=== PATIENT | male | born 1950 | race African-American/Black ===

== ENCOUNTER 2024-08-19 06:57 | Day surgery (SDC) | payer MEDICARE, MEDICAID, SELFPAY ==
[2024-08-19] VITALS (9 sets, daily range): BP systolic 113–131; BP diastolic 72–81; PULSE 73–92; RESP 13–20; TEMP 36.4–36.8; O2SAT 93–100; BMI 31.4
--- NOTE | 2024-08-19 07:00 | EKG_ITS ---
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
[2024-08-19 07:30] LABS: Basophils % (Auto) 1 % (0-2.5); Eosinophils # (Auto) 0.2 Thou/mm3 (0.0-0.5); Eosinophils % (Auto) 3 % (0-10); Hematocrit 34.2 % (41.0-53.0); Hemoglobin 11.8 g/dL (13.5-16.0); Immature Granulocytes % (Auto) 1 % (0-0); Immature Granulocytes Auto 0.09 Thou/mm3 (0.00-0.00); Lymphocytes # (Auto) 1.5 Thou/mm3 (1.0-4.8); Lymphocytes % (Auto) 22 % (10-50); Mean Corpuscular HGB Conc 34.5 g/dl (31.0-37.0); Mean Corpuscular Hemoglobin 30.7 pg (25.0-35.0); Mean Corpuscular Volume 89 fL (80-100); Monocytes # (Auto) 0.9 Thou/mm3 (0.0-0.8); Monocytes % (Auto) 13 % (0-12); Neutrophils # (Auto) 4.1 Thou/mm3 (1.8-7.7); Neutrophils % (Auto) 61 % (37-80); Nucleated Red Blood Cell % 0 /100 WBC (0); Platelet Count 277 Thou/mm3 (140-440); RDW Standard Deviation 43.8 fL (35.1-43.9); Red Blood Count 3.84 Miln/mm3 (4.50-5.90); White Blood Count 6.8 Thou/mm3 (3.8-10.6)
[2024-08-19 07:46] LABS: Anion Gap 7 (7-16); BUN/Creatinine Ratio 10 Ratio (12-20); Blood Urea Nitrogen 9 mg/dL (9-23); Calcium 9.8 mg/dL (8.3-10.6); Carbon Dioxide 26.8 mMol/L (20.0-31.0); Chloride 102 mMol/L (98-107); Creatinine (Component) 0.9 mg/dL (0.6-1.3); Glucose 100 mg/dL (74-106); Osmolality,Calculated 270 (275-295); Potassium 3.8 mMol/L (3.4-5.1); Sodium 136 mMol/L (136-145); eGFR > 60 See Note
[2024-08-19 07:49] LABS: Partial Thromboplastin Time 27.2 Seconds (22.0-36.0); Prothrombin Time 10.5 Seconds (9.0-12.2)
[2024-08-19] MEDS: LORazepam 2 MG/ML VIAL 1 MG IVP (10:32)
--- NOTE | 2024-08-19 12:27 | XR_ITS ---
Examination: AP chest single view Technique one AP upright portable chest single view Exam date and time: August 19, 2024 1300 hours INDICATIONS: Postop pacemaker insertion today. FINDINGS: Ventricular cardiac lead satisfactory position Mild enlargement cardiac contour with vascular congestion Edema and/or pneumonia in the left lung No pneumothorax IMPRESSION: Cardiac lead satisfactory position
--- NOTE | 2024-08-19 12:47 | PC.NURSE ---
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
--- NOTE | 2024-08-19 13:01 | PC.NURSE ---
1300 chest xray completed
[2024-08-19] MEDS: VANCOMYCIN/NS 500 MG IVPB 100 ML 100 MG IV (13:07)
--- NOTE | 2024-08-19 13:14 | PC.NURSE ---
1315 patient awake, alert, breathing unlabored, vancomycin ABX running, post op chest xray shows no pneumothorax, leads in satisfactory position, report given to Last DE LA CRUZ
--- NOTE | 2024-08-19 15:53 | PD.SUROPNT ---
Procedure Description 1. Successful implantation of single-chamber ICD or implantable cardiac defibrillator 2. Conscious sedation for 45 min MEDICAL TRANSPORT SPECIALIST:? Felipe Garcia MD HISTORY AND INDICATIONS:? 72-year-old male with a past medical history of developmental A-fib, mitral regurgitation, and severe systolic CHF with an EF of 30 to 35% mute as well as deaf but able to perform few ADLs including taking care of himself, IADL dependent, diabetes mellitus, hyperlipidemia, OCD, bipolar disorder is brought in for elective cardiac catheterization. Patient had a history of severe systolic congestive heart failure with an EF of 30 to 35%. Patient was treated with goal-directed medical therapy for at least 9 months but there was no improvement in the ejection fraction. Lexiscan stress test was performed which showed decreased uptake in the inferior and inferoseptal segments with stress suggesting possible ischemia. The cardiac catheterization showed normal coronaries and the patient has nonischemic cardiomyopathy with severely low ejection fraction with an EF of 30 to 35%, NYHA class II and did not improve with magna goal-directed medical therapy for almost 9 months to 1 year. Patient qualified for an ICD placement to prevent sudden cardiac with a class I indication as noted above. Patient legal guardian conservator was explained the risk benefits and alternatives of performing a cardiac attrition including the risks of bleeding, pneumothorax, pericardial effusion, infection, vascular injury, along with heart attack was provided the consent for the procedure. H&P updated and consent was signed prior to the procedure Cardiology was consulted as initial EKG showed complete heart block with a supraventricular escape rhythm of 29 bpm. Patient converted to NSR with treatment of hyperkalemia and later reverted into high degree 2:1 block and intermittent complete heart block. Given patient history of TAVR with intermittent heart block, a permanent pacemaker is indciated. DESCRIPTION OF PROCEDURE:? The patient was brought to cardiac catheterization laboratory where she was given total of 2 mg Versed and 100 mcg of fentanyl for sedation.? Left subclavian venogram performed and micropuncture was used to cannulate the left subclavian vein.? Two guidewires were introduced.? A linear incision was made with blunt dissection, a pocket was created.? Two sheaths were introduced 6-Tajik into the subclavian vein.? Atrial and ventricular leads advanced into the right atrial appendage and right ventricular apex respectively.? Active fixation leads screw-in technique was used to secure the leads and thresholds were excellent.? After obtaining satisfactory threshold, both leads were anchored to the pectoral fascia, 2-0 silk suture.? Subsequently,dual-chamber pacemaker generator, A---- pacemaker attached to the leads, placed in the pocket, secured to the fascia with 2-0 silk suture.? Subsequently, subcutaneous tissue was closed using 2-0 chromic continuous suture.? Skin was closed using linda.? The patient was given 1 gram of Ancef preprocedure.? The patient tolerated the operation well with no complications.? Details of device as follows:? [employer] device model -[employer] in [place] VR CAD [id number] Q with a serial number of [id number] [employer] ventricular lead -Durata [id number] 58 cm ventricular ICD lead with a serial number of [id number] ICD lead sensitivity for pacemaker as well as defib was set at 0.5 mV Device mode was VVI at a base rate of 60 bpm and a max rate of 110 bpm. VT zone was set per the biphasic shocks Detection criteria were set for VT at 188 7 bpm therapy of ATP x 3 followed by therapy with total of 4 shocks 36 J 40 J and 40 J x 2.. VF zone was set at 214 bpm with ATP x 1 with a total of 6 shocks with 36 J for the first shock, 40 J for the second as well as the next 4 shocks. The thresholds are as follows:? Ventricular capturing threshold 0.5 mVolts @ 0.4 ms,? Sensing 3.4 millivolts.? Lead impedance 540 ohms.? The patient is programmed VVI mode, baseline rate of 60 bpm, maximum track rate 130 beats bpm, Paced and Sensed AV delay of 225 ms. SUMMARY:? Successful implantation of single-chamber ICD or implantable cardiac defibrillator Surgeon Felipe Garcia MD Surgical Staff Operation Date: 08/19/24 11:00 <No data on this case meets the specified criteria>
== END 2024-08-19 14:30 | disposition home or self-care (01) ==
PROVIDERS: Referring Provider Internal Medicine Cardiovascular Disease; Visit Provider Internal Medicine Cardiovascular Disease
PROC: 0JH608Z Insertion of Defibrillator Generator into Chest Subcutaneous Tissue and Fascia, Open Approach (ICD-10-PCS; CPT 33249; principal; 2024-08-19 11:00)
DX: I44.2 Atrioventricular block, complete (principal); I48.91 Unspecified atrial fibrillation; E11.9 Type 2 diabetes mellitus without complications; E78.5 Hyperlipidemia, unspecified; E87.5 Hyperkalemia; F31.9 Bipolar disorder, unspecified; F42.9 Obsessive-compulsive disorder, unspecified; I42.8 Other cardiomyopathies; I50.22 Chronic systolic (congestive) heart failure; Z95.2 Presence of prosthetic heart valve
CPT/HCPCS: 33249; 36415; 80048; 85025; 85610; 85730; 93005; 99152; 99153; A4565; A4649; C1882; C1894; C1895; J0171; J0461; J0690; J1643; J2060; J2250; J2310; J2371; J3010; J3370; J3490; J1644

== ENCOUNTER 2025-03-02 11:19 | Inpatient (IN) | payer MEDICARE, MEDICAID, SELFPAY ==
[2025-03-02] VITALS (10 sets, daily range): BP systolic 106–135; BP diastolic 65–75; PULSE 78–96; RESP 16–30; TEMP 36.6–36.9; O2SAT 86–95; BMI 28.3
--- NOTE | 2025-03-02 12:38 | PD.EDSOB ---
ED SOB =RME/HPI General Chief Complaint: Shortness of Breath/Dyspnea Stated Complaint: LOW O2, DIFFICULTY BREATHING Time Seen by Provider: 03/02/25 12:05 Arrival date/time: 03/02/25 11:19 RME / HPI RME / HPI Narrative: 74 year old male who is deaf with history of epilepsy, intellectual disability, pulmonary fibrosis, COPD, diabetes, hyperlipidemia, bipolar disorder, prostate CA, BPH presents to the ED brought in by caregiver for evaluation of hypoxia today. Caregiver reports at baseline, patient's SPO2 ranges 88%-91% on 3L nasal cannula. However noted oxygen levels were lower than normal 2 days ago (84-86%) and followed up with store standards associate Dr. Brito. States oxygen was increased to continuos 4L and SPO2 was 92-93%. This morning noticed patient was again saturating 84-86% that did not improve after 1 hour, prompting ED visit. Caregiver reports patient does have a cough although not any worse than his normal. Also reports patient is able to get up and walk around with portable oxygen tank. Denies fevers, chills, appearance of chest pain, abdominal pain, n/v/d, or urinary symptoms. Related Data Home Medications ?Medication ?Instructions ?Recorded ?Confirmed cholecalciferol (vitamin D3) 50 2,000 unit PO BID 08/20/18 08/19/24 mcg (2,000 unit) capsule (Vitamin D3) divalproex 500 mg tablet,extended 2 tab PO HS 08/20/18 08/19/24 release 24 hr dutasteride 0.5 mg capsule 0.5 mg PO QDAY 08/20/18 08/19/24 (Avodart) ferrous sulfate 325 mg (65 mg 325 mg PO BID 08/20/18 08/19/24 iron) tablet fluvoxamine 100 mg tablet 150 mg PO HS 08/20/18 08/19/24 loratadine 10 mg tablet 10 mg PO PRN PRN Congestion 08/20/18 08/19/24 risperidone 2 mg tablet 2 mg PO HS 08/20/18 08/19/24 simvastatin 40 mg tablet 40 mg PO HS 08/20/18 08/19/24 albuterol sulfate 90 mcg/actuation 1 puff inhalation Q4HR PRN sob 07/22/24 08/19/24 aerosol inhaler (Ventolin HFA) metoprolol succinate 25 mg 12.5 mg PO QDAY 07/22/24 08/19/24 tablet,extended release 24 hr sacubitril 24 mg-valsartan 26 mg 1 tab PO BID 07/22/24 08/19/24 tablet (Entresto) omeprazole 40 mg capsule,delayed 40 mg PO QDAY 08/09/24 08/19/24 release Previous Rx's ?Medication ?Instructions ?Recorded apixaban 5 mg tablet 5 mg PO BID #60 tabs 06/07/23 Held on 08/19/24. Instructions: Resume on 08/21/24. may resume on Thursday08/21/2024 cephalexin 500 mg tablet 500 mg PO BID #14 tabs 08/19/24 Allergies Allergy/AdvReac Type Severity Reaction Status Date / Time No Known Allergies Allergy Verified 08/09/24 14:52 Review of Systems Review of Systems ROS Unobtainable: unobtainable due to medical condition Past Medical History Past Medical History NEUROLOGIC: Positive Neurological Disorders and Seizures CARDIAC: Positive Cardiac Disorders, Atrial Fibrillation, Hypercholesterolemia, Congestive Heart Failure and Hypertension RESPIRATORY: Positive Asthma and Bronchitis GASTROINTESTINAL: Positive Gastrointestinal Disorders and Gastroesophageal Reflux Disease GENITOURINARY: Positive Genitourinary Disorders, Prostate Cancer and Benign Prostatic Hyperplasia ENT: Positive Cataracts and Deafness ENDOCRINE: Positive Endocrine Disorders and Diabetes Mellitus Type 2 PSYCHO/SOCIAL: Positive Bipolar Disorder OTHER HISTORY: Positive Developmental Delay, Chemotherapy, Cancer and Prostate Cancer Surgical History SURGICAL: Positive Cardiac Catheterization and Angiogram Social History SMOKING STATUS: Never smoker ED Exam Narrative Physical exam: GENERAL APPEARANCE: Awake, smiling, no obvious distress, nontoxic appearing HEENT: NC, AT. MMM. EOMI, clear conjunctiva, oropharynx clear. NECK: Supple without lymphadenopathy. No stiffness or restricted ROM. HEART: Normal rate and regular rhythm, normal S1/S1, no m/r/g LUNGS: coarse rhonchi in all lung fowler, questional wheezing vs rhonchorous wheeze, wet cough noted. No crackles are heard. ABDOMEN: Soft, nontender, nondistended with good bowel sounds heard. BACK: No midline C/T/L spine pain or deformity, No CVAT, no obvious deformity. EXTREMITIES: Without cyanosis, clubbing or edema. MUSCULOSKELETAL: FROM of all major joints, no chest tenderness NEUROLOGICAL: Awake, CN not formally tested but appear grossly intact. Skin: Warm and dry without any rash. Course Quality Measures none Orders Category Date Time Status Bedside COVID-19 Antigen Test NOW Care 03/02/25 14:51 Active Bedside Influenza A&B Antigen Test NOW Care 03/02/25 14:51 Active EKG (ED ONLY) *Do not use* NOW Care 03/02/25 14:51 Completed EKG (ED Only) Stat Exams 03/02/25 14:51 Draft XR chest 1V Stat Exams 03/02/25 14:51 Completed BNP [B-Type Natriuretic Peptide] Stat Lab 03/02/25 15:13 Completed Blood Culture (Lab) Stat Lab 03/02/25 16:47 Ordered CBC Stat Lab 03/02/25 15:13 Completed CMP [Comprehensive Metabolic Panel] Stat Lab 03/02/25 15:13 Completed ALBUTEROL RT 0.5ml [Proventil Rt 0.5ml] Med 03/02/25 12:21 Discontinued 10 mg INH X1 ONE Azithromycin Inj [Zithromax Inj] 500 mg Med 03/02/25 16:47 Active Sodium Chloride 0.9% 250 ml [Ns] 250 ml IV X1 Sodium Chloride Rt Latisha 0.9% [NS Rt Latisha 0.9%] Med 03/02/25 12:21 Active 3 ml INH PRN PRN cefTRIAXone/D5w 1gm IV premix [Rocephin/D5w 1gm IV Med 03/02/25 16:47 Active premix] 1 gm in 50 ml IV X1 predniSONE Med 03/02/25 12:21 Discontinued 60 mg PO X1 ONE Reevaluation(s) Reevaluation #1: RN reports patient failed the road test, will order additional diagnostics. Time: 14:50 Vital Signs Vital signs: Vital Signs Temperature 98.3 F 03/02/25 11:30 Pulse Rate 87 03/02/25 11:30 Respiratory Rate 18 03/02/25 11:30 Blood Pressure 113/75 03/02/25 11:30 Pulse Oximetry (%) 91 L 03/02/25 11:30 Oxygen Delivery Method Nasal Cannula 03/02/25 11:30 Oxygen Flow Rate 6 03/02/25 11:30 Pulse ox is 91% on 6L nasal cannula which is adequate. Shortness of Breath / Dyspnea MDM Narrative MDM Narrative:: Gertrudis Glynn am scribing for and in the presence of Dr. Johnson. Patient data External records reviewed:: [facility] previous records (I reviewed H&P pn 08/19/2024 ) and Other (specify) (I reviewed halfway records ) Clinical information provided by:: post manager Social determinants that could affect healthcare access:: housing (halfway resident ) Patient has the following chronic illnesses:: deaf with history of epilepsy, intellectual disability, pulmonary fibrosis, COPD, diabetes, hyperlipidemia, bipolar disorder, prostate CA, BPH How is presenting disease/condition affected by chronic disease/condition?: exacerbated by Evaluation data The following diagnostics were reviewed and interpreted by me:: lab results, radiology exam(s) and EKG tracing(s) (EKG @ 1457 shows sinus rhythm, rate 98, widened QRS, right bundle branch block, no STEMI ) Lab and/or radiology exams considered but not ordered:: None Interpretation Summary: Ordering Physician: Tito Johnson MD Date of Service: 03/02/25 Procedure(s): XR chest 1V Accession Number(s): [id number] cc: Tito Johnson MD; Zacarias Roldan MD; Usama Mosqueda MD~ Examination: AP chest single view Technique one AP portable upright chest single view Exam date and time: March 02, 2025 at 1522 hours INDICATIONS: Shortness of breath chest pain beginning 2 days ago FINDINGS: Significant bilateral pneumonia Mild prominence left ventricle Unipolar ventricular cardiac lead satisfactory position Moderate vascular congestion IMPRESSION: Prominent bilateral pneumonia Dictated By: Zacarias Roldan MD Signed By: <Electronically signed by Zacarias Roldan MD in OV> 03/02/25 1537 Medications / Prescriptions Medications or Prescriptions considered but not ordered:: None Medication administrations:: Medication Administration History Azithromycin 500 mg/ Sodium (Chloride) 250 mls @ 250 mls/hr IV X1 ONE Stop: 03/02/25 17:46 Ceftriaxone Sodium/Dextrose (Rocephin/D5w 1gm Iv Premix) 1 gm in 50 mls @ 100 mls/hr IV X1 ONE Stop: 03/02/25 17:16 Sodium Chloride (Sodium Chloride Rt Latisha 0.9% 3 Ml Nebu) 3 ml INH PRN PRN PRN Reason: SOLN Stop: 04/01/25 12:20 Discontinued Medications Albuterol (Albuterol Rt 2.5 Mg/0.5 Ml Nebu) 10 mg INH X1 ONE Stop: 03/02/25 12:22 Last Admin: 03/02/25 12:52 Dose: 10 mg Documented By: DEBRA Comments: Scanner Not Working Prednisone (Prednisone 20 Mg Tablet) 60 mg PO X1 ONE Stop: 03/02/25 12:22 Last Admin: 03/02/25 13:03 Dose: 60 mg Documented By: DO See above Consultations Consultation(s) initiated? (list below): Yes Consultation #1 (Physician, Specialty, Details): I spoke with hospitalist Dr. Peguero regarding admission. Discussed patients PMHx, HPI, ED course, exam findings, labs, and radiology results. The hospitalist agree to accept the patient for admission. Time: 16:50 Diagnosis Shortness of Breath Differential Diagnosis: acute exacerbation of chronic obstructive airways disease, congestive heart failure and community acquired pneumonia Most likely diagnosis given after review of the tests above:: Multilobar pneumonia Hypoxia Respiratory distress Admission Indicated Admission indicated?: indicated Admission Request Was there a request for admission?: Yes Admission Attestation Admission request attestation: Discussed case with [] from Hospitalist service regarding admission. Discussed patients ED course, exam findings, labs, and radiology results. The Hospitalist [agrees,declines] to accept the patient for admission. Disposition Plan Disposition Plan: Admit Critical Care Time Critical Care Time Critical Care Time: Yes Total Critical Care Time (min.): 35 Attestation: The high probability of sudden, clinically significant deterioration in the patient's condition required the highest level of my preparedness to intervene urgently. The services I provided to this patient were to treat and/or prevent clinically significant deterioration. Services included the following: chart data review, reviewing nursing notes and/or old charts, documentation time, program consultant collaboration regarding findings and treatment options, medication orders and management, direct patient care, vital sign assessments and ordering, interpreting and reviewing diagnostic studies and lab tests. Aggregate critical care time includes only time during which I was engaged in work directly related to the patient's care, as described above, whether at bedside or elsewhere in the Emergency Department. It did not include time spent performing other reported procedures or the services of residents, students, nurses or physician assistants. Discharge Plan Plan Patient Disposition: Admit Acute Care w/in Hospital Prescriptions/Referrals Prescriptions/Med Rec: No Action simvastatin 40 mg Tablet 40 mg PO HS risperidone 2 mg Tablet 2 mg PO HS fluvoxamine 100 mg Tablet 150 mg PO HS Rx Instructions: 1 & 1/2 TAB AT HS ferrous sulfate 325 mg (65 mg iron) Tablet 325 mg PO BID divalproex 500 mg Tablet Extended Release 24 Hr 2 tab PO HS loratadine 10 mg Tablet 10 mg PO PRN PRN (Reason: Congestion) dutasteride [Avodart] 0.5 mg Capsule 0.5 mg PO QDAY cholecalciferol (vitamin D3) [Vitamin D3] 2,000 unit Capsule 2,000 unit PO BID apixaban 5 mg tablet 5 mg PO BID Qty: 60 0RF cephalexin 500 mg Tablet 500 mg PO BID Qty: 14 0RF metoprolol succinate 25 mg Tablet Extended Release 24 Hr 12.5 mg PO QDAY albuterol sulfate [Ventolin HFA] 90 mcg/actuation Hfa Aerosol Inhaler 1 puff INHALATION Q4HR PRN (Reason: sob) Entresto 24-26 mg Tablet 1 tab PO BID omeprazole 40 mg Capsule,Delayed Release(Dr/Ec) 40 mg PO QDAY Referrals: Usama Mosqueda MD [Primary Care Provider] - In 1 week Problem List Clinical Impression: Pneumonia, Hypoxia, Respiratory distress Patient/Caregiver Discharge Instructions Print Language: Romanian Stand Alone Forms: Missy Award Info., Patient Portal Info Letter
[2025-03-02] MEDS: ALBUTEROL RT 2.5 MG/0.5 ML NEBU 10 MG INH (12:52)
[2025-03-02] MEDS: predniSONE 20 MG TABLET 60 MG PO (13:03)
--- NOTE | 2025-03-02 14:51 | XR_ITS ---
Examination: AP chest single view Technique one AP portable upright chest single view Exam date and time: March 02, 2025 at 1522 hours INDICATIONS: Shortness of breath chest pain beginning 2 days ago FINDINGS: Significant bilateral pneumonia Mild prominence left ventricle Unipolar ventricular cardiac lead satisfactory position Moderate vascular congestion IMPRESSION: Prominent bilateral pneumonia
--- NOTE | 2025-03-02 14:51 | EKG_ITS ---
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1950 Requested By: Tito Johnson Order Number: [id number] Reading MD: Tito Johnson Measurements Intervals [place] Rate: 98 P: 54 [place]: 136 QRS: -60 QRSD: 153 T: 48 QT: 370 QTc: 473 Interpretive Statements SINUS RHYTHM WITH OCCASIONAL SUPRAVENTRICULAR PREMATURE COMPLEXES RIGHT BUNDLE BRANCH BLOCK [120+ ms QRS DURATION, UPRIGHT V1, 40+ ms S IN I/aVL/V4/V5/V6] LEFT ANTERIOR FASCICULAR BLOCK [QRS AXIS <= -45, QR IN I, RS IN II] POSSIBLE LEFT VENTRICULAR HYPERTROPHY [VOLTAGE CRITERIA PLUS LAE OR QRS WIDENING] POSSIBLE ANTEROSEPTAL MYOCARDIAL INFARCTION , OF INDETERMINATE AGE [30 ms Q WAVE IN V1-V4] Compared to ECG 08/19/2024 07:24:28 No significant changes /store/S0/[id number]
[2025-03-02 15:22] LABS: Basophils # (Auto) 0.1 Thou/mm3 (0.0-0.2); Basophils % (Auto) 1 % (0-2.5); Eosinophils # (Auto) 0.1 Thou/mm3 (0.0-0.5); Eosinophils % (Auto) 2 % (0-10); Hemoglobin 12.4 g/dL (13.5-16.0); Immature Granulocytes % (Auto) 1 % (0-0); Immature Granulocytes Auto 0.09 Thou/mm3 (0.00-0.00); Lymphocytes # (Auto) 1.4 Thou/mm3 (1.0-4.8); Lymphocytes % (Auto) 15 % (10-50); Mean Corpuscular HGB Conc 33.5 g/dl (31.0-37.0); Mean Corpuscular Hemoglobin 29.7 pg (25.0-35.0); Mean Corpuscular Volume 89 fL (80-100); Monocytes # (Auto) 0.5 Thou/mm3 (0.0-0.8); Monocytes % (Auto) 6 % (0-12); Neutrophils # (Auto) 7.1 Thou/mm3 (1.8-7.7); Neutrophils % (Auto) 76 % (37-80); Nucleated Red Blood Cell % 0 /100 WBC (0); Platelet Count 261 Thou/mm3 (140-440); RDW Standard Deviation 44.8 fL (35.1-43.9); Red Blood Count 4.18 Miln/mm3 (4.50-5.90); White Blood Count 9.4 Thou/mm3 (3.8-10.6)
[2025-03-02 15:44] LABS: Alanine Aminotransferase 34 U/L (10-49); Albumin, Serum 4.1 gm/dL (3.4-4.8); Albumin/Globulin Ratio 1.5 (1.2-2.2); Alkaline Phosphatase 71 U/L (46-116); Anion Gap 8 (7-16); Aspartate Amino Transferase 22 U/L (0-34); BUN/Creatinine Ratio 13 Ratio (12-20); Bilirubin,Total 0.2 mg/dL (0.3-1.2); Blood Urea Nitrogen 13 mg/dL (9-23); Calcium 9.9 mg/dL (8.3-10.6); Calcium (Corrected) 9.9 mg/dL (8.5-10.1); Carbon Dioxide 29.5 mMol/L (20.0-31.0); Chloride 102 mMol/L (98-107); Globulin 2.8 gm/dL (2.3-3.5); Glucose 121 mg/dL (74-106); Osmolality,Calculated 278 (275-295); Potassium 4.1 mMol/L (3.4-5.1); Sodium 139 mMol/L (136-145); Total Protein 6.9 gm/dL (5.7-8.2); eGFR > 60 See Note
[2025-03-02 15:45] LABS: B-Type Natriuretic Peptide < 20 pg/mL (0-100)
--- NOTE | 2025-03-02 17:43 | ESHP_ITS ---
<Statement entered by Harvinder Moore MD - 03/03/25 15:32> Senior Resident Attestation: I supervised/discussed management plan with pharmacy intern physician Dr. Melvin, and was involved in the care of this patient. I personally saw and examined the patient and discussed the assessment and plan with the entire medicine team, including my attending. I agree with the assessment and plan as documented. Patient is 74 years old male with past medical history of intellectual disability, OCD, intermittent explosive disorder, diabetes mellitus currently not on any treatment, hyperlipidemia, GERD, heart failure s/p ICD, COPD on 4 L oxygen, prostate carcinoma, seizures [facility] due to worsening oxygen saturation and shortness of breath. He was started on home oxygen approximately 2 years ago after he had pneumonia but never recovered completely and is followed by pill coater. Over the last several weeks his oxygen demand was increasing and today his oxygen saturation was below 90% and he was recommended to come to the emergency room. Vitals at the time of admission are within normal limits except for SpO2 91% with 6 L oxygen. Chest x- ray showed bilateral patchy infiltrates. Patient was admitted due to acute hypoxic respiratory failure for further management. Patient's care was discussed with attending physician, Dr. Peguero. Harvinder Moore MD PGY-2. Documentation for date of: 03/02/25 HPI History of Present Illness Chief complaint: Decreased saturations History of present illness: Patient had intellectual disability, deafness so most of the history is taken from the care provider A 74-year-old male who lives in a [facility]p since 2007 with significant past medical history of intellectual disability, deafness, OCD, intermittent explosive disorder, diabetes mellitus currently not on any treatment, hyperlipidemia, GERD, heart failure s/p ICD, COPD on 2 L oxygen, prostate carcinoma, seizures is brought to the hospital with chief complaints of decreased oxygen saturations noted on pulse oximeter. At baseline, patient is able to do his routine daily activities independently with minimal help and he is on 2 L oxygen since 6 months. Recently patient was seen by Dr. Brito in his office for a routine follow-up visit and recommended to use 3 L of oxygen as he was found to have low saturations and also recommended to go to the ED if his oxygen saturations worsen. On the day of the admission patient had mild difficulty in doing his routine daily activities, appeared fatigued and short of breath with the care provider and on pulse oximeter, patient was found to have saturations around 84 to 86% for which patient was brought to the hospital. Denies fever, cough, pedal edema, sick contacts, abdominal pain, burning micturition, nausea, vomiting. Last visit with the securities trader is in January and during this visit everything is normal per patient ED course: - Vitals at the time of admission are within normal limits except for SpO2 91% with 6 L oxygen - Labs at the time of admission are significant for hemoglobin 12.4, rest of the labs are within normal limits - EKG showed normal sinus rhythm with multiple ectopics - Chest x-ray showed bilateral patchy infiltrates, likely vascular congestion, AICD - Patient is given azithromycin, prednisone, ceftriaxone in the ED - Patient is admitted for acute hypoxic respiratory failure secondary to exacerbation of heart failure Past medical history: Diabetes mellitus, intellectual disability, deafness, OCD, intermittent explosive disorder, hyperlipidemia, GERD, heart failure status post AICD, COPD on 2 L oxygen, prostate cancer, seizures Past surgical history: AICD implant placement Social history: Lives in [facility] since 2007, denies smoking, alcohol, other illicit drug abuse Medication history: Divalproex, dutasteride, Entresto, fluvoxamine, metoprolol, risperidone, simvastatin Review of Systems Review of Systems ROS Unobtainable: unobtainable due to mental status Past Medical History Past Medical History NEUROLOGIC: Positive Neurological Disorders and Seizures CARDIAC: Positive Cardiac Disorders, Atrial Fibrillation, Hypercholesterolemia, Congestive Heart Failure and Hypertension RESPIRATORY: Positive Asthma and Bronchitis GASTROINTESTINAL: Positive Gastrointestinal Disorders and Gastroesophageal Reflux Disease GENITOURINARY: Positive Genitourinary Disorders, Prostate Cancer and Benign Prostatic Hyperplasia ENT: Positive Cataracts and Deafness ENDOCRINE: Positive Endocrine Disorders and Diabetes Mellitus Type 2 PSYCHO/SOCIAL: Positive Bipolar Disorder OTHER HISTORY: Positive Developmental Delay, Chemotherapy, Cancer and Prostate Cancer Surgical History SURGICAL: Positive Cardiac Catheterization and Angiogram Social History SMOKING STATUS: Never smoker Exam Vital Signs Temp Pulse Resp BP Pulse Ox O2 Del Method O2 Flow Rate 97.9 F 93 27 H 106/67 93 L Oxy Mask 10 03/02/25 16:00 03/02/25 16:00 03/02/25 16:00 03/02/25 16:00 03/02/25 16:00 03/02/25 16:03/02/25 16:00 Narrative Exam General: Awake. HEENT: Normocephalic, atraumatic, mucous membranes moist. Heart: Regular rate and rhythm, no murmurs. Noted ICD Lungs: Bilateral coarse crackles are heard. Mainly in the basal areas Abdomen: Soft, nondistended, nontender, positive bowel sounds. ?No guarding or rebound tenderness. Neurologic: no gross neurological deficit, and patient able to move all 4 extremities. Extremities: Mild trace bilateral pedal edema noted Skin: No rash or ecchymoses. Results: Labs 03/03/25 05:10 03/03/25 05:10 Labs: Short CBC 03/02/25 Range/Units 15:13 WBC 9.4 (3.8-10.6) Thou/mm3 Hgb 12.4 L (13.5-16.0) g/dL Hct 37.0 L (41.0-53.0) % Plt Count 261 (140-440) Thou/mm3 BMP 03/02/25 15:13 Sodium 139 Potassium 4.1 Chloride 102 Carbon Dioxide 29.5 BUN 13 Creatinine 1.0 Glucose 121 H Calcium 9.9 Liver Function 03/02/25 Range/Units 15:13 Total Bilirubin 0.2 L (0.3-1.2) mg/dL AST 22 (0-34) U/L ALT 34 (10-49) U/L Alkaline Phosphatase 71 (46-116) U/L Albumin 4.1 (3.4-4.8) gm/dL Quality Measures Quality Measures none Advance care planning discussed with:: legal surragate Medications Home Medications and Allergies Home Medications ?Medication ?Instructions ?Recorded ?Confirmed ?Type cholecalciferol (vitamin D3) 50 2,000 unit PO BID 04/0208/19/24 History mcg (2,000 unit) capsule (Vitamin D3) divalproex 500 mg tablet,extended 2 tab PO HS 08/20/18 03/02/25 History release 24 hr dutasteride 0.5 mg capsule 0.5 mg PO QDAY 08/20/18 History (Avodart) ferrous sulfate 325 mg (65 mg 325 mg PO BID 08/20/18 1 History iron) tablet fluvoxamine 100 mg tablet 150 mg PO HS 08/20/18 History loratadine 10 mg tablet 10 mg PO PRN PRN Congestion 08/20/18 03/02/25 History risperidone 2 mg tablet 2 mg PO HS 08/20/18 03/02/25 History simvastatin 40 mg tablet 40 mg PO HS 08/20/18 5 History albuterol sulfate 90 mcg/actuation 1 puff inhalation Q 4HR PRN sob 07/22/24 08/19/24 History aerosol inhaler (Ventolin HFA) metoprolol succinate 25 mg 12.5 mg PO QDAY 07/22/24 History tablet,extended release 24 hr sacubitril 24 mg-valsartan 26 mg 1 tab PO BID 07/22/24 03/02/25 History tablet (Entresto) omeprazole 40 mg capsule,delayed 40 mg PO QDAY 4 03/02/25 History release fluticasone propionate 50 1 spray intranasal BID aller gies 03/02/25 03/02/25 History mcg/actuation nasal spray,suspension (Allergy Relief (fluticasone)) furosemide 40 mg tablet 40 mg PO QDAY 03/02/2503/02 History Allergies Allergy/AdvReac Type Severity Reaction Status Date / Time No Known Allergies Allergy Verified 08/09/24 14:52 Visit Medications Acetaminophen (Acetaminophen 325 Mg Tablet) 650 mg PO Q6H PRN PRN Reason: Fever >101.5 Stop: 04/01/25 17:22 Atorvastatin Calcium (Atorvastatin Calcium 20 Mg Tablet) 40 mg PO HS CHRISTIANO Stop: 04/01/25 20:59 Azithromycin (Azithromycin 250 Mg Tablet) 500 mg PO QDAY CHRISTIANO Stop: 03/09/25 17:44 Divalproex Sodium (Divalproex Sod Dr 500 Mg Tablet.Dr) 1,000 mg PO HS CHRISTIANO Stop: 04/01/25 20:59 Enoxaparin Sodium (Enoxaparin Sod Inj 40 Mg/0.4 Ml Syringe) 40 mg SC QDAY CHRISTIANO Stop: 03/17/25 08:59 Furosemide (Furosemide Inj 10 Mg/Ml 4ml Vial) 40 mg IVP BIDD CHRISTIANO Stop: 04/01/25 17:59 Azithromycin 500 mg/ Sodium (Chloride) 250 mls @ 250 mls/hr IV X1 ONE Stop: 03/02/25 17:46 Magnesium Hydroxide (Milk Of Magnesia Susp 30 Ml Udc) 30 ml PO QDAY PRN; Protocol PRN Reason: CONSTIPATION Stop: 04/01/25 17:22 Metoprolol Succinate (Metoprolol Succinate Xl 25 Mg Tabcr) 12.5 mg PO QDAY CHRISTIANO Stop: 04/02/25 08:59 Ondansetron HCl (Ondansetron Inj 2 Mg/Ml Inj 2 Ml) 4 mg IV Q6H PRN; Protocol PRN Reason: NAUSEA OR VOMITING Stop: 04/01/25 17:22 Risperidone (Risperidone 1 Mg Tablet) 2 mg PO HS CHRISTIANO Stop: 04/01/25 20:59 Sodium Chloride (Sodium Chloride Rt Latisha 0.9% 3 Ml Nebu) 3 ml INH PRN PRN PRN Reason: SOLN Stop: 04/01/25 12:20 Discontinued Medications Albuterol (Albuterol Rt 2.5 Mg/0.5 Ml Nebu) 10 mg INH X1 ONE Stop: 03/02/25 12:22 Last Admin: 03/02/25 12:52 Dose: 10 mg Ceftriaxone Sodium/Dextrose (Rocephin/D5w 1gm Iv Premix) 1 gm in 50 mls @ 100 mls/hr IV X1 ONE Stop: 03/02/25 17:16 Prednisone (Prednisone 20 Mg Tablet) 60 mg PO X1 ONE Stop: 03/02/25 12:22 Last Admin: 03/02/25 13:03 Dose: 60 mg Assessment & Plan Plan A 74-year-old male who lives in a [facility] since 2007 with significant past medical history of intellectual disability, deafness, OCD, intermittent explosive disorder, diabetes mellitus currently not on any treatment, hyperlipidemia, GERD, heart failure s/p ICD, COPD on 2 L oxygen, prostate carcinoma, seizures is brought to the hospital with chief complaints of decreased oxygen saturations noted on pulse oximeter and admitted in the hospital for acute on chronic hypoxic respiratory failure secondary to heart failure exacerbation # Acute on chronic hypoxic respiratory failure # Secondary to heart failure exacerbation, HFrEF, EF 30 to 35% in 2022, s/p AICD # Nonischemic cardiomyopathy # Underlying COPD on 2 L oxygen - Brought to the hospital by care provider in view of low oxygen saturations noted on pulse oximeter - Patient noted to have fatigue and difficulty in doing his routine daily activities on the day of admission - At baseline, patient is using 2 L oxygen - At the time of admission noted to have 91% saturation with 6 L oxygen through nasal cannula - On physical examination, noted to have bilateral inspiratory crackles more in the basilar areas - EKG showed sinus rhythm with multiple ectopics - Chest x-ray showed bilateral moderate to severe vascular congestion - Tested negative for COVID, influenza - Echo in 2022 showed LV is normal in size with severe systolic dysfunction. Estimated EF is 30-35%. Plan - Echo ordered, patient is following with Dr. Garcia for heart failure - Oxygen titration as needed - Started on Lasix 40 Mg IV twice daily - Will continue metoprolol 12.5 Mg p.o. daily which is his home dose - Will restart Entresto tomorrow, based on his blood pressures - Started on cardiac diet and fluid restriction to 1500 mL - Strict input and output - Consulted Dr. Garcia, will follow his recommendations - Azithromycin 500 Mg p.o. daily and suspicion of possible underlying pneumonia which can be causing exacerbation of heart failure # History of diabetes mellitus - Per patient's care provider, patient had history of diabetes mellitus on treatment but later as his sugars are well-controlled, stopped treatment by his primary care provider - HbA1c is ordered # Hyperlipidemia -Patient is using simvastatin 40 Mg p.o. at bedtime - Started on atorvastatin 40 Mg at bedtime, will resume simvastatin after his medication and constipation # Normocytic normochromic anemia - Patient is using iron supplements at home - Will resume it on outpatient basis # History of seizures - Patient is using divalproex at home - Reported that patient did not have seizures in past couple of years - Restarted on divalproex # History of prostate cancer - Per patient's care provider patient had history of prostate cancer in 2014 underwent radiation therapy for 4 weeks - Following up with PCP and on dutasteride - Will resume dutasteride tomorrow after med rec is done Hospital Maintenance: Dispo: Tele DVT ppx: Lovenox GI ppx: not needed Diet: Cardiac IV lines: Peripheral Code status: FULL Patient plan of care was discussed with the attending physician, Dr. Peguero and senior resident Dr. Oscar Melvin, PGY1 Attending Provider Attestation/Addendum Gretta, Daria Peguero, DO, attest that I was physically present for the min portions of the service and evaluated the patient with the resident and I reviewed and discussed the case with the resident and agree with the resident's findings and plans of care as documented above Patient is a 74-year-old male with past medical history of developmental delay, prostate cancer, cardiomyopathy status post AICD, chronic hypoxic respiratory failure on 2 L nasal cannula, COPD, prostate cancer, seizures and psych disorder who was brought to the ED due to progressively worsening shortness of breath. Patient was brought in from his [facility] by his assembler unit. She states that the patient had recently seen his pill coater on Thursday and was recommended to come to the hospital if he had worsening symptoms of dyspnea and increased need for supplemental O2. Patient was usually using 2 L nasal cannula, but was increased to 4 L on Thursday. Chief Operating Engineer states that the patient appeared to be more labored and in distress this morning prompting her to come to the ED. Pulse ox appeared to be 84 to 86% prior to presentation. She denies any recent sick contacts in the [facility], fevers, chills, peripheral edema otherwise. Patient has not had any issues with urination either. He does not appear to have any pain which he is able to express at his baseline. Chest x-ray was done in the ED showing bilateral patchy infiltrates worse in the left lower lungs. Suspect that this is likely due to fluid overload versus pneumonia. Patient received 1 dose of steroids and antibiotics. He is currently on 10 L oxymask. Will admit to telemetry for further workup medical management of acute hypoxic respiratory failure, likely secondary to acute CHF exacerbation. Will order an echocardiogram and consult cardiology for further recommendations will start Lasix 40 mg IV twice daily, uptitrate as needed. Will place patient on fluid restrictions and measure strict I's and O's. Will also cover with empiric coverage of atypical pneumonia. Procalcitonin also pending.
[2025-03-02] MEDS: AZITHROMYCIN INJ 500 MG in SODIUM CHLORIDE 0.9% 250 ML 250 ML 250 MG IV (17:44)
[2025-03-02] MEDS: FUROSEMIDE INJ 10 MG/ML 4ML VIAL 40 MG IVP (17:44)
[2025-03-02] MEDS: cefTRIAXone/D5w 1gm IV premix 1 GM/50 ML BAG IV (17:45)
[2025-03-02 17:50] LABS: Collection Type, Urine Clean Catch; Squamous Epithelial Cell,Urine 0 /hpf (0-5)
[2025-03-02 17:54] LABS: Lactate (Lactic Acid) 3.3 mMol/L (0.4-2.0)
[2025-03-02 18:00] LABS: Bilirubin,Urine Negative (Negative); Blood,Urine Negative (Negative); Clarity,Urine Clear (Clear/Hazy); Color,Urine Lt-Yellow (Lt Yel-Yel); Glucose, Urine Negative (Negative); Ketones,Urine Negative (Negative); Leukocyte Esterase,Urine Negative (Negative); Nitrite,Urine Negative (Negative); PH,Urine 6.5 (5.0-7.0); Protein,Urine Negative (Neg - Trace); RBC,Urine 7 /hpf (0-3); Specific Gravity,Urine 1.013 (1.001-1.035); Urobilinogen,Urine Negative mg/dL (0.0-1.0); WBC,Urine 1 /hpf (0-5)
[2025-03-02 18:51] LABS: Procalcitonin < 0.04 ng/ml (0.0-0.49)
--- NOTE | 2025-03-02 20:29 | PC.NURSE ---
REPORT GIVEN TO NICOLE DE LA CRUZ AT TELE.
[2025-03-02 20:51] LABS: Reflex Lactate? Y
[2025-03-02 20:54] LABS: Allen Test Performed/OK; Base Excess 4 (-3-3); HCO3 29 mEq/L (20-26); Inspired O2, VO2 Liters 6 L/min; Inspired Oxygen, FIO2 21 %; O2 Saturation 92 % (91-98); PCO2 42 mmHg (32.0-48.0); PO2 60 mmHg (83-108); Puncture Site Right Radial; pH, Arterial 7.45 (7.35-7.45)
[2025-03-02] MEDS: ATORVASTATIN CALCIUM 20 MG TABLET 40 MG PO (21:10)
[2025-03-02] MEDS: risperiDONE 1 MG TABLET 2 MG PO (21:10)
[2025-03-02] MEDS: DIVALPROEX SOD DR 500 MG TABLET.DR 1000 MG PO (21:10)
[2025-03-02 21:33] LABS: Lactic Acid, 3 HR 3.8 mMol/L (0.4-2.0)
[2025-03-03] VITALS (15 sets, daily range): BP systolic 93–111; BP diastolic 61–66; PULSE 72–96; RESP 14–31; TEMP 36.1–36.5; O2SAT 92–99; BMI 27.2
--- NOTE | 2025-03-03 01:57 | PC.NURSE ---
Pt's HR 91 SR with BBB, Pt noverbal but he is awake and shows no signs of pain or discomfort. Dr. Albarran was made aware, new orders for pt, see orders.
--- NOTE | 2025-03-03 02:01 | EKG_ITS ---
[facility] Test Date: 2025-03-03 Pat Name: KIRT ROCHE [facility] Gender[facility] Top Flavor Attendant: ECOBN1 : 1950 Requested By: Deshaun Albarran Order Number: [id number] Reading MD: Deshaun Albarran Measurements Intervals [place] Rate: 83 P: 45 CO: 179 QRS: -60 QRSD: 139 T: 30 QT: 384 QTc: 454 Interpretive Statements SINUS RHYTHM MARKED LEFT AXIS DEVIATION RIGHT BUNDLE BRANCH BLOCK VOLTAGE CRITERIA FOR LVH POSSIBLE ANTEROSEPTAL MYOCARDIAL INFARCTION , OF INDETERMINATE AGE MODERATE T-WAVE ABNORMALITY, CONSIDER LATERAL ISCHEMIA Compared to ECG 03/02/2025 14:57:06 Left-axis deviation now present T-wave abnormality now present Possible ischemia now present Left anterior fascicular block no longer present Myocardial infarct finding still present /store/S0/[id number].pdf
[2025-03-03] MEDS: FUROSEMIDE INJ 10 MG/ML 4ML VIAL 40 MG IVP (05:00)
--- NOTE | 2025-03-03 05:05 | PC.NURSE ---
Pt's BP 98/64, okay to give lasix per Dr. Albarran.
[2025-03-03 05:32] LABS: Basophils % (Auto) 0 % (0-2.5); Eosinophils % (Auto) 0 % (0-10); Hematocrit 33.7 % (41.0-53.0); Hemoglobin 11.6 g/dL (13.5-16.0); Immature Granulocytes % (Auto) 1 % (0-0); Immature Granulocytes Auto 0.19 Thou/mm3 (0.00-0.00); Lymphocytes # (Auto) 1.3 Thou/mm3 (1.0-4.8); Lymphocytes % (Auto) 10 % (10-50); Mean Corpuscular HGB Conc 34.4 g/dl (31.0-37.0); Mean Corpuscular Hemoglobin 29.7 pg (25.0-35.0); Mean Corpuscular Volume 86 fL (80-100); Monocytes # (Auto) 1.1 Thou/mm3 (0.0-0.8); Monocytes % (Auto) 8 % (0-12); Neutrophils # (Auto) 10.5 Thou/mm3 (1.8-7.7); Neutrophils % (Auto) 80 % (37-80); Nucleated Red Blood Cell % 0 /100 WBC (0); Platelet Count 224 Thou/mm3 (140-440); RDW Standard Deviation 44.5 fL (35.1-43.9); White Blood Count 13.2 Thou/mm3 (3.8-10.6)
[2025-03-03 06:14] LABS: Alanine Aminotransferase 25 U/L (10-49); Albumin, Serum 3.9 gm/dL (3.4-4.8); Albumin/Globulin Ratio 1.4 (1.2-2.2); Alkaline Phosphatase 62 U/L (46-116); Anion Gap 10 (7-16); Aspartate Amino Transferase 21 U/L (0-34); BUN/Creatinine Ratio 17 Ratio (12-20); Bilirubin,Total 0.2 mg/dL (0.3-1.2); Blood Urea Nitrogen 17 mg/dL (9-23); Calcium 9.8 mg/dL (8.3-10.6); Calcium (Corrected) 9.9 mg/dL (8.5-10.1); Carbon Dioxide 24.4 mMol/L (20.0-31.0); Cardiac Risk Estimate 7.3 RATIO (4.0-6.7); Chloride 104 mMol/L (98-107); Cholesterol 183 mg/dL (132-200); Estimated Creatinine Clearance 68.4 mL/min (>60); Globulin 2.7 gm/dL (2.3-3.5); Glucose 99 mg/dL (74-106); HDL Cholesterol 25 mg/dL (40-60); LDL Cholesterol,Calculated 127 mg/dL (0-130); Magnesium 1.8 mg/dL (1.6-2.6); Osmolality,Calculated 277 (275-295); Sodium 138 mMol/L (136-145); Thyroid Stimulating Hormone 2.29 uIU/mL (0.55-4.78); Total Protein 6.6 gm/dL (5.7-8.2); Triglycerides 155 mg/dL (30-150); eGFR > 60 See Note
[2025-03-03 06:16] LABS: Glucose Estimated Average 131 mg/dL (80-131); Hemoglobin A1C 6.2 % Hgb (4.8-6.0)
--- NOTE | 2025-03-03 08:44 | PD.RESCONSUL ---
HPI Data of Consult Requesting Physician: Daria Peguero DO Admitting Provider: Daria Peguero DO Attending Provider: Daria Peguero DO Primary Care Provider: Usama Mosqueda MD Consult Narrative History of present illness: A 72-year-old male with a past medical history of developmental delay with some mental retardation, mute as well as deaf but able to do few daily ADLs including taking care of himself, diabetes mellitus, hyperlipidemia, OCD, bipolar disorder lives in a [facility] was brought into the emergency department for due to hypoxia. For the past week patient has been having decreased O2 saturations in the [facility] patient saw termite technician recommended antibiotics and increased in oxygen requirement suspecting pneumonia. However for the past 3 days patient's O2 saturations have not improved below 88%. Negative Spotter recommended the patient go to the ER for for evaluation. Patient lives in a mcc and has a history of developmental delay along with some mental retardation and bipolar disorder with deafness also is mute and does not speak much as per the history. Most of the history was obtained by caregiver at bedside. Which corroborated with the story of patient's hypoxemia. Patient also follows Dr. Garcia, chief operating engineer, patient was placed on an ICD on 08/19/2024 due to HFrEF with an EF 25%. Since then patient has been stable from a cardiovascular perspective. Patient was started on diuretic medication 2 weeks ago. Patient has been diuresing well. Caregiver at bedside denies any leg swelling. In the emergency department patient blood pressure was 113/75 O2 saturation 91 with nasal cannula O2 supplementation of 6 L. Labs showed elevated WBCs. Hemoglobin was 11.6 creatinine was 1.0 BNP was less than 20 procalcitonin was less than 0.04. X-ray showed significant bilateral pneumonia. Past medical history as noted above Past surgical history: Unable to obtain Family history: Unable to obtain Social history: No alcohol or tobacco or drug abuse as per the mcc records Allergies: Unknown cc:: cc: Daria Peguero DO Exam Vital Signs Temp Pulse Resp BP Pulse Ox O2 Del Method O2 Flow Rate 96.9 F 82 19 109/61 92 L Nasal Cannula 8 03/03/25 07:51 03/03/25 07:51 03/03/25 07:51 03/03/25 07:51 03/03/25 07:51 03/03/25 07:51 03/03/25 07:51 Results Labs 03/04/25 05:40 03/04/25 05:40 Labs: Short CBC 03/02/25 03/03/25 Range/Units 15:13 05:10 WBC 9.4 13.2 H D (3.8-10.6) Thou/mm3 Hgb 12.4 L 11.6 L (13.5-16.0) g/dL Hct 37.0 L 33.7 L (41.0-53.0) % Plt Count 261 224 D (140-440) Thou/mm3 BMP 03/02/25 03/03/25 15:13 05:10 Sodium 139 138 Potassium 4.1 5.0 D Chloride 102 104 Carbon Dioxide 29.5 24.4 BUN 13 17 Creatinine 1.0 1.0 Glucose 121 H 99 Calcium 9.9 9.8 Liver Function 03/02/25 03/03/25 Range/Units 15:13 05:10 Total Bilirubin 0.2 L 0.2 L (0.3-1.2) mg/dL AST 22 21 (0-34) U/L ALT 34 25 (10-49) U/L Alkaline Phosphatase 71 62 (46-116) U/L Albumin 4.1 3.9 (3.4-4.8) gm/dL Urine 03/02/25 Range/Units 17:47 Urine Color Lt-Yellow (Lt Yel-Yel) Urine Clarity Clear (Clear/Hazy) Urine pH 6.5 (5.0-7.0) Ur Specific Peck 1.013 (1.001-1.035) Urine Protein Negative (Neg - Trace) Urine Glucose (UA) Negative (Negative) ABG Interpretation ABG results: 03/02/25 20:40 ABG pH 7.45 ABG pCO2 42 ABG pO2 60 L ABG HCO3 29 H ABG O2 Saturation 92 ABG Base Excess 4 H Quality Measures Quality Measures none Advance care planning discussed with:: patient and other (director long term care) Medications Home Medications and Allergies Home Medications ?Medication ?Instructions ?Recorded ?Confirmed ?Type cholecalciferol (vitamin D3) 50 2,000 unit PO BID 08/20/18 08/19/24 History mcg (2,000 unit) capsule (Vitamin D3) divalproex 500 mg tablet,extended 2 tab PO HS 08/20/18 03/02/25 History release 24 hr dutasteride 0.5 mg capsule 0.5 mg PO QDAY 08/20/18 03/02/25 History (Avodart) ferrous sulfate 325 mg (65 mg 325 mg PO BID 08/20/18 08/19/24 History iron) tablet fluvoxamine 100 mg tablet 150 mg PO HS 08/20/18 03/02/25 History loratadine 10 mg tablet 10 mg PO PRN PRN Congestion 08/20/18 03/02/25 History risperidone 2 mg tablet 2 mg PO HS 08/20/18 03/02/25 History simvastatin 40 mg tablet 40 mg PO HS 08/20/18 03/02/25 History albuterol sulfate 90 mcg/actuation 1 puff inhalation Q4HR PRN sob 07/22/24 08/19/24 History aerosol inhaler (Ventolin HFA) metoprolol succinate 25 mg 12.5 mg PO QDAY 07/22/24 03/02/25 History tablet,extended release 24 hr sacubitril 24 mg-valsartan 26 mg 1 tab PO BID 07/22/24 03/02/25 History tablet (Entresto) omeprazole 40 mg capsule,delayed 40 mg PO QDAY 08/09/24 03/02/25 History release fluticasone propionate 50 1 spray intranasal BID allergies 03/02/25 03/02/25 History mcg/actuation nasal spray,suspension (Allergy Relief (fluticasone)) furosemide 40 mg tablet 40 mg PO QDAY 03/02/25 03/02/25 History Allergies Allergy/AdvReac Type Severity Reaction Status Date / Time No Known Allergies Allergy Verified 08/09/24 14:52 Visit Medications Acetaminophen (Acetaminophen 325 Mg Tablet) 650 mg PO Q6H PRN PRN Reason: Fever >101.5 Stop: 04/01/25 17:22 Atorvastatin Calcium (Atorvastatin Calcium 20 Mg Tablet) 40 mg PO HS [facility] Stop: 04/01/25 20:59 Last Admin: 03/02/25 21:10 Dose: 40 mg Azithromycin (Azithromycin 250 Mg Tablet) 500 mg PO QDAY [facility] Stop: 03/09/25 17:44 Last Admin: 03/02/25 19:20 Dose: Not Given Divalproex Sodium (Divalproex Sod Dr 500 Mg Tablet.) 1,000 mg PO HS [facility] Stop: 04/01/25 20:59 Last Admin: 03/02/25 21:10 Dose: 1,000 mg Enoxaparin Sodium (Enoxaparin Sod Inj 40 Mg/0.4 Ml Syringe) 40 mg SC QDAY [facility] Stop: 03/17/25 08:59 Furosemide (Furosemide Inj 10 Mg/Ml 4ml Vial) 40 mg IVP BIDD [facility] Stop: 04/01/25 17:59 Last Admin: 03/03/25 05:00 Dose: 40 mg Ceftriaxone Sodium/Dextrose (Rocephin/D5w 1gm Iv Premix) 1 gm in 50 mls @ 100 mls/hr IV QDAY [facility] Stop: 03/10/25 09:59 Magnesium Hydroxide (Milk Of Magnesia Susp 30 Ml Udc) 30 ml PO QDAY PRN; Protocol PRN Reason: CONSTIPATION Stop: 04/01/25 17:22 Metoprolol Succinate (Metoprolol Succinate Xl 25 Mg Tabcr) 12.5 mg PO QDAY [facility] Stop: 04/02/25 08:59 Ondansetron HCl (Ondansetron Inj 2 Mg/Ml Inj 2 Ml) 4 mg IV Q6H PRN; Protocol PRN Reason: NAUSEA OR VOMITING Stop: 04/01/25 17:22 Risperidone (Risperidone 1 Mg Tablet) 2 mg PO [facility] Stop: 04/01/25 20:59 Last Admin: 03/02/25 21:10 Dose: 2 mg Sodium Chloride (Sodium Chloride Rt Latisha 0.9% 3 Ml Nebu) 3 ml INH PRN PRN PRN Reason: SOLN Stop: 04/01/25 12:20 Discontinued Medications Albuterol (Albuterol Rt 2.5 Mg/0.5 Ml Nebu) 10 mg INH X1 ONE Stop: 03/02/25 12:22 Last Admin: 03/02/25 12:52 Dose: 10 mg Azithromycin 500 mg/ Sodium (Chloride) 250 mls @ 250 mls/hr IV X1 ONE Stop: 03/02/25 17:46 Last Infusion: 03/02/25 18:44 Dose: Infused Ceftriaxone Sodium/Dextrose (Rocephin/D5w 1gm Iv Premix) 1 gm in 50 mls @ 100 mls/hr IV X1 ONE Stop: 03/02/25 17:16 Last Infusion: 03/02/25 18:15 Dose: Infused Prednisone (Prednisone 20 Mg Tablet) 60 mg PO X1 ONE Stop: 03/02/25 12:22 Last Admin: 03/02/25 13:03 Dose: 60 mg Assessment & Plan Plan A 74-year-old male with a past medical history of developmental delay with some mental retardation, mute as well as deaf but able to do few daily ADLs including taking care of himself, diabetes mellitus, hyperlipidemia, OCD, bipolar disorder lives in a mcc was brought into the emergency department for 3 days of hypoxia secondary to community-acquired pneumonia. #Acute hypoxic respiratory failure secondary to community-acquired pneumonia Assessment: Patient presented due to shortness of breath and hypoxia requiring O2 supplementation review of x-ray shows significant bilateral pneumonia. Etiology of the hypoxia likely driven due to the pneumonia no signs of decompensated heart failure at this time patient is euvolemic. No JVD noted no significant bilateral lower extremity edema noted. Recommendations: - Continue aggressive broad-spectrum IV antibiotics - Recommend CT chest without contrast to further evaluate patient pneumonia. #History HFrEF s/p ICD placement, compensated (EF 35%) Assessment: Patient presented about a year ago due to new onset heart failure. Echocardiogram at that time showed an EF of 35% with multiple regional wall motion abnormality could be secondary to left bundle branch at that time. The decision was made to place a ICD on 08/2024 Currently patient is euvolemic with a BNP less than 20. No troponin elevation. The etiology of the hypoxia seems to be more driven due to the pneumonia rather than an acute suspicion of heart failure. Recmmendations: Continue home metoprolol of 12.5 mg daily, Lasix 40 mg p.o. daily, Entresto 1 tab twice daily. Strict input output, daily weights and 2 g sodium diet. Maintain Mg >2 and K >4 #History of atrial fibrillation: Rate controlled Recommendations: Continue metoprolol XL 12.5 mg once daily for rate control Continue home Eliquis of 5 mg twice daily. Management of rest of the medical conditions as per primary team and other consultants. Thank you for the consult and allowing me to participate in the care of the patient. Cardiology will continue to follow. - Patient's care was discussed with my attending physician, Dr. Jose Farrar MD Internal Medicine PGY-3 Attending Provider Attestation/Addendum I have personally seen and examined the patient separately on the above date of service and discussed the plan of care with the resident. I reviewed the resident Dr. Gabino Farrar consultation progress note and agree with the resident findings and plan in the note above and have also edited the documentation to reflect my findings and plan. Patient well-known to me and follows up with me in the clinic for last 2 years 72-year-old male with a past medical history of developmenta delay, paroxysmal A-fib, severe systolic CHF with an EF of 30 to 35% which did not improve with goal-directed medical therapy status post ICD placement in August 2024, nonischemic cardiomyopathy with normal LHC in 2023, mute as well as deaf but able to perform few ADLs including taking care of himself, IADL dependent, diabetes mellitus, hyperlipidemia, OCD, bipolar disorder presented to the emergency department for further evaluation of hypoxia. Patient has been having worsening shortness of breath for the past week or so.and he did visit his termite technician and his oxygen requirements continued to increase. He was recommended by the termite technician if saturations would not improve and continues to be less than 88% to go to the emergency department. Patient as noted above has developmental delay and mute and deaf and cannot provide any significant history and awning erector has provided the history. He did see me last in the clinic 3 weeks ago at which time his Lasix was increased from 20 mg to 40 mg once daily and he was continued on all his goal-directed medical therapy medications. In the emergency department patient blood pressure was normal at 113/75 mmHg. Saturations were less than 88% on room air and now around 92% on 6 L nasal cannula. Labs showed initially normal WBC but later on increased to 13.4, hemoglobin stable around low 1.8 and platelets were normal. Kidney function was normal. Lactate was normal LFTs were normal. TSH normal and TG 155, cholesterol 183, LDL 127, HDL 27, procalcitonin normal at less than 0.04 EKG showed sinus rhythm with frequent PACs and right bundle branch block along with LVH. Chest x-ray showed significant bilateral pneumonia and questionable vascular congestion. Cardiology was consulted for possible CHF exacerbation given the hypoxia. 1. Acute respiratory failure with unclear etiology-mostly secondary to possible bilateral pneumonia 2. Chronic severe systolic congestive heart failure with an EF of 30 to 35% and patient does not appear to be fluid overloaded. 3. Nonischemic cardiomyopathy status post AICD placement in August 2024 4. Paroxysmal atrial fibrillation Patient seen and examined the bedside and patient is significantly hypoxic and requiring at least 6 L of oxygen via nasal cannula and saturations are only 92%. BNP was less than 20 and he has no peripheral edema. On examination he does not have any kind of JVD. Overall patient appears to be euvolemic or even mildly hypovolemic at the present point of time. Recommend no diuresis at the present point of time and hold Lasix for now. Recommend CT chest for further evaluation of the possible bilateral pneumonia. Patient appears to have possible ARDS from unclear etiology. Recommend aggressive treatment of the hypoxic respiratory failure as per the primary team. Patient is on goal-directed medical therapy with Entresto as well as metoprolol XL as well as Lasix at home all of which can be held except for the metoprolol XL for rate control and also the frequent PACs. Can restart rest of the GDMT at a later point of time then blood pressure is more stable. Prescription opiate elevated to group to date. He does have a history of paroxysmal atrial fibrillation and is on metoprolol XL as well as Eliquis. Continue metoprolol XL. Can hold Eliquis for now if any procedures planned for the patient otherwise can continue anticoagulation. He continues to be in normal sinus rhythm with frequent PACs for now. Keep potassium greater than 4 and magnesium greater than 2.0 at all times. Management of rest of the medical conditions as per primary team and other consultants. Thank you for the consult and allowing me to participate in the care of the patient. Cardiology will continue to follow. Felipe Garcia M.D. Interventional Cardiology
[2025-03-03] MEDS: METOPROLOL SUCCINATE XL 25 MG TABCR 12.5 MG PO (08:58)
[2025-03-03] MEDS: AZITHROMYCIN 250 MG TABLET 500 MG PO (08:58)
[2025-03-03] MEDS: ENOXAPARIN SOD INJ 40 MG/0.4 ML SYRINGE SC (08:59)
[2025-03-03] MEDS: cefTRIAXone/D5w 1gm IV premix 1 GM/50 ML BAG IV (10:34)
--- NOTE | 2025-03-03 11:21 | PC.SS ---
Patient KIRT Renteria is a 74 Year old male admitted for Acute Hypoxic Respiratory Failure. SS met with patient's animal care worker at bedside, patient resides at [facility] patient is conserved through [facility] and [facility]. [facility] owner/operator to contact is Pretty Perry [phone]. Patient does not utilize any source of DME to assist with ambulation patient utilizes home 02 at 4l continuously. Altagracia is able to complete all ADL's independently. Choice of pharmacy is [facility] in [place]. Patient will return back to [facility], they will provide transportation. Discharge Plan [facility] Next of Kin: [facility]
[2025-03-03] MEDS: BUMETANIDE INJ 0.25 MG/ML VIAL 4 ML 2 MG IVP ×2 (11:45→20:36)
[2025-03-03] MEDS: DUTASTERIDE 0.5 MG CAPSULE (NON-FORMULARY) PO (11:49)
--- NOTE | 2025-03-03 12:01 | PC.SS ---
SS follow up note; Patient is on IV Lasix due to fluid overload, patient will discharge to [facility] when medically cleared.
--- NOTE | 2025-03-03 13:21 | ESPR_ITS ---
<Statement entered by Harvinder Moore MD - 03/04/25 12:39> Senior Resident Attestation: I supervised/discussed management plan with chief of internal medicine physician Dr. Melvin, and was involved in the care of this patient. I personally saw and examined the patient and discussed the assessment and plan with the entire medicine team, including my attending. I agree with the assessment and plan as documented. Patient was started on Bumex 2 mg twice daily IV. Will continue ceftriaxone and azithromycin for possible pneumonia. He remains on facemask oxygen. He does not have any complaints today. Will continue current management. Patient's care was discussed with attending physician, Dr. Peguero. Harvinder Moore MD PGY-2. Documentation for date of: 03/03/25 Subjective Subjective Interval history: Patient is seen and examined with care provider at bedside No acute overnight events. Patient is not able to tell any complaints Vitals are stable. On physical examination, bilateral diffuse crepitus heard on bilateral lungs Patient found to have 200 mL of urine output since he was transferred to telemetry. Recommended to insert condom catheter and monitor output Changed furosemide 40 Mg twice daily to Bumex 2 mg IV twice daily. Resume his home Eliquis 5 Mg p.o. twice daily for paroxysmal atrial fibrillation Consulted his php mysql developer, Dr. Garcia, will follow his recommendations Echocardiography is still pending Exam Vital Signs Temp Pulse Resp BP Pulse Ox O2 Del Method O2 Flow Rate 96.9 F 83 19 101/62 92 L Nasal Cannula 8 03/03/25 07:51 03/03/25 11:45 03/03/25 07:51 03/03/25 11:45 03/03/25 07:51 03/03/25 07:51 03/03/25 07:51 Narrative Exam General: Awake. deaf and mute HEENT: Normocephalic, atraumatic, mucous membranes moist. Heart: Regular rate and rhythm, no murmurs. Noted ICD Lungs: Bilateral coarse crackles are heard. Mainly in the basal areas Abdomen: Soft, nondistended, nontender, positive bowel sounds. ?No guarding or rebound tenderness. Neurologic: no gross neurological deficit, and patient able to move all 4 extremities. Extremities: Mild trace bilateral pedal edema noted Skin: No rash or ecchymoses. Objective Labs 03/04/25 05:40 03/04/25 05:40 Labs: Laboratory Results - last 24 hr 03/02/25 03/02/25 03/02/25 15:13 17:36 17:47 WBC 9.4 RBC 4.18 L Hgb 12.4 L Hct 37.0 L MCV 89 MCH 29.7 MCHC 33.5 RDW Std Deviation 44.8 H Plt Count 261 Neut % (Auto) 76 Lymph % (Auto) 15 [place] % (Auto) 6 Eos % (Auto) 2 Baso % (Auto) 1 Neut # (Auto) 7.1 Lymph # (Auto) 1.4 [place] # (Auto) 0.5 Eos # (Auto) 0.1 Baso # (Auto) 0.1 Immature Gran # (Auto) 0.09 H Absolute Nucleated RBC 0.00 Immature Gran % 1 H Nucleated RBC % 0 Puncture Site ABG pH ABG pCO2 ABG pO2 ABG HCO3 ABG O2 Saturation ABG Base Excess Oxygen Liter Flow FiO2 Sodium 139 Potassium 4.1 Chloride 102 Carbon Dioxide 29.5 Anion Gap 8 BUN 13 Creatinine 1.0 Estim Creat Clear Calc Not Performed. eGFR > 60 BUN/Creatinine Ratio [address] Glu mg/dL Hemoglobin A1c Calculated Osmolality 278 Lactic Acid 3.3 H Calcium 9.9 Corrected Calcium 9.9 Magnesium Total Bilirubin 0.2 L AST 22 ALT 34 Alkaline Phosphatase 71 B-Natriuretic Peptide < 20 Total Protein 6.9 Albumin 4.1 Globulin 2.8 Albumin/Globulin Ratio 1.5 Triglycerides Cholesterol LDL Cholesterol, Calc HDL Cholesterol Cholesterol/HDL Ratio Procalcitonin < 0.04 TSH Ur Collection Type Clean Catch Urine Color Lt-Yellow Urine Clarity Clear Urine pH 6.5 Ur Specific [place] 1.013 Urine Protein Negative Urine Glucose (UA) Negative Urine Ketones Negative Urine Blood Negative Urine Nitrite Negative Urine Bilirubin Negative Urine Urobilinogen (Auto) Negative Ur Leukocyte Esterase Negative Urine RBC 7 H Urine WBC 1 Ur Squamous Epith Cells 0 Urine Bacteria None 03/02/25 03/02/25 03/03/25 20:40 21:25 05:10 WBC 13.2 H D RBC 3.90 L Hgb 11.6 L Hct 33.7 L MCV 86 MCH 29.7 MCHC 34.4 RDW Std Deviation 44.5 H Plt Count 224 D Neut % (Auto) 80 Lymph % (Auto) 10 [place] % (Auto) 8 Eos % (Auto) 0 Baso % (Auto) 0 Neut # (Auto) 10.5 H Lymph # (Auto) 1.3 [place] # (Auto) 1.1 H Eos # (Auto) 0.0 Baso # (Auto) 0.0 Immature Gran # (Auto) 0.19 H Absolute Nucleated RBC 0.00 Immature Gran % 1 H Nucleated RBC % 0 Puncture Site Right Radial ABG pH 7.45 ABG pCO2 42 ABG pO2 60 L ABG HCO3 29 H ABG O2 Saturation 92 ABG Base Excess 4 H Oxygen Liter Flow 6 FiO2 21 Sodium 138 Potassium 5.0 D Chloride 104 Carbon Dioxide 24.4 Anion Gap 10 BUN 17 Creatinine 1.0 Estim Creat Clear Calc 68.4 eGFR > 60 BUN/Creatinine Ratio [address] Glu mg/dL 131 Hemoglobin A1c 6.2 H Calculated Osmolality 277 Lactic Acid 3.8 H 2.0 Calcium 9.8 Corrected Calcium 9.9 Magnesium 1.8 Total Bilirubin 0.2 L AST 21 ALT 25 Alkaline Phosphatase 62 B-Natriuretic Peptide Total Protein 6.6 Albumin 3.9 Globulin 2.7 Albumin/Globulin Ratio 1.4 Triglycerides 155 H Cholesterol 183 LDL Cholesterol, Calc 127 HDL Cholesterol 25 L Cholesterol/HDL Ratio 7.3 H Procalcitonin TSH 2.29 Ur Collection Type Urine Color Urine Clarity Urine pH Ur Specific [place] Urine Protein Urine Glucose (UA) Urine Ketones Urine Blood Urine Nitrite Urine Bilirubin Urine Urobilinogen (Auto) Ur Leukocyte Esterase Urine RBC Urine WBC Ur Squamous Epith Cells Urine Bacteria ABG Interpretation ABG results: 03/02/25 20:40 ABG pH 7.45 ABG pCO2 42 ABG pO2 60 L ABG HCO3 29 H ABG O2 Saturation 92 ABG Base Excess 4 H Quality Measures Quality Measures none Advance care planning discussed with:: legal surragate Assessment & Plan Assessment Current Active Medications: Generic Name Dose Route Start Last Admin Trade Name Freq PRN Reason Stop Dose Admin Acetaminophen 650 mg 03/02/25 17:23 Acetaminophen 325 Mg Tablet PO 04/01/25 17:22 Q6H PRN Fever >101.5 Apixaban 5 mg 03/03/25 21:00 Apixaban 2.5 Mg Tablet PO 04/02/25 20:59 BID CHRISTIANO Atorvastatin Calcium 10 mg 03/03/25 21:00 Atorvastatin Calcium 10 Mg Tablet PO 04/02/25 20:59 HS CHRISTIANO Azithromycin 500 mg 03/02/25 17:45 03/03/25 08:58 Azithromycin 250 Mg Tablet PO 03/09/25 17:44 500 mg QDAY CHRISTIANO Administration Bumetanide 2 mg 03/03/25 10:45 03/03/25 11:45 Bumetanide Inj 0.25 Mg/Ml Vial 4 Ml IVP 04/02/25 10:44 2 mg BID CHRISTIANO Administration Divalproex Sodium 1,000 mg 03/02/25 21:00 03/02/25 21:[address] 500 Mg Tablet.Dr PO 04/01/25 20:59 1,000 mg HS CHRISTIANO Administration Dutasteride 0.5 mg 03/03/25 09:00 03/03/25 11:49 Dutasteride 0.5 Mg Capsule (Non-Formulary) PO 04/02/25 08:59 0.5 mg QDAY CHRISTIANO Administration Ceftriaxone Sodium/Dextrose 1 gm in 50 mls @ 100 mls/hr 03/03/25 10:00 03/03/25 10:34 Rocephin/D5w 1gm Iv Premix IV 03/10/25 09:59 100 mls/hr QDAY CHRISTIANO Administration Magnesium Hydroxide 30 ml 03/02/25 17:23 Milk Of Magnesia Susp 30 Ml Udc PO 04/01/25 17:22 QDAY PRN CONSTIPATION Protocol Metoprolol Succinate 12.5 mg 03/03/25 09:00 03/03/25 08:58 Metoprolol Succinate Xl 25 Mg Tabcr PO 04/02/25 08:59 12.5 mg QDAY CHRISTIANO Administration Ondansetron HCl 4 mg 03/02/25 17:23 Ondansetron Inj 2 Mg/Ml Inj 2 Ml IV 04/01/25 17:22 Q6H PRN NAUSEA OR VOMITING Protocol (Fluvoxamine 100 Mg 1.5 ea 03/03/25 21:00 Tablet) PO 04/02/25 20:59 HS CHRISTIANO Protocol Risperidone 2 mg 03/02/25 21:00 03/02/25 21:10 Risperidone 1 Mg Tablet PO 04/01/25 20:59 2 mg HS CHRISTIANO Administration Sodium Chloride 3 ml 03/02/25 12:21 Sodium Chloride Rt Latisha 0.9% 3 Ml Nebu INH 04/01/25 12:20 PRN PRN SOLN Plan A 74-year-old male who lives in a correction since 2007 with significant past medical history of intellectual disability, deafness, OCD, intermittent explosive disorder, diabetes mellitus currently not on any treatment, hyperlipidemia, GERD, heart failure s/p ICD, COPD on 2 L oxygen, prostate carcinoma, seizures is brought to the hospital with chief complaints of decreased oxygen saturations noted on pulse oximeter and admitted in the hospital for acute on chronic hypoxic respiratory failure secondary to heart failure exacerbation # Acute on chronic hypoxic respiratory failure # Secondary to heart failure exacerbation, HFrEF, EF 30 to 35% in 2022, s/p AICD # Nonischemic cardiomyopathy # Underlying COPD on 2 L oxygen - Brought to the hospital by care provider in view of low oxygen saturations noted on pulse oximeter - Patient noted to have fatigue and difficulty in doing his routine daily activities on the day of admission - At baseline, patient is using 2 L oxygen - At the time of admission noted to have 91% saturation with 6 L oxygen through nasal cannula - On physical examination, noted to have bilateral inspiratory crackles more in the basilar areas - EKG showed sinus rhythm with multiple ectopics - Chest x-ray showed bilateral moderate to severe vascular congestion - Tested negative for COVID, influenza - Echo in 2022 showed LV is normal in size with severe systolic dysfunction. Estimated EF is 30-35%. Plan - Initially started on Lasix 40 Mg IV twice daily, changed to Bumex 2 Mg IV twice daily as patient does not have any significant output as of 03/03/2025 - Will continue metoprolol 12.5 Mg p.o. daily which is his home dose - Will restart Entresto based on his blood pressures - Started on cardiac diet and fluid restriction to 1500 mL - Azithromycin 500 Mg p.o. daily and suspicion of possible underlying pneumonia which can be causing exacerbation of heart failure - Oxygen titration as needed - Strict input and output - Echo ordered, patient is following with Dr. Garcia for heart failure - Consulted Dr. Garcia, will follow his recommendations # Paroxysmal atrial fibrillation - Patient is diagnosed with a paroxysmal atrial fibrillation and 2022 - [id number] is 3 - Since then patient is started on Eliquis 5 Mg p.o. twice daily - Currently patient is in sinus rhythm and resumed his home Eliquis 5 Mg p.o. twice daily # History of diabetes mellitus - Per patient's care provider, patient had history of diabetes mellitus on treatment but later as his sugars are well-controlled, stopped treatment by his primary care provider - HbA1c is ordered - 6.2, will hold the treatment for now # Hyperlipidemia -Patient is using simvastatin 40 Mg p.o. at bedtime -Lipid panel showed TG 155, Chol 183, LDL 127, HDL 25 -Started on atorvastatin 10 Mg at bedtime # Normocytic normochromic anemia - Patient is using iron supplements at home - Will resume it on outpatient basis # History of seizures - Patient is using divalproex at home - Reported that patient did not have seizures in past couple of years - Restarted on divalproex # History of prostate cancer - Per patient's care provider patient had history of prostate cancer in 2014 underwent radiation therapy for 4 weeks - Following up with PCP and on dutasteride - Resumed Dutasteride 0.5mg p.o. qday Hospital Maintenance: Dispo: Tele DVT ppx: Lovenox GI ppx: not needed Diet: Cardiac, fluid restriction to 1200 mL IV lines: Peripheral Code status: FULL Patient plan of care was discussed with the attending physician, Dr. Peguero and senior resident Dr. Oscar Melvin, PGY1 Attending Provider Attestation/Addendum I, Daria Peguero, DO, attest that I was physically present for the min portions of the service and evaluated the patient with the resident and I reviewed and discussed the case with the resident and agree with the resident's findings and plans of care as documented above Patient seen and evaluated this AM. Patient is alert and at his baseline mental status, gesturing that he wants to read a book. He continues to have scattered wheezing and rhonchi on exam. Will increase diuretics to bumex 2mg IV BID. Pending echo. Patient remains on 10L/oxymask. Will continue to titrate as tolerated. Will switch to HFNC if O2 demand increases for more positive pressure support.
--- NOTE | 2025-03-03 17:27 | ECHO_ITS ---
Transthoracic Echo Report Ht (in): 67 Wt (lb): 173 Exam Location: Echo Lab Status: Inpatient Bobbin Stripper: Shila Rodriguez Indications: Procedure Performed: BP: 106 / 65 HR: 87 Technical Quality: Technically difficult study MEASUREMENTS (Male / Female) Normal Values 2D ECHO LV Diastolic Diameter PLAX 4.9 cm 4.2 - 5.9 / 3.9 - 5.3 cm LV Systolic Diameter PLAX 3.9 cm IVS Diastolic Thickness 0.8 cm 0.6 - 1.0 / 0.6 - 0.9 cm LVPW Diastolic Thickness 0.8 cm 0.6 - 1.0 / 0.6 - 0.9 cm LV Relative Wall Thickness 0.3 LVOT Diameter 2.0 cm LA Volume Index 21.1 cm?/m? 16 - 28 cm?/m? M-MODE Aortic Root Diameter MM 3.0 cm AV Cusp Separation MM 2.0 cm DOPPLER AV Peak Velocity 131.0 cm/s AV Peak Gradient 6.9 mmHg AV Mean Gradient 4.0 mmHg AV Velocity Time Integral 22.6 cm LVOT Peak Velocity 96.1 cm/s LVOT Peak Gradient 3.7 mmHg LVOT Velocity Time Integral 17.2 cm LVOT Cardiac Index 2420.6 cm?/min?m? AV Area Cont Eq vti 2.4 cm? AV Area Cont Eq pk 2.3 cm? MV Area PHT 4.7 cm? Mitral E Point Velocity 61.1 cm/s Mitral A Point Velocity 75.7 cm/s Mitral E to A Ratio 0.8 LV E' Lateral Velocity 4.5 cm/s Mitral E to LV E' Lateral Ratio 13.7 LV E' Septal Velocity 6.2 cm/s Mitral E to LV E' Septal Ratio 9.9 TR Peak Velocity 285.5 cm/s TR Peak Gradient 32.6 mmHg PV Peak Velocity 102.0 cm/s PV Peak Gradient 4.2 mmHg FINDINGS Left Ventricle Normal left ventricular size and wall thickness. The ejection fraction is visually estimated at 35-40 %. There is grade I diastolic dysfunction. Right Ventricle The right ventricle is normal in size and systolic function. Left Atrium The left atrium is normal by two-dimensional, color flow and Doppler imaging with no structural abnormalities, no thrombus formation present. Right Atrium The right atrium is normal by two-dimensional imaging, color flow and Doppler imaging with no structural abnormalities, no thrombus formation present. Atrial Septum The interatrial septum appears normal with no evidence of a shunt. Aorta The aorta is normal by two-dimensional, color flow and Doppler interrogation. Mitral Valve The mitral valve is normal by two-dimensional, color flow and Doppler interrogation. There is no significant mitral valve regurgitation, stenosis or prolapse. Aortic Valve The aortic valve is trileaflet and normal by two-dimensional, color flow and Doppler interrogation. There is no significant aortic valve regurgitation. Tricuspid Valve There is mild tricuspid valve regurgitation. Pulmonic Valve Trivial pulmonic valve regurgitation. Vessels The pulmonary artery appears normal. The inferior vena cava pulmonary and hepatic veins appear normal. Pericardium The pericardium is normal by two-dimensional imaging. There is no significant pericardial effusion. CONCLUSIONS Indication: Heart failure Normal LV size and function. Estimated EF 35-40 %. Grade I diastolic dysfunction. Normal RV size and systolic function. Estimated RVSP mildly elevated at 40-45 mm hg. Mild TR. Trivial PI and MR.. Felipe Garcia (Electronically Signed) Final Date: 05 March 2025 13:31
[2025-03-03] MEDS: risperiDONE 1 MG TABLET 2 MG PO (20:36)
[2025-03-03] MEDS: ATORVASTATIN CALCIUM 10 MG TABLET PO (20:36)
[2025-03-03] MEDS: DIVALPROEX SOD DR 500 MG TABLET.DR 1000 MG PO (20:36)
[2025-03-03] MEDS: APIXABAN 2.5 MG TABLET 5 MG PO (20:36)
[2025-03-04] VITALS (12 sets, daily range): BP systolic 94–115; BP diastolic 61–69; PULSE 73–93; RESP 19–24; TEMP 36.1–36.4; O2SAT 86–97; BMI 27.6
[2025-03-04 06:24] LABS: Hemoglobin 11.8 g/dL (13.5-16.0); Red Blood Count 3.98 Miln/mm3 (4.50-5.90); White Blood Count 10.5 Thou/mm3 (3.8-10.6)
[2025-03-04 06:25] LABS: Basophils # (Auto) 0.1 Thou/mm3 (0.0-0.2); Basophils % (Auto) 1 % (0-2.5); Eosinophils # (Auto) 0.2 Thou/mm3 (0.0-0.5); Eosinophils % (Auto) 2 % (0-10); Immature Granulocytes % (Auto) 1 % (0-0); Immature Granulocytes Auto 0.06 Thou/mm3 (0.00-0.00); Lymphocytes # (Auto) 1.6 Thou/mm3 (1.0-4.8); Lymphocytes % (Auto) 15 % (10-50); Mean Corpuscular HGB Conc 32.8 g/dl (31.0-37.0); Mean Corpuscular Hemoglobin 29.6 pg (25.0-35.0); Mean Corpuscular Volume 91 fL (80-100); Monocytes # (Auto) 0.9 Thou/mm3 (0.0-0.8); Monocytes % (Auto) 8 % (0-12); Neutrophils # (Auto) 7.7 Thou/mm3 (1.8-7.7); Neutrophils % (Auto) 73 % (37-80); Nucleated Red Blood Cell % 0 /100 WBC (0); Platelet Count 253 Thou/mm3 (140-440); RDW Standard Deviation 47.1 fL (35.1-43.9)
[2025-03-04 06:50] LABS: Alanine Aminotransferase 25 U/L (10-49); Albumin, Serum 3.9 gm/dL (3.4-4.8); Albumin/Globulin Ratio 1.4 (1.2-2.2); Alkaline Phosphatase 65 U/L (46-116); Anion Gap 6 (7-16); Aspartate Amino Transferase 16 U/L (0-34); BUN/Creatinine Ratio 24 Ratio (12-20); Bilirubin,Total 0.3 mg/dL (0.3-1.2); Blood Urea Nitrogen 31 mg/dL (9-23); Calcium 10.1 mg/dL (8.3-10.6); Calcium (Corrected) 10.2 mg/dL (8.5-10.1); Carbon Dioxide 31.7 mMol/L (20.0-31.0); Chloride 102 mMol/L (98-107); Creatinine (Component) 1.3 mg/dL (0.6-1.3); Estimated Creatinine Clearance 52.1 mL/min (>60); Globulin 2.8 gm/dL (2.3-3.5); Glucose 80 mg/dL (74-106); Magnesium 1.9 mg/dL (1.6-2.6); Osmolality,Calculated 284 (275-295); Potassium 4.4 mMol/L (3.4-5.1); Sodium 140 mMol/L (136-145); Total Protein 6.7 gm/dL (5.7-8.2); eGFR 58 See Note
--- NOTE | 2025-03-04 08:07 | PC.NURSE ---
patient oxygen saturation 87-88% on 15liter oxy mask- called dr paluino and made awre, new order to start on high flow now.
--- NOTE | 2025-03-04 08:33 | XR_ITS ---
Examination: CT chest, without intravenous contrast. Sagittal and coronal 2-D reconstructions. Exam date and time: March 04, 2025 1537 hrs. Indications: Acute respiratory failure. 2 days ago CTDI:vol (mGy) 12.4 DLP: (mGycm) 360 Technique: Multiple 3.0 mm axial sections of the chest to been obtained. Bone and lung density settings are obtained. Sagittal and coronal 2-D reconstructions have been obtained. Low dose protocols were performed. One or more of the following dose reduction techniques were used; automated exposure control, adjustment of the mA and/or KV according to patient size, use of iterative reconstruction technique. Findings: Thoracic aortic calcification no aneurysmal dilatation Pulmonary artery segments are not enlarged Severe bilateral lung opacity especially left base consistent with pneumonia Mild enlargement cardiac contour Small left pleural effusion No focal liver or splenic lesions Contracted gallbladder Moderate thoracic spondylosis No fracture Manubrium Impression: Severe bilateral pneumonia
[2025-03-04] MEDS: cefTRIAXone/D5w 1gm IV premix 1 GM/50 ML BAG IV (08:54)
[2025-03-04] MEDS: METOPROLOL SUCCINATE XL 25 MG TABCR 12.5 MG PO (08:54)
[2025-03-04] MEDS: DUTASTERIDE 0.5 MG CAPSULE (NON-FORMULARY) PO (08:54)
[2025-03-04] MEDS: APIXABAN 2.5 MG TABLET 5 MG PO ×2 (08:58→20:30)
[2025-03-04] MEDS: AZITHROMYCIN 250 MG TABLET 500 MG PO (08:58)
[2025-03-04 09:26] LABS: Base Excess 5 (-3-3); HCO3 31 mEq/L (20-26); Inspired Oxygen, FIO2 85 %; O2 Saturation 96 % (91-98); PCO2 46 mmHg (32.0-48.0); PO2 77 mmHg (83-108); pH, Arterial 7.43 (7.35-7.45)
[2025-03-04 09:27] LABS: Allen Test Performed/OK; Puncture Site Left Radial
--- NOTE | 2025-03-04 10:56 | ESPR_ITS ---
Documentation for date of: 03/04/25 Subjective Subjective Interval history: No acute events overnight.?Patient seen and examined at bedside this AM.?No caregiver at bedside at that time, patient unable to express any history. He is seen on Hi-Flow oxygen, 30L at 85% FiO2, increased O2 requirements from yesterday. Labs and vitals were reviewed.?BP continues to be normal. 24-hour telemetry reviewed, HR showed sinus rhythm in the 70-80s. Patient has been afebrile. WBC downtrended from 13.2 to 10.5. ABG was done this morning which showed normal pH 7.43, pCO2 46, pO2 77, HCO3 31. Chem panel showed creatinine 1.3, BUN 31, HCO3 31. Primary team sent out a cocci test. CT of the chest is pending. Examination reveals coarse rhonchi throughout the lung fowler. Diuresis will be held today, patient starting to develop DORY and contraction alkalosis. Review of systems otherwise negative except what is mentioned above. Exam Vital Signs Temp Pulse Resp BP Pulse Ox O2 Del Method O2 Flow Rate 96.9 F 86 20 106/65 93 L Nasal Cannula 30 03/04/25 08:00 03/04/25 10:23 03/04/25 10:23 03/04/25 08:54 03/04/25 10:23 03/04/25 08:00 03/04/25 10:23 FiO2 85 03/04/25 10:23 Narrative Exam General: Awake, interactive, but deaf and mute. HEENT: Normocephalic, atraumatic, mucous membranes moist. On Hi-Flow 30L. No JVD noted. Heart: Regular rate and rhythm, no murmurs. Noted ICD in the left upper chest with healed scar. Lungs: Bilateral coarse crackles are heard throughout the lung fowler. Abdomen: Soft, nondistended, nontender, positive bowel sounds. ?No guarding or rebound tenderness. Neurologic: Unable to assess orientation, no gross neurological deficit, and patient able to move all 4 extremities. Extremities: Mild trace bilateral pedal edema noted. Skin: No rash or ecchymoses. Objective Labs 03/05/25 04:49 03/05/25 04:49 Labs: Laboratory Results - last 24 hr 03/04/25 03/04/25 05:40 09:20 WBC 10.5 RBC 3.98 L Hgb 11.8 L Hct 36.0 L MCV 91 MCH 29.6 MCHC 32.8 RDW Std Deviation 47.1 H Plt Count 253 Neut % (Auto) 73 Lymph % (Auto) 15 [place] % (Auto) 8 Eos % (Auto) 2 Baso % (Auto) 1 Neut # (Auto) 7.7 Lymph # (Auto) 1.6 [place] # (Auto) 0.9 H Eos # (Auto) 0.2 Baso # (Auto) 0.1 Immature Gran # (Auto) 0.06 H Absolute Nucleated RBC 0.00 Immature Gran % 1 H Nucleated RBC % 0 Puncture Site Left Radial ABG pH 7.43 ABG pCO2 46 ABG pO2 77 L ABG HCO3 31 H ABG O2 Saturation 96 ABG Base Excess 5 H FiO2 85 Sodium 140 Potassium 4.4 D Chloride 102 Carbon Dioxide 31.7 H Anion Gap 6 L BUN 31 H Creatinine 1.3 Estim Creat Clear Calc 52.1 L eGFR 58 L BUN/Creatinine Ratio 24 H Glucose 80 Calculated Osmolality 284 Calcium 10.1 Corrected Calcium 10.2 H Magnesium 1.9 Total Bilirubin 0.3 AST 16 ALT 25 Alkaline Phosphatase 65 Total Protein 6.7 Albumin 3.9 Globulin 2.8 Albumin/Globulin Ratio 1.4 ABG Interpretation ABG results: 03/02/25 03/04/25 20:40 09:20 ABG pH 7.45 7.43 ABG pCO2 42 46 ABG pO2 60 L 77 L ABG HCO3 29 H 31 H ABG O2 Saturation 92 96 ABG Base Excess 4 H 5 H Quality Measures Quality Measures none Advance care planning discussed with:: patient Assessment & Plan Assessment Current Active Medications: Generic Name Dose Route Start Last Admin Trade Name Freq PRN Reason Stop Dose Admin Acetaminophen 650 mg 03/04/25 08:23 Acetaminophen 325 Mg Tablet PO 04/01/25 17:22 Q6H PRN Fever >100.3 Apixaban 5 mg 03/03/25 21:00 03/04/25 08:58 Apixaban 2.5 Mg Tablet PO 04/02/25 20:59 5 mg BID CHRISTIANO Administration Atorvastatin Calcium 10 mg 03/03/25 21:00 03/03/25 20:36 Atorvastatin Calcium 10 Mg Tablet PO 04/02/25 20:59 10 mg HS CHRISTIANO Administration Azithromycin 500 mg 03/02/25 17:45 03/04/25 08:58 Azithromycin 250 Mg Tablet PO 03/09/25 17:44 500 mg QDAY CHRISTIANO Administration Bumetanide 2 mg 03/03/25 10:45 03/03/25 20:36 Bumetanide Inj 0.25 Mg/Ml Vial 4 Ml IVP 04/02/25 10:44 2 mg BID CHRISTIANO Administration Divalproex Sodium 1,000 mg 03/02/25 21:00 03/03/25 20:[address] 500 Mg Tablet.Dr PO 04/01/25 20:59 1,000 mg HS CHRISTIANO Administration Dutasteride 0.5 mg 03/03/25 09:00 03/04/25 08:54 Dutasteride 0.5 Mg Capsule (Non-Formulary) PO 04/02/25 08:59 0.5 mg QDAY CHRISTIANO Administration Ceftriaxone Sodium/Dextrose 1 gm in 50 mls @ 100 mls/hr 03/03/25 10:00 03/04/25 08:54 Rocephin/D5w 1gm Iv Premix IV 03/10/25 09:59 100 mls/hr QDAY CHRISTIANO Administration Magnesium Hydroxide 30 ml 03/02/25 17:23 Milk Of Magnesia Susp 30 Ml Udc PO 04/01/25 17:22 QDAY PRN CONSTIPATION Protocol Metoprolol Succinate 12.5 mg 03/03/25 09:00 03/04/25 08:54 Metoprolol Succinate Xl 25 Mg Tabcr PO 04/02/25 08:59 12.5 mg QDAY CHRISTIAON Administration Ondansetron HCl 4 mg 03/02/25 17:23 Ondansetron Inj 2 Mg/Ml Inj 2 Ml IV 04/01/25 17:22 Q6H PRN NAUSEA OR VOMITING Protocol (Fluvoxamine 100 Mg 1.5 ea 03/03/25 21:00 03/03/25 20:37 Tablet) PO 04/02/25 20:59 Not Given HS CHRISTIANO Protocol Risperidone 2 mg 03/02/25 21:00 03/03/25 20:36 Risperidone 1 Mg Tablet PO 04/01/25 20:59 2 mg HS CHRISTIANO Administration Sodium Chloride 3 ml 03/02/25 12:21 Sodium Chloride Rt Latisha 0.9% 3 Ml Nebu INH 04/01/25 12:20 PRN PRN SOLN Plan 74-year-old male with a past medical history of developmental delay with some mental retardation, mute as well as deaf but able to do few daily ADLs including taking care of himself, diabetes mellitus, hyperlipidemia, OCD, bipolar disorder lives in a nursing home was brought into the emergency department for 3 days of hypoxia secondary to community-acquired pneumonia. #Acute hypoxic respiratory failure secondary to community-acquired pneumonia Assessment: Patient presented due to shortness of breath and hypoxia requiring O2 supplementation review of x-ray shows significant bilateral pneumonia. Etiology of the hypoxia likely driven due to the pneumonia no signs of decompensated heart failure at this time patient is euvolemic. No JVD noted no significant bilateral lower extremity edema noted. Recommendations: - Continue aggressive broad-spectrum IV antibiotics - Recommend CT chest without contrast to further evaluate patient pneumonia or possible underlying pulmonary process, pending results. #History HFrEF s/p ICD placement, compensated (EF 35%) #Nonischemic cardiomyopathy Assessment: Patient presented about a year ago due to new onset heart failure. Echocardiogram at that time showed an EF of 35% with multiple regional wall motion abnormality could be secondary to left bundle branch at that time. The decision was made to place a ICD on 08/2024 Currently patient is euvolemic with a BNP less than 20. No troponin elevation. The etiology of the hypoxia seems to be more driven due to the pneumonia rather than an acute suspicion of heart failure. Not currently in exacerbation. Recmmendations: - Recommend no diuretics for now, HOLD the home Lasix 40 mg qday - Continue home metoprolol of 12.5 mg daily - Can hold the Entresto 1 tab twice daily if BP soft - Strict input output, daily weights and 2 g sodium diet - Maintain Mg >2 and K >4 #History of paroxysmal atrial fibrillation Rate controlled Recommendations: - Continue metoprolol XL 12.5 mg once daily for rate control - Continue home Eliquis of 5 mg twice daily Management of rest of the medical conditions as per primary team and other consultants. #History of developmental delay #History of seizures #History of prostate cancer #Normocytic anemia #History of type 2 diabetes Thank you for the consult and allowing me to participate in the care of the patient. Cardiology will continue to follow. - Patient's care was discussed with my attending physician, Dr. Jose Lowery PGY-2 Attending Provider Attestation/Addendum I have personally seen and examined the patient separately on the above date of service and discussed the plan of care with the resident. I reviewed the resident Dr. Reza Barber consultation progress note and agree with the resident findings and plan in the note above and have also edited the documentation to reflect my findings and plan. Patient seen and examined at bedside and his oxygen requirements have increased and he is now on high flow oxygen compared to oxygen via 6 L nasal cannula yesterday. As noted patient does not have any CHF exacerbation and recommend to discontinue all the diuretics and mostly secondary to bilateral pneumonia and will need to rule out other pulmonary pathologies. Recommend aggressive antibiotics for the patient. The potassium greater than 4 magnesium greater than 2.0 a lot of times as patient does have a history of paroxysmal atrial fibrillation. Management of rest of the medical conditions as per primary team and other consultants. Thank you for the consult and allowing me to participate in the care of the patient. Cardiology will continue to follow. Felipe Garcia M.D. Interventional Cardiology
--- NOTE | 2025-03-04 12:40 | PD.RESPRO ---
Documentation for date of: 03/04/25 Subjective Subjective Interval history: Patient was seen and examined at bedside. No acute overnight events. Today he was found to be on 15 L oxime mask and his saturation was below 87% therefore he was started on high flow oxygen 30 L 85%. He saturation now 93%. ABG showed pH 7.43, [id number], oxygen [address] of the chest was ordered. Cocci serology was ordered. His Bumex was held due to DORY today and will be resumed tonight. Will continue current management and monitor patient. Exam Vital Signs Temp Pulse Resp BP Pulse Ox O2 Del Method O2 Flow Rate 96.9 F 86 20 106/65 93 L Nasal Cannula 30 03/04/25 08:00 03/04/25 10:23 03/04/25 10:23 03/04/25 08:54 03/04/25 10:23 03/04/25 08:00 03/04/25 10:23 FiO2 85 03/04/25 10:23 Narrative Exam Gen: Well-developed and well-nourished nonverbal male. HEENT: NCAT, PERRLA, EOMI, MMM, anicteric conjunctivae. CVS: normal S1 and S2. RRR. No M/R/G. Resp: Crackles B/L, improved since yesterday. No rhonchi, rales or wheezing. Abd: soft, non-tender, non-distended. BS+ in all 4 quadrants. MSK: Good ROM in BUE & BLE. No rash. Trace edema BLE. Neuro: CN II-XII grossly intact. Strength 5/5 in BUE & BLE. Alert and oriented x3. Psych: appropriate mood and affect. Objective Labs 03/05/25 04:49 03/05/25 04:49 Labs: Laboratory Results - last 24 hr 03/04/25 03/04/25 05:40 09:20 WBC 10.5 RBC 3.98 L Hgb 11.8 L Hct 36.0 L MCV 91 MCH 29.6 MCHC 32.8 RDW Std Deviation 47.1 H Plt Count 253 Neut % (Auto) 73 Lymph % (Auto) 15 [place] % (Auto) 8 Eos % (Auto) 2 Baso % (Auto) 1 Neut # (Auto) 7.7 Lymph # (Auto) 1.6 [place] # (Auto) 0.9 H Eos # (Auto) 0.2 Baso # (Auto) 0.1 Immature Gran # (Auto) 0.06 H Absolute Nucleated RBC 0.00 Immature Gran % 1 H Nucleated RBC % 0 Puncture Site Left Radial ABG pH 7.43 ABG pCO2 46 ABG pO2 77 L ABG HCO3 31 H ABG O2 Saturation 96 ABG Base Excess 5 H FiO2 85 Sodium 140 Potassium 4.4 D Chloride 102 Carbon Dioxide 31.7 H Anion Gap 6 L BUN 31 H Creatinine 1.3 Estim Creat Clear Calc 52.1 L eGFR 58 L BUN/Creatinine Ratio 24 H Glucose 80 Calculated Osmolality 284 Calcium 10.1 Corrected Calcium 10.2 H Magnesium 1.9 Total Bilirubin 0.3 AST 16 ALT 25 Alkaline Phosphatase 65 Total Protein 6.7 Albumin 3.9 Globulin 2.8 Albumin/Globulin Ratio 1.4 ABG Interpretation ABG results: 03/02/25 03/04/25 20:40 09:20 ABG pH 7.45 7.43 ABG pCO2 42 46 ABG pO2 60 L 77 L ABG HCO3 29 H 31 H ABG O2 Saturation 92 96 ABG Base Excess 4 H 5 H Quality Measures Quality Measures VTE prophylaxis Advance care planning discussed with:: legal surragate Assessment & Plan Assessment Current Active Medications: Generic Name Dose Route Start Last Admin Trade Name Freq PRN Reason Stop Dose Admin Acetaminophen 650 mg 03/04/25 08:23 Acetaminophen 325 Mg Tablet PO 04/01/25 17:22 Q6H PRN Fever >100.3 Apixaban 5 mg 03/03/25 21:00 03/04/25 08:58 Apixaban 2.5 Mg Tablet PO 04/02/25 20:59 5 mg BID CHRISTIANO Administration Atorvastatin Calcium 10 mg 03/03/25 21:00 03/03/25 20:36 Atorvastatin Calcium 10 Mg Tablet PO 04/02/25 20:59 10 mg HS CHRISTIANO Administration Azithromycin 500 mg 03/02/25 17:45 03/04/25 08:58 Azithromycin 250 Mg Tablet PO 03/09/25 17:44 500 mg QDAY CHRISTIANO Administration Bumetanide 2 mg 03/03/25 10:45 03/03/25 20:36 Bumetanide Inj 0.25 Mg/Ml Vial 4 Ml IVP 04/02/25 10:44 2 mg BID CHRISTIANO Administration Divalproex Sodium 1,000 mg 03/02/25 21:00 03/03/25 20:[address] 500 Mg Tablet.Dr PO 04/01/25 20:59 1,000 mg HS CHRISTIANO Administration Dutasteride 0.5 mg 03/03/25 09:00 03/04/25 08:54 Dutasteride 0.5 Mg Capsule (Non-Formulary) PO 04/02/25 08:59 0.5 mg QDAY CHRISTIANO Administration Ceftriaxone Sodium/Dextrose 1 gm in 50 mls @ 100 mls/hr 03/03/25 10:00 03/04/25 08:54 Rocephin/D5w 1gm Iv Premix IV 03/10/25 09:59 100 mls/hr QDAY CHRISTIANO Administration Magnesium Hydroxide 30 ml 03/02/25 17:23 Milk Of Magnesia Susp 30 Ml Udc PO 04/01/25 17:22 QDAY PRN CONSTIPATION Protocol Metoprolol Succinate 12.5 mg 03/03/25 09:00 03/04/25 08:54 Metoprolol Succinate Xl 25 Mg Tabcr PO 04/02/25 08:59 12.5 mg QDAY CHRISTIANO Administration Ondansetron HCl 4 mg 03/02/25 17:23 Ondansetron Inj 2 Mg/Ml Inj 2 Ml IV 04/01/25 17:22 Q6H PRN NAUSEA OR VOMITING Protocol (Fluvoxamine 100 Mg 1.5 ea 03/03/25 21:00 03/03/25 20:37 Tablet) PO 04/02/25 20:59 Not Given HS CHRISTIAON Protocol Risperidone 2 mg 03/02/25 21:00 03/03/25 20:36 Risperidone 1 Mg Tablet PO 04/01/25 20:59 2 mg HS CHRISTIANO Administration Sodium Chloride 3 ml 03/02/25 12:21 Sodium Chloride Rt Latisha 0.9% 3 Ml Nebu INH 04/01/25 12:20 PRN PRN SOLN Plan A 74-year-old male who lives in a residential since 2007 with significant past medical history of intellectual disability, deafness, OCD, intermittent explosive disorder, diabetes mellitus currently not on any treatment, hyperlipidemia, GERD, heart failure s/p ICD, COPD on 2 L oxygen, prostate carcinoma, seizures is brought to the hospital with chief complaints of decreased oxygen saturations noted on pulse oximeter and admitted in the hospital for acute on chronic hypoxic respiratory failure secondary to heart failure exacerbation. #Acute on chronic hypoxic respiratory failure. #Secondary to heart failure exacerbation, HFrEF, EF 30 to 35% in 2022, s/p AICD. #Nonischemic cardiomyopathy. #Underlying COPD on 2 L oxygen. - Brought to the hospital by care provider in view of low oxygen saturations noted on pulse oximeter. - Patient noted to have fatigue and difficulty in doing his routine daily activities on the day of admission. - At baseline, patient is using 4 L oxygen, which was increased from 2 L within the last several weeks. - At the time of admission noted to have 91% saturation with 6 L oxygen through nasal cannula. - On physical examination, noted to have bilateral inspiratory crackles more in the basilar areas. - EKG showed sinus rhythm with multiple ectopics. - Chest x-ray showed bilateral moderate to severe vascular congestion. - Tested negative for COVID, influenza. - Echo in 2022 showed LV is normal in size with severe systolic dysfunction. Estimated EF is 30-35%. Plan - Bumex 2 Mg IV twice daily was held due to worsening kidney function, will be resumed as once a day tonight. - Will continue metoprolol 12.5 Mg p.o. daily which is his home dose. - Will restart Entresto based on his blood pressures. - cardiac diet and fluid restriction to 1500 mL. - Azithromycin and ceftriaxone, suspicion of possible underlying pneumonia which can be causing exacerbation of heart failure. - Started on high flow oxygen. - Strict input and output. - Echo ordered, patient is following with Dr. Garcia for heart failure. - Consulted Dr. Garcia, will follow his recommendations. #Paroxysmal atrial fibrillation. - Patient is diagnosed with a paroxysmal atrial fibrillation and 2022. - [id number] is 3 - Since then patient is started on Eliquis 5 Mg p.o. twice daily - Currently patient is in sinus rhythm. Plan: - home Eliquis 5 Mg p.o. twice daily. - Continue home metoprolol. #History of diabetes mellitus. - Per patient's care provider, patient had history of diabetes mellitus on treatment but later as his sugars are well-controlled, stopped treatment by his primary care provider - HbA1c is ordered - 6.2. Plan: - will hold the treatment for now and monitor patient. #Hyperlipidemia. -Patient is using simvastatin 40 Mg p.o. at bedtime. -Lipid panel showed TG 155, Chol 183, LDL 127, HDL 25. Plan: -Started on atorvastatin 10 Mg at bedtime. #Normocytic normochromic anemia. - Patient is using iron supplements at home. - Will resume it on outpatient basis. #History of seizures. - Patient is using divalproex at home. - Reported that patient did not have seizures in past couple of years. - Restarted on divalproex. #History of prostate cancer. - Per patient's care provider patient had history of prostate cancer in 2014 underwent radiation therapy for 4 weeks. - Following up with PCP and on dutasteride. - Resumed Dutasteride 0.5mg p.o. qday. Hospital Maintenance: Dispo: Tele. DVT ppx: Apixaban. GI ppx: not needed. Diet: Cardiac, fluid restriction 1200 mL. IV lines: Peripheral. Code status: FULL. Plan of care discussed with attending Dr. Peguero. Harvinder Moore MD, PGY 2. Disclaimer: This note was dictated by speech recognition. Minor errors in termite exterminator helper may be present due to voice recognition software. Attending Provider Attestation/Addendum Gretta, Daria Peguero, , attest that I was physically present for the min portions of the service and evaluated the patient with the resident and I reviewed and discussed the case with the resident and agree with the resident's findings and plans of care as documented above Patient seen and evaluated this AM. He continues to require uptitration of O2, now placed on HFNC with flow of 35L/min and FiO2 of 80%. Patient is in no acute distress. He continues to have scattered rhocnhi on exam. Will hold diuretics at this time due to uptrending Cr/ DORY. Continue with IV abx at this time. Will obtain CT chest
[2025-03-04] MEDS: risperiDONE 1 MG TABLET 2 MG PO (20:30)
[2025-03-04] MEDS: DIVALPROEX SOD DR 500 MG TABLET.DR 1000 MG PO (20:30)
[2025-03-04] MEDS: ATORVASTATIN CALCIUM 10 MG TABLET PO (20:30)
[2025-03-05] VITALS (15 sets, daily range): BP systolic 94–116; BP diastolic 58–68; PULSE 76–92; RESP 12–32; TEMP 36.3–36.8; O2SAT 90–100; BMI 27.6
[2025-03-05 05:35] LABS: Basophils # (Auto) 0.1 Thou/mm3 (0.0-0.2); Basophils % (Auto) 1 % (0-2.5); Eosinophils # (Auto) 0.3 Thou/mm3 (0.0-0.5); Eosinophils % (Auto) 3 % (0-10); Hematocrit 34.8 % (41.0-53.0); Hemoglobin 11.6 g/dL (13.5-16.0); Immature Granulocytes % (Auto) 1 % (0-0); Immature Granulocytes Auto 0.05 Thou/mm3 (0.00-0.00); Lymphocytes # (Auto) 1.5 Thou/mm3 (1.0-4.8); Lymphocytes % (Auto) 17 % (10-50); Mean Corpuscular HGB Conc 33.3 g/dl (31.0-37.0); Mean Corpuscular Hemoglobin 29.6 pg (25.0-35.0); Mean Corpuscular Volume 89 fL (80-100); Monocytes # (Auto) 0.9 Thou/mm3 (0.0-0.8); Monocytes % (Auto) 10 % (0-12); Neutrophils # (Auto) 6.3 Thou/mm3 (1.8-7.7); Neutrophils % (Auto) 69 % (37-80); Nucleated Red Blood Cell % 0 /100 WBC (0); Platelet Count 212 Thou/mm3 (140-440); RDW Standard Deviation 45.8 fL (35.1-43.9); Red Blood Count 3.92 Miln/mm3 (4.50-5.90)
[2025-03-05 06:28] LABS: Alanine Aminotransferase 26 U/L (10-49); Albumin, Serum 3.8 gm/dL (3.4-4.8); Albumin/Globulin Ratio 1.5 (1.2-2.2); Alkaline Phosphatase 62 U/L (46-116); Anion Gap 8 (7-16); Aspartate Amino Transferase 20 U/L (0-34); BUN/Creatinine Ratio 21 Ratio (12-20); Bilirubin,Total 0.3 mg/dL (0.3-1.2); Blood Urea Nitrogen 21 mg/dL (9-23); Calcium 9.8 mg/dL (8.3-10.6); Carbon Dioxide 29.9 mMol/L (20.0-31.0); Chloride 100 mMol/L (98-107); Estimated Creatinine Clearance 67.7 mL/min (>60); Globulin 2.6 gm/dL (2.3-3.5); Glucose 79 mg/dL (74-106); Magnesium 1.9 mg/dL (1.6-2.6); Osmolality,Calculated 277 (275-295); Potassium 4.6 mMol/L (3.4-5.1); Sodium 138 mMol/L (136-145); Total Protein 6.4 gm/dL (5.7-8.2); eGFR > 60 See Note
[2025-03-05] MEDS: cefTRIAXone/D5w 1gm IV premix 1 GM/50 ML BAG IV (08:21)
[2025-03-05] MEDS: APIXABAN 2.5 MG TABLET 5 MG PO ×2 (08:21→20:10)
[2025-03-05] MEDS: METOPROLOL SUCCINATE XL 25 MG TABCR 12.5 MG PO (08:21)
[2025-03-05] MEDS: AZITHROMYCIN 250 MG TABLET 500 MG PO (08:21)
[2025-03-05] MEDS: DUTASTERIDE 0.5 MG CAPSULE (NON-FORMULARY) PO (08:21)
--- NOTE | 2025-03-05 10:25 | ESPR_ITS ---
Documentation for date of: 03/05/25 Subjective Subjective Interval history: Patient seen and examined. Patient was placed on HFNC 80% saturating at 89%. Nonverbal, unable to assess if the patient is comfortable, but patient was laying down resting. Exam Vital Signs Temp Pulse Resp BP Pulse Ox O2 Del Method O2 Flow Rate 97.8 F 84 25 H 100/58 L 94 L High Flow Nasal Cannula 28 03/05/25 08:00 03/05/25 10:01 03/05/25 10:01 03/05/25 08:21 03/05/25 10:01 03/05/25 08:00 03/05/25 10:01 FiO2 80 03/05/25 10:01 Narrative Exam General: Awake, interactive, but deaf and mute. HEENT: Normocephalic, atraumatic, mucous membranes moist. On Hi-Flow 80L. No JVD noted. Heart: Regular rate and rhythm, no murmurs. Noted ICD in the left upper chest with healed scar. Lungs: Bilateral coarse crackles are heard throughout the lung fowler. Abdomen: Soft, nondistended, nontender, positive bowel sounds. ?No guarding or rebound tenderness. Neurologic: Unable to assess orientation, no gross neurological deficit, and patient able to move all 4 extremities. Extremities: Mild trace bilateral pedal edema noted. Skin: No rash or ecchymoses. Objective Labs 03/05/25 04:49 03/05/25 04:49 Labs: Laboratory Results - last 24 hr 03/05/25 04:49 WBC 9.0 RBC 3.92 L Hgb 11.6 L Hct 34.8 L MCV 89 MCH 29.6 MCHC 33.3 RDW Std Deviation 45.8 H Plt Count 212 D Neut % (Auto) 69 Lymph % (Auto) 17 [place] % (Auto) 10 Eos % (Auto) 3 Baso % (Auto) 1 Neut # (Auto) 6.3 Lymph # (Auto) 1.5 [place] # (Auto) 0.9 H Eos # (Auto) 0.3 Baso # (Auto) 0.1 Immature Gran # (Auto) 0.05 H Absolute Nucleated RBC 0.00 Immature Gran % 1 H Nucleated RBC % 0 Sodium 138 Potassium 4.6 Chloride 100 Carbon Dioxide 29.9 Anion Gap 8 BUN 21 Creatinine 1.0 Estim Creat Clear Calc 67.7 eGFR > 60 BUN/Creatinine Ratio 21 H Glucose 79 Calculated Osmolality 277 Calcium 9.8 Corrected Calcium 10.0 Magnesium 1.9 Total Bilirubin 0.3 AST 20 ALT 26 Alkaline Phosphatase 62 Total Protein 6.4 Albumin 3.8 Globulin 2.6 Albumin/Globulin Ratio 1.5 ABG Interpretation ABG results: 03/02/25 03/04/25 20:40 09:20 ABG pH 7.45 7.43 ABG pCO2 42 46 ABG pO2 60 L 77 L ABG HCO3 29 H 31 H ABG O2 Saturation 92 96 ABG Base Excess 4 H 5 H Quality Measures Quality Measures VTE prophylaxis Advance care planning discussed with:: patient Assessment & Plan Assessment Current Active Medications: Generic Name Dose Route Start Last Admin Trade Name Freq PRN Reason Stop Dose Admin Acetaminophen 650 mg 03/04/25 08:23 Acetaminophen 325 Mg Tablet PO 04/01/25 17:22 Q6H PRN Fever >100.3 Apixaban 5 mg 03/03/25 21:00 03/05/25 08:21 Apixaban 2.5 Mg Tablet PO 04/02/25 20:59 5 mg BID CHRISTIANO Administration Atorvastatin Calcium 10 mg 03/03/25 21:00 03/04/25 20:30 Atorvastatin Calcium 10 Mg Tablet PO 04/02/25 20:59 10 mg HS CHRISTIANO Administration Azithromycin 500 mg 03/02/25 17:45 03/05/25 08:21 Azithromycin 250 Mg Tablet PO 03/09/25 17:44 500 mg QDAY CHRISTIANO Administration Divalproex Sodium 1,000 mg 03/02/25 21:00 03/04/25 20:[address] 500 Mg Tablet.Dr PO 04/01/25 20:59 1,000 mg HS CHRISTIANO Administration Dutasteride 0.5 mg 03/03/25 09:00 03/05/25 08:21 Dutasteride 0.5 Mg Capsule (Non-Formulary) PO 04/02/25 08:59 0.5 mg QDAY CHRISTIANO Administration Piperacillin Sod/Tazobactam 100 mls @ 200 mls/hr 03/05/25 09:43 Sod 4.5 gm/ Sodium Chloride IV 03/12/25 09:42 Q6HR CHRISTIANO Magnesium Hydroxide 30 ml 03/02/25 17:23 Milk Of Magnesia Susp 30 Ml Udc PO 04/01/25 17:22 QDAY PRN CONSTIPATION Protocol Metoprolol Succinate 12.5 mg 03/03/25 09:00 03/05/25 08:21 Metoprolol Succinate Xl 25 Mg Tabcr PO 04/02/25 08:59 12.5 mg QDAY CHRISTIANO Administration Ondansetron HCl 4 mg 03/02/25 17:23 Ondansetron Inj 2 Mg/Ml Inj 2 Ml IV 04/01/25 17:22 Q6H PRN NAUSEA OR VOMITING Protocol (Fluvoxamine 100 Mg 1.5 ea 03/03/25 21:00 03/04/25 20:30 Tablet) PO 04/02/25 20:59 Not Given HS CHRISTIANO Protocol Risperidone 2 mg 03/02/25 21:00 03/04/25 20:30 Risperidone 1 Mg Tablet PO 04/01/25 20:59 2 mg HS CHRISTIANO Administration Sodium Chloride 3 ml 03/02/25 12:21 Sodium Chloride Rt Latisha 0.9% 3 Ml Nebu INH 04/01/25 12:20 PRN PRN SOLN Plan 74-year-old male with a past medical history of developmental delay with some mental retardation, mute as well as deaf but able to do few daily ADLs including taking care of himself, diabetes mellitus, hyperlipidemia, OCD, bipolar disorder lives in a halfway was brought into the emergency department for 3 days of hypoxia secondary to community-acquired pneumonia. #Acute hypoxic respiratory failure secondary to community-acquired pneumonia Assessment: Patient presented due to shortness of breath and hypoxia requiring O2 supplementation review of x-ray shows significant bilateral pneumonia. Etiology of the hypoxia likely driven due to the pneumonia no signs of decompensated heart failure at this time patient is euvolemic. No JVD noted no significant bilateral lower extremity edema noted. CT chest showed severe KEILA pna Recommendations: - Continue aggressive broad-spectrum IV antibiotics #History HFrEF s/p ICD placement, compensated (EF 35%) #Nonischemic cardiomyopathy Assessment: Patient presented about a year ago due to new onset heart failure. Echocardiogram at that time showed an EF of 35% with multiple regional wall motion abnormality could be secondary to left bundle branch at that time. The decision was made to place a ICD on 08/2024 Currently patient is euvolemic with a BNP less than 20. No troponin elevation. The etiology of the hypoxia seems to be more driven due to the pneumonia rather than an acute suspicion of heart failure. Not currently in exacerbation. Recmmendations: - Recommend no diuretics for now, HOLD the home Lasix 40 mg qday - Continue home metoprolol of 12.5 mg daily - Can hold the Entresto 1 tab twice daily if BP soft - Strict input output, daily weights and 2 g sodium diet - Maintain Mg >2 and K >4 #History of paroxysmal atrial fibrillation Rate controlled Recommendations: - Continue metoprolol XL 12.5 mg once daily for rate control - Continue home Eliquis of 5 mg twice daily Management of rest of the medical conditions as per primary team and other consultants. #History of developmental delay #History of seizures #History of prostate cancer #Normocytic anemia #History of type 2 diabetes Thank you for the consult and allowing me to participate in the care of the patient. Cardiology will continue to follow. - - Patient's care was discussed with my attending physician, Dr. Jose Farrar MD Internal Medicine PGY-3 Attending Provider Attestation/Addendum I have personally seen and examined the patient separately on the above date of service and discussed the plan of care with the resident. I reviewed the resident Dr. Gabino Sampson consultation progress note and agree with the resident findings and plan in the note above and have also edited the documentation to reflect my findings and plan. Patient oxygen requirements have increased yesterday in the hospital on high flow oxygen and recommended CT chest. CT chest was completed which showed severe bilateral lung opacities left greater than right consistent with bilateral pneumonia. Mild cardiomegaly but no evidence of any significant vascular congestion. Recommend aggressive treatment of the pneumonia at the present point of time and To hold the diuretics. Continue rate control medications if the blood pressure is permissible and Eliquis 5 mg twice daily for anticoagulation if no further procedures are planned. Echo repeated today and showed moderate LV dysfunction with an EF of 35 to 40%. Normal RV size and function. Rest of the echo findings similar to before. Continue strict input output, daily weights and 2 g sodium diet. Felipe Garcia M.D. Interventional Cardiology
[2025-03-05] MEDS: PIPER/TAZO INJ 4.5 GM in SODIUM CHLORIDE 0.9% (POP) 100 ML IV ×3 (10:32→23:50)
[2025-03-05 12:25] LABS: Cocci Serology, IgM Negative (Negative)
--- NOTE | 2025-03-05 12:52 | ESPR_ITS ---
<Statement entered by Giuseppe Silva MD - 03/05/25 18:17> Patient has increased work of breathing and was maxed out on high flow and transition to BiPAP. ABG showed low O2. Patient now on BiPAP saturating well. Will continue with IV antibiotics and ordered bio fire respiratory panel to rule out any other causes of pneumonia. So far cocci negative, flu negative, and COVID-negative. Case discussed with team. Giuseppe Silva MD PGY3. Documentation for date of: 03/05/25 Subjective Subjective Interval history: Patient is seen and examined at the bedside. As patient have baseline intellectual disability and hearing loss, could not communicate. Patient is on still high flow oxygen 25 L/min, 80% FiO2 saturating at 90 to 93%. Patient does not appear tachycardic or tachypneic On physical examination, bronchial breath sounds, fine inspiratory crackles heard on the left lung Around 2:50 PM, patient noticed to have increased oxygen needs and low saturation for which ABG, chest x-ray was ordered Called Dr. Virk and discussed about the patient's condition with him, recommended to continue with full treatment and intubate if needed Also consulted ICU team and informed about the patient, if patient saturations does not improve with BiPAP will upgrade patient to ICU for intubation Patient found to have left-sided pneumonia since 2022, suspicious of underlying malignancy Exam Vital Signs Temp Pulse Resp BP Pulse Ox O2 Del Method O2 Flow Rate 97.4 F 92 24 H 94/58 L 92 L High Flow Nasal Cannula 28 03/05/25 12:00 03/05/25 12:00 03/05/25 12:00 03/05/25 12:00 03/05/25 12:00 03/05/25 12:00 03/05/25 12:00 FiO2 80 03/05/25 12:00 Narrative Exam General: Awake. deaf and mute HEENT: Normocephalic, atraumatic, mucous membranes moist. Heart: Regular rate and rhythm, no murmurs. Noted ICD Lungs: Bronchial breath sounds and crackles are heard in the left lung Abdomen: Soft, nondistended, nontender, positive bowel sounds. ?No guarding or rebound tenderness. Neurologic: no gross neurological deficit, and patient able to move all 4 extremities. Extremities: Mild trace bilateral pedal edema noted Skin: No rash or ecchymoses. Objective Labs 03/06/25 05:40 03/06/25 05:40 Labs: Laboratory Results - last 24 hr 03/04/25 03/05/25 13:07 04:49 WBC 9.0 RBC 3.92 L Hgb 11.6 L Hct 34.8 L MCV 89 MCH 29.6 MCHC 33.3 RDW Std Deviation 45.8 H Plt Count 212 D Neut % (Auto) 69 Lymph % (Auto) 17 [place] % (Auto) 10 Eos % (Auto) 3 Baso % (Auto) 1 Neut # (Auto) 6.3 Lymph # (Auto) 1.5 [place] # (Auto) 0.9 H Eos # (Auto) 0.3 Baso # (Auto) 0.1 Immature Gran # (Auto) 0.05 H Absolute Nucleated RBC 0.00 Immature Gran % 1 H Nucleated RBC % 0 Sodium 138 Potassium 4.6 Chloride 100 Carbon Dioxide 29.9 Anion Gap 8 BUN 21 Creatinine 1.0 Estim Creat Clear Calc 67.7 eGFR > 60 BUN/Creatinine Ratio 21 H Glucose 79 Calculated Osmolality 277 Calcium 9.8 Corrected Calcium 10.0 Magnesium 1.9 Total Bilirubin 0.3 AST 20 ALT 26 Alkaline Phosphatase 62 Total Protein 6.4 Albumin 3.8 Globulin 2.6 Albumin/Globulin Ratio 1.5 Coccidioides IgM Ab Negative ABG Interpretation ABG results: 03/02/25 03/04/25 20:40 09:20 ABG pH 7.45 7.43 ABG pCO2 42 46 ABG pO2 60 L 77 L ABG HCO3 29 H 31 H ABG O2 Saturation 92 96 ABG Base Excess 4 H 5 H Quality Measures Quality Measures VTE prophylaxis Advance care planning discussed with:: patient Assessment & Plan Assessment Current Active Medications: Generic Name Dose Route Start Last Admin Trade Name Freq PRN Reason Stop Dose Admin Acetaminophen 650 mg 03/04/25 08:23 Acetaminophen 325 Mg Tablet PO 04/01/25 17:22 Q6H PRN Fever >100.3 Apixaban 5 mg 03/03/25 21:00 03/05/25 08:21 Apixaban 2.5 Mg Tablet PO 04/02/25 20:59 5 mg BID CHRISTIANO Administration Atorvastatin Calcium 10 mg 03/03/25 21:00 03/04/25 20:30 Atorvastatin Calcium 10 Mg Tablet PO 04/02/25 20:59 10 mg HS CHRISTIANO Administration Azithromycin 500 mg 03/02/25 17:45 03/05/25 08:21 Azithromycin 250 Mg Tablet PO 03/09/25 17:44 500 mg QDAY CHRISTIANO Administration Divalproex Sodium 1,000 mg 03/02/25 21:00 03/04/25 20:[address] 500 Mg Tablet.Dr PO 04/01/25 20:59 1,000 mg HS CHRISTIANO Administration Dutasteride 0.5 mg 03/03/25 09:00 03/05/25 08:21 Dutasteride 0.5 Mg Capsule (Non-Formulary) PO 04/02/25 08:59 0.5 mg QDAY CHRISTIANO Administration Piperacillin Sod/Tazobactam 100 mls @ 200 mls/hr 03/05/25 09:43 03/05/25 10:32 Sod 4.5 gm/ Sodium Chloride IV 03/12/25 09:42 200 mls/hr Q6HR CHRISTIANO Administration Magnesium Hydroxide 30 ml 03/02/25 17:23 Milk Of Magnesia Susp 30 Ml Udc PO 04/01/25 17:22 QDAY PRN CONSTIPATION Protocol Metoprolol Succinate 12.5 mg 03/03/25 09:00 03/05/25 08:21 Metoprolol Succinate Xl 25 Mg Tabcr PO 04/02/25 08:59 12.5 mg QDAY CHRISTIANO Administration Ondansetron HCl 4 mg 03/02/25 17:23 Ondansetron Inj 2 Mg/Ml Inj 2 Ml IV 04/01/25 17:22 Q6H PRN NAUSEA OR VOMITING Protocol (Fluvoxamine 100 Mg 1.5 ea 03/03/25 21:00 03/04/25 20:30 Tablet) PO 04/02/25 20:59 Not Given HS CHRISTIANO Protocol Risperidone 2 mg 03/02/25 21:00 03/04/25 20:30 Risperidone 1 Mg Tablet PO 04/01/25 20:59 2 mg HS CHRISTIANO Administration Sodium Chloride 3 ml 03/02/25 12:21 Sodium Chloride Rt Latisha 0.9% 3 Ml Nebu INH 04/01/25 12:20 PRN PRN SOLN Plan A 74-year-old male who lives in a [place] [facility] since 2007 with significant past medical history of intellectual disability, deafness, OCD, intermittent explosive disorder, diabetes mellitus currently not on any treatment, hyperlipidemia, GERD, heart failure s/p ICD, COPD on 2 L oxygen, prostate carcinoma, seizures is brought to the hospital with chief complaints of decreased oxygen saturations noted on pulse oximeter and admitted in the hospital for acute on chronic hypoxic respiratory failure secondary to heart failure exacerbation. #Acute on chronic hypoxic respiratory failure. #Bilateral pneumonia, predominantly left-sided # To rule out underlying malignancy #Underlying COPD on 2 L oxygen. - Brought to the hospital by care provider in view of low oxygen saturations noted on pulse oximeter. - Patient noted to have fatigue and difficulty in doing his routine daily activities on the day of admission. - At baseline, patient is using 4 L oxygen, which was increased from 2 L within the last several weeks. - At the time of admission noted to have 91% saturation with 6 L oxygen through nasal cannula. - On physical examination, noted to have bilateral inspiratory crackles more in the basilar areas. - EKG showed sinus rhythm with multiple ectopics. - Chest x-ray showed bilateral patchy infiltrates, more on the left side - Chest x-ray from 2022 showed similar infiltrates, more on the left side, suspicious of malignancy - Chest CT showed severe bilateral pneumonia, more on the left side with small left-sided pleural effusion - Tested negative for COVID, influenza, cocci IgM - Blood cultures came back negative after 48 hours Plan - Patient was initially started on ceftriaxone 1 g IV daily [03/04-03/05] - As of 03/05/2025, patient is still desaturating on high flow oxygen for which patient was started on Zosyn 4.5 g every 8 hourly [03/05- - Azithromycin [03/03-present - DuoNebs every 4 thoroughly scheduled - Patient is on high flow as of 03/05/2025, but as patient is desaturating despite EMG being on high flow oxygen for which patient was started on BiPAP - Consulted ICU for potential upgrade if patient is not able to maintain saturations on BiPAP for intubation - A dose of methylprednisolone 60 Mg IV push is given on 03/05/2025 # Paroxysmal atrial fibrillation. # History of HFrEF, EF 35 to 40% [02/2025] # Nonischemic cardiomyopathy - Patient is diagnosed with a paroxysmal atrial fibrillation and 2022. - [id number] is 3 - Since then patient is started on Eliquis 5 Mg p.o. twice daily - Currently patient is in sinus rhythm. - Echo Normal LV size and function. Estimated EF 35-40 %. Grade I diastolic dysfunction. Plan: - will continue home metoprolol 12.5 Mg p.o. daily - Will continue home Eliquis 5 Mg p.o. twice daily. - Continue home metoprolol. #History of diabetes mellitus. - Per patient's care provider, patient had history of diabetes mellitus on treatment but later as his sugars are well-controlled, stopped treatment by his primary care provider - HbA1c is ordered - 6.2. Plan: - will hold the treatment for now and monitor patient. #Hyperlipidemia. -Patient is using simvastatin 40 Mg p.o. at bedtime. -Lipid panel showed TG 155, Chol 183, LDL 127, HDL 25. Plan: -Started on atorvastatin 10 Mg at bedtime. #Normocytic normochromic anemia. - Patient is using iron supplements at home. - Will resume it on outpatient basis. #History of seizures. - Patient is using divalproex at home. - Reported that patient did not have seizures in past couple of years. - Restarted on divalproex. #History of prostate cancer. - Per patient's care provider patient had history of prostate cancer in 2014 underwent radiation therapy for 4 weeks. - Following up with PCP and on dutasteride. - Resumed Dutasteride 0.5mg p.o. qday. Hospital Maintenance: Dispo: Tele. DVT ppx: Apixaban. GI ppx: not needed. Diet: Cardiac, fluid restriction 1200 mL. IV lines: Peripheral. Code status: FULL. Patient plan of care was discussed with the attending physician, Dr. Peguero and senior resident Dr. Ricardo Melvin, PGY1 Attending Provider Attestation/Addendum I, Daria Peguero, DO, attest that I was physically present for the min portions of the service and evaluated the patient with the resident and I reviewed and discussed the case with the resident and agree with the resident's findings and plans of care as documented above Patient seen and evaluated this AM. Patient noted to desaturate into the 70s on HFNC. ABG was done 7.44/47/56. He was subsequently placed on BiPap. Caretakers were at bedside in the afternoon and updated regarding patient condition. Dr Virk, patient's conservator, also updated and agreeable to intubation if patient's condition were to worsen. Aspiration risks were also discussed with caretakers. Will place NPO at this time as patient remains on BiPap. Will give solumedrol 60mg IV x1. Suspect chronic lung disease due to unchanged left infiltrates on cxr from August. Caretakers state that pulmonology had ruled out pulmonary fibrosis as a cause. Abx coverage was broadened from rocephin to zosyn for pseudonomal coverage. MRSA is negative and cocci negative. Will obtain US of left lower lung to assess if any possible effusion is present. Will also ESTEPHANIA to rule out any autoimmune causes of chronic lung disease. Patient continues to have scattered rhonchi and wheezing, with diminished breath sounds in left lung fowler. No peripheral edema noted
--- NOTE | 2025-03-05 14:57 | XR_ITS ---
Examination: AP chest single view Technique one AP portable semiupright chest single view Exam date and time: March 05, 2025 1508 hrs. Comparison March 02, 2025 Indications: Shortness of breath hypoxia today. Findings: Severe bilateral pneumonia Mild enlargement cardiac contour Moderate vascular congestion. Cardiac leads stable position Impression: Severe bilateral pneumonia Mild associated heart failure
[2025-03-05 15:40] LABS: Base Excess 7 (-3-3); HCO3 32 mEq/L (20-26); Inspired Oxygen, FIO2 100 %; O2 Saturation 90 % (91-98); PCO2 47 mmHg (32.0-48.0); pH, Arterial 7.44 (7.35-7.45)
[2025-03-05 15:47] LABS: Allen Test Performed/OK; PO2 56 mmHg (83-108); Puncture Site Right Radial
--- NOTE | 2025-03-05 15:52 | PC.NURSE ---
1530- patient went to bathroom took his oxygen off came back with o2 sats 78%, increase oxygen to 90% with o2sats between 86-87%, increase fio2 to 100%- with o2sats 87-88%, called dr. caldwell and made aware- new order to start on bipap after abg draw.
[2025-03-05] MEDS: ALBUTEROL/IPRATROPIUM (Duoneb) RT SOL 3 ML NEBU INH ×2 (18:43→22:30)
[2025-03-05] MEDS: risperiDONE 1 MG TABLET 2 MG PO (20:10)
[2025-03-05] MEDS: DIVALPROEX SOD DR 500 MG TABLET.DR 1000 MG PO (20:10)
[2025-03-05] MEDS: ATORVASTATIN CALCIUM 10 MG TABLET PO (20:11)
[2025-03-06] VITALS (14 sets, daily range): BP systolic 90–113; BP diastolic 53–66; PULSE 69–97; RESP 12–30; TEMP 36.1–36.3; O2SAT 88–100; BMI 27.6
[2025-03-06] MEDS: ALBUTEROL/IPRATROPIUM (Duoneb) RT SOL 3 ML NEBU INH ×6 (03:23→23:50)
[2025-03-06] MEDS: PIPER/TAZO INJ 4.5 GM in SODIUM CHLORIDE 0.9% (POP) 100 ML IV ×4 (05:04→23:08)
[2025-03-06 06:24] LABS: Basophils % (Auto) 0 % (0-2.5); Eosinophils % (Auto) 0 % (0-10); Hematocrit 34.5 % (41.0-53.0); Hemoglobin 11.6 g/dL (13.5-16.0); Immature Granulocytes % (Auto) 1 % (0-0); Immature Granulocytes Auto 0.11 Thou/mm3 (0.00-0.00); Lymphocytes # (Auto) 0.8 Thou/mm3 (1.0-4.8); Lymphocytes % (Auto) 7 % (10-50); Mean Corpuscular HGB Conc 33.6 g/dl (31.0-37.0); Mean Corpuscular Hemoglobin 30.1 pg (25.0-35.0); Mean Corpuscular Volume 90 fL (80-100); Monocytes # (Auto) 0.4 Thou/mm3 (0.0-0.8); Monocytes % (Auto) 3 % (0-12); Neutrophils # (Auto) 10.5 Thou/mm3 (1.8-7.7); Neutrophils % (Auto) 89 % (37-80); Nucleated Red Blood Cell % 0 /100 WBC (0); Platelet Count 240 Thou/mm3 (140-440); RDW Standard Deviation 44.2 fL (35.1-43.9); Red Blood Count 3.85 Miln/mm3 (4.50-5.90); White Blood Count 11.8 Thou/mm3 (3.8-10.6)
[2025-03-06 06:55] LABS: Alanine Aminotransferase 43 U/L (10-49); Albumin, Serum 3.8 gm/dL (3.4-4.8); Albumin/Globulin Ratio 1.4 (1.2-2.2); Alkaline Phosphatase 63 U/L (46-116); Anion Gap 10 (7-16); Aspartate Amino Transferase 27 U/L (0-34); BUN/Creatinine Ratio 18 Ratio (12-20); Bilirubin,Total 0.4 mg/dL (0.3-1.2); Blood Urea Nitrogen 20 mg/dL (9-23); Calcium 9.5 mg/dL (8.3-10.6); Calcium (Corrected) 9.7 mg/dL (8.5-10.1); Chloride 97 mMol/L (98-107); Creatinine (Component) 1.1 mg/dL (0.6-1.3); Estimated Creatinine Clearance 61.5 mL/min (>60); Globulin 2.8 gm/dL (2.3-3.5); Glucose 114 mg/dL (74-106); Osmolality,Calculated 271 (275-295); Potassium 4.2 mMol/L (3.4-5.1); Sodium 134 mMol/L (136-145); Total Protein 6.6 gm/dL (5.7-8.2); eGFR > 60 See Note
--- NOTE | 2025-03-06 07:41 | XR_ITS ---
Examination: Ultrasound right hemithorax Ultrasound left hemithorax Exam date and time: March 06, 2025 0 7 x 5 hours INDICATION: Shortness of breath hypoxia beginning 4 days ago, pleural fluid on chest film March 05, 2025 Technique and findings: Grayscale sonographic images right and left hemithoraces No pleural fluid noted IMPRESSION: No pleural fluid noted
[2025-03-06] MEDS: METOPROLOL SUCCINATE XL 25 MG TABCR 12.5 MG PO (09:19)
[2025-03-06] MEDS: APIXABAN 2.5 MG TABLET 5 MG PO ×2 (09:19→20:16)
[2025-03-06] MEDS: AZITHROMYCIN 250 MG TABLET 500 MG PO (09:19)
[2025-03-06] MEDS: DUTASTERIDE 0.5 MG CAPSULE (NON-FORMULARY) PO (10:06)
--- NOTE | 2025-03-06 10:29 | PC.SS ---
Follow up note: Pt is from [facility] and will return upon dc and they will provide transportation. On Bipap. On IV antibiotic.
--- NOTE | 2025-03-06 12:30 | ESPR_ITS ---
Documentation for date of: 03/06/25 Subjective Subjective Interval history: The patient was seen and examined this a.m. No overnight events. Patient was on BiPAP this morning. Tolerating it well. Patient seems euvolemic. Mentation at baseline. Exam Vital Signs Temp Pulse Resp BP Pulse Ox O2 Del Method O2 Flow Rate 97.1 F 83 23 H 107/66 89 L BiPAP 25 03/06/25 08:00 03/06/25 10:50 03/06/25 10:50 03/06/25 09:19 03/06/25 10:50 03/06/25 08:00 03/06/25 10:50 FiO2 50 03/06/25 10:50 Narrative Exam General: Awake, interactive, but deaf and mute. HEENT: Normocephalic, atraumatic, mucous membranes moist. On Hi-Flow 80L. No JVD noted. Heart: Regular rate and rhythm, no murmurs. Noted ICD in the left upper chest with healed scar. Lungs: Bilateral coarse crackles are heard throughout the lung fowler. Abdomen: Soft, nondistended, nontender, positive bowel sounds. ?No guarding or rebound tenderness. Neurologic: Unable to assess orientation, no gross neurological deficit, and patient able to move all 4 extremities. Extremities: Mild trace bilateral pedal edema noted. Skin: No rash or ecchymoses. Objective Labs 03/06/25 05:40 03/06/25 05:40 Labs: Laboratory Results - last 24 hr 03/05/25 03/06/25 15:30 05:40 WBC 11.8 H RBC 3.85 L Hgb 11.6 L Hct 34.5 L MCV 90 MCH 30.1 MCHC 33.6 RDW Std Deviation 44.2 H Plt Count 240 Neut % (Auto) 89 H Lymph % (Auto) 7 L Cameron % (Auto) 3 Eos % (Auto) 0 Baso % (Auto) 0 Neut # (Auto) 10.5 H Lymph # (Auto) 0.8 L [place] # (Auto) 0.4 Eos # (Auto) 0.0 Baso # (Auto) 0.0 Immature Gran # (Auto) 0.11 H Absolute Nucleated RBC 0.00 Immature Gran % 1 H Nucleated RBC % 0 Puncture Site Right Radial ABG pH 7.44 ABG pCO2 47 ABG pO2 56 L* D ABG HCO3 32 H ABG O2 Saturation 90 L ABG Base Excess 7 H FiO2 100 Sodium 134 L Potassium 4.2 Chloride 97 L Carbon Dioxide 27.0 Anion Gap 10 BUN 20 Creatinine 1.1 Estim Creat Clear Calc 61.5 eGFR > 60 BUN/Creatinine Ratio 18 Glucose 114 H Calculated Osmolality 271 L Calcium 9.5 Corrected Calcium 9.7 Total Bilirubin 0.4 AST 27 ALT 43 Alkaline Phosphatase 63 Total Protein 6.6 Albumin 3.8 Globulin 2.8 Albumin/Globulin Ratio 1.4 ABG Interpretation ABG results: 03/02/25 03/04/25 03/05/25 20:40 09:20 15:30 ABG pH 7.45 7.43 7.44 ABG pCO2 42 46 47 ABG pO2 60 L 77 L 56 L* D ABG HCO3 29 H 31 H 32 H ABG O2 Saturation 92 96 90 L ABG Base Excess 4 H 5 H 7 H Quality Measures Quality Measures VTE prophylaxis Advance care planning discussed with:: patient Assessment & Plan Assessment Current Active Medications: Generic Name Dose Route Start Last Admin Trade Name Freq PRN Reason Stop Dose Admin Acetaminophen 650 mg 03/04/25 08:23 Acetaminophen 325 Mg Tablet PO 04/01/25 17:22 Q6H PRN Fever >100.3 Albuterol/Ipratropium 3 ml 03/05/25 19:00 03/06/25 10:47 Albuterol/Ipratropium (Duoneb) Rt Latisha 3 Ml Nebu INH 04/04/25 18:59 3 ml Q4HRRT CHRISTIANO Administration Apixaban 5 mg 03/03/25 21:00 03/06/25 09:19 Apixaban 2.5 Mg Tablet PO 04/02/25 20:59 5 mg BID CHRISTIANO Administration Atorvastatin Calcium 10 mg 03/03/25 21:00 03/05/25 20:11 Atorvastatin Calcium 10 Mg Tablet PO 04/02/25 20:59 10 mg HS CHRISTIANO Administration Azithromycin 500 mg 03/02/25 17:45 03/06/25 09:19 Azithromycin 250 Mg Tablet PO 03/09/25 17:44 500 mg QDAY CHRISTIANO Administration Divalproex Sodium 1,000 mg 03/02/25 21:00 03/05/25 20:[address] 500 Mg Tablet.Dr PO 04/01/25 20:59 1,000 mg HS CHRISTIANO Administration Dutasteride 0.5 mg 03/03/25 09:00 03/06/25 10:06 Dutasteride 0.5 Mg Capsule (Non-Formulary) PO 04/02/25 08:59 0.5 mg QDAY CHRISTIANO Administration Piperacillin Sod/Tazobactam 100 mls @ 200 mls/hr 03/05/25 09:43 03/06/25 05:34 Sod 4.5 gm/ Sodium Chloride IV 03/12/25 09:42 Infused Q6HR CHRISTIANO Infusion Magnesium Hydroxide 30 ml 03/02/25 17:23 Milk Of Magnesia Susp 30 Ml Udc PO 04/01/25 17:22 QDAY PRN CONSTIPATION Protocol Metoprolol Succinate 12.5 mg 03/03/25 09:00 03/06/25 09:19 Metoprolol Succinate Xl 25 Mg Tabcr PO 04/02/25 08:59 12.5 mg QDAY CHRISTIANO Administration Ondansetron HCl 4 mg 03/02/25 17:23 Ondansetron Inj 2 Mg/Ml Inj 2 Ml IV 04/01/25 17:22 Q6H PRN NAUSEA OR VOMITING Protocol (Fluvoxamine 100 Mg 1.5 ea 03/03/25 21:00 03/05/25 20:11 Tablet) PO 04/02/25 20:59 Not Given HS CHRISTIANO Protocol Risperidone 2 mg 03/02/25 21:00 03/05/25 20:10 Risperidone 1 Mg Tablet PO 04/01/25 20:59 2 mg HS CHRISTIANO Administration Sodium Chloride 3 ml 03/02/25 12:21 Sodium Chloride Rt Latisha 0.9% 3 Ml Nebu INH 04/01/25 12:20 PRN PRN SOLN Plan 74-year-old male with a past medical history of developmental delay with some mental retardation, mute as well as deaf but able to do few daily ADLs including taking care of himself, diabetes mellitus, hyperlipidemia, OCD, bipolar disorder lives in a intermediate was brought into the emergency department for 3 days of hypoxia secondary to community-acquired pneumonia. #Acute hypoxic respiratory failure secondary to community-acquired pneumonia Assessment: Patient presented due to shortness of breath and hypoxia requiring O2 supplementation review of x-ray shows significant bilateral pneumonia. Etiology of the hypoxia likely driven due to the pneumonia no signs of decompensated heart failure at this time patient is euvolemic. No JVD noted no significant bilateral lower extremity edema noted. CT chest showed severe KEILA pna Recommendations: - Continue aggressive broad-spectrum IV antibiotics #History HFrEF s/p ICD placement, compensated (EF 35%) #Nonischemic cardiomyopathy Assessment: Patient presented about a year ago due to new onset heart failure. Echocardiogram at that time showed an EF of 35% with multiple regional wall motion abnormality could be secondary to left bundle branch at that time. The decision was made to place a ICD on 08/2024 Currently patient is euvolemic with a BNP less than 20. No troponin elevation. The etiology of the hypoxia seems to be more driven due to the pneumonia rather than an acute suspicion of heart failure. Not currently in exacerbation. Recmmendations: - Recommend no diuretics for now, HOLD the home Lasix 40 mg qday - Continue home metoprolol of 12.5 mg daily - Can hold the Entresto 1 tab twice daily if BP soft - Strict input output, daily weights and 2 g sodium diet - Maintain Mg >2 and K >4 #History of paroxysmal atrial fibrillation Rate controlled Recommendations: - Continue metoprolol XL 12.5 mg once daily for rate control - Continue home Eliquis of 5 mg twice daily Management of rest of the medical conditions as per primary team and other consultants. #History of developmental delay #History of seizures #History of prostate cancer #Normocytic anemia #History of type 2 diabetes Thank you for the consult and allowing me to participate in the care of the patient. Cardiology will continue to follow. - - Patient's care was discussed with my attending physician, Dr. Jose Farrar MD Internal Medicine PGY-3 Attending Provider Attestation/Addendum I have personally seen and examined the patient separately on the above date of service and discussed the plan of care with the resident. I reviewed the resident Dr. Gabino Sampson consultation progress note and agree with the resident findings and plan in the note above and have also edited the documentation to reflect my findings and plan. Patient oxygen requirements have increased in the hospital and on high flow oxygen and recommended CT chest. CT chest was completed which showed severe bilateral lung opacities left greater than right consistent with bilateral pneumonia. Mild cardiomegaly but no evidence of any significant vascular congestion. Recommend aggressive treatment of the pneumonia at the present point of time and to hold the diuretics for now. On Zosyn as well as azithromycin for now. Recommend ID consult for further evaluation Overnight patient apparently desaturated to 88% and patient was started on BiPAP and improved with it and now switched to high flow nasal cannula. Patient's chips screen tender Dr. Brito was consulted by the primary team and recommended to start him on high-dose steroids for possible autoimmune process. Continue rate control medications if the blood pressure is permissible and Eliquis 5 mg twice daily for anticoagulation if no further procedures are planned. Echo repeated today and showed moderate LV dysfunction with an EF of 35 to 40%. Normal RV size and function. Rest of the echo findings similar to before. Continue strict input output, daily weights and 2 g sodium diet. Felipe Garcia M.D. Interventional Cardiology
--- NOTE | 2025-03-06 14:28 | ESPR_ITS ---
<Statement entered by Harvinder Moore MD - 03/06/25 18:11> Senior Resident Attestation: I supervised/discussed management plan with dietetic intern physician Dr. Melvin, and was involved in the care of this patient. I personally saw and examined the patient and discussed the assessment and plan with the entire medicine team, including my attending. I agree with the assessment and plan as documented. Patient was started on BiPAP overnight due to drop in saturation below 88% and was transitioned to high flow oxygen. Patient was started on Solu-Medrol 125 mg daily IV. [id number] was ordered to rule out fungal etiology. Patient's care was discussed with attending physician, Dr. Peguero. Harvinder Moore MD PGY-2. Documentation for date of: 03/06/25 Subjective Subjective Interval history: Patient is seen and examined at bedside Vitals are stable and patient is on BiPAP 14/10 On physical examination, bilateral bronchial breath sounds heard, fine crackles heard on the left side Discussed about the patient with respiratory therapy and wean him off to the high flow oxygen, recommended to maintain saturation between 90-92 Discussed about the patient with Dr. Brito who is his wool brusher, recommended to start on high-dose IV steroids for 1 week Beta-1 3D glucan and cocci are ordered Started on Solu-Medrol 125 mg IV daily for a week Exam Vital Signs Temp Pulse Resp BP Pulse Ox O2 Del Method O2 Flow Rate 97.0 F 76 14 108/65 96 High Flow Nasal Cannula 25 03/06/25 12:00 03/06/25 12:00 03/06/25 12:00 03/06/25 12:00 03/06/25 12:00 03/06/25 12:00 03/06/25 12:00 FiO2 50 03/06/25 12:00 Narrative Exam General: Awake. deaf and mute HEENT: Normocephalic, atraumatic, mucous membranes moist. Heart: Regular rate and rhythm, no murmurs. Noted ICD Lungs: Bronchial breath sounds and crackles are heard in the left lung Abdomen: Soft, nondistended, nontender, positive bowel sounds. ?No guarding or rebound tenderness. Neurologic: patient able to move all 4 extremities. Extremities: no pedal edema noted Skin: No rash or ecchymoses. Objective Labs 03/07/25 05:40 03/07/25 05:40 Labs: Laboratory Results - last 24 hr 03/05/25 03/06/25 15:30 05:40 WBC 11.8 H RBC 3.85 L Hgb 11.6 L Hct 34.5 L MCV 90 MCH 30.1 MCHC 33.6 RDW Std Deviation 44.2 H Plt Count 240 Neut % (Auto) 89 H Lymph % (Auto) 7 L [place] % (Auto) 3 Eos % (Auto) 0 Baso % (Auto) 0 Neut # (Auto) 10.5 H Lymph # (Auto) 0.8 L [place] # (Auto) 0.4 Eos # (Auto) 0.0 Baso # (Auto) 0.0 Immature Gran # (Auto) 0.11 H Absolute Nucleated RBC 0.00 Immature Gran % 1 H Nucleated RBC % 0 Puncture Site Right Radial ABG pH 7.44 ABG pCO2 47 ABG pO2 56 L* D ABG HCO3 32 H ABG O2 Saturation 90 L ABG Base Excess 7 H FiO2 100 Sodium 134 L Potassium 4.2 Chloride 97 L Carbon Dioxide 27.0 Anion Gap 10 BUN 20 Creatinine 1.1 Estim Creat Clear Calc 61.5 eGFR > 60 BUN/Creatinine Ratio 18 Glucose 114 H Calculated Osmolality 271 L Calcium 9.5 Corrected Calcium 9.7 Total Bilirubin 0.4 AST 27 ALT 43 Alkaline Phosphatase 63 Total Protein 6.6 Albumin 3.8 Globulin 2.8 Albumin/Globulin Ratio 1.4 ABG Interpretation ABG results: 03/02/25 03/04/25 03/05/25 20:40 09:20 15:30 ABG pH 7.45 7.43 7.44 ABG pCO2 42 46 47 ABG pO2 60 L 77 L 56 L* D ABG HCO3 29 H 31 H 32 H ABG O2 Saturation 92 96 90 L ABG Base Excess 4 H 5 H 7 H Quality Measures Quality Measures VTE prophylaxis Advance care planning discussed with:: legal surragate Assessment & Plan Assessment Current Active Medications: Generic Name Dose Route Start Last Admin Trade Name Freq PRN Reason Stop Dose Admin Acetaminophen 650 mg 03/04/25 08:23 Acetaminophen 325 Mg Tablet PO 04/01/25 17:22 Q6H PRN Fever >100.3 Albuterol/Ipratropium 3 ml 03/05/25 19:00 03/06/25 10:47 Albuterol/Ipratropium (Duoneb) Rt Latisha 3 Ml Nebu INH 04/04/25 18:59 3 ml Q4HRRT CHRISTIANO Administration Apixaban 5 mg 03/03/25 21:00 03/06/25 09:19 Apixaban 2.5 Mg Tablet PO 04/02/25 20:59 5 mg BID CHRISTIANO Administration Atorvastatin Calcium 10 mg 03/03/25 21:00 03/05/25 20:11 Atorvastatin Calcium 10 Mg Tablet PO 04/02/25 20:59 10 mg HS CHRISTIANO Administration Azithromycin 500 mg 03/02/25 17:45 03/06/25 09:19 Azithromycin 250 Mg Tablet PO 03/09/25 17:44 500 mg QDAY CHRISTIANO Administration Divalproex Sodium 1,000 mg 03/02/25 21:00 03/05/25 20:[address] 500 Mg Tablet.Dr PO 04/01/25 20:59 1,000 mg HS CHRISTIANO Administration Dutasteride 0.5 mg 03/03/25 09:00 03/06/25 10:06 Dutasteride 0.5 Mg Capsule (Non-Formulary) PO 04/02/25 08:59 0.5 mg QDAY CHRISTIANO Administration Piperacillin Sod/Tazobactam 100 mls @ 200 mls/hr 03/05/25 09:43 03/06/25 12:42 Sod 4.5 gm/ Sodium Chloride IV 03/12/25 09:42 200 mls/hr Q6HR CHRISTIANO Administration Magnesium Hydroxide 30 ml 03/02/25 17:23 Milk Of Magnesia Susp 30 Ml Udc PO 04/01/25 17:22 QDAY PRN CONSTIPATION Protocol Metoprolol Succinate 12.5 mg 03/03/25 09:00 03/06/25 09:19 Metoprolol Succinate Xl 25 Mg Tabcr PO 04/02/25 08:59 12.5 mg QDAY CHRISTIANO Administration Ondansetron HCl 4 mg 03/02/25 17:23 Ondansetron Inj 2 Mg/Ml Inj 2 Ml IV 04/01/25 17:22 Q6H PRN NAUSEA OR VOMITING Protocol (Fluvoxamine 100 Mg 1.5 ea 03/03/25 21:00 03/05/25 20:11 Tablet) PO 04/02/25 20:59 Not Given HS CHRISTIANO Protocol Risperidone 2 mg 03/02/25 21:00 03/05/25 20:10 Risperidone 1 Mg Tablet PO 04/01/25 20:59 2 mg HS CHRISTIANO Administration Sodium Chloride 3 ml 03/02/25 12:21 Sodium Chloride Rt Latisha 0.9% 3 Ml Nebu INH 04/01/25 12:20 PRN PRN SOLN Plan A 74-year-old male who lives in a care home since 2007 with significant past medical history of intellectual disability, deafness, OCD, intermittent explosive disorder, diabetes mellitus currently not on any treatment, hyperlipidemia, GERD, heart failure s/p ICD, COPD on 2 L oxygen, prostate carcinoma, seizures is brought to the hospital with chief complaints of decreased oxygen saturations noted on pulse oximeter and admitted in the hospital for acute on chronic hypoxic respiratory failure secondary to heart failure exacerbation. #Acute on chronic hypoxic respiratory failure. #Bilateral pneumonia, predominantly left-sided # To rule out underlying malignancy/ Autoimmune #Underlying COPD on 2 L oxygen. - Brought to the hospital by care provider in view of low oxygen saturations noted on pulse oximeter. - Patient noted to have fatigue and difficulty in doing his routine daily activities on the day of admission. - At baseline, patient is using 4 L oxygen, which was increased from 2 L within the last several weeks. - At the time of admission noted to have 91% saturation with 6 L oxygen through nasal cannula. - On physical examination, noted to have bilateral inspiratory crackles more in the basilar areas. - EKG showed sinus rhythm with multiple ectopics. - Chest x-ray showed bilateral patchy infiltrates, more on the left side - Chest x-ray from 2022 showed similar infiltrates, more on the left side, suspicious of malignancy - Chest CT showed severe bilateral pneumonia, more on the left side with small left-sided pleural effusion - Tested negative for COVID, influenza, cocci IgM - Blood cultures came back negative after 48 hours Plan - Patient was initially started on ceftriaxone 1 g IV daily [03/04-03/05] - As of 03/05/2025, patient is still desaturating on high flow oxygen for which patient was started on Zosyn 4.5 g every 6 hourly [03/05- - Azithromycin [03/03-present - DuoNebs every 4 thoroughly scheduled - Patient is on high flow as of 03/05/2025, but as patient is desaturating despite being on high flow oxygen, patient was started on BiPAP - A dose of methylprednisolone 60 Mg IV push is given on 03/05/2025 - Patient is weaned off BiPAP to high flow oxygen as of 03/06/2025 - Started on methylprednisolone 125 Mg IV daily [03/06-03/12] # Paroxysmal atrial fibrillation. # History of HFrEF, EF 35 to 40% [02/2025] # Nonischemic cardiomyopathy - Patient is diagnosed with a paroxysmal atrial fibrillation and 2022. - [id number] is 3 - Since then patient is started on Eliquis 5 Mg p.o. twice daily - Currently patient is in sinus rhythm. - Echo Normal LV size and function. Estimated EF 35-40 %. Grade I diastolic dysfunction. Plan: - will continue home metoprolol 12.5 Mg p.o. daily - Will continue home Eliquis 5 Mg p.o. twice daily. - Continue home metoprolol. #History of diabetes mellitus. - Per patient's care provider, patient had history of diabetes mellitus on treatment but later as his sugars are well-controlled, stopped treatment by his primary care provider - HbA1c is ordered - 6.2. Plan: - will hold the treatment for now and monitor patient. #Hyperlipidemia. -Patient is using simvastatin 40 Mg p.o. at bedtime. -Lipid panel showed TG 155, Chol 183, LDL 127, HDL 25. Plan: -Started on atorvastatin 10 Mg at bedtime. #Normocytic normochromic anemia. - Patient is using iron supplements at home. - Will resume it on outpatient basis. #History of seizures. - Patient is using divalproex at home. - Reported that patient did not have seizures in past couple of years. - Restarted on divalproex. #History of prostate cancer. - Per patient's care provider patient had history of prostate cancer in 2014 underwent radiation therapy for 4 weeks. - Following up with PCP and on dutasteride. - Resumed Dutasteride 0.5mg p.o. qday. Hospital Maintenance: Dispo: Tele. DVT ppx: Apixaban. GI ppx: not needed. Diet: Cardiac, fluid restriction 1200 mL. IV lines: Peripheral. Code status: FULL. Patient plan of care was discussed with the attending physician, Dr. Peguero and senior resident Dr. Oscar Melvin, PGY1 Attending Provider Attestation/Addendum I, Daria Peguero DO, attest that I was physically present for the min portions of the service and evaluated the patient with the resident and I reviewed and discussed the case with the resident and agree with the resident's findings and plans of care as documented above Patient seen and evaluated this AM. No acute events overnight. Patient was able to be weaned down to HFNC and was at flow of 25L/min and FIO2 of 50% at time of my evaluation. patient gesturing that he is hungry and would like to eat. Case discussed with patient's outpatient wool brusher, recommends high dose steroids. C-anca and P-anca labs ordered to rule out possible autoimmune causes for chronic lung disease. Continue with IV steroids and titrate O2 as tolerated.
[2025-03-06] MEDS: MethylPREDNISolone SOD SUCC 62.5 MG/ML 2ML VIAL 125 MG IVP (16:08)
[2025-03-06 18:58] LABS: HIV (1&2) Antibody Rapid Non-Reactive
[2025-03-06] MEDS: ATORVASTATIN CALCIUM 10 MG TABLET PO (20:16)
[2025-03-06] MEDS: DIVALPROEX SOD DR 500 MG TABLET.DR 1000 MG PO (20:16)
[2025-03-06] MEDS: risperiDONE 1 MG TABLET 2 MG PO (20:16)
[2025-03-07] VITALS (13 sets, daily range): BP systolic 91–104; BP diastolic 52–66; PULSE 59–109; RESP 16–28; TEMP 36.1; O2SAT 90–99; BMI 27.1
[2025-03-07] MEDS: ALBUTEROL/IPRATROPIUM (Duoneb) RT SOL 3 ML NEBU INH (02:29)
[2025-03-07] MEDS: PIPER/TAZO INJ 4.5 GM in SODIUM CHLORIDE 0.9% (POP) 100 ML IV ×3 (06:00→18:27)
[2025-03-07 06:48] LABS: Basophils % (Auto) 0 % (0-2.5); Eosinophils % (Auto) 0 % (0-10); Hematocrit 32.5 % (41.0-53.0); Hemoglobin 11.2 g/dL (13.5-16.0); Immature Granulocytes % (Auto) 1 % (0-0); Immature Granulocytes Auto 0.22 Thou/mm3 (0.00-0.00); Lymphocytes # (Auto) 1.1 Thou/mm3 (1.0-4.8); Lymphocytes % (Auto) 6 % (10-50); Mean Corpuscular HGB Conc 34.5 g/dl (31.0-37.0); Mean Corpuscular Hemoglobin 30.6 pg (25.0-35.0); Mean Corpuscular Volume 89 fL (80-100); Monocytes # (Auto) 0.7 Thou/mm3 (0.0-0.8); Monocytes % (Auto) 4 % (0-12); Neutrophils # (Auto) 16.8 Thou/mm3 (1.8-7.7); Neutrophils % (Auto) 89 % (37-80); Nucleated Red Blood Cell % 0 /100 WBC (0); Platelet Count 226 Thou/mm3 (140-440); RDW Standard Deviation 44.6 fL (35.1-43.9); Red Blood Count 3.66 Miln/mm3 (4.50-5.90); White Blood Count 18.8 Thou/mm3 (3.8-10.6)
[2025-03-07 06:57] LABS: Alanine Aminotransferase 55 U/L (10-49); Albumin, Serum 3.8 gm/dL (3.4-4.8); Albumin/Globulin Ratio 1.5 (1.2-2.2); Alkaline Phosphatase 64 U/L (46-116); Anion Gap 6 (7-16); Aspartate Amino Transferase 30 U/L (0-34); BUN/Creatinine Ratio 20 Ratio (12-20); Bilirubin,Total 0.3 mg/dL (0.3-1.2); Blood Urea Nitrogen 20 mg/dL (9-23); Calcium 9.9 mg/dL (8.3-10.6); Calcium (Corrected) 10.1 mg/dL (8.5-10.1); Carbon Dioxide 28.4 mMol/L (20.0-31.0); Chloride 104 mMol/L (98-107); Estimated Creatinine Clearance 65.8 mL/min (>60); Globulin 2.5 gm/dL (2.3-3.5); Glucose 124 mg/dL (74-106); Osmolality,Calculated 279 (275-295); Potassium 4.2 mMol/L (3.4-5.1); Sodium 138 mMol/L (136-145); Total Protein 6.3 gm/dL (5.7-8.2); eGFR > 60 See Note
[2025-03-07] MEDS: MethylPREDNISolone SOD SUCC 62.5 MG/ML 2ML VIAL 125 MG IVP (08:19)
[2025-03-07] MEDS: DUTASTERIDE 0.5 MG CAPSULE (NON-FORMULARY) PO (08:19)
[2025-03-07] MEDS: APIXABAN 2.5 MG TABLET 5 MG PO ×2 (08:19→22:17)
[2025-03-07] MEDS: AZITHROMYCIN 250 MG TABLET 500 MG PO (08:20)
[2025-03-07] MEDS: PANTOPRAZOLE INJ 40 MG VIAL IVP (12:41)
[2025-03-07] MEDS: VANCOMYCIN/NS 1 GM IVPB 200 ML IV ×2 (12:43→22:18)
[2025-03-07 14:05] LABS: Cocci Serology, IgM Positive (Negative)
[2025-03-07 14:06] LABS: Cocid Sro, CF/ID (UCD) NO CHG* See Sep Rpt
[2025-03-07 14:15] LABS: Cocci Serology, IgG Negative (Negative)
--- NOTE | 2025-03-07 14:52 | PC.SS ---
Rounding Note: Patient on high flow oxygen. Receiving IV antibiotics and steroids.
--- NOTE | 2025-03-07 15:08 | EKG_ITS ---
[facility] (Formerly [facility])[3] Test Date: 2025-03-07 Pat Name: KIRT ROCHE Department: Room: S270A Gender: Male [employer] Manager: ZULEYKA : 1950 Requested By: Giuseppe Silva Order Number: [id number] Reading MD: Giuseppe Silva Measurements Intervals [place] Rate: 70 P: 27 NV: 163 QRS: 28 QRSD: 150 T: 30 QT: 369 QTc: 399 Interpretive Statements SINUS RHYTHM WITH OCCASIONAL SUPRAVENTRICULAR PREMATURE COMPLEXES RIGHT BUNDLE BRANCH BLOCK ANTEROLATERAL MYOCARDIAL INFARCTION , PROBABLY RECENT ACUTE [place] Compared to ECG 03/03/2025 02:11:07 Left-axis deviation no longer present Left ventricular hypertrophy no longer present T-wave abnormality no longer present Possible ischemia no longer present Myocardial infarct finding still present /store/S0/[id number]
--- NOTE | 2025-03-07 16:03 | PD.RESPRO ---
Documentation for date of: 03/07/25 Subjective Subjective Interval history: Patient seen and examined in the AM. Patient is interactive and follows verbal commands. On HFNC. No overnight events. No complaints. Exam Vital Signs Temp Pulse Resp BP Pulse Ox O2 Del Method O2 Flow Rate 97.0 F 75 27 H 97/60 94 L High Flow Nasal Cannula 03/07/25 12:00 03/07/25 13:57 03/07/25 13:57 03/07/25 12:00 03/07/25 13:57 03/07/25 12:00 03/07/25 13:57 FiO2 50 03/07/25 13:57 Narrative Exam General: Awake. deaf and mute HEENT: Normocephalic, atraumatic, mucous membranes moist. Heart: Regular rate and rhythm, no murmurs. Noted ICD Lungs: Bronchial breath sounds and crackles are heard in the left lung Abdomen: Soft, nondistended, nontender, positive bowel sounds. ?No guarding or rebound tenderness. Neurologic: patient able to move all 4 extremities. Extremities: no pedal edema noted Skin: No rash or ecchymoses. Objective Labs 03/07/25 05:40 03/07/25 05:40 Labs: Laboratory Results - last 24 hr 03/04/25 03/06/25 03/07/25 13:07 16:40 05:40 WBC 18.8 H D RBC 3.66 L Hgb 11.2 L Hct 32.5 L MCV 89 MCH 30.6 MCHC 34.5 RDW Std Deviation 44.6 H Plt Count 226 Neut % (Auto) 89 H Lymph % (Auto) 6 L [place] % (Auto) 4 Eos % (Auto) 0 Baso % (Auto) 0 Neut # (Auto) 16.8 H Lymph # (Auto) 1.1 [place] # (Auto) 0.7 Eos # (Auto) 0.0 Baso # (Auto) 0.0 Immature Gran # (Auto) 0.22 H Absolute Nucleated RBC 0.00 Immature Gran % 1 H Nucleated RBC % 0 Sodium 138 Potassium 4.2 Chloride 104 Carbon Dioxide 28.4 Anion Gap 6 L BUN 20 Creatinine 1.0 Estim Creat Clear Calc 65.8 eGFR > 60 BUN/Creatinine Ratio 20 Glucose 124 H Calculated Osmolality 279 Calcium 9.9 Corrected Calcium 10.1 Total Bilirubin 0.3 AST 30 ALT 55 H Alkaline Phosphatase 64 Total Protein 6.3 Albumin 3.8 Globulin 2.5 Albumin/Globulin Ratio 1.5 Coccidioides IgG Ab Negative Coccidioides IgM Ab Positive A HIV 1&2 Antibody Rapid Non-Reactive ABG Interpretation ABG results: 03/02/25 03/04/25 03/05/25 20:40 09:20 15:30 ABG pH 7.45 7.43 7.44 ABG pCO2 42 46 47 ABG pO2 60 L 77 L 56 L* D ABG HCO3 29 H 31 H 32 H ABG O2 Saturation 92 96 90 L ABG Base Excess 4 H 5 H 7 H Quality Measures Quality Measures VTE prophylaxis Advance care planning discussed with:: other Assessment & Plan Assessment Current Active Medications: Generic Name Dose Route Start Last Admin Trade Name Freq PRN Reason Stop Dose Admin Acetaminophen 650 mg 03/04/25 08:23 Acetaminophen 325 Mg Tablet PO 04/01/25 17:22 Q6H PRN Fever >100.3 Albuterol/Ipratropium 3 ml 03/07/25 11:00 Albuterol/Ipratropium (Duoneb) Rt Latisha 3 Ml Nebu INH 04/04/25 18:59 Q4HRRT PRN wheezing or SOB Apixaban 5 mg 03/03/25 21:00 03/07/25 08:19 Apixaban 2.5 Mg Tablet PO 04/02/25 20:59 5 mg BID CHRISTIANO Administration Atorvastatin Calcium 10 mg 03/03/25 21:00 03/06/25 20:16 Atorvastatin Calcium 10 Mg Tablet PO 04/02/25 20:59 10 mg HS CHRISTIANO Administration Azithromycin 500 mg 03/02/25 17:45 03/07/25 08:20 Azithromycin 250 Mg Tablet PO 03/09/25 17:44 500 mg QDAY CHRISTIANO Administration Divalproex Sodium 1,000 mg 03/02/25 21:00 03/06/25 20:[address] 500 Mg Tablet.Dr PO 04/01/25 20:59 1,000 mg HS CHRISTIANO Administration Dutasteride 0.5 mg 03/03/25 09:00 03/07/25 08:19 Dutasteride 0.5 Mg Capsule (Non-Formulary) PO 04/02/25 08:59 0.5 mg QDAY CHRISTIANO Administration Piperacillin Sod/Tazobactam 100 mls @ 200 mls/hr 03/05/25 09:43 03/07/25 12:41 Sod 4.5 gm/ Sodium Chloride IV 03/12/25 09:42 200 mls/hr Q6HR CHRISTIANO Administration Vancomycin/Sodium Chloride 200 mls @ 120 mls/hr 03/07/25 22:00 Vancomycin/Ns 1 Gm Ivpb IV 03/14/25 21:59 Q12H CHRISTIANO Fluconazole 400 mg in 200 mls @ 100 mls/hr 03/07/25 15:11 Diflucan/Ns Ivpb IV 03/14/25 15:10 QDAY@1400 CHRISTIANO Magnesium Hydroxide 30 ml 03/02/25 17:23 Milk Of Magnesia Susp 30 Ml Udc PO 04/01/25 17:22 QDAY PRN CONSTIPATION Protocol Metoprolol Succinate 12.5 mg 03/03/25 09:00 03/07/25 08:20 Metoprolol Succinate Xl 25 Mg Tabcr PO 04/02/25 08:59 Not Given QDAY CHRISTIANO Ondansetron HCl 4 mg 03/02/25 17:23 Ondansetron Inj 2 Mg/Ml Inj 2 Ml IV 04/01/25 17:22 Q6H PRN NAUSEA OR VOMITING Protocol Pantoprazole Sodium 40 mg 03/07/25 11:15 03/07/25 12:41 Pantoprazole Inj 40 Mg Vial IVP 04/06/25 11:14 40 mg QDAY CHRISTIANO Administration (Fluvoxamine 100 Mg 1.5 ea 03/03/25 21:00 03/06/25 20:20 Tablet) PO 04/02/25 20:59 Not Given HS CHRISTIANO Protocol Pharmacy Consult 1 each 03/08/25 09:00 Vancomycin Pharmacy To Dose 1 Each Each IV 04/07/25 08:59 QDAY PRN PROTOCOL Risperidone 2 mg 03/02/25 21:00 03/06/25 20:16 Risperidone 1 Mg Tablet PO 04/01/25 20:59 2 mg HS CHRISTIANO Administration Sodium Chloride 3 ml 03/02/25 12:21 Sodium Chloride Rt Latisha 0.9% 3 Ml Nebu INH 04/01/25 12:20 PRN PRN SOLN Plan 74-year-old male with a past medical history of developmental delay with some mental retardation, mute as well as deaf but able to do few daily ADLs including taking care of himself, diabetes mellitus, hyperlipidemia, OCD, bipolar disorder lives in a [place] [facility] was brought into the emergency department for 3 days of hypoxia secondary to community-acquired pneumonia. #Acute hypoxic respiratory failure secondary to community-acquired pneumonia Assessment: Patient presented due to shortness of breath and hypoxia requiring O2 supplementation review of x-ray shows significant bilateral pneumonia. Etiology of the hypoxia likely driven due to the pneumonia no signs of decompensated heart failure at this time patient is euvolemic. No JVD noted no significant bilateral lower extremity edema noted. CT chest showed severe KEILA pna Recommendations: - Continue aggressive broad-spectrum IV antibiotics - IV steroids started due to possible autoimmune process however not highlighted by primary team #History HFrEF s/p ICD placement, compensated (EF 35%) #Nonischemic cardiomyopathy Assessment: Patient presented about a year ago due to new onset heart failure. Echocardiogram at that time showed an EF of 35% with multiple regional wall motion abnormality could be secondary to left bundle branch at that time. The decision was made to place a ICD on 08/2024 Currently patient is euvolemic with a BNP less than 20. No troponin elevation. The etiology of the hypoxia seems to be more driven due to the pneumonia rather than an acute suspicion of heart failure. Not currently in exacerbation. Recmmendations: - Recommend no diuretics for now, HOLD the home Lasix 40 mg qday - Continue home metoprolol of 12.5 mg daily - Can hold the Entresto 1 tab twice daily if BP soft - Strict input output, daily weights and 2 g sodium diet - Maintain Mg >2 and K >4 #History of paroxysmal atrial fibrillation Rate controlled Recommendations: - Continue metoprolol XL 12.5 mg once daily for rate control - Continue home Eliquis of 5 mg twice daily Management of rest of the medical conditions as per primary team and other consultants. #History of developmental delay #History of seizures #History of prostate cancer #Normocytic anemia #History of type 2 diabetes Thank you for the consult and allowing me to participate in the care of the patient. Cardiology will continue to follow. - - Patient's care was discussed with my attending physician, Dr. Jose Farrar MD Internal Medicine PGY-3 Attending Provider Attestation/Addendum I have personally seen and examined the patient separately on the above date of service and discussed the plan of care with the resident. I reviewed the resident Dr. Gabino Sampson consultation progress note and agree with the resident findings and plan in the note above and have also edited the documentation to reflect my findings and plan. Patient oxygen requirements have increased in the hospital and on high flow oxygen and recommended CT chest. CT chest was completed which showed severe bilateral lung opacities left greater than right consistent with bilateral pneumonia. Mild cardiomegaly but no evidence of any significant vascular congestion. Recommend aggressive treatment of the pneumonia at the present point of time and to hold the diuretics for now. On Zosyn as well as azithromycin for now. 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 Started on fluconazole for the primary team His oxygen requirements are slowly decreasing now but he still on high flow nasal cannula at 50%. Not tachypneic or tachycardic. Overnight 03/04/2024 patient apparently desaturated to 88% and patient was started on BiPAP and improved with it and now switched to high flow nasal cannula. 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 Brito was consulted by the primary team and recommended to start him on high-dose steroids for possible autoimmune process. Continue rate control medications if the blood pressure is permissible and Eliquis 5 mg twice daily for anticoagulation if no further procedures are planned. Echo repeated today and showed moderate LV dysfunction with an EF of 35 to 40%. Normal RV size and function. Rest of the echo findings similar to before. Continue strict input output, daily weights and 2 g sodium diet. Felipe Garcia M.D. Interventional Cardiology
[2025-03-07] MEDS: FLUCONAZOLE/NS 400 MG IVPB 400 MG/200 ML BAG 100 MG IV (16:48)
--- NOTE | 2025-03-07 17:29 | ESPR_ITS ---
<Statement entered by Yonatan Chavarria MD - 03/11/25 17:21> [id number]-year-old male with multiple comorbidities including intellectual disability with deafness, type 2 diabetes mellitus, hyperlipidemia, heart failure with reduced EF with EF 35-40% status post AICD and COPD on 2 L supplemental oxygen at home who presented with shortness of breath found to have acute hypoxic respiratory failure secondary to coccidiomycosis and COPD exacerbation. During course of hospitalization, patient continues to be on high flow nasal cannula with high settings and currently on fluconazole. Patient also received IV antibiotic therapy and plan to continue weaning down high flow nasal cannula. I reviewed above note and agree with findings and plans. I have also personally examined the patient with medicine team and went over assessment and plan with medical team including epidemiology intern and resident physician. <Statement entered by Harvinder Moore MD - 03/08/25 14:41> Senior Resident Attestation: I supervised/discussed management plan with epidemiology intern physician Dr. Melvin, and was involved in the care of this patient. I personally saw and examined the patient and discussed the assessment and plan with the entire medicine team, including my attending. I agree with the assessment and plan as documented. Patient's repeat cocci serology returned positive and he was started on fluconazole. He remains on high flow oxygen. Will continue current management and monitor patient. ID consult tomorrow. Patient's care was discussed with attending physician, Dr. Chavarria. Harvinder Moore MD PGY-2. Documentation for date of: 03/07/25 Subjective Subjective Interval history: Patient is seen and examined at bedside Vitals are stable and patient is still on high flow oxygen 50% FiO2, 25 L/min No acute overnight events. Labs showed mildly elevated WBC count in the setting of steroid usage. Repeat cocci IgM came back positive Discontinued methylprednisolone and started on fluconazole 400 Mg IV daily Consulted Dr Vyas, will appreciate his recommendations Exam Vital Signs Temp Pulse Resp BP Pulse Ox O2 Del Method O2 Flow Rate 96.9 F 72 24 H 95/58 L 93 L High Flow Nasal Cannula 03/07/25 16:00 03/07/25 16:00 03/07/25 16:00 03/07/25 16:00 03/07/25 16:00 03/07/25 16:00 03/07/25 16:00 FiO2 50 03/07/25 16:00 Narrative Exam General: Awake. deaf and mute. On high flow oxygen, 25 L/min, 50% FiO2 HEENT: Normocephalic, atraumatic, mucous membranes moist. Heart: Regular rate and rhythm, no murmurs. Noted ICD Lungs: Bronchial breath sounds and crackles are heard in the left lung Abdomen: Soft, nondistended, nontender, positive bowel sounds. ?No guarding or rebound tenderness. Neurologic: patient able to move all 4 extremities. Extremities: no pedal edema noted Skin: No rash or ecchymoses. Objective Labs 03/07/25 05:40 03/07/25 05:40 Labs: Laboratory Results - last 24 hr 03/04/25 03/06/25 03/07/25 13:07 16:40 05:40 WBC 18.8 H D RBC 3.66 L Hgb 11.2 L Hct 32.5 L MCV 89 MCH 30.6 MCHC 34.5 RDW Std Deviation 44.6 H Plt Count 226 Neut % (Auto) 89 H Lymph % (Auto) 6 L [place] % (Auto) 4 Eos % (Auto) 0 Baso % (Auto) 0 Neut # (Auto) 16.8 H Lymph # (Auto) 1.1 [place] # (Auto) 0.7 Eos # (Auto) 0.0 Baso # (Auto) 0.0 Immature Gran # (Auto) 0.22 H Absolute Nucleated RBC 0.00 Immature Gran % 1 H Nucleated RBC % 0 Sodium 138 Potassium 4.2 Chloride 104 Carbon Dioxide 28.4 Anion Gap 6 L BUN 20 Creatinine 1.0 Estim Creat Clear Calc 65.8 eGFR > 60 BUN/Creatinine Ratio 20 Glucose 124 H Calculated Osmolality 279 Calcium 9.9 Corrected Calcium 10.1 Total Bilirubin 0.3 AST 30 ALT 55 H Alkaline Phosphatase 64 Total Protein 6.3 Albumin 3.8 Globulin 2.5 Albumin/Globulin Ratio 1.5 Coccidioides IgG Ab Negative Coccidioides IgM Ab Positive A HIV 1&2 Antibody Rapid Non-Reactive ABG Interpretation ABG results: 03/02/25 03/04/25 03/05/25 20:40 09:20 15:30 ABG pH 7.45 7.43 7.44 ABG pCO2 42 46 47 ABG pO2 60 L 77 L 56 L* D ABG HCO3 29 H 31 H 32 H ABG O2 Saturation 92 96 90 L ABG Base Excess 4 H 5 H 7 H Quality Measures Quality Measures VTE prophylaxis Advance care planning discussed with:: other Assessment & Plan Assessment Current Active Medications: Generic Name Dose Route Start Last Admin Trade Name Freq PRN Reason Stop Dose Admin Acetaminophen 650 mg 03/04/25 08:23 Acetaminophen 325 Mg Tablet PO 04/01/25 17:22 Q6H PRN Fever >100.3 Albuterol/Ipratropium 3 ml 03/07/25 11:00 Albuterol/Ipratropium (Duoneb) Rt Latisha 3 Ml Nebu INH 04/04/25 18:59 Q4HRRT PRN wheezing or SOB Apixaban 5 mg 03/03/25 21:00 03/07/25 08:19 Apixaban 2.5 Mg Tablet PO 04/02/25 20:59 5 mg BID CHRISTIANO Administration Atorvastatin Calcium 10 mg 03/03/25 21:00 03/06/25 20:16 Atorvastatin Calcium 10 Mg Tablet PO 04/02/25 20:59 10 mg HS CHRISTIANO Administration Azithromycin 500 mg 03/02/25 17:45 03/07/25 08:20 Azithromycin 250 Mg Tablet PO 03/09/25 17:44 500 mg QDAY CHRISTIANO Administration Divalproex Sodium 1,000 mg 03/02/25 21:00 03/06/25 20:[address] 500 Mg Tablet.Dr PO 04/01/25 20:59 1,000 mg HS CHRISTIANO Administration Dutasteride 0.5 mg 03/03/25 09:00 03/07/25 08:19 Dutasteride 0.5 Mg Capsule (Non-Formulary) PO 04/02/25 08:59 0.5 mg QDAY CHRISTIANO Administration Piperacillin Sod/Tazobactam 100 mls @ 200 mls/hr 03/05/25 09:43 03/07/25 12:41 Sod 4.5 gm/ Sodium Chloride IV 03/12/25 09:42 200 mls/hr Q6HR CHRISTIANO Administration Vancomycin/Sodium Chloride 200 mls @ 120 mls/hr 03/07/25 22:00 Vancomycin/Ns 1 Gm Ivpb IV 03/14/25 21:59 Q12H CHRISTIANO Fluconazole 400 mg in 200 mls @ 100 mls/hr 03/07/25 15:11 03/07/25 16:48 Diflucan/Ns Ivpb IV 03/14/25 15:10 100 mls/hr QDAY@1400 CHRISTIANO Administration Magnesium Hydroxide 30 ml 03/02/25 17:23 Milk Of Magnesia Susp 30 Ml Udc PO 04/01/25 17:22 QDAY PRN CONSTIPATION Protocol Metoprolol Succinate 12.5 mg 03/03/25 09:00 03/07/25 08:20 Metoprolol Succinate Xl 25 Mg Tabcr PO 04/02/25 08:59 Not Given QDAY CHRISTIANO Ondansetron HCl 4 mg 03/02/25 17:23 Ondansetron Inj 2 Mg/Ml Inj 2 Ml IV 04/01/25 17:22 Q6H PRN NAUSEA OR VOMITING Protocol Pantoprazole Sodium 40 mg 03/07/25 11:15 03/07/25 12:41 Pantoprazole Inj 40 Mg Vial IVP 04/06/25 11:14 40 mg QDAY CHRISTIANO Administration (Fluvoxamine 100 Mg 1.5 ea 03/03/25 21:00 03/06/25 20:20 Tablet) PO 04/02/25 20:59 Not Given HS CHRISTIANO Protocol Pharmacy Consult 1 each 03/08/25 09:00 Vancomycin Pharmacy To Dose 1 Each Each IV 04/07/25 08:59 QDAY PRN PROTOCOL Risperidone 2 mg 03/02/25 21:00 03/06/25 20:16 Risperidone 1 Mg Tablet PO 04/01/25 20:59 2 mg HS CHRISTIANO Administration Sodium Chloride 3 ml 03/02/25 12:21 Sodium Chloride Rt Latisha 0.9% 3 Ml Nebu INH 04/01/25 12:20 PRN PRN SOLN Plan A 74-year-old male who lives in a intermediate since 2007 with significant past medical history of intellectual disability, deafness, OCD, intermittent explosive disorder, diabetes mellitus currently not on any treatment, hyperlipidemia, GERD, heart failure s/p ICD, COPD on 2 L oxygen, prostate carcinoma, seizures is brought to the hospital with chief complaints of decreased oxygen saturations noted on pulse oximeter and admitted in the hospital for acute on chronic hypoxic respiratory failure secondary to heart failure exacerbation. #Acute on chronic hypoxic respiratory failure. #Bilateral pneumonia, predominantly left-sided, cocci pneumonia #Underlying COPD on 2 L oxygen. - Brought to the hospital by care provider in view of low oxygen saturations noted on pulse oximeter. - Patient noted to have fatigue and difficulty in doing his routine daily activities on the day of admission. - At baseline, patient is using 4 L oxygen, which was increased from 2 L within the last several weeks. - At the time of admission noted to have 91% saturation with 6 L oxygen through nasal cannula. - On physical examination, noted to have bilateral inspiratory crackles more in the basilar areas. - EKG showed sinus rhythm with multiple ectopics. - Chest x-ray showed bilateral patchy infiltrates, more on the left side - Chest x-ray from 2022 showed similar infiltrates, more on the left side, suspicious of malignancy - Chest CT showed severe bilateral pneumonia, more on the left side with small left-sided pleural effusion - Tested negative for COVID, influenza, cocci IgM - Blood cultures came back negative after 48 hours - Repeat cocci as of 03/07/2025 came back positive Plan - Patient was initially started on ceftriaxone 1 g IV daily [03/04-03/05] - As of 03/05/2025, patient is still desaturating on high flow oxygen for which patient was started on Zosyn 4.5 g every 6 hourly [03/05- - Azithromycin [03/03-present - patient is started on fluconazole 400 Mg IV daily as of 03/07/2025, consulted Dr Vyas and will appreciate his recommendations - DuoNebs every 4 thoroughly scheduled - Patient is on high flow as of 03/05/2025, but as patient is desaturating despite being on high flow oxygen, patient was started on BiPAP - A dose of methylprednisolone 60 Mg IV push is given on 03/05/2025 - Patient is weaned off BiPAP to high flow oxygen as of 03/06/2025 - Started on methylprednisolone 125 Mg IV daily [03/06-03/07], discontinued as patient tested positive for cocci # Paroxysmal atrial fibrillation. # History of HFrEF, EF 35 to 40% [02/2025] # Nonischemic cardiomyopathy - Patient is diagnosed with a paroxysmal atrial fibrillation and 2022. - [id number] is 3 - Since then patient is started on Eliquis 5 Mg p.o. twice daily - Currently patient is in sinus rhythm. - Echo Normal LV size and function. Estimated EF 35-40 %. Grade I diastolic dysfunction. Plan: - will continue home metoprolol 12.5 Mg p.o. daily - Will continue home Eliquis 5 Mg p.o. twice daily. - Continue home metoprolol. #History of diabetes mellitus. - Per patient's care provider, patient had history of diabetes mellitus on treatment but later as his sugars are well-controlled, stopped treatment by his primary care provider - HbA1c is ordered - 6.2. Plan: - will hold the treatment for now and monitor patient. #Hyperlipidemia. -Patient is using simvastatin 40 Mg p.o. at bedtime. -Lipid panel showed TG 155, Chol 183, LDL 127, HDL 25. Plan: -Started on atorvastatin 10 Mg at bedtime. #Normocytic normochromic anemia. - Patient is using iron supplements at home. - Will resume it on outpatient basis. #History of seizures. - Patient is using divalproex at home. - Reported that patient did not have seizures in past couple of years. - Restarted on divalproex. #History of prostate cancer. - Per patient's care provider patient had history of prostate cancer in 2014 underwent radiation therapy for 4 weeks. - Following up with PCP and on dutasteride. - Resumed Dutasteride 0.5mg p.o. qday. Hospital Maintenance: Dispo: Tele. DVT ppx: Apixaban. GI ppx: not needed. Diet: Cardiac, fluid restriction 1200 mL. IV lines: Peripheral. Code status: FULL. Patient plan of care was discussed with the attending physician, Dr. Chavarria and senior resident Dr. Oscar Melvin, PGY1
[2025-03-07] MEDS: DIVALPROEX SOD DR 500 MG TABLET.DR 1000 MG PO (22:17)
[2025-03-07] MEDS: risperiDONE 1 MG TABLET 2 MG PO (22:17)
[2025-03-07] MEDS: ATORVASTATIN CALCIUM 10 MG TABLET PO (22:17)
[2025-03-07] MEDS: FLUVOXAMINE 100 MG PO (22:19)
[2025-03-08] VITALS (14 sets, daily range): BP systolic 91–105; BP diastolic 53–62; PULSE 53–105; RESP 14–50; TEMP 35.9–36.3; O2SAT 93–99
[2025-03-08] MEDS: PIPER/TAZO INJ 4.5 GM in SODIUM CHLORIDE 0.9% (POP) 100 ML IV ×3 (00:49→12:25)
[2025-03-08 06:18] LABS: Basophils % (Auto) 0 % (0-2.5); Eosinophils # (Auto) 0.1 Thou/mm3 (0.0-0.5); Eosinophils % (Auto) 1 % (0-10); Hematocrit 30.3 % (41.0-53.0); Hemoglobin 10.4 g/dL (13.5-16.0); Immature Granulocytes % (Auto) 1 % (0-0); Immature Granulocytes Auto 0.21 Thou/mm3 (0.00-0.00); Lymphocytes # (Auto) 1.4 Thou/mm3 (1.0-4.8); Lymphocytes % (Auto) 7 % (10-50); Mean Corpuscular HGB Conc 34.3 g/dl (31.0-37.0); Mean Corpuscular Hemoglobin 29.8 pg (25.0-35.0); Mean Corpuscular Volume 87 fL (80-100); Monocytes # (Auto) 1.5 Thou/mm3 (0.0-0.8); Monocytes % (Auto) 7 % (0-12); Neutrophils # (Auto) 17.6 Thou/mm3 (1.8-7.7); Neutrophils % (Auto) 85 % (37-80); Nucleated Red Blood Cell % 0 /100 WBC (0); Platelet Count 223 Thou/mm3 (140-440); RDW Standard Deviation 44.4 fL (35.1-43.9); Red Blood Count 3.49 Miln/mm3 (4.50-5.90); White Blood Count 20.8 Thou/mm3 (3.8-10.6)
[2025-03-08 07:29] LABS: Alanine Aminotransferase 41 U/L (10-49); Albumin, Serum 3.4 gm/dL (3.4-4.8); Albumin/Globulin Ratio 1.4 (1.2-2.2); Alkaline Phosphatase 53 U/L (46-116); Anion Gap 8 (7-16); Aspartate Amino Transferase 17 U/L (0-34); BUN/Creatinine Ratio 21 Ratio (12-20); Bilirubin,Total 0.3 mg/dL (0.3-1.2); Blood Urea Nitrogen 21 mg/dL (9-23); Calcium 9.2 mg/dL (8.3-10.6); Calcium (Corrected) 9.7 mg/dL (8.5-10.1); Chloride 107 mMol/L (98-107); Estimated Creatinine Clearance 65.8 mL/min (>60); Globulin 2.4 gm/dL (2.3-3.5); Glucose 105 mg/dL (74-106); Osmolality,Calculated 286 (275-295); Potassium 4.2 mMol/L (3.4-5.1); Sodium 142 mMol/L (136-145); Total Protein 5.8 gm/dL (5.7-8.2); eGFR > 60 See Note
[2025-03-08] MEDS: FLUCONAZOLE 100 MG TABLET 800 MG PO (08:09)
[2025-03-08] MEDS: AZITHROMYCIN 250 MG TABLET 500 MG PO (09:21)
[2025-03-08] MEDS: APIXABAN 2.5 MG TABLET 5 MG PO ×2 (09:21→21:08)
[2025-03-08] MEDS: DUTASTERIDE 0.5 MG CAPSULE (NON-FORMULARY) PO (09:21)
[2025-03-08] MEDS: PANTOPRAZOLE INJ 40 MG VIAL IVP (09:22)
[2025-03-08] MEDS: VANCOMYCIN/NS 1 GM IVPB 200 ML IV (10:23)
--- NOTE | 2025-03-08 11:21 | PD.RESPRO ---
Documentation for date of: 03/08/25 Subjective Subjective Interval history: Patient seen and examined in the AM. Patient is interactive and follows verbal commands. On HFNC. No overnight events. No complaints. Exam Vital Signs Temp Pulse Resp BP Pulse Ox O2 Del Method O2 Flow Rate 97.0 F 80 18 99/56 L 93 L High Flow Nasal Cannula 03/08/25 08:00 03/08/25 11:05 03/08/25 11:05 03/08/25 09:21 03/08/25 11:05 03/08/25 08:00 03/08/25 11:05 FiO2 45 03/08/25 11:05 Narrative Exam General: Awake. deaf and mute HEENT: Normocephalic, atraumatic, mucous membranes moist. Heart: Regular rate and rhythm, no murmurs. Noted ICD Lungs: Bronchial breath sounds and crackles are heard in the left lung Abdomen: Soft, nondistended, nontender, positive bowel sounds. ?No guarding or rebound tenderness. Neurologic: patient able to move all 4 extremities. Extremities: no pedal edema noted Skin: No rash or ecchymoses. Objective Labs 03/09/25 05:10 03/09/25 05:10 Labs: Laboratory Results - last 24 hr 03/04/25 03/07/25 03/08/25 13:07 05:40 05:40 WBC 20.8 H RBC 3.49 L Hgb 10.4 L Hct 30.3 L MCV 87 MCH 29.8 MCHC 34.3 RDW Std Deviation 44.4 H Plt Count 223 Neut % (Auto) 85 H Lymph % (Auto) 7 L [place] % (Auto) 7 Eos % (Auto) 1 Baso % (Auto) 0 Neut # (Auto) 17.6 H Lymph # (Auto) 1.4 [place] # (Auto) 1.5 H Eos # (Auto) 0.1 Baso # (Auto) 0.0 Immature Gran # (Auto) 0.21 H Absolute Nucleated RBC 0.00 Immature Gran % 1 H Nucleated RBC % 0 Sodium 142 Potassium 4.2 Chloride 107 Carbon Dioxide 27.0 Anion Gap 8 BUN 21 Creatinine 1.0 Estim Creat Clear Calc 65.8 eGFR > 60 BUN/Creatinine Ratio 21 H Glucose 105 Calculated Osmolality 286 Calcium 9.2 Corrected Calcium 9.7 Total Bilirubin 0.3 AST 17 ALT 41 Alkaline Phosphatase 53 Total Protein 5.8 Albumin 3.4 Globulin 2.4 Albumin/Globulin Ratio 1.4 Coccidioides IgG Ab Negative Coccidioides IgM Ab Positive A ABG Interpretation ABG results: 03/02/25 03/04/25 03/05/25 20:40 09:20 15:30 ABG pH 7.45 7.43 7.44 ABG pCO2 42 46 47 ABG pO2 60 L 77 L 56 L* D ABG HCO3 29 H 31 H 32 H ABG O2 Saturation 92 96 90 L ABG Base Excess 4 H 5 H 7 H Quality Measures Quality Measures VTE prophylaxis Advance care planning discussed with:: other Assessment & Plan Assessment Current Active Medications: Generic Name Dose Route Start Last Admin Trade Name Freq PRN Reason Stop Dose Admin Acetaminophen 650 mg 03/04/25 08:23 Acetaminophen 325 Mg Tablet PO 04/01/25 17:22 Q6H PRN Fever >100.3 Albuterol/Ipratropium 3 ml 03/07/25 11:00 Albuterol/Ipratropium (Duoneb) Rt Latisha 3 Ml Nebu INH 04/04/25 18:59 Q4HRRT PRN wheezing or SOB Apixaban 5 mg 03/03/25 21:00 03/08/25 09:21 Apixaban 2.5 Mg Tablet PO 04/02/25 20:59 5 mg BID CHRISTIANO Administration Atorvastatin Calcium 10 mg 03/03/25 21:00 03/07/25 22:17 Atorvastatin Calcium 10 Mg Tablet PO 04/02/25 20:59 10 mg HS CHRISTIANO Administration Azithromycin 500 mg 03/02/25 17:45 03/08/25 09:21 Azithromycin 250 Mg Tablet PO 03/09/25 17:44 500 mg QDAY CHRISTIANO Administration Fluvoxamine Mal 100 0 ea 03/07/25 20:15 03/07/25 22:19 Mg Tablets PO 04/06/25 20:14 1.5 tablet QDAY@2000 CHRISTIANO Administration Divalproex Sodium 1,000 mg 03/02/25 21:00 03/07/25 22:[address] 500 Mg Tablet.Dr PO 04/01/25 20:59 1,000 mg HS CHRISTIANO Administration Dutasteride 0.5 mg 03/03/25 09:00 03/08/25 09:21 Dutasteride 0.5 Mg Capsule (Non-Formulary) PO 04/02/25 08:59 0.5 mg QDAY CHRISTIANO Administration Piperacillin Sod/Tazobactam 100 mls @ 200 mls/hr 03/05/25 09:43 03/08/25 05:18 Sod 4.5 gm/ Sodium Chloride IV 03/12/25 09:42 200 mls/hr Q6HR CHRISTIANO Administration Vancomycin/Sodium Chloride 200 mls @ 120 mls/hr 03/07/25 22:00 03/08/25 10:23 Vancomycin/Ns 1 Gm Ivpb IV 03/14/25 21:59 120 mls/hr Q12H CHRISTIANO Administration Protocol Fluconazole 400 mg in 200 mls @ 100 mls/hr 03/07/25 15:11 03/07/25 16:48 Diflucan/Ns Ivpb IV 03/14/25 15:10 100 mls/hr QDAY@1400 CHRISTIANO Administration Magnesium Hydroxide 30 ml 03/02/25 17:23 Milk Of Magnesia Susp 30 Ml Udc PO 04/01/25 17:22 QDAY PRN CONSTIPATION Protocol Metoprolol Succinate 12.5 mg 03/03/25 09:00 03/08/25 09:21 Metoprolol Succinate Xl 25 Mg Tabcr PO 04/02/25 08:59 Not Given QDAY CHRISTIANO Ondansetron HCl 4 mg 03/02/25 17:23 Ondansetron Inj 2 Mg/Ml Inj 2 Ml IV 04/01/25 17:22 Q6H PRN NAUSEA OR VOMITING Protocol Pantoprazole Sodium 40 mg 03/07/25 11:15 03/08/25 09:22 Pantoprazole Inj 40 Mg Vial IVP 04/06/25 11:14 40 mg QDAY CHRISTIANO Administration Pharmacy Consult 1 each 03/08/25 09:00 Vancomycin Pharmacy To Dose 1 Each Each IV 04/07/25 08:59 QDAY PRN PROTOCOL Risperidone 2 mg 03/02/25 21:00 03/07/25 22:17 Risperidone 1 Mg Tablet PO 04/01/25 20:59 2 mg HS CHRISTIANO Administration Sodium Chloride 3 ml 03/02/25 12:21 Sodium Chloride Rt Latisha 0.9% 3 Ml Nebu INH 04/01/25 12:20 PRN PRN SOLN Plan 74-year-old male with a past medical history of developmental delay with some mental retardation, mute as well as deaf but able to do few daily ADLs including taking care of himself, diabetes mellitus, hyperlipidemia, OCD, bipolar disorder lives in a detention was brought into the emergency department for 3 days of hypoxia secondary to community-acquired pneumonia. 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 Etiology of the hypoxia likely driven due to the pneumonia no signs of decompensated heart failure at this time patient is euvolemic. No JVD noted no significant bilateral lower extremity edema noted. CT chest showed severe KEILA pna Recommendations: - Continue aggressive broad-spectrum IV antibiotics - IV diflucan - IV steroids started due to possible autoimmune process however not highlighted by primary team #History HFrEF s/p ICD placement, compensated (EF 35%) #Nonischemic cardiomyopathy Assessment: Patient presented about a year ago due to new onset heart failure. Echocardiogram at that time showed an EF of 35% with multiple regional wall motion abnormality could be secondary to left bundle branch at that time. The decision was made to place a ICD on 08/2024 Currently patient is euvolemic with a BNP less than 20. No troponin elevation. The etiology of the hypoxia seems to be more driven due to the pneumonia rather than an acute suspicion of heart failure. Not currently in exacerbation. Recmmendations: - Recommend no diuretics for now, HOLD the home Lasix 40 mg qday - Continue home metoprolol of 12.5 mg daily - Can hold the Entresto 1 tab twice daily if BP soft - Strict input output, daily weights and 2 g sodium diet - Maintain Mg >2 and K >4 #History of paroxysmal atrial fibrillation Rate controlled Recommendations: - Continue metoprolol XL 12.5 mg once daily for rate control - Continue home Eliquis of 5 mg twice daily Management of rest of the medical conditions as per primary team and other consultants. #History of developmental delay #History of seizures #History of prostate cancer #Normocytic anemia #History of type 2 diabetes Thank you for the consult and allowing me to participate in the care of the patient. Cardiology will continue to follow. - - Patient's care was discussed with my attending physician, Dr. Jose Farrar MD Internal Medicine PGY-3 Attending Provider Attestation/Addendum I have personally seen and examined the patient separately on the above date of service and discussed the plan of care with the resident. I reviewed the resident Dr. Gabino Sampson consultation progress note and agree with the resident findings and plan in the note above and have also edited the documentation to reflect my findings and plan. Patient oxygen requirements have increased in the hospital and on high flow oxygen and recommended CT chest. CT chest was completed which showed severe bilateral lung opacities left greater than right consistent with bilateral pneumonia. Mild cardiomegaly but no evidence of any significant vascular congestion. Recommend aggressive treatment of the pneumonia at the present point of time and to hold the diuretics for now. On Zosyn as well as azithromycin for now. 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 Started on fluconazole for the primary team. Recommended ID consult for further evaluation and the patient seen by Dr Vyas His oxygen requirements are slowly decreasing now but he still on high flow nasal cannula at 50- 60%. Not tachypneic or tachycardic. Recommend to continue to titrate down the oxygen and continue to ambulate the patient. Patient was briefly started on IV steroids by pulmonary for possible autoimmune process which has been discontinued now and agree. Continue antihypertensives if the blood pressure is permissible and Eliquis 5 mg twice daily for anticoagulation if no further procedures are planned. Echo repeated 03/07/2025 and showed moderate LV dysfunction with an EF of 35 to 40%. Normal RV size and function. Rest of the echo findings similar to before. Continue strict input output, daily weights and 2 g sodium diet. Felipe Garcia M.D. Interventional Cardiology
[2025-03-08] MEDS: FLUCONAZOLE/NS 400 MG IVPB 400 MG/200 ML BAG 100 MG IV (13:33)
--- NOTE | 2025-03-08 13:48 | PC.SS ---
SS follow up note; Patient is on high flow. Pending Dr. Vyas's Rec's. Patient will discharge back to [facility] when medically cleared.
--- NOTE | 2025-03-08 14:39 | ESPR_ITS ---
<Statement entered by Yonatan Chavarria MD - 03/11/25 17:21> 84-[id number]-year-old male with multiple comorbidities including intellectual disability with deafness, type 2 diabetes mellitus, hyperlipidemia, heart failure with reduced EF with EF 35-40% status post AICD and COPD on 2 L supplemental oxygen at home who presented with shortness of breath found to have acute hypoxic respiratory failure secondary to coccidiomycosis and COPD exacerbation. During course of hospitalization, patient continues to be on high flow nasal cannula with high settings and currently on fluconazole. Patient also received IV antibiotic therapy and plan to continue weaning down high flow nasal cannula. I reviewed above note and agree with findings and plans. I have also personally examined the patient with medicine team and went over assessment and plan with medical team including spring intern and resident physician. <Statement entered by Harvinder Moore MD - 03/11/25 06:45> Senior Resident Attestation: I supervised/discussed management plan with spring intern physician Dr. Melvin, and was involved in the care of this patient. I personally saw and examined the patient and discussed the assessment and plan with the entire medicine team, including my attending. I agree with the assessment and plan as documented. Patient continues on high flow oxygen and is on IV fluconazole due to positive cocci IgG, pending confirmatory IgM. Patient's care was discussed with attending physician, Dr. Chavarria. Harvinder Moore MD PGY-2. Documentation for date of: 03/08/25 Subjective Subjective Interval history: Patient is seen and examined at bedside No acute overnight events. Vitals are stable on high flow oxygen, 25 L/min, 45% FiO2 Patient was started on IV fluconazole 400 Mg yesterday and steroids were stopped Patient does not have any risk factors for cocci, suspecting false positive IgM - titers are sent to [facility] for confirmation Dr Vyas was consulted in view of IgM cocci positive, will appreciate his recommendations Will continue vancomycin, Zosyn and azithromycin for now Exam Vital Signs Temp Pulse Resp BP Pulse Ox O2 Del Method O2 Flow Rate 97.4 F 88 20 92/53 L 94 L High Flow Nasal Cannula 03/08/25 12:00 03/08/25 14:03/08/25 14:03/08/25 12:00 03/08/25 14:03/08/25 12:03/08/25 14:25 FiO2 60 03/08/25 14:25 Narrative Exam General: Awake. deaf and mute. On high flow oxygen, 25 L/min, 45% FiO2 HEENT: Normocephalic, atraumatic, mucous membranes moist. Heart: Regular rate and rhythm, no murmurs. Noted ICD Lungs: Bronchial breath sounds and crackles are heard in the left lung Abdomen: Soft, nondistended, nontender, positive bowel sounds. ?No guarding or rebound tenderness. Neurologic: patient able to move all 4 extremities. Extremities: no pedal edema noted Skin: No rash or ecchymoses. Objective Labs 03/08/25 05:40 03/08/25 05:40 Labs: Laboratory Results - last 24 hr 03/08/25 05:40 WBC 20.8 H RBC 3.49 L Hgb 10.4 L Hct 30.3 L MCV 87 MCH 29.8 MCHC 34.3 RDW Std Deviation 44.4 H Plt Count 223 Neut % (Auto) 85 H Lymph % (Auto) 7 L [place] % (Auto) 7 Eos % (Auto) 1 Baso % (Auto) 0 Neut # (Auto) 17.6 H Lymph # (Auto) 1.4 [place] # (Auto) 1.5 H Eos # (Auto) 0.1 Baso # (Auto) 0.0 Immature Gran # (Auto) 0.21 H Absolute Nucleated RBC 0.00 Immature Gran % 1 H Nucleated RBC % 0 Sodium 142 Potassium 4.2 Chloride 107 Carbon Dioxide 27.0 Anion Gap 8 BUN 21 Creatinine 1.0 Estim Creat Clear Calc 65.8 eGFR > 60 BUN/Creatinine Ratio 21 H Glucose 105 Calculated Osmolality 286 Calcium 9.2 Corrected Calcium 9.7 Total Bilirubin 0.3 AST 17 ALT 41 Alkaline Phosphatase 53 Total Protein 5.8 Albumin 3.4 Globulin 2.4 Albumin/Globulin Ratio 1.4 ABG Interpretation ABG results: 03/02/25 03/04/25 03/05/25 20:40 09:20 15:30 ABG pH 7.45 7.43 7.44 ABG pCO2 42 46 47 ABG pO2 60 L 77 L 56 L* D ABG HCO3 29 H 31 H 32 H ABG O2 Saturation 92 96 90 L ABG Base Excess 4 H 5 H 7 H Quality Measures Quality Measures VTE prophylaxis Advance care planning discussed with:: other Assessment & Plan Assessment Current Active Medications: Generic Name Dose Route Start Last Admin Trade Name Freq PRN Reason Stop Dose Admin Acetaminophen 650 mg 03/04/25 08:23 Acetaminophen 325 Mg Tablet PO 04/01/25 17:22 Q6H PRN Fever >100.3 Albuterol/Ipratropium 3 ml 03/07/25 11:00 Albuterol/Ipratropium (Duoneb) Rt Latisha 3 Ml Nebu INH 04/04/25 18:59 Q4HRRT PRN wheezing or SOB Apixaban 5 mg 03/03/25 21:00 03/08/25 09:21 Apixaban 2.5 Mg Tablet PO 04/02/25 20:59 5 mg BID CHRISTIANO Administration Atorvastatin Calcium 10 mg 03/03/25 21:00 03/07/25 22:17 Atorvastatin Calcium 10 Mg Tablet PO 04/02/25 20:59 10 mg HS CHRISTIANO Administration Azithromycin 500 mg 03/02/25 17:45 03/08/25 09:21 Azithromycin 250 Mg Tablet PO 03/09/25 17:44 500 mg QDAY CHRISTIANO Administration Fluvoxamine Mal 100 0 ea 03/07/25 20:15 03/07/25 22:19 Mg Tablets PO 04/06/25 20:14 1.5 tablet QDAY@2000 CHRISTIANO Administration Divalproex Sodium 1,000 mg 03/02/25 21:00 03/07/25 22:[address] 500 Mg Tablet. PO 04/01/25 20:59 1,000 mg HS CHRISTIANO Administration Dutasteride 0.5 mg 03/03/25 09:00 03/08/25 09:21 Dutasteride 0.5 Mg Capsule (Non-Formulary) PO 04/02/25 08:59 0.5 mg QDAY CHRISTIANO Administration Piperacillin Sod/Tazobactam 100 mls @ 200 mls/hr 03/05/25 09:43 03/08/25 12:25 Sod 4.5 gm/ Sodium Chloride IV 03/12/25 09:42 200 mls/hr Q6HR CHRISTIANO Administration Vancomycin/Sodium Chloride 200 mls @ 120 mls/hr 03/07/25 22:00 03/08/25 10:23 Vancomycin/Ns 1 Gm Ivpb IV 03/14/25 21:59 120 mls/hr Q12H CHRISTIANO Administration Protocol Fluconazole 400 mg in 200 mls @ 100 mls/hr 03/07/25 15:11 03/08/25 13:33 Diflucan/Ns Ivpb IV 03/14/25 15:10 100 mls/hr QDAY@1400 CHRISTIANO Administration Magnesium Hydroxide 30 ml 03/02/25 17:23 Milk Of Magnesia Susp 30 Ml Udc PO 04/01/25 17:22 QDAY PRN CONSTIPATION Protocol Metoprolol Succinate 12.5 mg 03/03/25 09:00 03/08/25 09:21 Metoprolol Succinate Xl 25 Mg Tabcr PO 04/02/25 08:59 Not Given QDAY CHRISTIANO Ondansetron HCl 4 mg 03/02/25 17:23 Ondansetron Inj 2 Mg/Ml Inj 2 Ml IV 04/01/25 17:22 Q6H PRN NAUSEA OR VOMITING Protocol Pantoprazole Sodium 40 mg 03/07/25 11:15 03/08/25 09:22 Pantoprazole Inj 40 Mg Vial IVP 04/06/25 11:14 40 mg QDAY CHRISTIANO Administration Pharmacy Consult 1 each 03/08/25 09:00 Vancomycin Pharmacy To Dose 1 Each Each IV 04/07/25 08:59 QDAY PRN PROTOCOL Risperidone 2 mg 03/02/25 21:00 03/07/25 22:17 Risperidone 1 Mg Tablet PO 04/01/25 20:59 2 mg HS CHRISTIANO Administration Sodium Chloride 3 ml 03/02/25 12:21 Sodium Chloride Rt Latisha 0.9% 3 Ml Nebu INH 04/01/25 12:20 PRN PRN SOLN Plan A 74-year-old male who lives in a assisted since 2007 with significant past medical history of intellectual disability, deafness, OCD, intermittent explosive disorder, diabetes mellitus currently not on any treatment, hyperlipidemia, GERD, heart failure s/p ICD, COPD on 2 L oxygen, prostate carcinoma, seizures is brought to the hospital with chief complaints of decreased oxygen saturations noted on pulse oximeter and admitted in the hospital for acute on chronic hypoxic respiratory failure secondary to heart failure exacerbation. #Acute on chronic hypoxic respiratory failure. #Bilateral pneumonia, predominantly left-sided, cocci pneumonia #Underlying COPD on 2 L oxygen. - Brought to the hospital by care provider in view of low oxygen saturations noted on pulse oximeter. - Patient noted to have fatigue and difficulty in doing his routine daily activities on the day of admission. - At baseline, patient is using 4 L oxygen, which was increased from 2 L within the last several weeks. - At the time of admission noted to have 91% saturation with 6 L oxygen through nasal cannula. - On physical examination, noted to have bilateral inspiratory crackles more in the basilar areas. - EKG showed sinus rhythm with multiple ectopics. - Chest x-ray showed bilateral patchy infiltrates, more on the left side - Chest x-ray from 2022 showed similar infiltrates, more on the left side, suspicious of malignancy - Chest CT showed severe bilateral pneumonia, more on the left side with small left-sided pleural effusion - Tested negative for COVID, influenza, cocci IgM, tested positive for cocci IgM on 03/08 - Blood cultures came back negative after 48 hours - Repeat cocci as of 03/07/2025 came back positive plan - Patient was initially started on ceftriaxone 1 g IV daily [03/04-03/05], Azithromycin [03/03 - 03/09] - As of 03/05/2025, patient is still desaturating on high flow oxygen for which patient was started on Zosyn 4.5 g every 6 hourly [03/05- - Started on vancomycin (03/07 - Present) - Patient is started on fluconazole 400 Mg IV daily as of 03/07/2025 and discontinued IV steroids, - Consulted Dr Vyas and and recommended to continue fluconazole for now - DuoNebs every 4 thoroughly scheduled # Paroxysmal atrial fibrillation. # History of HFrEF, EF 35 to 40% [02/2025] # Nonischemic cardiomyopathy - Patient is diagnosed with a paroxysmal atrial fibrillation and 2022. - [id number] is 3 - Since then patient is started on Eliquis 5 Mg p.o. twice daily - Currently patient is in sinus rhythm. - Echo Normal LV size and function. Estimated EF 35-40 %. Grade I diastolic dysfunction. Plan: - will continue home metoprolol 12.5 Mg p.o. daily - Will continue home Eliquis 5 Mg p.o. twice daily. - Continue home metoprolol. #History of diabetes mellitus. - Per patient's care provider, patient had history of diabetes mellitus on treatment but later as his sugars are well-controlled, stopped treatment by his primary care provider - HbA1c is ordered - 6.2. Plan: - will hold the treatment for now and monitor patient. #Hyperlipidemia. -Patient is using simvastatin 40 Mg p.o. at bedtime. -Lipid panel showed TG 155, Chol 183, LDL 127, HDL 25. Plan: -Started on atorvastatin 10 Mg at bedtime. #Normocytic normochromic anemia. - Patient is using iron supplements at home. - Will resume it on outpatient basis. #History of seizures. - Patient is using divalproex at home. - Reported that patient did not have seizures in past couple of years. - Restarted on divalproex. #History of prostate cancer. - Per patient's care provider patient had history of prostate cancer in 2014 underwent radiation therapy for 4 weeks. - Following up with PCP and on dutasteride. - Resumed Dutasteride 0.5mg p.o. qday. Hospital Maintenance: Dispo: Tele. DVT ppx: Apixaban. GI ppx: not needed. Diet: Cardiac, fluid restriction 1500 mL. IV lines: Peripheral. Code status: FULL. Patient plan of care was discussed with the attending physician, Dr. Chavarria and senior resident Dr. Oscar Melvin, PGY1
--- NOTE | 2025-03-08 17:17 | ESCONSULT_ITS ---
<Statement entered by John Vyas MD - 03/08/25 17:36> seen with resident. increased O2 need noted. but somewhat static. may have cocci . new seroconversion this admit. pt can not augment the hx nor can the provider in the room. HPI Data of Consult Consult date: 03/08/25 Requesting Physician: Yonatan Chavarria MD Admitting Provider: Daria Peguero DO Attending Provider: Yonatan Chavarria MD Primary Care Provider: Usama Mosqueda MD Consult Narrative Reason for consult: Acute on chronic hypoxic respiratory failure History of present illness: Mr. Renteria is a 74-year-old male with past medical history of intellectual disability, deafness, OCD, intermittent explosive disorder, type 2 diabetes, hyperlipidemia, GERD, heart failure status post ICD, COPD on 2 L baseline, prostate CA, seizures who was brought to [facility] from his assisted after he was noted to have oxygen desaturations on routine testing with pulse oximeter. Apparently patient's oxygen requirement has been going up with recent recommendation for 3 L by his cloth measurer machine Dr. Brito. History was obtained from chart review and patient caregiver at bedside and they denied any fever, cough, sick contacts, nausea, vomiting. Patient was initially on azithromycin and ceftriaxone for community-acquired pneumonia and received corticosteroids due to his increased oxygen requirement but upon repeat testing for IgM cocci it was noted to be positive so steroids were discontinued and patient was placed on fluconazole Daily. Thoracentesis was attempted for the patient but unable to be completed due to lack of pleural fluid Past medical history: Diabetes mellitus, intellectual disability, deafness, OCD, intermittent explosive disorder, hyperlipidemia, GERD, heart failure status post AICD, COPD on 2 L oxygen, prostate cancer, seizures Past surgical history: AICD implant placement Social history: Lives in assisted since 2007, denies smoking, alcohol, other illicit drug abuse Medication history: Divalproex, dutasteride, Entresto, fluvoxamine, metoprolol, risperidone, simvastatin cc:: cc: Yonatan Chavarria MD Review of Systems Review of Systems Systems Reviewed: All systems reviewed, normal except as documented Exam Vital Signs Temp Pulse Resp BP Pulse Ox O2 Del Method O2 Flow Rate 97.4 F 88 20 92/53 L 94 L High Flow Nasal Cannula 03/08/25 12:00 03/08/25 14:25 03/08/25 14:25 03/08/25 12:00 03/08/25 14:25 03/08/25 12:00 03/08/25 14:25 FiO2 60 03/08/25 14:25 Narrative Exam General: Awake. deaf and mute. On high flow oxygen, 25 L/min, 45% FiO2 HEENT: Normocephalic, atraumatic, mucous membranes moist. Heart: Regular rate and rhythm, no murmurs. Noted ICD Lungs: Bronchial breath sounds and crackles are heard in the left lung Abdomen: Soft, nondistended, nontender, positive bowel sounds. ?No guarding or rebound tenderness. Neurologic: patient able to move all 4 extremities. Extremities: no pedal edema noted Skin: No rash or ecchymoses. Results Labs 03/08/25 05:40 03/08/25 05:40 Labs: Short CBC 03/08/25 Range/Units 05:40 WBC 20.8 H (3.8-10.6) Thou/mm3 Hgb 10.4 L (13.5-16.0) g/dL Hct 30.3 L (41.0-53.0) % Plt Count 223 (140-440) Thou/mm3 BMP 03/08/25 05:40 Sodium 142 Potassium 4.2 Chloride 107 Carbon Dioxide 27.0 BUN 21 Creatinine 1.0 Glucose 105 Calcium 9.2 Liver Function 03/08/25 Range/Units 05:40 Total Bilirubin 0.3 (0.3-1.2) mg/dL AST 17 (0-34) U/L ALT 41 (10-49) U/L Alkaline Phosphatase 53 (46-116) U/L Albumin 3.4 (3.4-4.8) gm/dL ABG Interpretation ABG results: 03/02/25 03/04/25 03/05/25 20:40 09:20 15:30 ABG pH 7.45 7.43 7.44 ABG pCO2 42 46 47 ABG pO2 60 L 77 L 56 L* D ABG HCO3 29 H 31 H 32 H ABG O2 Saturation 92 96 90 L ABG Base Excess 4 H 5 H 7 H Quality Measures Quality Measures VTE prophylaxis Advance care planning discussed with:: other Medications Home Medications and Allergies Home Medications ?Medication ?Instructions ?Recorded ?Confirmed ?Type cholecalciferol (vitamin D3) 50 2,000 unit PO BID 04/0208/19/24 History mcg (2,000 unit) capsule (Vitamin D3) divalproex 500 mg tablet,extended 2 tab PO HS 08/20/18 03/02/25 History release 24 hr dutasteride 0.5 mg capsule 0.5 mg PO QDAY 08/20/18 History (Avodart) ferrous sulfate 325 mg (65 mg 325 mg PO BID 08/20/18 1 History iron) tablet fluvoxamine 100 mg tablet 150 mg PO HS 08/20/18 History loratadine 10 mg tablet 10 mg PO PRN PRN Congestion 08/20/18 03/02/25 History risperidone 2 mg tablet 2 mg PO HS 08/20/18 03/02/25 History simvastatin 40 mg tablet 40 mg PO HS 08/20/18 5 History albuterol sulfate 90 mcg/actuation 1 puff inhalation Q 4HR PRN sob 07/22/24 08/19/24 History aerosol inhaler (Ventolin HFA) metoprolol succinate 25 mg 12.5 mg PO QDAY 07/22/24 History tablet,extended release 24 hr sacubitril 24 mg-valsartan 26 mg 1 tab PO BID 07/22/24 03/02/25 History tablet (Entresto) omeprazole 40 mg capsule,delayed 40 mg PO QDAY 4 03/02/25 History release fluticasone propionate 50 1 spray intranasal BID aller gies 03/02/25 03/02/25 History mcg/actuation nasal spray,suspension (Allergy Relief (fluticasone)) furosemide 40 mg tablet 40 mg PO QDAY 03/02/2503/02 History Allergies Allergy/AdvReac Type Severity Reaction Status Date / Time No Known Allergies Allergy Verified 08/09/24 14:52 Visit Medications Acetaminophen (Acetaminophen 325 Mg Tablet) 650 mg PO Q6H PRN PRN Reason: Fever >100.3 Stop: 04/01/25 17:22 Albuterol/Ipratropium (Albuterol/Ipratropium (Duoneb) Rt Latisha 3 Ml Nebu) 3 ml INH Q4HRRT PRN PRN Reason: wheezing or SOB Stop: 04/04/25 18:59 Apixaban (Apixaban 2.5 Mg Tablet) 5 mg PO BID [facility] Stop: 04/02/25 20:59 Last Admin: 03/08/25 09:21 Dose: 5 mg Atorvastatin Calcium (Atorvastatin Calcium 10 Mg Tablet) 10 mg PO [facility] Stop: 04/02/25 20:59 Last Admin: 03/07/25 22:17 Dose: 10 mg Azithromycin (Azithromycin 250 Mg Tablet) 500 mg PO QDAY [facility] Stop: 03/09/25 17:44 Last Admin: 03/08/25 09:21 Dose: 500 mg Fluvoxamine Mal 100 (Mg Tablets) 0 ea PO QDAY@2000 [facility] Stop: 04/06/25 20:14 Last Admin: 03/07/25 22:19 Dose: 1.5 tablet Divalproex Sodium (Divalproex Sod Dr 500 Mg Tablet.Dr) 1,000 mg PO [facility] Stop: 04/01/25 20:59 Last Admin: 03/07/25 22:17 Dose: 1,000 mg Dutasteride (Dutasteride 0.5 Mg Capsule (Non-Formulary)) 0.5 mg PO QDAY [facility] Stop: 04/02/25 08:59 Last Admin: 03/08/25 09:21 Dose: 0.5 mg Piperacillin Sod/Tazobactam (Sod 4.5 gm/ Sodium Chloride) 100 mls @ 200 mls/hr IV Q6HR [facility] Stop: 03/12/25 09:42 Last Admin: 03/08/25 12:25 Dose: 200 mls/hr Vancomycin/Sodium Chloride (Vancomycin/Ns 1 Gm Ivpb) 200 mls @ 120 mls/hr IV Q12H [facility]; Protocol Stop: 03/14/25 21:59 Last Admin: 03/08/25 10:23 Dose: 120 mls/hr Fluconazole (Diflucan/Ns Ivpb) 400 mg in 200 mls @ 100 mls/hr IV QDAY@1400 [facility] Stop: 03/14/25 15:10 Last Admin: 03/08/25 13:33 Dose: 100 mls/hr Magnesium Hydroxide (Milk Of Magnesia Susp 30 Ml Udc) 30 ml PO QDAY PRN; Protocol PRN Reason: CONSTIPATION Stop: 04/01/25 17:22 Metoprolol Succinate (Metoprolol Succinate Xl 25 Mg Tabcr) 12.5 mg PO QDAY [facility] Stop: 04/02/25 08:59 Last Admin: 03/08/25 09:21 Dose: Not Given Ondansetron HCl (Ondansetron Inj 2 Mg/Ml Inj 2 Ml) 4 mg IV Q6H PRN; Protocol PRN Reason: NAUSEA OR VOMITING Stop: 04/01/25 17:22 Pantoprazole Sodium (Pantoprazole Inj 40 Mg Vial) 40 mg IVP QDAY [facility] Stop: 04/06/25 11:14 Last Admin: 03/08/25 09:22 Dose: 40 mg Pharmacy Consult (Vancomycin Pharmacy To Dose 1 Each Each) 1 each IV QDAY PRN PRN Reason: PROTOCOL Stop: 04/07/25 08:59 Risperidone (Risperidone 1 Mg Tablet) 2 mg PO HS [facility] Stop: 04/01/25 20:59 Last Admin: 03/07/25 22:17 Dose: 2 mg Sodium Chloride (Sodium Chloride Rt Latisha 0.9% 3 Ml Nebu) 3 ml INH PRN PRN PRN Reason: SOLN Stop: 04/01/25 12:20 Discontinued Medications Acetaminophen (Acetaminophen 325 Mg Tablet) 650 mg PO Q6H PRN PRN Reason: Fever >101.5 Stop: 04/01/25 17:22 Albuterol (Albuterol Rt 2.5 Mg/0.5 Ml Nebu) 10 mg INH X1 ONE Stop: 03/02/25 12:22 Last Admin: 03/02/25 12:52 Dose: 10 mg Albuterol/Ipratropium (Albuterol/Ipratropium (Duoneb) Rt Latisha 3 Ml Nebu) 3 ml INH Q4HRRT [facility] Stop: 04/04/25 18:59 Last Admin: 03/07/25 06:30 Dose: Not Given Atorvastatin Calcium (Atorvastatin Calcium 20 Mg Tablet) 40 mg PO HS [facility] Stop: 04/01/25 20:59 Last Admin: 03/02/25 21:10 Dose: 40 mg Bumetanide (Bumetanide Inj 0.25 Mg/Ml Vial 4 Ml) 2 mg IVP BID [facility] Stop: 04/02/25 10:44 Last Admin: 03/03/25 20:36 Dose: 2 mg Enoxaparin Sodium (Enoxaparin Sod Inj 40 Mg/0.4 Ml Syringe) 40 mg SC QDAY [facility] Stop: 03/17/25 08:59 Last Admin: 03/03/25 08:59 Dose: 40 mg Furosemide (Furosemide Inj 10 Mg/Ml 4ml Vial) 40 mg IVP BIDD [facility] Stop: 04/01/25 17:59 Last Admin: 03/03/25 05:00 Dose: 40 mg Azithromycin 500 mg/ Sodium (Chloride) 250 mls @ 250 mls/hr IV X1 ONE Stop: 03/02/25 17:46 Last Infusion: 03/02/25 18:44 Dose: Infused Ceftriaxone Sodium/Dextrose (Rocephin/D5w 1gm Iv Premix) 1 gm in 50 mls @ 100 mls/hr IV X1 ONE Stop: 03/02/25 17:16 Last Infusion: 03/02/25 18:15 Dose: Infused Ceftriaxone Sodium/Dextrose (Rocephin/D5w 1gm Iv Premix) 1 gm in 50 mls @ 100 mls/hr IV QDAY [facility] Stop: 03/10/25 09:59 Last Infusion: 03/05/25 20:00 Dose: Infused Fluconazole (Diflucan/Ns Ivpb) 400 mg in 200 mls @ 100 mls/hr IV QDAY [facility] Stop: 03/12/25 15:04 Vancomycin/Sodium Chloride (Vancomycin/Ns 1 Gm Ivpb) 200 mls @ 120 mls/hr IV X1 ONE Stop: 03/07/25 12:57 Last Admin: 03/07/25 12:43 Dose: 120 mls/hr Methylprednisolone Sodium Succinate (Methylprednisolone Sod Succ 40 Mg Vial) 60 mg IVP X1 ONE Stop: 03/05/25 15:21 Last Admin: 03/05/25 15:41 Dose: 60 mg Methylprednisolone Sodium Succinate (Methylprednisolone Sod Succ 62.5 Mg/Ml 2ml Vial) 125 mg IVP QDAY [facility] Stop: 03/12/25 14:44 Last Admin: 03/07/25 08:19 Dose: 125 mg (Fluvoxamine 100 Mg (Tablet)) 1.5 ea PO HS [facility]; Protocol Stop: 04/02/25 20:59 Last Admin: 03/06/25 20:20 Dose: Not Given Prednisone (Prednisone 20 Mg Tablet) 60 mg PO X1 ONE Stop: 03/02/25 12:22 Last Admin: 03/02/25 13:03 Dose: 60 mg Assessment & Plan Plan #Acute on chronic hypoxic respiratory failure secondary to pneumonia #Cocci pneumonia Chest CT on March 04 revealed severe bilateral pneumonia and increased oxygen requirement from baseline of 2 to 3 L now on high flow nasal cannula. Echocardiogram from March 05 reveals an EF of 35 to 40% with grade 1 diastolic dysfunction Currently on broad-spectrum antibiotics with vancomycin and Zosyn IgM repeat testing positive with confirmatory testing pending On fluconazole 400 mg IV daily With blood cultures being negative recommend to discontinue vancomycin Given patient's very high oxygen requirement there is further deterioration recommend to transition to amphotericin B Even though Amphotericin is nephrotoxic and may be lifesaving Can continue with fluconazole but recommend to transition over to p.o. fluconazole which is less nephrotoxic and has same efficacy as IV # Paroxysmal atrial fibrillation. # History of HFrEF, EF 35 to 40% [02/2025] # Nonischemic cardiomyopathy #History of diabetes mellitus. #Hyperlipidemia. #Normocytic normochromic anemia. #History of seizures. #History of prostate cancer. ?Management as per primary team Plan of care discussed with supervising attending Dr Asael Willis M.D. PGY-3
--- NOTE | 2025-03-08 17:31 | ESPR_ITS ---
Subjective Subjective Interval history: non communicative 75 y/o [facility] resident with pneumonia. nasal mrsa neg repeatedly, so this is unlikely to be mrsa or even pseudomonas. pt has dm per record. a1c 6.2 noted. Exam Vital Signs Temp Pulse Resp BP Pulse Ox O2 Del Method O2 Flow Rate 97.4 F 88 20 92/53 L 94 L High Flow Nasal Cannula 03/08/25 12:00 03/08/25 14:25 03/08/25 14:25 03/08/25 12:00 03/08/25 14:25 03/08/25 12:00 03/08/25 14:25 FiO2 60 03/08/25 14:25 Narrative Exam on O2. high flow, dx pending at [facility]. considered ampho but he seems stable so held off. Objective - Internal Medicine Labs 03/08/25 05:40 03/08/25 05:40 Labs: Laboratory Results - last 24 hr 03/08/25 05:40 WBC 20.8 H RBC 3.49 L Hgb 10.4 L Hct 30.3 L MCV 87 MCH 29.8 MCHC 34.3 RDW Std Deviation 44.4 H Plt Count 223 Neut % (Auto) 85 H Lymph % (Auto) 7 L [place] % (Auto) 7 Eos % (Auto) 1 Baso % (Auto) 0 Neut # (Auto) 17.6 H Lymph # (Auto) 1.4 [place] # (Auto) 1.5 H Eos # (Auto) 0.1 Baso # (Auto) 0.0 Immature Gran # (Auto) 0.21 H Absolute Nucleated RBC 0.00 Immature Gran % 1 H Nucleated RBC % 0 Sodium 142 Potassium 4.2 Chloride 107 Carbon Dioxide 27.0 Anion Gap 8 BUN 21 Creatinine 1.0 Estim Creat Clear Calc 65.8 eGFR > 60 BUN/Creatinine Ratio 21 H Glucose 105 Calculated Osmolality 286 Calcium 9.2 Corrected Calcium 9.7 Total Bilirubin 0.3 AST 17 ALT 41 Alkaline Phosphatase 53 Total Protein 5.8 Albumin 3.4 Globulin 2.4 Albumin/Globulin Ratio 1.4 ABG Interpretation ABG results: 03/02/25 03/04/25 03/05/25 20:40 09:20 15:30 ABG pH 7.45 7.43 7.44 ABG pCO2 42 46 47 ABG pO2 60 L 77 L 56 L* D ABG HCO3 29 H 31 H 32 H ABG O2 Saturation 92 96 90 L ABG Base Excess 4 H 5 H 7 H Assessment & Plan A&P Narrative possible cocci pneumonia. atypical likely, here for 6d already. not improved with rx but not either overtly worse dm II other problems as noted. flucon ok. if worsens, ok to try ampho b and monitor creat closely. will check in again on thursday am Time Spent With Patient Time: Total time spent is greater than 50% in coordination of care (as documented) at patient's floor/unit and/or counseling patient:
--- NOTE | 2025-03-08 20:11 | ESCONSULT_ITS ---
RE: KIRT ROCHE : 1950 DATE OF CONSULTATION: 03/08/2025 REFERRING PHYSICIAN: hospitalist team. REASON FOR CONSULTATION: Acute hypoxic respiratory failure. HISTORY OF PRESENT ILLNESS: The patient is an unfortunate gentleman who is nonverbal. He is unable to answer questions. He has been in the hospital for about a week. He is on treatment for [place] fever as well as atypical pneumonia with azithromycin and possibly vancomycin. He is not producing sputum at this time and other testing so far negative. He has a history of significant disability, deafness, type 2 diabetes, hyperlipidemia, reflux, heart failure, has an ICD/pacemaker in place. He has COPD. He is on 2 liters of oxygen at baseline. He is at baseline oxygen at this time. He is followed by a payment collector, Dr. Brito, as an outpatient. The patient is on daily fluconazole I am not sure how long he has been on the azithromycin. If it has been more than 3 days, we will probably stop it. His cocci test is apparently positive after being negative on 03/04, it was repeated and converted from negative to positive for IgM. IgG is pending as is the serology at [facility]. Hopefully, we will have the result by next week, but it is going to take that long. It is turnaround time is several day. I asked to see him regarding treatment planning. Of note, he is on iv fluconazole, which can be oral if necessary. We will go ahead and switch to oral and then I will check on him again on Thursday. DT: 17:29:48 TT: 19:32:00 Ref: [id number] - TID: [id number] [facility]
[2025-03-08] MEDS: DIVALPROEX SOD DR 500 MG TABLET.DR 1000 MG PO (21:08)
[2025-03-08] MEDS: ATORVASTATIN CALCIUM 10 MG TABLET PO (21:08)
[2025-03-08] MEDS: risperiDONE 1 MG TABLET 2 MG PO (21:09)
[2025-03-08] MEDS: FLUVOXAMINE 100 MG PO (21:09)
[2025-03-09] VITALS (23 sets, daily range): BP systolic 74–124; BP diastolic 56–83; PULSE 56–136; RESP 17–38; TEMP 36–36.5; O2SAT 89–99; BMI 28.0
[2025-03-09 00:17] LABS: Vancomycin,Trough 10.3 mcg/mL (5.0-10.0)
[2025-03-09 06:27] LABS: Basophils % (Auto) 0 % (0-2.5); Eosinophils # (Auto) 0.8 Thou/mm3 (0.0-0.5); Eosinophils % (Auto) 5 % (0-10); Hematocrit 34.7 % (41.0-53.0); Hemoglobin 11.5 g/dL (13.5-16.0); Immature Granulocytes % (Auto) 2 % (0-0); Immature Granulocytes Auto 0.22 Thou/mm3 (0.00-0.00); Lymphocytes # (Auto) 2.4 Thou/mm3 (1.0-4.8); Lymphocytes % (Auto) 16 % (10-50); Mean Corpuscular HGB Conc 33.1 g/dl (31.0-37.0); Mean Corpuscular Hemoglobin 29.9 pg (25.0-35.0); Mean Corpuscular Volume 90 fL (80-100); Monocytes # (Auto) 1.7 Thou/mm3 (0.0-0.8); Monocytes % (Auto) 12 % (0-12); Neutrophils # (Auto) 9.7 Thou/mm3 (1.8-7.7); Neutrophils % (Auto) 65 % (37-80); Nucleated Red Blood Cell % 0 /100 WBC (0); Platelet Count 254 Thou/mm3 (140-440); RDW Standard Deviation 46.5 fL (35.1-43.9); Red Blood Count 3.85 Miln/mm3 (4.50-5.90); White Blood Count 14.9 Thou/mm3 (3.8-10.6)
[2025-03-09 07:04] LABS: Alanine Aminotransferase 46 U/L (10-49); Albumin, Serum 3.4 gm/dL (3.4-4.8); Albumin/Globulin Ratio 1.4 (1.2-2.2); Alkaline Phosphatase 53 U/L (46-116); Anion Gap 6 (7-16); Aspartate Amino Transferase 17 U/L (0-34); BUN/Creatinine Ratio 21 Ratio (12-20); Bilirubin,Total 0.2 mg/dL (0.3-1.2); Blood Urea Nitrogen 19 mg/dL (9-23); Calcium 9.2 mg/dL (8.3-10.6); Calcium (Corrected) 9.7 mg/dL (8.5-10.1); Carbon Dioxide 28.9 mMol/L (20.0-31.0); Chloride 107 mMol/L (98-107); Creatinine (Component) 0.9 mg/dL (0.6-1.3); Estimated Creatinine Clearance 74.3 mL/min (>60); Globulin 2.4 gm/dL (2.3-3.5); Glucose 73 mg/dL (74-106); Osmolality,Calculated 284 (275-295); Potassium 4.2 mMol/L (3.4-5.1); Procalcitonin 0.05 ng/ml (0.0-0.49); Sodium 142 mMol/L (136-145); Total Protein 5.8 gm/dL (5.7-8.2); eGFR > 60 See Note
[2025-03-09 07:38] LABS: Hepatitis C Antibody Non Reactive (Non React)
[2025-03-09] MEDS: METOPROLOL SUCCINATE XL 25 MG TABCR 12.5 MG PO ×2 (08:04→09:58)
[2025-03-09] MEDS: DUTASTERIDE 0.5 MG CAPSULE (NON-FORMULARY) PO (08:04)
[2025-03-09] MEDS: APIXABAN 2.5 MG TABLET 5 MG PO ×2 (08:04→21:15)
[2025-03-09] MEDS: FLUCONAZOLE 100 MG TABLET 400 MG PO (08:04)
[2025-03-09] MEDS: AZITHROMYCIN 250 MG TABLET 500 MG PO (08:04)
[2025-03-09] MEDS: PANTOPRAZOLE INJ 40 MG VIAL IVP (08:04)
[2025-03-09] MEDS: ALBUTEROL/IPRATROPIUM (Duoneb) RT SOL 3 ML NEBU INH (08:38)
--- NOTE | 2025-03-09 09:18 | EKG_ITS ---
[facility] Test Date: 2025-03-09 Pat Name: KIRT ROCHE Department: Room: S270A Gender: Male Guide Escort: URIEL : 1950 Requested By: Demond Melvin Order Number: [id number] Reading MD: Demond Melvin Measurements Intervals [place] Rate: 108 P: DC: QRS: -59 QRSD: 154 T: 85 QT: 367 QTc: 492 Interpretive Statements ATRIAL FIBRILLATION WITH RAPID VENTRICULAR RESPONSE WITH ABERRANT CONDUCTION OR VENTRICULAR PREMATURE COMPLEXES RIGHT BUNDLE BRANCH BLOCK LEFT ANTERIOR FASCICULAR BLOCK POSSIBLE LEFT VENTRICULAR HYPERTROPHY POSSIBLE SEPTAL MYOCARDIAL INFARCTION , OF INDETERMINATE AGE Compared to ECG 03/07/2025 15:40:25 Ventricular premature complex(es) now present Aberrant conduction of supraventricular beat(s) now present Left anterior fascicular block now present Sinus rhythm no longer present Myocardial infarct finding still present /store/S0/[id number].pdf
--- NOTE | 2025-03-09 10:08 | XR_ITS ---
Examination: AP chest single view Technique one AP portable upright chest single view Exam date and time: March 09, 2025 1018 hours Comparison March 05, 2025 INDICATIONS: Onset hypoxia today. FINDINGS: Severe bilateral pneumonia Mild prominence left ventricle Unipolar ventricular cardiac leads satisfactory position IMPRESSION: No improvement in severe bilateral pneumonia
[2025-03-09] MEDS: FUROSEMIDE INJ 10 MG/ML VIAL 2 ML 20 MG IVP (10:14)
[2025-03-09] MEDS: MethylPREDNISolone SOD SUCC 62.5 MG/ML 2ML VIAL 125 MG IVP (10:24)
[2025-03-09 10:50] LABS: Base Excess 6 (-3-3); HCO3 30 mEq/L (20-26); Inspired Oxygen, FIO2 100 %; O2 Saturation 94 % (91-98); PCO2 41 mmHg (32.0-48.0); PO2 65 mmHg (83-108); pH, Arterial 7.47 (7.35-7.45)
[2025-03-09 10:54] LABS: Allen Test Performed/OK; Puncture Site Right Radial
[2025-03-09] MEDS: cefTRIAXone/D5w 1gm IV premix 1 GM/50 ML BAG IV (12:42)
[2025-03-09] MEDS: MIDODRINE 5 MG TABLET PO ×2 (12:51→21:15)
--- NOTE | 2025-03-09 13:50 | PD.RESCONSUL ---
HPI Data of Consult Requesting Physician: Yonatan Chavarria MD Admitting Provider: Daria Peguero DO Attending Provider: Yonatan Chavarria MD Primary Care Provider: Usama Mosqueda MD Consult Narrative History of present illness: 74-year-old male with PMH of intellectual disability, deafness, OCD, intermittent explosive disorder, type 2 diabetes, hyperlipidemia, GERD, heart failure EF 35-40 status post ICD, COPD on 2-3 L baseline (never smoker), prostate CA and seizures who was brought to [facility] from his halfway after he was noted to have oxygen desaturations on routine testing with pulse oximeter. Per patient caregiver at bedside and they denied any fever, cough, sick contacts, nausea, vomiting, just increased oxygen requirement. On arrival to the ED patient was requiring 6L O2, rest of vitals within normal limits Chest x-ray showed bilateral patchy infiltrates. Patient was admitted to teemetry due to acute hypoxic respiratory failure for further management. Past medical history: Diabetes mellitus, intellectual disability, deafness, OCD, intermittent explosive disorder, hyperlipidemia, GERD, heart failure status post AICD, COPD on 2 L oxygen, prostate cancer, seizures Past surgical history: ICD implant placement Social history: Lives in halfway since 2007, denies smoking, alcohol, other illicit drug abuse Patient's oxygen requirements have continued to increase, thus ICU was consulted. Patient initially on NC 6L, today on HFNC 40L 100%FiO2, saturating adequately 92%, which is fine for a COPD patient, he doesn't appear in acute distress, no use of accessory muscles. There is new worsening of bilateral infiltrates concerning for ARDS, less likley to be related to heart failure since paitient has no JVD, there's no LE edema. Recommend putting patient back on Zosyn, continue antifungal, add midodrine. If patient's condition continues to deteriorate and O2 requirements increase, we will upgrade to ICU. cc:: cc: Yonatan Chavarria MD Review of Systems Review of Systems ROS Unobtainable: unobtainable due to medical condition Exam Vital Signs Temp Pulse Resp BP Pulse Ox O2 Del Method O2 Flow Rate 97.0 F 128 H 26 H 88/65 L 96 High Flow Nasal Cannula 40 03/09/25 12:00 03/09/25 12:51 03/09/25 12:00 03/09/25 12:51 03/09/25 12:00 03/09/25 12:00 03/09/25 10:24 FiO2 100 03/09/25 10:24 Narrative Exam GENERAL: Awake, alert. No acute distress. HEENT: Normocephalic, atraumatic and nontender.? Pupils are equal and reactive to light and accommodation.? Oral mucosa moist. NECK: Supple without adenopathy. Traquea midline. Nontender, carotid pulse 2+ bilaterally without bruits, no JVD.? CHEST: tachycardic no murmurs, gallops auscultated. S1 & 2 normal insensity. Nontender on palpation, no deformity and no crepitus. LUNGS: Bilateral crackles No intercostal subcostal retraction. Room air ABDOMEN: Soft,symmetric , nontender, no guarding or rebound tenderness. ? Bowel sounds are normoactive in all 4 quadrants. EXTREMITIES: Nontender.? No pitting edema.? No cyanosis.? Patient is able to move all 4 extremities. SKIN: No rashes noted. Results Labs 03/09/25 05:10 03/09/25 05:10 Labs: Short CBC 03/09/25 Range/Units 05:10 WBC 14.9 H D (3.8-10.6) Thou/mm3 Hgb 11.5 L (13.5-16.0) g/dL Hct 34.7 L (41.0-53.0) % Plt Count 254 D (140-440) Thou/mm3 BMP 03/09/25 05:10 Sodium 142 Potassium 4.2 Chloride 107 Carbon Dioxide 28.9 BUN 19 Creatinine 0.9 Glucose 73 L Calcium 9.2 Liver Function 03/09/25 Range/Units 05:10 Total Bilirubin 0.2 L (0.3-1.2) mg/dL AST 17 (0-34) U/L ALT 46 (10-49) U/L Alkaline Phosphatase 53 (46-116) U/L Albumin 3.4 (3.4-4.8) gm/dL ABG Interpretation ABG results: 03/02/25 03/04/25 03/05/25 20:40 09:20 15:30 ABG pH 7.45 7.43 7.44 ABG pCO2 42 46 47 ABG pO2 60 L 77 L 56 L* D ABG HCO3 29 H 31 H 32 H ABG O2 Saturation 92 96 90 L ABG Base Excess 4 H 5 H 7 H 03/09/25 10:40 ABG pH 7.47 H ABG pCO2 41 ABG pO2 65 L ABG HCO3 30 H ABG O2 Saturation 94 ABG Base Excess 6 H Quality Measures Quality Measures VTE prophylaxis Advance care planning discussed with:: other Medications Home Medications and Allergies Home Medications ?Medication ?Instructions ?Recorded ?Confirmed ?Type cholecalciferol (vitamin D3) 50 2,000 unit PO BID 08/20/18 08/19/24 History mcg (2,000 unit) capsule (Vitamin D3) divalproex 500 mg tablet,extended 2 tab PO HS 08/20/18 03/02/25 History release 24 hr dutasteride 0.5 mg capsule 0.5 mg PO QDAY 08/20/18 03/02/25 History (Avodart) ferrous sulfate 325 mg (65 mg 325 mg PO BID 08/20/18 08/19/24 History iron) tablet fluvoxamine 100 mg tablet 150 mg PO HS 08/20/18 03/02/25 History loratadine 10 mg tablet 10 mg PO PRN PRN Congestion 08/20/18 03/02/25 History risperidone 2 mg tablet 2 mg PO HS 08/20/18 03/02/25 History simvastatin 40 mg tablet 40 mg PO HS 08/20/18 03/02/25 History albuterol sulfate 90 mcg/actuation 1 puff inhalation Q4HR PRN sob 07/22/24 08/19/24 History aerosol inhaler (Ventolin HFA) metoprolol succinate 25 mg 12.5 mg PO QDAY 07/22/24 03/02/25 History tablet,extended release 24 hr sacubitril 24 mg-valsartan 26 mg 1 tab PO BID 07/22/24 03/02/25 History tablet (Entresto) omeprazole 40 mg capsule,delayed 40 mg PO QDAY 08/09/24 03/02/25 History release fluticasone propionate 50 1 spray intranasal BID allergies 03/02/25 03/02/25 History mcg/actuation nasal spray,suspension (Allergy Relief (fluticasone)) furosemide 40 mg tablet 40 mg PO QDAY 03/02/25 03/02/25 History Allergies Allergy/AdvReac Type Severity Reaction Status Date / Time No Known Allergies Allergy Verified 08/09/24 14:52 Visit Medications Acetaminophen (Acetaminophen 325 Mg Tablet) 650 mg PO Q6H PRN PRN Reason: Fever >100.3 Stop: 04/01/25 17:22 Albuterol/Ipratropium (Albuterol/Ipratropium (Duoneb) Rt Latisha 3 Ml Nebu) 3 ml INH Q4HRRT PRN PRN Reason: wheezing or SOB Stop: 04/04/25 18:59 Last Admin: 03/09/25 08:38 Dose: 3 ml Apixaban (Apixaban 2.5 Mg Tablet) 5 mg PO BID [facility] Stop: 04/02/25 20:59 Last Admin: 03/09/25 08:04 Dose: 5 mg Atorvastatin Calcium (Atorvastatin Calcium 10 Mg Tablet) 10 mg PO [facility] Stop: 04/02/25 20:59 Last Admin: 03/08/25 21:08 Dose: 10 mg Azithromycin (Azithromycin 250 Mg Tablet) 500 mg PO QDAY [facility] Stop: 03/09/25 17:44 Last Admin: 03/09/25 08:04 Dose: 500 mg Fluvoxamine Mal 100 (Mg Tablets) 0 ea PO QDAY@1999 [facility] Stop: 04/06/25 20:14 Last Admin: 03/08/25 21:09 Dose: 1.5 tablet Divalproex Sodium (Divalproex Sod Dr 500 Mg Tablet.Dr) 1,000 mg PO [facility] Stop: 04/01/25 20:59 Last Admin: 03/08/25 21:08 Dose: 1,000 mg Dutasteride (Dutasteride 0.5 Mg Capsule (Non-Formulary)) 0.5 mg PO QDAY [facility] Stop: 04/02/25 08:59 Last Admin: 03/09/25 08:04 Dose: 0.5 mg Fluconazole (Fluconazole 100 Mg Tablet) 400 mg PO QDAY [facility] Stop: 03/16/25 08:59 Last Admin: 03/09/25 08:04 Dose: 400 mg Ceftriaxone Sodium/Dextrose (Rocephin/D5w 1gm Iv Premix) 1 gm in 50 mls @ 100 mls/hr IV QDAY [facility] Stop: 03/16/25 12:14 Last Admin: 03/09/25 12:42 Dose: 100 mls/hr Magnesium Hydroxide (Milk Of Magnesia Susp 30 Ml Udc) 30 ml PO QDAY PRN; Protocol PRN Reason: CONSTIPATION Stop: 04/01/25 17:22 Metoprolol Succinate (Metoprolol Succinate Xl 25 Mg Tabcr) 12.5 mg PO QDAY [facility] Stop: 04/02/25 08:59 Last Admin: 03/09/25 08:04 Dose: 12.5 mg Midodrine (Midodrine 5 Mg Tablet) 5 mg PO TID [facility] Stop: 04/08/25 13:59 Last Admin: 03/09/25 12:51 Dose: 5 mg Ondansetron HCl (Ondansetron Inj 2 Mg/Ml Inj 2 Ml) 4 mg IV Q6H PRN; Protocol PRN Reason: NAUSEA OR VOMITING Stop: 04/01/25 17:22 Pantoprazole Sodium (Pantoprazole Inj 40 Mg Vial) 40 mg IVP QDAY [facility] Stop: 04/06/25 11:14 Last Admin: 03/09/25 08:04 Dose: 40 mg Risperidone (Risperidone 1 Mg Tablet) 2 mg PO HS [facility] Stop: 04/01/25 20:59 Last Admin: 03/08/25 21:09 Dose: 2 mg Sodium Chloride (Sodium Chloride Rt Latisha 0.9% 3 Ml Nebu) 3 ml INH PRN PRN PRN Reason: SOLN Stop: 04/01/25 12:20 Discontinued Medications Acetaminophen (Acetaminophen 325 Mg Tablet) 650 mg PO Q6H PRN PRN Reason: Fever >101.5 Stop: 04/01/25 17:22 Albuterol (Albuterol Rt 2.5 Mg/0.5 Ml Nebu) 10 mg INH X1 ONE Stop: 03/02/25 12:22 Last Admin: 03/02/25 12:52 Dose: 10 mg Albuterol/Ipratropium (Albuterol/Ipratropium (Duoneb) Rt Latisha 3 Ml Nebu) 3 ml INH Q4HRRT [facility] Stop: 04/04/25 18:59 Last Admin: 03/07/25 06:30 Dose: Not Given Atorvastatin Calcium (Atorvastatin Calcium 20 Mg Tablet) 40 mg PO HS [facility] Stop: 04/01/25 20:59 Last Admin: 03/02/25 21:10 Dose: 40 mg Bumetanide (Bumetanide Inj 0.25 Mg/Ml Vial 4 Ml) 2 mg IVP BID [facility] Stop: 04/02/25 10:44 Last Admin: 03/03/25 20:36 Dose: 2 mg Enoxaparin Sodium (Enoxaparin Sod Inj 40 Mg/0.4 Ml Syringe) 40 mg SC QDAY [facility] Stop: 03/17/25 08:59 Last Admin: 03/03/25 08:59 Dose: 40 mg Furosemide (Furosemide Inj 10 Mg/Ml 4ml Vial) 40 mg IVP BIDD [facility] Stop: 04/01/25 17:59 Last Admin: 03/03/25 05:00 Dose: 40 mg Furosemide (Furosemide Inj 10 Mg/Ml 4ml Vial) 40 mg IVP X1 ONE Stop: 03/09/25 09:19 Last Admin: 03/09/25 09:53 Dose: Not Given Furosemide (Furosemide Inj 10 Mg/Ml Vial 2 Ml) 20 mg IVP X1 ONE Stop: 03/09/25 10:10 Last Admin: 03/09/25 10:14 Dose: 20 mg Azithromycin 500 mg/ Sodium (Chloride) 250 mls @ 250 mls/hr IV X1 ONE Stop: 03/02/25 17:46 Last Infusion: 03/02/25 18:44 Dose: Infused Ceftriaxone Sodium/Dextrose (Rocephin/D5w 1gm Iv Premix) 1 gm in 50 mls @ 100 mls/hr IV X1 ONE Stop: 03/02/25 17:16 Last Infusion: 03/02/25 18:15 Dose: Infused Ceftriaxone Sodium/Dextrose (Rocephin/D5w 1gm Iv Premix) 1 gm in 50 mls @ 100 mls/hr IV QDAY [facility] Stop: 03/10/25 09:59 Last Infusion: 03/05/25 20:00 Dose: Infused Piperacillin Sod/Tazobactam (Sod 4.5 gm/ Sodium Chloride) 100 mls @ 200 mls/hr IV Q6HR [facility] Stop: 03/12/25 09:42 Last Admin: 03/08/25 12:25 Dose: 200 mls/hr Fluconazole (Diflucan/Ns Ivpb) 400 mg in 200 mls @ 100 mls/hr IV QDAY [facility] Stop: 03/12/25 15:04 Vancomycin/Sodium Chloride (Vancomycin/Ns 1 Gm Ivpb) 200 mls @ 120 mls/hr IV X1 ONE Stop: 03/07/25 12:57 Last Admin: 03/07/25 12:43 Dose: 120 mls/hr Vancomycin/Sodium Chloride (Vancomycin/Ns 1 Gm Ivpb) 200 mls @ 120 mls/hr IV Q12H [facility]; Protocol Stop: 03/14/25 21:59 Last Admin: 03/08/25 10:23 Dose: 120 mls/hr Fluconazole (Diflucan/Ns Ivpb) 400 mg in 200 mls @ 100 mls/hr IV QDAY@1400 [facility] Stop: 03/14/25 15:10 Last Admin: 03/08/25 13:33 Dose: 100 mls/hr Ceftriaxone Sodium 1 gm/ (Sodium Chloride) 50 mls @ 100 mls/hr IV QDAY [facility] Stop: 03/16/25 11:56 Last Admin: 03/09/25 12:42 Dose: Not Given Methylprednisolone Sodium Succinate (Methylprednisolone Sod Succ 40 Mg Vial) 60 mg IVP X1 ONE Stop: 03/05/25 15:21 Last Admin: 03/05/25 15:41 Dose: 60 mg Methylprednisolone Sodium Succinate (Methylprednisolone Sod Succ 62.5 Mg/Ml 2ml Vial) 125 mg IVP QDAY [facility] Stop: 03/12/25 14:44 Last Admin: 03/07/25 08:19 Dose: 125 mg Methylprednisolone Sodium Succinate (Methylprednisolone Sod 500 Mg/8 Ml Vial) 125 mg IVP X1 ONE Stop: 03/09/25 10:15 Last Admin: 03/09/25 10:30 Dose: Not Given Methylprednisolone Sodium Succinate (Methylprednisolone Sod Succ 62.5 Mg/Ml 2ml Vial) 125 mg IVP X1 ONE Stop: 03/09/25 10:31 Last Admin: 03/09/25 10:24 Dose: 125 mg Metoprolol Succinate (Metoprolol Succinate Xl 25 Mg Tabcr) 12.5 mg PO X1 ONE Stop: 03/09/25 09:52 Last Admin: 03/09/25 09:58 Dose: 12.5 mg (Fluvoxamine 100 Mg (Tablet)) 1.5 ea PO HS [facility]; Protocol Stop: 04/02/25 20:59 Last Admin: 03/06/25 20:20 Dose: Not Given Pharmacy Consult (Vancomycin Pharmacy To Dose 1 Each Each) 1 each IV QDAY PRN PRN Reason: PROTOCOL Stop: 04/07/25 08:59 Prednisone (Prednisone 20 Mg Tablet) 60 mg PO X1 ONE Stop: 03/02/25 12:22 Last Admin: 03/02/25 13:03 Dose: 60 mg Assessment & Plan Plan 74-year-old male with PMH of intellectual disability, deafness, OCD, intermittent explosive disorder, type 2 diabetes, hyperlipidemia, GERD, heart failure EF 35-40 status post ICD, COPD on 2-3 L baseline (never smoker), prostate CA and seizures who was brought to [facility] from his halfway after he was noted to have oxygen desaturations on routine testing with pulse oximeter. Per patient caregiver at bedside and they denied any fever, cough, sick contacts, nausea, vomiting, just increased oxygen requirement. On arrival to the ED patient was requiring 6L O2, rest of vitals within normal limits Chest x-ray showed bilateral patchy infiltrates. Patient was admitted to teemetry due to acute hypoxic respiratory failure for further management. Patient's oxygen requirements have continued to increase, thus ICU was consulted. Patient initially on NC 6L, today on HFNC 40L 100%FiO2, saturating adequately 92%, which is fine for a COPD patient, he doesn't appear in acute distress, no use of accessory muscles. There is new worsening of bilateral infiltrates concerning for ARDS, less likley to be related to heart failure since paitient has no JVD, there's no LE edema. Recommend putting patient back on Zosyn, continue antifungal, add midodrine. If patient's condition continues to deteriorate and O2 requirements increase, we will upgrade to ICU. [employer] -Stable - Patient nonverbal at baseline, caregiver at bedside, refers patient's mentation is at baseline Cardiovascular #Hypotension -Patient's blood pressure has been low, however MAP above 65, -He does not appear to be fluid overloaded -In the setting of sepsis from severe cocci infection -Recommend adding midodrine 5mg 3 times daily #Heart failure - Patient has a history of heart failure EF 35 to 40%, has an ICD in place, currently appears euvolemic, - Is not likely the cause of patient's #A-fib - Patient had an episode of A-fib with RVR today - Continue apixaban Respiratory #Acute hypoxic respiratory failure -In the setting of severe pulmonary cocci infection -Patient initially on NC 6L, today on HFNC 40L 100%FiO2, saturating adequately 92%he doesn't appear in acute distress, no use of accessory muscles. -There is new worsening of bilateral infiltrates concerning for ARDS, less likley to be related to heart failure since paitient has no JVD, there's no LE edema. -Continue antifungals, and recommend placing patient back on broad-spectrum antibiotics as he may have superimposed bacterial pneumonia Renal -Stable Endocrine -Stable GI -Stable ID #Coccidioidomycosis #Sepsis -Patient's cocci positive, pending confirmatory from [facility] dizziness, white count has been downtrending --Continue antifungals, and recommend placing patient back on broad-spectrum antibiotics as he may have superimposed bacterial pneumonia Disposition: Patient admitted to telemetry, ICU consulted due to increased oxygen requirements, may need ICU upgrade if patient's respiratory status continues to decline Patient's care discussed with attending physician, Dr Katt Willis MD PGY3 Attending Provider Attestation/Addendum Patient was seen with my PGY 1 and PGY 3 residents I agree with the above assessment and plan In brief the patient came in because of pneumonia and acute hypoxic respiratory failure He does have history of what looks like a COPD but not triggered by smoking He is placed on 2 L nasal cannula at home Required of the O2 has increased during his stay Also he was noted to have no hypercapnia Basically this was a VQ mismatch secondary to ventilation/perfusion mismatch Part of it is due to his ARDS which she developed due to his pneumonia which caused effusion problem Also part of it is due to missed perfusion secondary to atelectasis and collapse of the alveoli and follows also due to missed perfusion secondary to increased pressure in the tissue resulting in narrowing of the pulmonary vessels The management for this will be positive pressure For now he does not to be intubated So he can do for nasal cannula which gets about 5 mmHg of positive pressure On top of this also patient can have worsening of CO2 with the high flow of air and keep him on a 60% FiO2 at 40 L nasal cannula At this level patient can stay in the [facility] If his requirements go up then we will switch him to BiPAP to ensure good ventilation At that point I think we should transfer him to the ICU Meanwhile continue with the management of his pneumonia with antibiotics as he is now basically covering atypicals and plus his community-acquired infections Steroids Nebulizer treatments Chest x-ray in the morning Follow his labs also Patient does qualify for ARDS based on criteria of his finding on the x-ray PF ratio, bilateral infiltrates No evidence of CHF although he does have history of low EF but nothing clinically to indicate he is an acute congestive heart failure However needs to be very cautious with his fluid management Also avoidance of tachycardia as this can cause worsening of CHF Patient does have A-fib and his rate needs to be controlled below 120 Cardiology is on the case Will follow the case with you
--- NOTE | 2025-03-09 14:36 | ESPR_ITS ---
<Statement entered by Yonatan Chavarria MD - 03/11/25 17:22> [id number]year-old male with multiple comorbidities including intellectual disability with deafness, type 2 diabetes mellitus, hyperlipidemia, heart failure with reduced EF with EF 35-40% status post AICD and COPD on 2 L supplemental oxygen at home who presented with shortness of breath found to have acute hypoxic respiratory failure secondary to coccidiomycosis and COPD exacerbation. During course of hospitalization, patient continues to be on high flow nasal cannula with high settings and currently on fluconazole. Patient also received IV antibiotic therapy and plan to continue weaning down high flow nasal cannula. I reviewed above note and agree with findings and plans. I have also personally examined the patient with medicine team and went over assessment and plan with medical team including pharmacy intern and resident physician. <Statement entered by Harvinder Moore MD - 03/11/25 07:04> Senior Resident Attestation: I supervised/discussed management plan with pharmacy intern physician Dr. Melvin, and was involved in the care of this patient. I personally saw and examined the patient and discussed the assessment and plan with the entire medicine team, including my attending. I agree with the assessment and plan as documented. Patient's oxygen demand has increased significantly and he was maxed out on high flow oxygen. ICU team was consulted and they will follow the patient with us. He was given Lasix 20 mg IV. Patient's care was discussed with attending physician, Dr. Chavarria. Harvinder Moore MD PGY-2. Documentation for date of: 03/09/25 Subjective Subjective Interval history: Patient is seen and examined at bedside No acute overnight events. Patient is still on high flow oxygen On physical examination bilateral diffuse crackles are heard Also patient was found to be in atrial fibrillation with rapid ventricular rate for which patient was given an extra dose of 12.5 Mg metoprolol 20 Mg IV Lasix is given -bilateral breath sounds improved after IV Lasix. Also increased flow of high flow oxygen in view of low saturations Informed ICU team about the patient in view of mild hypotension and atrial fibrillation with rapid ventricular rate, if patient continues to desaturate/hypotensive -will upgrade the patient to ICU Dr Vyas discontinued all the antibiotics yesterday and started patient on fluconazole. Will continue fluconazole for now Exam Vital Signs Temp Pulse Resp BP Pulse Ox O2 Del Method O2 Flow Rate 97.0 F 123 H 28 H 88/65 L 93 L High Flow Nasal Cannula 40 03/09/25 12:00 03/09/25 14:24 03/09/25 14:24 03/09/25 12:51 03/09/25 14:24 03/09/25 12:00 03/09/25 14:24 FiO2 100 03/09/25 14:24 Narrative Exam General: Awake. deaf and mute. On high flow oxygen, 25 L/min, 45% FiO2 HEENT: Normocephalic, atraumatic, mucous membranes moist. Heart: Regular rate and rhythm, no murmurs. Noted ICD Lungs: Bilateral diffuse crackles are heard Abdomen: Soft, nondistended, nontender, positive bowel sounds. ?No guarding or rebound tenderness. Neurologic: patient able to move all 4 extremities. Extremities: no pedal edema noted Skin: No rash or ecchymoses. Objective Labs 03/09/25 05:10 03/09/25 05:10 Labs: Laboratory Results - last 24 hr 03/08/25 03/09/25 03/09/25 21:20 05:10 10:40 WBC 14.9 H D RBC 3.85 L Hgb 11.5 L Hct 34.7 L MCV 90 MCH 29.9 MCHC 33.1 RDW Std Deviation 46.5 H Plt Count 254 D Neut % (Auto) 65 Lymph % (Auto) 16 [place] % (Auto) 12 Eos % (Auto) 5 Baso % (Auto) 0 Neut # (Auto) 9.7 H Lymph # (Auto) 2.4 [place] # (Auto) 1.7 H Eos # (Auto) 0.8 H Baso # (Auto) 0.0 Immature Gran # (Auto) 0.22 H Absolute Nucleated RBC 0.00 Immature Gran % 2 H Nucleated RBC % 0 Puncture Site Right Radial ABG pH 7.47 H ABG pCO2 41 ABG pO2 65 L ABG HCO3 30 H ABG O2 Saturation 94 ABG Base Excess 6 H FiO2 100 Sodium 142 Potassium 4.2 Chloride 107 Carbon Dioxide 28.9 Anion Gap 6 L BUN 19 Creatinine 0.9 Estim Creat Clear Calc 74.3 eGFR > 60 BUN/Creatinine Ratio 21 H Glucose 73 L Calculated Osmolality 284 Calcium 9.2 Corrected Calcium 9.7 Total Bilirubin 0.2 L AST 17 ALT 46 Alkaline Phosphatase 53 Total Protein 5.8 Albumin 3.4 Globulin 2.4 Albumin/Globulin Ratio 1.4 Procalcitonin 0.05 Vancomycin Trough 10.3 H Hepatitis C Antibody Non Reactive ABG Interpretation ABG results: 03/02/25 03/04/25 03/05/25 20:40 09:20 15:30 ABG pH 7.45 7.43 7.44 ABG pCO2 42 46 47 ABG pO2 60 L 77 L 56 L* D ABG HCO3 29 H 31 H 32 H ABG O2 Saturation 92 96 90 L ABG Base Excess 4 H 5 H 7 H 03/09/25 10:40 ABG pH 7.47 H ABG pCO2 41 ABG pO2 65 L ABG HCO3 30 H ABG O2 Saturation 94 ABG Base Excess 6 H Quality Measures Quality Measures VTE prophylaxis Advance care planning discussed with:: other Assessment & Plan Assessment Current Active Medications: Generic Name Dose Route Start Last Admin Trade Name Freq PRN Reason Stop Dose Admin Acetaminophen 650 mg 03/04/25 08:23 Acetaminophen 325 Mg Tablet PO 04/01/25 17:22 Q6H PRN Fever >100.3 Albuterol/Ipratropium 3 ml 03/07/25 11:00 03/09/25 08:38 Albuterol/Ipratropium (Duoneb) Rt Latisha 3 Ml Nebu INH 04/04/25 18:59 3 ml Q4HRRT PRN Administration wheezing or SOB Apixaban 5 mg 03/03/25 21:00 03/09/25 08:04 Apixaban 2.5 Mg Tablet PO 04/02/25 20:59 5 mg BID CHRISTIANO Administration Atorvastatin Calcium 10 mg 03/03/25 21:00 03/08/25 21:08 Atorvastatin Calcium 10 Mg Tablet PO 04/02/25 20:59 10 mg HS CHRISTIANO Administration Azithromycin 500 mg 03/02/25 17:45 03/09/25 08:04 Azithromycin 250 Mg Tablet PO 03/09/25 17:44 500 mg QDAY CHRISTIANO Administration Fluvoxamine Mal 100 0 ea 03/07/25 20:15 03/08/25 21:09 Mg Tablets PO 04/06/25 20:14 1.5 tablet QDAY@2000 CHRISTIANO Administration Divalproex Sodium 1,000 mg 03/02/25 21:00 03/08/25 21:[address] 500 Mg Tablet.Dr PO 04/01/25 20:59 1,000 mg HS CHRISTIANO Administration Dutasteride 0.5 mg 03/03/25 09:00 03/09/25 08:04 Dutasteride 0.5 Mg Capsule (Non-Formulary) PO 04/02/25 08:59 0.5 mg QDAY CHRISTIANO Administration Fluconazole 400 mg 03/09/25 09:00 03/09/25 08:04 Fluconazole 100 Mg Tablet PO 03/16/25 08:59 400 mg QDAY CHRISTIANO Administration Piperacillin/Tazobactam/Dextrose 3.375 gm in 50 mls @ 12.5 mls/hr 03/09/25 14:30 Zosyn IV 03/16/25 14:29 Q8HR CHRISTIANO Vancomycin HCl 750 mg/ 250 mls @ 120 mls/hr 03/09/25 15:00 Vancomycin HCl 500 mg/ Sodium IV 03/16/25 05:04 Chloride Q12H CHRISTIANO Magnesium Hydroxide 30 ml 03/02/25 17:23 Milk Of Magnesia Susp 30 Ml Udc PO 04/01/25 17:22 QDAY PRN CONSTIPATION Protocol Metoprolol Succinate 12.5 mg 03/03/25 09:00 03/09/25 08:04 Metoprolol Succinate Xl 25 Mg Tabcr PO 04/02/25 08:59 12.5 mg QDAY CHRISTIANO Administration Midodrine 5 mg 03/09/25 14:00 03/09/25 12:51 Midodrine 5 Mg Tablet PO 04/08/25 13:59 5 mg TID CHRISTIANO Administration Ondansetron HCl 4 mg 03/02/25 17:23 Ondansetron Inj 2 Mg/Ml Inj 2 Ml IV 04/01/25 17:22 Q6H PRN NAUSEA OR VOMITING Protocol Pantoprazole Sodium 40 mg 03/07/25 11:15 03/09/25 08:04 Pantoprazole Inj 40 Mg Vial IVP 04/06/25 11:14 40 mg QDAY CHRISTIANO Administration Pharmacy Consult 1 each 03/09/25 14:15 Vancomycin Pharmacy To Dose 1 Each Each IV 04/08/25 14:14 QDAY CHRISTIANO Risperidone 2 mg 03/02/25 21:00 03/08/25 21:09 Risperidone 1 Mg Tablet PO 04/01/25 20:59 2 mg HS CHRISTIANO Administration Sodium Chloride 3 ml 03/02/25 12:21 Sodium Chloride Rt Latisha 0.9% 3 Ml Nebu INH 04/01/25 12:20 PRN PRN SOLN Plan A 74-year-old male who lives in a senior care since 2007 with significant past medical history of intellectual disability, deafness, OCD, intermittent explosive disorder, diabetes mellitus currently not on any treatment, hyperlipidemia, GERD, heart failure s/p ICD, COPD on 2 L oxygen, prostate carcinoma, seizures is brought to the hospital with chief complaints of decreased oxygen saturations noted on pulse oximeter and admitted in the hospital for acute on chronic hypoxic respiratory failure secondary to heart failure exacerbation. #Acute on chronic hypoxic respiratory failure. #Bilateral pneumonia, predominantly left-sided, cocci pneumonia #Underlying COPD on 2 L oxygen. - Brought to the hospital by care provider in view of low oxygen saturations noted on pulse oximeter. - Patient noted to have fatigue and difficulty in doing his routine daily activities on the day of admission. - At baseline, patient is using 4 L oxygen, which was increased from 2 L within the last several weeks. - At the time of admission noted to have 91% saturation with 6 L oxygen through nasal cannula. - On physical examination, noted to have bilateral inspiratory crackles more in the basilar areas. - EKG showed sinus rhythm with multiple ectopics. - Chest x-ray showed bilateral patchy infiltrates, more on the left side - Chest x-ray from 2022 showed similar infiltrates, more on the left side, suspicious of malignancy - Chest CT showed severe bilateral pneumonia, more on the left side with small left-sided pleural effusion - Tested negative for COVID, influenza, cocci IgM, tested positive for cocci IgM on 03/08 - Blood cultures came back negative after 48 hours - Repeat cocci as of 03/07/2025 came back positive plan - Patient was initially started on ceftriaxone 1 g IV daily [03/04-03/05], Azithromycin [03/03 - 03/09] - As of 03/05/2025, patient is still desaturating on high flow oxygen for which patient was started on Zosyn 4.5 g every 6 hourly [03/05-03/08], on vancomycin (03/07 - 03/08) - As patient tested positive for IgM cocci, patient is started on fluconazole 400 Mg IV daily as of 03/07/2025 and discontinued IV steroids, antibiotics - Consulted Dr Boken and and recommended to continue fluconazole for now - DuoNebs every 4 thoroughly scheduled # Paroxysmal atrial fibrillation --> atrial fibrillation with rapid ventricular rate on 03/09/2025 # History of HFrEF, EF 35 to 40% [02/2025] # Nonischemic cardiomyopathy - Patient is diagnosed with a paroxysmal atrial fibrillation and 2022. - [id number] is 3 - Since then patient is started on Eliquis 5 Mg p.o. twice daily - Currently patient is in sinus rhythm. - Echo Normal LV size and function. Estimated EF 35-40 %. Grade I diastolic dysfunction. Plan: - will continue home metoprolol 12.5 Mg p.o. daily - One-time dose of metoprolol 12.5 Mg is given on 03/09/2025 in view of rapid ventricular rate - Will continue home Eliquis 5 Mg p.o. twice daily. #History of diabetes mellitus. - Per patient's care provider, patient had history of diabetes mellitus on treatment but later as his sugars are well-controlled, stopped treatment by his primary care provider - HbA1c is ordered - 6.2. Plan: - will hold the treatment for now and monitor patient. #Hyperlipidemia. -Patient is using simvastatin 40 Mg p.o. at bedtime. -Lipid panel showed TG 155, Chol 183, LDL 127, HDL 25. Plan: -Started on atorvastatin 10 Mg at bedtime. #Normocytic normochromic anemia. - Patient is using iron supplements at home. - Will resume it on outpatient basis. #History of seizures. - Patient is using divalproex at home. - Reported that patient did not have seizures in past couple of years. - Restarted on divalproex. #History of prostate cancer. - Per patient's care provider patient had history of prostate cancer in 2014 underwent radiation therapy for 4 weeks. - Following up with PCP and on dutasteride. - Resumed Dutasteride 0.5mg p.o. qday. Hospital Maintenance: Dispo: Tele. DVT ppx: Apixaban. GI ppx: not needed. Diet: Cardiac, fluid restriction 1500 mL. IV lines: Peripheral. Code status: FULL. Patient plan of care was discussed with the attending physician, Dr. Chavarria and senior resident Dr. Oscar Melvin, PGY1
[2025-03-09] MEDS: PIPER/TAZO 3.375 GM PREMIX 3.375 GM/50 ML BAG IV (14:41)
[2025-03-09 14:46] LABS: B-Type Natriuretic Peptide 98 pg/mL (0-100); Magnesium 1.8 mg/dL (1.6-2.6)
--- NOTE | 2025-03-09 14:55 | ESPR_ITS ---
Documentation for date of: 03/09/25 Subjective Subjective Interval history: Patient seen and examined. Condition is declining since the AM. He is on HFNC 100% Fio2 saturating in the low 90s. Also the patient started to get tachycardiac looks like afib. ICU was consulted Exam Vital Signs Temp Pulse Resp BP Pulse Ox O2 Del Method O2 Flow Rate 97.0 F 123 H 28 H 88/65 L 93 L High Flow Nasal Cannula 40 03/09/25 12:00 03/09/25 14:24 03/09/25 14:24 03/09/25 12:51 03/09/25 14:24 03/09/25 12:00 03/09/25 14:24 FiO2 100 03/09/25 14:24 Narrative Exam General: Awake. deaf and mute HEENT: Normocephalic, atraumatic, mucous membranes moist. Heart: Regular rate and rhythm, no murmurs. Noted ICD Lungs: Bronchial breath sounds and crackles are heard in the left lung Abdomen: Soft, nondistended, nontender, positive bowel sounds. ?No guarding or rebound tenderness. Neurologic: patient able to move all 4 extremities. Extremities: no pedal edema noted Skin: No rash or ecchymoses. Objective Labs 03/09/25 05:10 03/09/25 05:10 Labs: Laboratory Results - last 24 hr 03/08/25 03/09/25 03/09/25 21:20 05:10 10:40 WBC 14.9 H D RBC 3.85 L Hgb 11.5 L Hct 34.7 L MCV 90 MCH 29.9 MCHC 33.1 RDW Std Deviation 46.5 H Plt Count 254 D Neut % (Auto) 65 Lymph % (Auto) 16 [place] % (Auto) 12 Eos % (Auto) 5 Baso % (Auto) 0 Neut # (Auto) 9.7 H Lymph # (Auto) 2.4 [place] # (Auto) 1.7 H Eos # (Auto) 0.8 H Baso # (Auto) 0.0 Immature Gran # (Auto) 0.22 H Absolute Nucleated RBC 0.00 Immature Gran % 2 H Nucleated RBC % 0 Puncture Site Right Radial ABG pH 7.47 H ABG pCO2 41 ABG pO2 65 L ABG HCO3 30 H ABG O2 Saturation 94 ABG Base Excess 6 H FiO2 100 Sodium 142 Potassium 4.2 Chloride 107 Carbon Dioxide 28.9 Anion Gap 6 L BUN 19 Creatinine 0.9 Estim Creat Clear Calc 74.3 eGFR > 60 BUN/Creatinine Ratio 21 H Glucose 73 L Calculated Osmolality 284 Calcium 9.2 Corrected Calcium 9.7 Magnesium Total Bilirubin 0.2 L AST 17 ALT 46 Alkaline Phosphatase 53 B-Natriuretic Peptide Total Protein 5.8 Albumin 3.4 Globulin 2.4 Albumin/Globulin Ratio 1.4 Procalcitonin 0.05 Vancomycin Trough 10.3 H Hepatitis C Antibody Non Reactive 03/09/25 14:15 WBC RBC Hgb Hct MCV MCH MCHC RDW Std Deviation Plt Count Neut % (Auto) Lymph % (Auto) [place] % (Auto) Eos % (Auto) Baso % (Auto) Neut # (Auto) Lymph # (Auto) [place] # (Auto) Eos # (Auto) Baso # (Auto) Immature Gran # (Auto) Absolute Nucleated RBC Immature Gran % Nucleated RBC % Puncture Site ABG pH ABG pCO2 ABG pO2 ABG HCO3 ABG O2 Saturation ABG Base Excess FiO2 Sodium Potassium Chloride Carbon Dioxide Anion Gap BUN Creatinine Estim Creat Clear Calc eGFR BUN/Creatinine Ratio Glucose Calculated Osmolality Calcium Corrected Calcium Magnesium 1.8 Total Bilirubin AST ALT Alkaline Phosphatase B-Natriuretic Peptide 98 Total Protein Albumin Globulin Albumin/Globulin Ratio Procalcitonin Vancomycin Trough Hepatitis C Antibody ABG Interpretation ABG results: 03/02/25 03/04/25 03/05/25 20:40 09:20 15:30 ABG pH 7.45 7.43 7.44 ABG pCO2 42 46 47 ABG pO2 60 L 77 L 56 L* D ABG HCO3 29 H 31 H 32 H ABG O2 Saturation 92 96 90 L ABG Base Excess 4 H 5 H 7 H 03/09/25 10:40 ABG pH 7.47 H ABG pCO2 41 ABG pO2 65 L ABG HCO3 30 H ABG O2 Saturation 94 ABG Base Excess 6 H Quality Measures Quality Measures VTE prophylaxis Advance care planning discussed with:: patient and other Assessment & Plan Assessment Current Active Medications: Generic Name Dose Route Start Last Admin Trade Name Freq PRN Reason Stop Dose Admin Acetaminophen 650 mg 03/04/25 08:23 Acetaminophen 325 Mg Tablet PO 04/01/25 17:22 Q6H PRN Fever >100.3 Albuterol/Ipratropium 3 ml 03/07/25 11:00 03/09/25 08:38 Albuterol/Ipratropium (Duoneb) Rt Latisha 3 Ml Nebu INH 04/04/25 18:59 3 ml Q4HRRT PRN Administration wheezing or SOB Apixaban 5 mg 03/03/25 21:00 03/09/25 08:04 Apixaban 2.5 Mg Tablet PO 04/02/25 20:59 5 mg BID CHRISTIANO Administration Atorvastatin Calcium 10 mg 03/03/25 21:00 03/08/25 21:08 Atorvastatin Calcium 10 Mg Tablet PO 04/02/25 20:59 10 mg HS CHRISTIANO Administration Azithromycin 500 mg 03/02/25 17:45 03/09/25 08:04 Azithromycin 250 Mg Tablet PO 03/09/25 17:44 500 mg QDAY CHRISTIANO Administration Fluvoxamine Mal 100 0 ea 03/07/25 20:15 03/08/25 21:09 Mg Tablets PO 04/06/25 20:14 1.5 tablet QDAY@2000 CHRISTIANO Administration Divalproex Sodium 1,000 mg 03/02/25 21:00 03/08/25 21:[address] 500 Mg Tablet.Dr PO 04/01/25 20:59 1,000 mg HS CHRISTIANO Administration Dutasteride 0.5 mg 03/03/25 09:00 03/09/25 08:04 Dutasteride 0.5 Mg Capsule (Non-Formulary) PO 04/02/25 08:59 0.5 mg QDAY CHRISTIANO Administration Fluconazole 400 mg 03/09/25 09:00 03/09/25 08:04 Fluconazole 100 Mg Tablet PO 03/16/25 08:59 400 mg QDAY CHRISTIANO Administration Magnesium Hydroxide 30 ml 03/02/25 17:23 Milk Of Magnesia Susp 30 Ml Udc PO 04/01/25 17:22 QDAY PRN CONSTIPATION Protocol Metoprolol Succinate 12.5 mg 03/03/25 09:00 03/09/25 08:04 Metoprolol Succinate Xl 25 Mg Tabcr PO 04/02/25 08:59 12.5 mg QDAY CHRISTIANO Administration Midodrine 5 mg 03/09/25 14:00 03/09/25 12:51 Midodrine 5 Mg Tablet PO 04/08/25 13:59 5 mg TID CHRISTIANO Administration Ondansetron HCl 4 mg 03/02/25 17:23 Ondansetron Inj 2 Mg/Ml Inj 2 Ml IV 04/01/25 17:22 Q6H PRN NAUSEA OR VOMITING Protocol Pantoprazole Sodium 40 mg 03/07/25 11:15 03/09/25 08:04 Pantoprazole Inj 40 Mg Vial IVP 04/06/25 11:14 40 mg QDAY CHRISTIANO Administration Risperidone 2 mg 03/02/25 21:00 03/08/25 21:09 Risperidone 1 Mg Tablet PO 04/01/25 20:59 2 mg HS CHRSITIANO Administration Sodium Chloride 3 ml 03/02/25 12:21 Sodium Chloride Rt Latisha 0.9% 3 Ml Nebu INH 04/01/25 12:20 PRN PRN SOLN Plan 74-year-old male with a past medical history of developmental delay with some mental retardation, mute as well as deaf but able to do few daily ADLs including taking care of himself, diabetes mellitus, hyperlipidemia, OCD, bipolar disorder lives in a [place] [facility] was brought into the emergency department for 3 days of hypoxia secondary to community-acquired pneumonia. 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 Etiology of the hypoxia likely driven due to the pneumonia no signs of decompensated heart failure at this time patient is euvolemic. No JVD noted no significant bilateral lower extremity edema noted. CT chest showed severe KEILA pna Recommendations: - Continue aggressive broad-spectrum IV antibiotics - IV diflucan - IV steroids started due to possible autoimmune process however not highlighted by primary team #Atrial fibrillation with RVR #Hypotension #History HFrEF s/p ICD placement, compensated (EF 35%) #Nonischemic cardiomyopathy Assessment: Patient presented about a year ago due to new onset heart failure. Echocardiogram at that time showed an EF of 35% with multiple regional wall motion abnormality could be secondary to left bundle branch at that time. The decision was made to place a ICD on 08/2024 Currently patient is euvolemic with a BNP less than 20. No troponin elevation. The etiology of the hypoxia seems to be more driven due to the pneumonia rather than an acute suspicion of heart failure. Not currently in exacerbation. Patient is warm and dry. No concern at this time for cardiogenic shock. Likely all driven due to respiratory failure at this point. Recmmendations: - Recommend no diuretics for now, HOLD the home Lasix 40 mg qday - hold metoprolol of 12.5 mg daily due to hypontesion - Can hold the Entresto 1 tab twice daily if BP soft - Strict input output, daily weights and 2 g sodium diet - Maintain Mg >2 and K >4 #History of paroxysmal atrial fibrillation Rate controlled Recommendations: - Continue metoprolol XL 12.5 mg once daily for rate control - Continue home Eliquis of 5 mg twice daily Management of rest of the medical conditions as per primary team and other consultants. #History of developmental delay #History of seizures #History of prostate cancer #Normocytic anemia #History of type 2 diabetes Thank you for the consult and allowing me to participate in the care of the patient. Cardiology will continue to follow. - - Patient's care was discussed with my attending physician, Dr. Jose Farrar MD Internal Medicine PGY-3 Attending Provider Attestation/Addendum I have personally seen and examined the patient separately on the above date of service and discussed the plan of care with the resident. I reviewed the resident Dr. Gabino Sampson consultation progress note and agree with the resident findings and plan in the note above and have also edited the documentation to reflect my findings and plan. Patient oxygen requirements have increased in the hospital and on high flow oxygen and recommended CT chest. CT chest was completed which showed severe bilateral lung opacities left greater than right consistent with bilateral pneumonia. Mild cardiomegaly but no evidence of any significant vascular congestion. Recommend aggressive treatment of the pneumonia at the present point of time and to hold the diuretics for now. On Zosyn as well as azithromycin for now. 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 Started on fluconazole for the primary team. Recommended ID consult for further evaluation and the patient seen by Dr Vyas Unfortunately his oxygen requirement worsened today and patient is on high flow nasal cannula at FiO2 of 100% which is significant change from yesterday. Patient is mildly tachypneic during my examination and overall has increased work of breathing. Primary team did consult ICU and patient will be transferred to the ICU later today once beds are available. Patient was briefly started on IV steroids by pulmonary for possible autoimmune process which has been discontinued now and agree. Continue antihypertensives if the blood pressure is permissible and Eliquis 5 mg twice daily for anticoagulation if no further procedures are planned. Echo repeated 03/07/2025 and showed moderate LV dysfunction with an EF of 35 to 40%. Normal RV size and function. Rest of the echo findings similar to before. Continue strict input output, daily weights and 2 g sodium diet. Management of rest of the medical conditions as per primary team and other consultants. Thank you for the consult and allowing me to participate in the care of the patient. Cardiology will continue to follow. Felipe Garcia M.D. Interventional Cardiology
--- NOTE | 2025-03-09 16:20 | PC.SS ---
Rounding Note: Patient currently on high flow oxygen, possible transition to ICU.
[2025-03-09 17:51] LABS: (1-3)-B-D-glucan* <31 pg/mL
[2025-03-09] MEDS: FLUVOXAMINE 100 MG PO (21:14)
[2025-03-09] MEDS: DIVALPROEX SOD DR 500 MG TABLET.DR 1000 MG PO (21:15)
[2025-03-09] MEDS: ATORVASTATIN CALCIUM 10 MG TABLET PO (21:15)
[2025-03-09] MEDS: risperiDONE 1 MG TABLET 2 MG PO (21:15)
[2025-03-10] VITALS (17 sets, daily range): BP systolic 97–123; BP diastolic 53–71; PULSE 59–89; RESP 14–34; TEMP 36.1–36.5; O2SAT 88–99; BMI 28.0
[2025-03-10] MEDS: MIDODRINE 5 MG TABLET PO (05:40)
[2025-03-10 06:09] LABS: Basophils % (Auto) 0 % (0-2.5); Eosinophils % (Auto) 0 % (0-10); Hematocrit 34.5 % (41.0-53.0); Hemoglobin 11.6 g/dL (13.5-16.0); Immature Granulocytes % (Auto) 3 % (0-0); Immature Granulocytes Auto 0.54 Thou/mm3 (0.00-0.00); Lymphocytes # (Auto) 1.5 Thou/mm3 (1.0-4.8); Lymphocytes % (Auto) 9 % (10-50); Mean Corpuscular HGB Conc 33.6 g/dl (31.0-37.0); Mean Corpuscular Hemoglobin 30.1 pg (25.0-35.0); Mean Corpuscular Volume 89 fL (80-100); Monocytes # (Auto) 0.8 Thou/mm3 (0.0-0.8); Monocytes % (Auto) 5 % (0-12); Neutrophils # (Auto) 14.1 Thou/mm3 (1.8-7.7); Neutrophils % (Auto) 83 % (37-80); Nucleated Red Blood Cell % 0 /100 WBC (0); Platelet Count 260 Thou/mm3 (140-440); RDW Standard Deviation 45.1 fL (35.1-43.9); Red Blood Count 3.86 Miln/mm3 (4.50-5.90); White Blood Count 16.9 Thou/mm3 (3.8-10.6)
[2025-03-10 06:45] LABS: Alanine Aminotransferase 53 U/L (10-49); Albumin, Serum 3.5 gm/dL (3.4-4.8); Albumin/Globulin Ratio 1.5 (1.2-2.2); Alkaline Phosphatase 51 U/L (46-116); Anion Gap 9 (7-16); Aspartate Amino Transferase 20 U/L (0-34); BUN/Creatinine Ratio 25 Ratio (12-20); Bilirubin,Total 0.3 mg/dL (0.3-1.2); Blood Urea Nitrogen 25 mg/dL (9-23); Calcium 9.5 mg/dL (8.3-10.6); Calcium (Corrected) 9.9 mg/dL (8.5-10.1); Carbon Dioxide 28.2 mMol/L (20.0-31.0); Chloride 103 mMol/L (98-107); Estimated Creatinine Clearance 66.8 mL/min (>60); Globulin 2.4 gm/dL (2.3-3.5); Glucose 113 mg/dL (74-106); Osmolality,Calculated 284 (275-295); Potassium 4.3 mMol/L (3.4-5.1); Sodium 140 mMol/L (136-145); Total Protein 5.9 gm/dL (5.7-8.2); eGFR > 60 See Note
[2025-03-10 06:59] LABS: Interpretation NEGATIVE
[2025-03-10] MEDS: APIXABAN 2.5 MG TABLET 5 MG PO ×2 (08:32→20:41)
[2025-03-10] MEDS: PANTOPRAZOLE INJ 40 MG VIAL IVP (08:33)
[2025-03-10] MEDS: FLUCONAZOLE 100 MG TABLET 400 MG PO (08:33)
[2025-03-10] MEDS: DUTASTERIDE 0.5 MG CAPSULE (NON-FORMULARY) PO (08:35)
--- NOTE | 2025-03-10 09:29 | ESPR_ITS ---
Subjective Subjective Interval history: procal neg. on flucon alone. if he does not get outside much, indoor aquisition of cocci is unlikely so this may be viral Exam Vital Signs Temp Pulse Resp BP Pulse Ox O2 Del Method O2 Flow Rate 97.0 F 62 17 103/60 95 High Flow Nasal Cannula 30 03/10/25 08:00 03/10/25 08:35 03/10/25 08:00 03/10/25 08:35 03/10/25 08:00 03/10/25 08:00 03/10/25 08:00 FiO2 75 03/10/25 08:00 Narrative Exam limited eval Objective - Internal Medicine Labs 03/10/25 05:12 03/10/25 05:12 Labs: Laboratory Results - last 24 hr 03/06/25 03/09/25 03/09/25 16:40 10:40 14:15 WBC RBC Hgb Hct MCV MCH MCHC RDW Std Deviation Plt Count Neut % (Auto) Lymph % (Auto) [place] % (Auto) Eos % (Auto) Baso % (Auto) Neut # (Auto) Lymph # (Auto) [place] # (Auto) Eos # (Auto) Baso # (Auto) Immature Gran # (Auto) Absolute Nucleated RBC Immature Gran % Nucleated RBC % Puncture Site Right Radial ABG pH 7.47 H ABG pCO2 41 ABG pO2 65 L ABG HCO3 30 H ABG O2 Saturation 94 ABG Base Excess 6 H FiO2 100 Sodium Potassium Chloride Carbon Dioxide Anion Gap BUN Creatinine Estim Creat Clear Calc eGFR BUN/Creatinine Ratio Glucose Calculated Osmolality Calcium Corrected Calcium Magnesium 1.8 Total Bilirubin AST ALT Alkaline Phosphatase B-Natriuretic Peptide 98 Total Protein Albumin Globulin Albumin/Globulin Ratio Beta-(1,3)-D-Glucan <31 B-(1,3)-D-Glucan Intrp NEGATIVE 03/10/25 05:12 WBC 16.9 H RBC 3.86 L Hgb 11.6 L Hct 34.5 L MCV 89 MCH 30.1 MCHC 33.6 RDW Std Deviation 45.1 H Plt Count 260 Neut % (Auto) 83 H Lymph % (Auto) 9 L [place] % (Auto) 5 Eos % (Auto) 0 Baso % (Auto) 0 Neut # (Auto) 14.1 H Lymph # (Auto) 1.5 [place] # (Auto) 0.8 Eos # (Auto) 0.0 Baso # (Auto) 0.0 Immature Gran # (Auto) 0.54 H Absolute Nucleated RBC 0.00 Immature Gran % 3 H Nucleated RBC % 0 Puncture Site ABG pH ABG pCO2 ABG pO2 ABG HCO3 ABG O2 Saturation ABG Base Excess FiO2 Sodium 140 Potassium 4.3 Chloride 103 Carbon Dioxide 28.2 Anion Gap 9 BUN 25 H Creatinine 1.0 Estim Creat Clear Calc 66.8 eGFR > 60 BUN/Creatinine Ratio 25 H Glucose 113 H D Calculated Osmolality 284 Calcium 9.5 Corrected Calcium 9.9 Magnesium Total Bilirubin 0.3 AST 20 ALT 53 H Alkaline Phosphatase 51 B-Natriuretic Peptide Total Protein 5.9 Albumin 3.5 Globulin 2.4 Albumin/Globulin Ratio 1.5 Beta-(1,3)-D-Glucan B-(1,3)-D-Glucan Intrp ABG Interpretation ABG results: 03/02/25 03/04/25 03/05/25 20:40 09:20 15:30 ABG pH 7.45 7.43 7.44 ABG pCO2 42 46 47 ABG pO2 60 L 77 L 56 L* D ABG HCO3 29 H 31 H 32 H ABG O2 Saturation 92 96 90 L ABG Base Excess 4 H 5 H 7 H 03/09/25 10:40 ABG pH 7.47 H ABG pCO2 41 ABG pO2 65 L ABG HCO3 30 H ABG O2 Saturation 94 ABG Base Excess 6 H Assessment & Plan A&P Narrative possible cocci pneumonia. atypical likely, here for 8d already. not improved with rx but not either overtly worse dm II other problems as noted. flucon ok. if worsens, ok to try ampho b and monitor creat closely. will check in again on Thursday Time Spent With Patient Time: Total time spent is greater than 50% in coordination of care (as documented) at patient's floor/unit and/or counseling patient:
--- NOTE | 2025-03-10 11:40 | PC.SS ---
SS follow up note; Patient is currently on high flow. Patient will discharge back to [facility] once medically cleared.
--- NOTE | 2025-03-10 12:53 | PD.IMPROG ---
Documentation for date of: 03/10/25 Subjective Subjective Interval history: Patient seen and examined at the bedside. Patient was in atrial fibrillation with RVR yesterday and heart rate was up to 130 bpm. Patient restarted on the metoprolol XL home dose heart rate is better controlled at the present point of time. Patient was accepted by ICU yesterday due to increasing oxygen requirements at 100% FiO2 on high flow nasal cannula. Patient doing slightly better today with decreased work of breathing and FiO2 is down to 75%. Still continues to have bilateral bronchial breath sounds with occasional crackles. Overall patient appears to be euvolemic and recommend to continue only IV Lasix as needed for now. Patient is on fluconazole and another antibiotics. Question of possible aspiration. ID team following the patient. Exam Vital Signs Temp Pulse Resp BP Pulse Ox O2 Del Method O2 Flow Rate 96.8 F 68 20 98/59 L 90 L High Flow Nasal Cannula 30 03/11/25 12:00 03/11/25 12:00 03/11/25 12:00 03/11/25 12:26 03/11/25 12:00 03/11/25 12:00 03/11/25 10:51 FiO2 90 03/11/25 10:51 Narrative Exam General: Awake. deaf and mute HEENT: Normocephalic, atraumatic, mucous membranes moist. Heart: Regular rate and rhythm, no murmurs. Noted ICD Lungs: Bronchial breath sounds and crackles are heard in the left lung Abdomen: Soft, nondistended, nontender, positive bowel sounds. ?No guarding or rebound tenderness. Neurologic: patient able to move all 4 extremities. Extremities: no pedal edema noted Skin: No rash or ecchymoses. Objective Labs 03/11/25 05:11 03/11/25 05:11 Labs: Laboratory Results - last 24 hr 03/11/25 05:11 WBC 20.4 H RBC 3.69 L Hgb 11.1 L Hct 33.1 L MCV 90 MCH 30.1 MCHC 33.5 RDW Std Deviation 45.4 H Plt Count 256 Neut % (Auto) 76 Lymph % (Auto) 11 [place] % (Auto) 9 Eos % (Auto) 2 Baso % (Auto) 0 Neut # (Auto) 15.6 H Lymph # (Auto) 2.2 [place] # (Auto) 1.8 H Eos # (Auto) 0.4 Baso # (Auto) 0.0 Immature Gran # (Auto) 0.38 H Absolute Nucleated RBC 0.00 Immature Gran % 2 H Nucleated RBC % 0 Sodium 134 L Potassium 4.0 Chloride 98 Carbon Dioxide 29.4 Anion Gap 7 BUN 25 H Creatinine 1.0 Estim Creat Clear Calc 66.8 eGFR > 60 BUN/Creatinine Ratio 25 H Glucose 79 Calculated Osmolality 271 L Calcium 9.3 ABG Interpretation ABG results: 03/02/25 03/04/25 03/05/25 20:40 09:20 15:30 ABG pH 7.45 7.43 7.44 ABG pCO2 42 46 47 ABG pO2 60 L 77 L 56 L* D ABG HCO3 29 H 31 H 32 H ABG O2 Saturation 92 96 90 L ABG Base Excess 4 H 5 H 7 H 03/09/25 10:40 ABG pH 7.47 H ABG pCO2 41 ABG pO2 65 L ABG HCO3 30 H ABG O2 Saturation 94 ABG Base Excess 6 H Assessment & Plan A&P Narrative Patient well-known to me and follows up with me in the clinic for last 2 years 72-year-old male with a past medical history of developmenta delay, paroxysmal A-fib, severe systolic CHF with an EF of 30 to 35% which did not improve with goal-directed medical therapy status post ICD placement in August 2024, nonischemic cardiomyopathy with normal LHC in 2023, mute as well as deaf but able to perform few ADLs including taking care of himself, IADL dependent, diabetes mellitus, hyperlipidemia, OCD, bipolar disorder presented to the emergency department for further evaluation of hypoxia. Patient has been having worsening shortness of breath for the past week or so.and he did visit his manager field investigations and his oxygen requirements continued to increase. He was recommended by the manager field investigations if saturations would not improve and continues to be less than 88% to go to the emergency department. 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 He did see me last in the clinic 3 weeks ago at which time his Lasix was increased from 20 mg to 40 mg once daily and he was continued on all his goal-directed medical therapy medications. In the emergency department patient blood pressure was normal at 113/75 mmHg. Saturations were less than 88% on room air and now around 92% on 6 L nasal cannula. Labs showed initially normal WBC but later on increased to 13.4, hemoglobin stable around low 1.8 and platelets were normal. Kidney function was normal. Lactate was normal LFTs were normal. TSH normal and TG 155, cholesterol 183, LDL 127, HDL 27, procalcitonin normal at less than 0.04 EKG showed sinus rhythm with frequent PACs and right bundle branch block along with LVH. Chest x-ray showed significant bilateral pneumonia and questionable vascular congestion. Cardiology was consulted for possible CHF exacerbation given the hypoxia. 1. Acute respiratory failure with unclear etiology-mostly secondary to possible bilateral pneumonia 2. Chronic severe systolic congestive heart failure with an EF of 30 to 35% and patient does not appear to be fluid overloaded. 3. Nonischemic cardiomyopathy status post AICD placement in August 2024 4. Paroxysmal atrial fibrillation Patient seen and examined the bedside and patient is significantly hypoxic and requiring at least 6 L of oxygen via nasal cannula and saturations are only 92%. BNP was less than 20 and he has no peripheral edema. On examination he does not have any kind of JVD. Overall patient appears to be euvolemic or even mildly hypovolemic at the present point of time. Recommend no diuresis at the present point of time and hold Lasix for now. Recommend CT chest for further evaluation of the possible bilateral pneumonia. Patient appears to have possible ARDS from unclear etiology. Recommend aggressive treatment of the hypoxic respiratory failure as per the primary team. Patient is on goal-directed medical therapy with Entresto as well as metoprolol XL as well as Lasix at home all of which can be held except for the metoprolol XL for rate control and also the frequent PACs. Can restart rest of the GDMT at a later point of time then blood pressure is more stable. Prescription opiate elevated to group to date. He does have a history of paroxysmal atrial fibrillation and is on metoprolol XL as well as Eliquis. Continue metoprolol XL. Can hold Eliquis for now if any procedures planned for the patient otherwise can continue anticoagulation. He continues to be in normal sinus rhythm with frequent PACs for now. Keep potassium greater than 4 and magnesium greater than 2.0 at all times. 03/03- 03/08/25 Patient oxygen requirements have increased in the hospital and on high flow oxygen and recommended CT chest. CT chest was completed which showed severe bilateral lung opacities left greater than right consistent with bilateral pneumonia. Mild cardiomegaly but no evidence of any significant vascular congestion. Recommend aggressive treatment of the pneumonia at the present point of time and to hold the diuretics for now. On Zosyn as well as azithromycin for now. 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 ID team following for the fluconazole as well as IV antibiotics. Patient was briefly started on IV steroids by pulmonary for possible autoimmune process which has been discontinued now and agree. Continue antihypertensives if the blood pressure is permissible and Eliquis 5 mg twice daily for anticoagulation if no further procedures are planned. Echo repeated 03/07/2025 and showed moderate LV dysfunction with an EF of 35 to 40%. Normal RV size and function. Rest of the echo findings similar to before. Continue strict input output, daily weights and 2 g sodium diet. 03/10/25 Patient was into atrial fibrillation with RVR yesterday and heart rate was up to 130 bpm. Patient restarted on the metoprolol XL home dose heart rate is better controlled at the present point of time. Patient was accepted by ICU yesterday due to increasing oxygen requirements at 100% FiO2 on high flow nasal cannula. Patient doing slightly better today with decreased work of breathing and FiO2 is down to 75%. Still continues to have bilateral bronchial breath sounds with occasional crackles. Overall patient appears to be euvolemic and recommend to continue only IV Lasix as needed for now. Patient is on fluconazole and another antibiotics. Question of possible aspiration. ID team following the patient. Management of rest of the medical conditions as per primary team and other consultants. Thank you for the consult and allowing me to participate in the care of the patient. Cardiology will continue to follow. Felipe Garcia M.D. Interventional Cardiology Time Spent With Patient Time: Total time spent is greater than 50% in coordination of care (as documented) at patient's floor/unit and/or counseling patient:
--- NOTE | 2025-03-10 17:04 | ESPR_ITS ---
<Statement entered by Yonatan Chavarria MD - 03/15/25 09:31> I reviewed above note and agree with findings and plans. I have also personally examined the patient with medicine team and went over assessment and plan with medical team including internet marketing consultant and resident physician. <Statement entered by Giuseppe Silva MD - 03/12/25 11:03> Patient seen and assessed at bedside this morning. Patient appears stable although still on high flow nasal cannula. Continues on fluconazole, Pro-Medhat negative. ID following appreciate recommendations. Case discussed with team. Giuseppe Silva MD PGY3 Documentation for date of: 03/10/25 Subjective Subjective Interval history: Patient is seen and examined at bedside No acute overnight events. Still on high flow oxygen, 75% FiO2, 30 L oxygen On physical examination, patient noted to have diffuse inspiratory crackles on right lung In view of suspected aspiration, speech-language evaluation referral was done Will continue fluconazole for now Exam Vital Signs Temp Pulse Resp BP Pulse Ox O2 Del Method O2 Flow Rate 97.0 F 70 19 106/63 92 L High Flow Nasal Cannula 30 03/10/25 16:00 03/10/25 16:00 03/10/25 16:00 03/10/25 16:00 03/10/25 16:00 03/10/25 16:00 03/10/25 16:00 FiO2 80 03/10/25 16:00 Narrative Exam General: Awake. deaf and mute. On high flow oxygen, 30 L/min, 75% FiO2 HEENT: Normocephalic, atraumatic, mucous membranes moist. Heart: Regular rate and rhythm, no murmurs. Noted ICD Lungs: Diffuse crackles heard in right lung Abdomen: Soft, nondistended, nontender, positive bowel sounds. ?No guarding or rebound tenderness. Neurologic: patient able to move all 4 extremities. Extremities: no pedal edema noted Skin: No rash or ecchymoses. Objective Labs 03/10/25 05:12 03/10/25 05:12 Labs: Laboratory Results - last 24 hr 03/06/25 03/10/25 16:40 05:12 WBC 16.9 H RBC 3.86 L Hgb 11.6 L Hct 34.5 L MCV 89 MCH 30.1 MCHC 33.6 RDW Std Deviation 45.1 H Plt Count 260 Neut % (Auto) 83 H Lymph % (Auto) 9 L [place] % (Auto) 5 Eos % (Auto) 0 Baso % (Auto) 0 Neut # (Auto) 14.1 H Lymph # (Auto) 1.5 [place] # (Auto) 0.8 Eos # (Auto) 0.0 Baso # (Auto) 0.0 Immature Gran # (Auto) 0.54 H Absolute Nucleated RBC 0.00 Immature Gran % 3 H Nucleated RBC % 0 Sodium 140 Potassium 4.3 Chloride 103 Carbon Dioxide 28.2 Anion Gap 9 BUN 25 H Creatinine 1.0 Estim Creat Clear Calc 66.8 eGFR > 60 BUN/Creatinine Ratio 25 H Glucose 113 H D Calculated Osmolality 284 Calcium 9.5 Corrected Calcium 9.9 Total Bilirubin 0.3 AST 20 ALT 53 H Alkaline Phosphatase 51 Total Protein 5.9 Albumin 3.5 Globulin 2.4 Albumin/Globulin Ratio 1.5 Beta-(1,3)-D-Glucan <31 B-(1,3)-D-Glucan Intrp NEGATIVE ABG Interpretation ABG results: 03/02/25 03/04/25 03/05/25 20:40 09:20 15:30 ABG pH 7.45 7.43 7.44 ABG pCO2 42 46 47 ABG pO2 60 L 77 L 56 L* D ABG HCO3 29 H 31 H 32 H ABG O2 Saturation 92 96 90 L ABG Base Excess 4 H 5 H 7 H 03/09/25 10:40 ABG pH 7.47 H ABG pCO2 41 ABG pO2 65 L ABG HCO3 30 H ABG O2 Saturation 94 ABG Base Excess 6 H Quality Measures Quality Measures VTE prophylaxis Advance care planning discussed with:: other Assessment & Plan Assessment Current Active Medications: Generic Name Dose Route Start Last Admin Trade Name Freq PRN Reason Stop Dose Admin Acetaminophen 650 mg 03/04/25 08:23 Acetaminophen 325 Mg Tablet PO 04/01/25 17:22 Q6H PRN Fever >100.3 Albuterol/Ipratropium 3 ml 03/07/25 11:00 03/09/25 08:38 Albuterol/Ipratropium (Duoneb) Rt Latisha 3 Ml Nebu INH 04/04/25 18:59 3 ml Q4HRRT PRN Administration wheezing or SOB Apixaban 5 mg 03/03/25 21:00 03/10/25 08:32 Apixaban 2.5 Mg Tablet PO 04/02/25 20:59 5 mg BID CHRISTIANO Administration Atorvastatin Calcium 10 mg 03/03/25 21:00 03/09/25 21:15 Atorvastatin Calcium 10 Mg Tablet PO 04/02/25 20:59 10 mg HS CHRISTIANO Administration Fluvoxamine Mal 100 0 ea 03/07/25 20:15 03/09/25 21:14 Mg Tablets PO 04/06/25 20:14 1.5 tablet QDAY@2000 CHRISTIANO Administration Divalproex Sodium 1,000 mg 03/02/25 21:00 03/09/25 21:[address] 500 Mg Tablet.Dr PO 04/01/25 20:59 1,000 mg HS CHRISTIANO Administration Dutasteride 0.5 mg 03/03/25 09:00 03/10/25 08:35 Dutasteride 0.5 Mg Capsule (Non-Formulary) PO 04/02/25 08:59 0.5 mg QDAY CHRISTIANO Administration Fluconazole 400 mg 03/09/25 09:00 03/10/25 08:33 Fluconazole 100 Mg Tablet PO 03/16/25 08:59 400 mg QDAY CHRISTIANO Administration Magnesium Hydroxide 30 ml 03/02/25 17:23 Milk Of Magnesia Susp 30 Ml Udc PO 04/01/25 17:22 QDAY PRN CONSTIPATION Protocol Metoprolol Succinate 12.5 mg 03/03/25 09:00 03/10/25 08:35 Metoprolol Succinate Xl 25 Mg Tabcr PO 04/02/25 08:59 Not Given QDAY CHRISTIANO Midodrine 5 mg 03/09/25 14:00 03/10/25 15:02 Midodrine 5 Mg Tablet PO 04/08/25 13:59 Not Given TID CHRISTIANO Ondansetron HCl 4 mg 03/02/25 17:23 Ondansetron Inj 2 Mg/Ml Inj 2 Ml IV 04/01/25 17:22 Q6H PRN NAUSEA OR VOMITING Protocol Pantoprazole Sodium 40 mg 03/07/25 11:15 03/10/25 08:33 Pantoprazole Inj 40 Mg Vial IVP 04/06/25 11:14 40 mg QDAY CHRISTIANO Administration Risperidone 2 mg 03/02/25 21:00 03/09/25 21:15 Risperidone 1 Mg Tablet PO 04/01/25 20:59 2 mg HS CHRISTIANO Administration Sodium Chloride 3 ml 03/02/25 12:21 Sodium Chloride Rt Latisha 0.9% 3 Ml Nebu INH 04/01/25 12:20 PRN PRN SOLN Plan A 74-year-old male who lives in a fci since 2007 with significant past medical history of intellectual disability, deafness, OCD, intermittent explosive disorder, diabetes mellitus currently not on any treatment, hyperlipidemia, GERD, heart failure s/p ICD, COPD on 2 L oxygen, prostate carcinoma, seizures is brought to the hospital with chief complaints of decreased oxygen saturations noted on pulse oximeter and admitted in the hospital for acute on chronic hypoxic respiratory failure secondary to heart failure exacerbation. #Acute on chronic hypoxic respiratory failure. #Bilateral pneumonia, predominantly left-sided, cocci pneumonia # Suspected bilateral aspiration pneumonia #Underlying COPD on 2 L oxygen. - Brought to the hospital by care provider in view of low oxygen saturations noted on pulse oximeter. - Patient noted to have fatigue and difficulty in doing his routine daily activities on the day of admission. - At baseline, patient is using 4 L oxygen, which was increased from 2 L within the last several weeks. - At the time of admission noted to have 91% saturation with 6 L oxygen through nasal cannula. - On physical examination, noted to have bilateral inspiratory crackles more in the basilar areas. - EKG showed sinus rhythm with multiple ectopics. - Chest x-ray showed bilateral patchy infiltrates, more on the left side - Chest x-ray from 2022 showed similar infiltrates, more on the left side, suspicious of malignancy - Chest CT showed severe bilateral pneumonia, more on the left side with small left-sided pleural effusion - Tested negative for COVID, influenza, cocci IgM, tested positive for cocci IgM on 03/08 - Blood cultures came back negative after 48 hours - Repeat cocci as of 03/07/2025 came back positive plan - Patient was initially started on ceftriaxone 1 g IV daily [03/04-03/05], Azithromycin [03/03 - 03/09] - As of 03/05/2025, patient is still desaturating on high flow oxygen for which patient was started on Zosyn 4.5 g every 6 hourly [03/05-03/08], on vancomycin (03/07 - 03/08) - As patient tested positive for IgM cocci, patient is started on fluconazole 400 Mg daily as of 03/07/2025 and discontinued IV steroids, antibiotics - Consulted Dr Vyas and and recommended to continue fluconazole for now - DuoNebs every 4 thoroughly scheduled - Referral to speech was done # Paroxysmal atrial fibrillation --> atrial fibrillation with rapid ventricular rate on 03/09/2025, resolved # History of HFrEF, EF 35 to 40% [02/2025] # Nonischemic cardiomyopathy - Patient is diagnosed with a paroxysmal atrial fibrillation and 2022. - [id number] is 3 - Since then patient is started on Eliquis 5 Mg p.o. twice daily - Currently patient is in sinus rhythm. - Echo Normal LV size and function. Estimated EF 35-40 %. Grade I diastolic dysfunction. Plan: - will continue home metoprolol 12.5 Mg p.o. daily - One-time dose of metoprolol 12.5 Mg is given on 03/09/2025 in view of rapid ventricular rate - Will continue home Eliquis 5 Mg p.o. twice daily. #History of diabetes mellitus. - Per patient's care provider, patient had history of diabetes mellitus on treatment but later as his sugars are well-controlled, stopped treatment by his primary care provider - HbA1c is ordered - 6.2. Plan: - will hold the treatment for now and monitor patient. #Hyperlipidemia. -Patient is using simvastatin 40 Mg p.o. at bedtime. -Lipid panel showed TG 155, Chol 183, LDL 127, HDL 25. Plan: -Started on atorvastatin 10 Mg at bedtime. #Normocytic normochromic anemia. - Patient is using iron supplements at home. - Will resume it on outpatient basis. #History of seizures. - Patient is using divalproex at home. - Reported that patient did not have seizures in past couple of years. - Restarted on divalproex. #History of prostate cancer. - Per patient's care provider patient had history of prostate cancer in 2015 underwent radiation therapy for 4 weeks. - Following up with PCP and on dutasteride. - Resumed Dutasteride 0.5mg p.o. qday. Hospital Maintenance: Dispo: Tele. DVT ppx: Apixaban. GI ppx: Pantoprazole Diet: Cardiac, fluid restriction 1500 mL. IV lines: Peripheral. Code status: FULL. Patient plan of care was discussed with the attending physician, Dr. Chavarria and senior resident Dr. Dr. Ricardo Melvin, PGY1
[2025-03-10] MEDS: DIVALPROEX SOD DR 500 MG TABLET.DR 1000 MG PO (20:41)
[2025-03-10] MEDS: ATORVASTATIN CALCIUM 10 MG TABLET PO (20:41)
[2025-03-10] MEDS: FLUVOXAMINE 100 MG PO (20:41)
[2025-03-10] MEDS: risperiDONE 1 MG TABLET 2 MG PO (20:42)
[2025-03-11] VITALS (19 sets, daily range): BP systolic 89–111; BP diastolic 54–80; PULSE 57–85; RESP 19–92; TEMP 36–36.6; O2SAT 88–97
[2025-03-11 06:10] LABS: Basophils % (Auto) 0 % (0-2.5); Eosinophils # (Auto) 0.4 Thou/mm3 (0.0-0.5); Eosinophils % (Auto) 2 % (0-10); Hematocrit 33.1 % (41.0-53.0); Hemoglobin 11.1 g/dL (13.5-16.0); Immature Granulocytes % (Auto) 2 % (0-0); Immature Granulocytes Auto 0.38 Thou/mm3 (0.00-0.00); Lymphocytes # (Auto) 2.2 Thou/mm3 (1.0-4.8); Lymphocytes % (Auto) 11 % (10-50); Mean Corpuscular HGB Conc 33.5 g/dl (31.0-37.0); Mean Corpuscular Hemoglobin 30.1 pg (25.0-35.0); Mean Corpuscular Volume 90 fL (80-100); Monocytes # (Auto) 1.8 Thou/mm3 (0.0-0.8); Monocytes % (Auto) 9 % (0-12); Neutrophils # (Auto) 15.6 Thou/mm3 (1.8-7.7); Neutrophils % (Auto) 76 % (37-80); Nucleated Red Blood Cell % 0 /100 WBC (0); Platelet Count 256 Thou/mm3 (140-440); RDW Standard Deviation 45.4 fL (35.1-43.9); Red Blood Count 3.69 Miln/mm3 (4.50-5.90); White Blood Count 20.4 Thou/mm3 (3.8-10.6)
[2025-03-11 06:32] LABS: Anion Gap 7 (7-16); BUN/Creatinine Ratio 25 Ratio (12-20); Blood Urea Nitrogen 25 mg/dL (9-23); Calcium 9.3 mg/dL (8.3-10.6); Carbon Dioxide 29.4 mMol/L (20.0-31.0); Chloride 98 mMol/L (98-107); Estimated Creatinine Clearance 66.8 mL/min (>60); Glucose 79 mg/dL (74-106); Osmolality,Calculated 271 (275-295); Sodium 134 mMol/L (136-145); eGFR > 60 See Note
[2025-03-11] MEDS: PANTOPRAZOLE INJ 40 MG VIAL IVP (08:18)
[2025-03-11] MEDS: DUTASTERIDE 0.5 MG CAPSULE (NON-FORMULARY) PO (08:19)
[2025-03-11] MEDS: FLUCONAZOLE 100 MG TABLET 400 MG PO (08:19)
[2025-03-11] MEDS: MIDODRINE 5 MG TABLET PO (08:19)
[2025-03-11] MEDS: APIXABAN 2.5 MG TABLET 5 MG PO ×2 (08:19→20:49)
[2025-03-11] MEDS: AMPICILLIN/SULBAC INJ 3 GM in SODIUM CHLORIDE 0.9% (POP) 100 ML IV ×3 (08:26→23:07)
--- NOTE | 2025-03-11 10:17 | XR_ITS ---
Examination: AP chest single view TECHNIQUE: Semiupright AP chest portable single view Examination time: March 11, 2025 at 1057 hours Comparison March 09, 2025 INDICATIONS: Shortness of breath today. FINDINGS: Severe bilateral lung opacity Mild prominence left ventricle Unipolar ventricular lead satisfactory position IMPRESSION: Severe bilateral lung opacity most consistent with pneumonia
[2025-03-11 14:30] LABS: Inspired O2, VO2 Liters 90 L/min; Inspired Oxygen, FIO2 21 %
[2025-03-11 14:32] LABS: Base Excess 6 (-3-3); HCO3 31 mEq/L (20-26); O2 Saturation 88 % (91-98); PCO2 43 mmHg (32.0-48.0); pH, Arterial 7.47 (7.35-7.45)
[2025-03-11 14:34] LABS: PO2 53 mmHg (83-108)
[2025-03-11 14:35] LABS: Allen Test Not Performed; Puncture Site Site Not Noted
--- NOTE | 2025-03-11 15:26 | ESPR_ITS ---
<Statement entered by Yonatan Chavarria MD - 03/15/25 09:32> I reviewed above note and agree with findings and plans. I have also personally examined the patient with medicine team and went over assessment and plan with medical team including general internist and resident physician. <Statement entered by Harvinder Moore MD - 03/13/25 09:13> Senior Resident Attestation: I supervised/discussed management plan with general internist physician Dr. Melvin, and was involved in the care of this patient. I personally saw and examined the patient and discussed the assessment and plan with the entire medicine team, including my attending. I agree with the assessment and plan as documented. Patient's care was discussed with attending physician, Dr. Chavarria. Harvinder Moore MD PGY-2. Documentation for date of: 03/11/25 Subjective Subjective Interval history: Patient is seen and examined at bedside No acute overnight events. Patient is still on high flow oxygen, 30 L/min, 90% FiO2 Vitals are stable except for mildly low blood pressures for which patient is receiving midodrine On physical examination, bilateral diffuse coarse crackles heard. No pedal edema Labs showed WBC 20.4, Hb 11.1, platelets 256, sodium 134, BUN 25, creatinine 1. X-ray done today still showed bilateral pneumonia Will continue Unasyn, chest physiotherapy, high flow oxygen for now Exam Vital Signs Temp Pulse Resp BP Pulse Ox O2 Del Method O2 Flow Rate 96.8 F 72 33 H 111/68 94 L High Flow Nasal Cannula 30 03/11/25 12:00 03/11/25 14:13 03/11/25 14:13 03/11/25 15:03 03/11/25 14:13 03/11/25 12:00 03/11/25 14:13 FiO2 90 03/11/25 14:13 Narrative Exam General: Awake. HEENT: Normocephalic, atraumatic, mucous membranes moist. Heart: Regular rate and rhythm, no murmurs. Lungs: Clear to auscultation with no wheezing or crackles. Abdomen: Soft, nondistended, nontender, positive bowel sounds. ?No guarding or rebound tenderness. Neurologic: Alert and oriented x3, no gross neurological deficit, and patient able to move all 4 extremities. Extremities: No edema. Skin: No rash or ecchymoses. Objective Labs 04/26/25 05:11 03/11/25 05:11 Labs: Laboratory Results - last 24 hr 03/11/25 03/11/25 05:11 14:20 WBC 20.4 H RBC 3.69 L Hgb 11.1 L Hct 33.1 L MCV 90 MCH 30.1 MCHC 33.5 RDW Std Deviation 45.4 H Plt Count 256 Neut % (Auto) 76 Lymph % (Auto) 11 [place] % (Auto) 9 Eos % (Auto) 2 Baso % (Auto) 0 Neut # (Auto) 15.6 H Lymph # (Auto) 2.2 [place] # (Auto) 1.8 H Eos # (Auto) 0.4 Baso # (Auto) 0.0 Immature Gran # (Auto) 0.38 H Absolute Nucleated RBC 0.00 Immature Gran % 2 H Nucleated RBC % 0 Puncture Site Site Not Noted ABG pH 7.47 H ABG pCO2 43 ABG pO2 53 L* ABG HCO3 31 H ABG O2 Saturation 88 L ABG Base Excess 6 H Oxygen Liter Flow 90 FiO2 21 Sodium 134 L Potassium 4.0 Chloride 98 Carbon Dioxide 29.4 Anion Gap 7 BUN 25 H Creatinine 1.0 Estim Creat Clear Calc 66.8 eGFR > 60 BUN/Creatinine Ratio 25 H Glucose 79 Calculated Osmolality 271 L Calcium 9.3 ABG Interpretation ABG results: 03/02/25 03/04/25 03/05/25 20:40 09:20 15:30 ABG pH 7.45 7.43 7.44 ABG pCO2 42 46 47 ABG pO2 60 L 77 L 56 L* D ABG HCO3 29 H 31 H 32 H ABG O2 Saturation 92 96 90 L ABG Base Excess 4 H 5 H 7 H 03/09/25 03/11/25 10:40 14:20 ABG pH 7.47 H 7.47 H ABG pCO2 41 43 ABG pO2 65 L 53 L* ABG HCO3 30 H 31 H ABG O2 Saturation 94 88 L ABG Base Excess 6 H 6 H Quality Measures Quality Measures VTE prophylaxis Advance care planning discussed with:: patient Assessment & Plan Assessment Current Active Medications: Generic Name Dose Route Start Last Admin Trade Name Freq PRN Reason Stop Dose Admin Acetaminophen 650 mg 03/04/25 08:23 Acetaminophen 325 Mg Tablet PO 04/01/25 17:22 Q6H PRN Fever >100.3 Albuterol/Ipratropium 3 ml 03/07/25 11:00 03/09/25 08:38 Albuterol/Ipratropium (Duoneb) Rt Ltaisha 3 Ml Nebu INH 04/04/25 18:59 3 ml Q4HRRT PRN Administration wheezing or SOB Apixaban 5 mg 03/03/25 21:00 03/11/25 08:19 Apixaban 2.5 Mg Tablet PO 04/02/25 20:59 5 mg BID CHRISTIANO Administration Atorvastatin Calcium 10 mg 03/03/25 21:00 03/10/25 20:41 Atorvastatin Calcium 10 Mg Tablet PO 04/02/25 20:59 10 mg HS CHRISTIANO Administration Fluvoxamine Mal 100 0 ea 03/07/25 20:15 03/10/25 20:41 Mg Tablets PO 04/06/25 20:14 1.5 tablet QDAY@2000 CHRISTIANO Administration Divalproex Sodium 1,000 mg 03/02/25 21:00 03/10/25 20:[address] 500 Mg Tablet.Dr PO 04/01/25 20:59 1,000 mg HS CHRISTIANO Administration Dutasteride 0.5 mg 03/03/25 09:00 03/11/25 08:19 Dutasteride 0.5 Mg Capsule (Non-Formulary) PO 04/02/25 08:59 0.5 mg QDAY CHRISTIANO Administration Fluconazole 400 mg 03/09/25 09:00 03/11/25 08:19 Fluconazole 100 Mg Tablet PO 03/16/25 08:59 400 mg QDAY CHRISTIANO Administration Ampicillin Sodium/Sulbactam 100 mls @ 200 mls/hr 03/11/25 08:30 03/11/25 08:26 Sodium 3 gm/ Sodium Chloride IV 03/18/25 08:29 200 mls/hr Q6HR CHRISTIANO Administration Magnesium Hydroxide 30 ml 03/02/25 17:23 Milk Of Magnesia Susp 30 Ml Udc PO 04/01/25 17:22 QDAY PRN CONSTIPATION Protocol Metoprolol Succinate 12.5 mg 03/03/25 09:00 03/11/25 12:26 Metoprolol Succinate Xl 25 Mg Tabcr PO 04/02/25 08:59 Not Given QDAY CHRISTIANO Midodrine 5 mg 03/10/25 22:00 03/11/25 15:03 Midodrine 5 Mg Tablet PO 04/08/25 21:59 Not Given TID CHRISTIANO Ondansetron HCl 4 mg 03/02/25 17:23 Ondansetron Inj 2 Mg/Ml Inj 2 Ml IV 04/01/25 17:22 Q6H PRN NAUSEA OR VOMITING Protocol Pantoprazole Sodium 40 mg 03/07/25 11:15 03/11/25 08:18 Pantoprazole Inj 40 Mg Vial IVP 04/06/25 11:14 40 mg QDAY CHRISTIANO Administration Risperidone 2 mg 03/02/25 21:00 03/10/25 20:42 Risperidone 1 Mg Tablet PO 04/01/25 20:59 2 mg HS CHRISTIANO Administration Sodium Chloride 3 ml 03/02/25 12:21 Sodium Chloride Rt Latisha 0.9% 3 Ml Nebu INH 04/01/25 12:20 PRN PRN SOLN Plan A 74-year-old male who lives in a senior care since 2007 with significant past medical history of intellectual disability, deafness, OCD, intermittent explosive disorder, diabetes mellitus currently not on any treatment, hyperlipidemia, GERD, heart failure s/p ICD, COPD on 2 L oxygen, prostate carcinoma, seizures is brought to the hospital with chief complaints of decreased oxygen saturations noted on pulse oximeter and admitted in the hospital for acute on chronic hypoxic respiratory failure secondary to heart failure exacerbation. #Acute on chronic hypoxic respiratory failure. #Bilateral pneumonia, predominantly left-sided, cocci pneumonia # Suspected bilateral aspiration pneumonia #Underlying COPD on 2 L oxygen. - Brought to the hospital by care provider in view of low oxygen saturations noted on pulse oximeter. - Patient noted to have fatigue and difficulty in doing his routine daily activities on the day of admission. - At baseline, patient is using 4 L oxygen, which was increased from 2 L within the last several weeks. - At the time of admission noted to have 91% saturation with 6 L oxygen through nasal cannula. - On physical examination, noted to have bilateral inspiratory crackles more in the basilar areas. - EKG showed sinus rhythm with multiple ectopics. - Chest x-ray showed bilateral patchy infiltrates, more on the left side - Chest x-ray from 2022 showed similar infiltrates, more on the left side, suspicious of malignancy - Chest CT showed severe bilateral pneumonia, more on the left side with small left-sided pleural effusion - Tested negative for COVID, influenza, cocci IgM, tested positive for cocci IgM on 03/08 - Blood cultures came back negative after 48 hours - Repeat cocci as of 03/07/2025 came back positive but 1,3 D Glucan is negative plan - Patient was initially started on ceftriaxone 1 g IV daily [03/04-03/05], Azithromycin [03/03 - 03/09] - As of 03/05/2025, patient is still desaturating on high flow oxygen for which patient was started on Zosyn 4.5 g every 6 hourly [03/05-03/08], on vancomycin (03/07 - 03/08) - As patient tested positive for IgM cocci, patient is started on fluconazole 400 Mg daily as of 03/07/2025 and discontinued IV steroids, antibiotics - Consulted Dr Vyas and and recommended to continue fluconazole for now - Started on Unasyn 3g IV every 6th hrly(03/11- - DuoNebs every 4 thoroughly scheduled - Referral to speech was done # Paroxysmal atrial fibrillation --> atrial fibrillation with rapid ventricular rate on 03/09/2025, resolved # History of HFrEF, EF 35 to 40% [02/2025] # Nonischemic cardiomyopathy - Patient is diagnosed with a paroxysmal atrial fibrillation and 2022. - [id number] is 3 - Since then patient is started on Eliquis 5 Mg p.o. twice daily - Currently patient is in sinus rhythm. - Echo Normal LV size and function. Estimated EF 35-40 %. Grade I diastolic dysfunction. Plan: - will continue home metoprolol 12.5 Mg p.o. daily - One-time dose of metoprolol 12.5 Mg is given on 03/09/2025 in view of rapid ventricular rate - Will continue home Eliquis 5 Mg p.o. twice daily. #History of diabetes mellitus. - Per patient's care provider, patient had history of diabetes mellitus on treatment but later as his sugars are well-controlled, stopped treatment by his primary care provider - HbA1c is ordered - 6.2. Plan: - will hold the treatment for now and monitor patient. #Hyperlipidemia. -Patient is using simvastatin 40 Mg p.o. at bedtime. -Lipid panel showed TG 155, Chol 183, LDL 127, HDL 25. Plan: -Started on atorvastatin 10 Mg at bedtime. #Normocytic normochromic anemia. - Patient is using iron supplements at home. - Will resume it on outpatient basis. #History of seizures. - Patient is using divalproex at home. - Reported that patient did not have seizures in past couple of years. - Restarted on divalproex. #History of prostate cancer. - Per patient's care provider patient had history of prostate cancer in 2014 underwent radiation therapy for 4 weeks. - Following up with PCP and on dutasteride. - Resumed Dutasteride 0.5mg p.o. qday. Hospital Maintenance: Dispo: Tele. DVT ppx: Apixaban. GI ppx: Pantoprazole Diet: Cardiac, fluid restriction 1500 mL. IV lines: Peripheral. Code status: FULL. Patient plan of care was discussed with the attending physician, Dr. Chavarria and senior resident Dr. Dr. Oscar Melvin, PGY1
--- NOTE | 2025-03-11 19:43 | ESPR_ITS ---
RE: MELCHOR KIRT : 1950 DATE OF SERVICE: 03/11/[address] Felipe Garcia, [employer] consultant. SUBJECTIVE: The patient is a 74-year-old male with multiple medical problems including history of chronic systolic heart failure, ejection fraction 30%, atrial fibrillation, nonischemic cardiomyopathy, ICD implantation, returned to the hospital with multiple problems, bilateral pneumonia, hypoxic respiratory failure. Also combination of congestive heart failure, given diuretic, still requiring high flow oxygen. Pneumonia is not improving. OBJECTIVE: Vital Signs: Today exam shows blood pressure is 98/59, pulse rate is 68, respirations 20, temperature normal, pulse ox 90%, high flow oxygen 30 liters per minute. HEENT: Head is atraumatic. Neck: Supple. No JVD. Chest: Symmetrical. Lungs: Decreased breath sounds. Bilateral crackles. Heart: S1, S2, distant. Abdomen: Thin and soft. Extremities: Mild edema. LABORATORY DATA: Showed white count still elevated at 20,400, hemoglobin 11.1, creatinine 1.0. His chest x-ray showed bilateral pneumonia. ASSESSMENT: 1. Acute hypoxic respiratory failure secondary to bilateral pneumonia and congestive heart failure. 2. HFrEF systolic heart failure EF of 30% to 35%. 3. Status post implantable cardioverter-defibrillator implantation, nonischemic cardiomyopathy, high risk for sudden , . RECOMMENDATIONS: Continue the high-flow oxygen. The patient clinically does not appear to be in any decompensated heart failure, not requiring diuretic anymore and prognosis is still guarded without extensive pneumonia requiring high-flow oxygen therapy. Antibody therapy to be continued. We will continue to monitor the patient. DT: 18:53:27 TT: 19:36:00 Ref: [id number] - TID: [id number] MTDD
[2025-03-11] MEDS: FLUVOXAMINE 100 MG PO (20:49)
[2025-03-11] MEDS: risperiDONE 1 MG TABLET 2 MG PO (20:49)
[2025-03-11] MEDS: DIVALPROEX SOD DR 500 MG TABLET.DR 1000 MG PO (20:50)
[2025-03-11] MEDS: ATORVASTATIN CALCIUM 10 MG TABLET PO (20:50)
[2025-03-12] VITALS (45 sets, daily range): BP systolic 80–158; BP diastolic 58–92; PULSE 70–113; RESP 8–47; TEMP 36.1–36.5; O2SAT 82–97
[2025-03-12] MEDS: AMPICILLIN/SULBAC INJ 3 GM in SODIUM CHLORIDE 0.9% (POP) 100 ML IV ×3 (05:07→17:11)
[2025-03-12 06:32] LABS: Anion Gap 6 (7-16); BUN/Creatinine Ratio 22 Ratio (12-20); Basophils % (Auto) 0 % (0-2.5); Blood Urea Nitrogen 20 mg/dL (9-23); Carbon Dioxide 30.3 mMol/L (20.0-31.0); Chloride 99 mMol/L (98-107); Creatinine (Component) 0.9 mg/dL (0.6-1.3); Eosinophils # (Auto) 0.7 Thou/mm3 (0.0-0.5); Eosinophils % (Auto) 5 % (0-10); Estimated Creatinine Clearance 72.9 mL/min (>60); Glucose 70 mg/dL (74-106); Hematocrit 34.8 % (41.0-53.0); Hemoglobin 11.8 g/dL (13.5-16.0); Immature Granulocytes % (Auto) 1 % (0-0); Immature Granulocytes Auto 0.17 Thou/mm3 (0.00-0.00); Lymphocytes % (Auto) 16 % (10-50); Mean Corpuscular HGB Conc 33.9 g/dl (31.0-37.0); Mean Corpuscular Hemoglobin 30.1 pg (25.0-35.0); Mean Corpuscular Volume 89 fL (80-100); Monocytes % (Auto) 8 % (0-12); Neutrophils # (Auto) 8.5 Thou/mm3 (1.8-7.7); Neutrophils % (Auto) 69 % (37-80); Nucleated Red Blood Cell % 0 /100 WBC (0); Osmolality,Calculated 270 (275-295); Platelet Count 260 Thou/mm3 (140-440); Potassium 3.8 mMol/L (3.4-5.1); RDW Standard Deviation 45.5 fL (35.1-43.9); Red Blood Count 3.92 Miln/mm3 (4.50-5.90); Sodium 135 mMol/L (136-145); White Blood Count 12.3 Thou/mm3 (3.8-10.6); eGFR > 60 See Note
[2025-03-12 08:33] LABS: Base Excess 5 (-3-3); HCO3 29 mEq/L (20-26); O2 Saturation 93 % (91-98); PCO2 42 mmHg (32.0-48.0); PO2 64 mmHg (83-108); pH, Arterial 7.46 (7.35-7.45)
[2025-03-12 08:38] LABS: Inspired Oxygen, FIO2 100 %; Puncture Site Left Radial
[2025-03-12 08:39] LABS: Allen Test Performed/OK
[2025-03-12] MEDS: PANTOPRAZOLE INJ 40 MG VIAL IVP (08:51)
[2025-03-12] MEDS: DUTASTERIDE 0.5 MG CAPSULE (NON-FORMULARY) PO (08:51)
[2025-03-12] MEDS: FLUCONAZOLE 100 MG TABLET 400 MG PO ×2 (08:51→11:17)
[2025-03-12] MEDS: APIXABAN 2.5 MG TABLET 5 MG PO ×2 (08:52→20:57)
--- NOTE | 2025-03-12 12:44 | XR_ITS ---
Examination: AP upright chest single view TECHNIQUE: AP upright portable chest single view Exam date and time: March 12, 2025 1331 hours Comparison March 11, 2025 INDICATIONS: Shortness of breath today. FINDINGS: Extensive bilateral pneumonia again noted Mild prominence left ventricle Unipolar ventricular cardiac leads satisfactory position Intact osseous structures IMPRESSION: Extensive bilateral pneumonia again noted
[2025-03-12] MEDS: MORPHINE SULF INJ 10 MG/ML VIAL 2 MG IVP (14:01)
[2025-03-12] MEDS: MIDODRINE 5 MG TABLET PO ×2 (14:03→21:05)
--- NOTE | 2025-03-12 14:08 | PC.NURSE ---
Called MARZIPAN MOLDER for increased work of breathing. Patient using accessory muscles to breath, respiration rate in 40s. Patient less active than normal.
--- NOTE | 2025-03-12 14:57 | ESCONSULT_ITS ---
<Statement entered by Britt Flynn MD - 03/13/25 08:54> TOTAL CC TIME: 65 MIN I saw and evaluated the patient. I reviewed the resident?s note and agree with findings and plan as documented in the resident?s note. Upon my evaluation, this patient had a high probability of imminent or life- threatening deterioration due to acute hypoxic resp failure which required my direct attention, intervention, and personal management. This time is exclusive of time spent on procedures, which are documented separately if performed. progressive bilateral infiltrates including nodular infiltrates - started > 1 yr ago w/ left basilar pna - chronically progressive intubated on 03/12 IgM + for cocci - fits the clinical picture. PCL negative on multiple samples await ETT sputum culture increase PEEP to 10 - good recruitment noted stop abx increase Fluconazole to 800mg Will obtain consent for LP to eval for evid of disseminated cocci stop eliquis in anticipation of LP HPI Data of Consult Requesting Physician: Yonatan Chavarria MD Admitting Provider: Daria Peguero DO Attending Provider: Yonatan Chavarria MD Primary Care Provider: Usama Mosqueda MD Consult Narrative History of present illness: 74-year-old male with PMH of intellectual disability, deafness, OCD, intermittent explosive disorder, type 2 diabetes, hyperlipidemia, GERD, heart failure EF 35-40 status post ICD, COPD on 2-3 L baseline (never smoker), prostate CA and seizures who was brought to [facility] from his custodial after he was noted to have oxygen desaturations on routine testing with pulse oximeter. Per patient caregiver at bedside and they denied any fever, cough, sick contacts, nausea, vomiting, just increased oxygen requirement. On arrival to the ED patient was requiring 6L O2, rest of vitals within normal limits Chest x-ray showed bilateral patchy infiltrates. Patient was admitted to teemetry due to acute hypoxic respiratory failure for further management. Patient's oxygen requirements have continued to increase, thus ICU was initially consulted on 03/09 at that time on HFNC 40L 100%FiO2, saturating adequately 92%, which is fine for a COPD patient, he doesn't appear in acute distress, no use of accessory muscles. There was new worsening of bilateral infiltrates concerning for ARDS, less likley to be related to heart failure since paitient has no JVD, no LE edema. Recommendations then where to continue antifungal, re-start antibiotics and continue to monitor for signs of decline. 03/12: Rapid response was called around 2:00pm due to patient being tachypneic, increased work of breathing with accessory muscle use. It was determined patient needed to be intubated and admitted to the ICU. We will increase dose of Fluconazole to 800 and we will consider getting an LP to test for disseminated cocci. cc:: cc: Yonatan Chavarria MD Review of Systems Review of Systems ROS Unobtainable: unobtainable due to mental status Exam Vital Signs Temp Pulse Resp BP Pulse Ox O2 Del Method O2 Flow Rate 97.1 F 82 17 103/67 90 L High Flow Nasal Cannula 35 03/12/25 11:03/12/25 14:03 03/12/25 11:33 03/12/25 14:03 03/12/25 11:33 03/12/25 11:33 03/12/25 11:33 FiO2 100 03/12/25 11:33 Narrative Exam GENERAL: Awake, alert No acute distress, visible use of accessory muscles, HFNC HEENT: Normocephalic, atraumatic and nontender.? Pupils are equal and reactive to light and accommodation.? Oral mucosamoist. NECK: Supple without adenopathy. Traquea midline. Nontender, carotid pulse 2+ bilaterally without bruits, no JVD.? CHEST: Heart rate and rythm normal, no murmurs, gallops auscultated. S1 & 2 normal insensity. Nontender on palpation, no deformity and no crepitus. LUNGS: Lung sounds are clear.? No wheezing, rales or ronchi.? No intercostal subcostal retraction. ABDOMEN: Soft,symmetric , nontender, no guarding or rebound tenderness. No abnormal masses palpated.?? Bowel sounds are normoactive in all 4 quadrants. EXTREMITIES: Nontender.? No pitting edema.? No cyanosis.? Patient is able to move all 4 extremities. SKIN: No rashes noted. Results Labs 03/12/25 05:33 03/12/25 05:33 Labs: Short CBC 03/12/25 Range/Units 05:33 WBC 12.3 H D (3.8-10.6) Thou/mm3 Hgb 11.8 L (13.5-16.0) g/dL Hct 34.8 L (41.0-53.0) % Plt Count 260 (140-440) Thou/mm3 BMP 03/12/25 05:33 Sodium 135 L Potassium 3.8 Chloride 99 Carbon Dioxide 30.3 BUN 20 Creatinine 0.9 Glucose 70 L Calcium 9.0 ABG Interpretation ABG results: 03/02/25 03/04/25 03/05/25 20:40 09:20 15:30 ABG pH 7.45 7.43 7.44 ABG pCO2 42 46 47 ABG pO2 60 L 77 L 56 L* D ABG HCO3 29 H 31 H 32 H ABG O2 Saturation 92 96 90 L ABG Base Excess 4 H 5 H 7 H 03/09/25 03/11/25 03/12/25 10:40 14:20 08:06 ABG pH 7.47 H 7.47 H 7.46 H ABG pCO2 41 43 42 ABG pO2 65 L 53 L* 64 L ABG HCO3 30 H 31 H 29 H ABG O2 Saturation 94 88 L 93 ABG Base Excess 6 H 6 H 5 H Quality Measures Quality Measures VTE prophylaxis Advance care planning discussed with:: patient Medications Home Medications and Allergies Home Medications ?Medication ?Instructions ?Recorded ?Confirmed ?Type cholecalciferol (vitamin D3) 50 2,000 unit PO BID 04/0208/19/24 History mcg (2,000 unit) capsule (Vitamin D3) divalproex 500 mg tablet,extended 2 tab PO HS 08/20/18 03/02/25 History release 24 hr dutasteride 0.5 mg capsule 0.5 mg PO QDAY 08/20/18 History (Avodart) ferrous sulfate 325 mg (65 mg 325 mg PO BID 08/20/18 1 History iron) tablet fluvoxamine 100 mg tablet 150 mg PO HS 08/20/18 History loratadine 10 mg tablet 10 mg PO PRN PRN Congestion 08/20/18 03/02/25 History risperidone 2 mg tablet 2 mg PO HS 08/20/18 03/02/25 History simvastatin 40 mg tablet 40 mg PO HS 08/20/18 5 History albuterol sulfate 90 mcg/actuation 1 puff inhalation Q 4HR PRN sob 07/22/24 08/19/24 History aerosol inhaler (Ventolin HFA) metoprolol succinate 25 mg 12.5 mg PO QDAY 07/22/24 History tablet,extended release 24 hr sacubitril 24 mg-valsartan 26 mg 1 tab PO BID 07/22/24 03/02/25 History tablet (Entresto) omeprazole 40 mg capsule,delayed 40 mg PO QDAY 4 03/02/25 History release fluticasone propionate 50 1 spray intranasal BID aller gies 03/02/25 03/02/25 History mcg/actuation nasal spray,suspension (Allergy Relief (fluticasone)) furosemide 40 mg tablet 40 mg PO QDAY 03/02/2503/02 History Allergies Allergy/AdvReac Type Severity Reaction Status Date / Time No Known Allergies Allergy Verified 08/09/24 14:52 Visit Medications Acetaminophen (Acetaminophen 325 Mg Tablet) 650 mg PO Q6H PRN PRN Reason: Fever >100.3 Stop: 04/01/25 17:22 Albuterol/Ipratropium (Albuterol/Ipratropium (Duoneb) Rt Latisha 3 Ml Nebu) 3 ml INH Q4HRRT PRN PRN Reason: wheezing or SOB Stop: 04/04/25 18:59 Last Admin: 03/09/25 08:38 Dose: 3 ml Apixaban (Apixaban 2.5 Mg Tablet) 5 mg PO BID [facility] Stop: 04/02/25 20:59 Last Admin: 03/12/25 08:52 Dose: 5 mg Atorvastatin Calcium (Atorvastatin Calcium 10 Mg Tablet) 10 mg PO HS [facility] Stop: 04/02/25 20:59 Last Admin: 03/11/25 20:50 Dose: 10 mg Fluvoxamine Mal 100 (Mg Tablets) 0 ea PO QDAY@1999 [facility] Stop: 04/06/25 20:14 Last Admin: 03/11/25 20:49 Dose: 1.5 tablet Divalproex Sodium (Divalproex Sod Dr 500 Mg Tablet.Dr) 1,000 mg PO HS [facility] Stop: 04/01/25 20:59 Last Admin: 03/11/25 20:50 Dose: 1,000 mg Dutasteride (Dutasteride 0.5 Mg Capsule (Non-Formulary)) 0.5 mg PO QDAY [facility] Stop: 04/02/25 08:59 Last Admin: 03/12/25 08:51 Dose: 0.5 mg Fluconazole (Fluconazole 100 Mg Tablet) 800 mg PO QDAY [facility] Stop: 03/20/25 09:59 Ampicillin Sodium/Sulbactam (Sodium 3 gm/ Sodium Chloride) 100 mls @ 200 mls/hr IV Q6HR [facility] Stop: 03/18/25 08:29 Last Admin: 03/12/25 11:17 Dose: 200 mls/hr Magnesium Hydroxide (Milk Of Magnesia Susp 30 Ml Udc) 30 ml PO QDAY PRN; Protocol PRN Reason: CONSTIPATION Stop: 04/01/25 17:22 Metoprolol Succinate (Metoprolol Succinate Xl 25 Mg Tabcr) 12.5 mg PO QDAY [facility] Stop: 04/02/25 08:59 Last Admin: 03/12/25 08:52 Dose: Not Given Midodrine (Midodrine 5 Mg Tablet) 5 mg PO TID [facility] Stop: 04/08/25 21:59 Last Admin: 03/12/25 14:03 Dose: 5 mg Ondansetron HCl (Ondansetron Inj 2 Mg/Ml Inj 2 Ml) 4 mg IV Q6H PRN; Protocol PRN Reason: NAUSEA OR VOMITING Stop: 04/01/25 17:22 Pantoprazole Sodium (Pantoprazole Inj 40 Mg Vial) 40 mg IVP QDAY [facility] Stop: 04/06/25 11:14 Last Admin: 03/12/25 08:51 Dose: 40 mg Risperidone (Risperidone 1 Mg Tablet) 2 mg PO HS [facility] Stop: 04/01/25 20:59 Last Admin: 03/11/25 20:49 Dose: 2 mg Sodium Chloride (Sodium Chloride Rt Latisha 0.9% 3 Ml Nebu) 3 ml INH PRN PRN PRN Reason: SOLN Stop: 04/01/25 12:20 Discontinued Medications Acetaminophen (Acetaminophen 325 Mg Tablet) 650 mg PO Q6H PRN PRN Reason: Fever >101.5 Stop: 04/01/25 17:22 Albuterol (Albuterol Rt 2.5 Mg/0.5 Ml Nebu) 10 mg INH X1 ONE Stop: 03/02/25 12:22 Last Admin: 03/02/25 12:52 Dose: 10 mg Albuterol/Ipratropium (Albuterol/Ipratropium (Duoneb) Rt Latisha 3 Ml Nebu) 3 ml INH Q4HRRT [facility] Stop: 04/04/25 18:59 Last Admin: 03/12/25 06:59 Dose: Not Given Atorvastatin Calcium (Atorvastatin Calcium 20 Mg Tablet) 40 mg PO HS [facility] Stop: 04/01/25 20:59 Last Admin: 03/02/25 21:10 Dose: 40 mg Azithromycin (Azithromycin 250 Mg Tablet) 500 mg PO QDAY [facility] Stop: 03/09/25 17:44 Last Admin: 03/09/25 08:04 Dose: 500 mg Bumetanide (Bumetanide Inj 0.25 Mg/Ml Vial 4 Ml) 2 mg IVP BID [facility] Stop: 04/02/25 10:44 Last Admin: 03/03/25 20:36 Dose: 2 mg Enoxaparin Sodium (Enoxaparin Sod Inj 40 Mg/0.4 Ml Syringe) 40 mg SC QDAY [facility] Stop: 03/17/25 08:59 Last Admin: 03/03/25 08:59 Dose: 40 mg Fluconazole (Fluconazole 100 Mg Tablet) 400 mg PO QDAY [facility] Stop: 03/16/25 08:59 Last Admin: 03/12/25 08:51 Dose: 400 mg Fluconazole (Fluconazole 100 Mg Tablet) 400 mg PO X1 ONE Stop: 03/12/25 09:58 Last Admin: 03/12/25 11:17 Dose: 400 mg Furosemide (Furosemide Inj 10 Mg/Ml 4ml Vial) 40 mg IVP BIDD [facility] Stop: 04/01/25 17:59 Last Admin: 03/03/25 05:00 Dose: 40 mg Furosemide (Furosemide Inj 10 Mg/Ml 4ml Vial) 40 mg IVP X1 ONE Stop: 03/09/25 09:19 Last Admin: 03/09/25 09:53 Dose: Not Given Furosemide (Furosemide Inj 10 Mg/Ml Vial 2 Ml) 20 mg IVP X1 ONE Stop: 03/09/25 10:10 Last Admin: 03/09/25 10:14 Dose: 20 mg Furosemide (Furosemide Inj 10 Mg/Ml Vial 2 Ml) 20 mg IVP X1 ONE Stop: 03/11/25 09:47 Last Admin: 03/11/25 12:26 Dose: Not Given Azithromycin 500 mg/ Sodium (Chloride) 250 mls @ 250 mls/hr IV X1 ONE Stop: 03/02/25 17:46 Last Infusion: 03/02/25 18:44 Dose: Infused Ceftriaxone Sodium/Dextrose (Rocephin/D5w 1gm Iv Premix) 1 gm in 50 mls @ 100 mls/hr IV X1 ONE Stop: 03/02/25 17:16 Last Infusion: 03/02/25 18:15 Dose: Infused Ceftriaxone Sodium/Dextrose (Rocephin/D5w 1gm Iv Premix) 1 gm in 50 mls @ 100 mls/hr IV QDAY [facility] Stop: 03/10/25 09:59 Last Infusion: 03/05/25 20:00 Dose: Infused Piperacillin Sod/Tazobactam (Sod 4.5 gm/ Sodium Chloride) 100 mls @ 200 mls/hr IV Q6HR [facility] Stop: 03/12/25 09:42 Last Admin: 03/08/25 12:25 Dose: 200 mls/hr Fluconazole (Diflucan/Ns Ivpb) 400 mg in 200 mls @ 100 mls/hr IV QDAY [facility] Stop: 03/12/25 15:04 Vancomycin/Sodium Chloride (Vancomycin/Ns 1 Gm Ivpb) 200 mls @ 120 mls/hr IV X1 ONE Stop: 03/07/25 12:57 Last Admin: 03/07/25 12:43 Dose: 120 mls/hr Vancomycin/Sodium Chloride (Vancomycin/Ns 1 Gm Ivpb) 200 mls @ 120 mls/hr IV Q12H [facility]; Protocol Stop: 03/14/25 21:59 Last Admin: 03/08/25 10:23 Dose: 120 mls/hr Fluconazole (Diflucan/Ns Ivpb) 400 mg in 200 mls @ 100 mls/hr IV QDAY@1400 [facility] Stop: 03/14/25 15:10 Last Admin: 03/08/25 13:33 Dose: 100 mls/hr Ceftriaxone Sodium 1 gm/ (Sodium Chloride) 50 mls @ 100 mls/hr IV QDAY [facility] Stop: 03/16/25 11:56 Last Admin: 03/09/25 12:42 Dose: Not Given Ceftriaxone Sodium/Dextrose (Rocephin/D5w 1gm Iv Premix) 1 gm in 50 mls @ 100 mls/hr IV QDAY [facility] Stop: 03/16/25 12:14 Last Admin: 03/09/25 12:42 Dose: 100 mls/hr Piperacillin/Tazobactam/Dextrose (Zosyn) 3.375 gm in 50 mls @ 12.5 mls/hr IV Q8HR [facility] Stop: 03/16/25 14:29 Last Admin: 03/09/25 14:41 Dose: 12.5 mls/hr Vancomycin HCl 750 mg/Vancomycin HCl 500 mg/ Sodium Chloride 250 mls @ 120 mls/hr IV Q12H [facility] Stop: 03/16/25 05:04 Piperacillin Sod/Tazobactam (Sod 4.5 gm/ Sodium Chloride) 100 mls @ 200 mls/hr IV Q8HR [facility] Stop: 03/18/25 08:14 Methylprednisolone Sodium Succinate (Methylprednisolone Sod Succ 40 Mg Vial) 60 mg IVP X1 ONE Stop: 03/05/25 15:21 Last Admin: 03/05/25 15:41 Dose: 60 mg Methylprednisolone Sodium Succinate (Methylprednisolone Sod Succ 62.5 Mg/Ml 2ml Vial) 125 mg IVP QDAY [facility] Stop: 03/12/25 14:44 Last Admin: 03/07/25 08:19 Dose: 125 mg Methylprednisolone Sodium Succinate (Methylprednisolone Sod 500 Mg/8 Ml Vial) 125 mg IVP X1 ONE Stop: 03/09/25 10:15 Last Admin: 03/09/25 10:30 Dose: Not Given Methylprednisolone Sodium Succinate (Methylprednisolone Sod Succ 62.5 Mg/Ml 2ml Vial) 125 mg IVP X1 ONE Stop: 03/09/25 10:31 Last Admin: 03/09/25 10:24 Dose: 125 mg Metoprolol Succinate (Metoprolol Succinate Xl 25 Mg Tabcr) 12.5 mg PO X1 ONE Stop: 03/09/25 09:52 Last Admin: 03/09/25 09:58 Dose: 12.5 mg Midodrine (Midodrine 5 Mg Tablet) 5 mg PO TID [facility] Stop: 04/08/25 13:59 Last Admin: 03/10/25 15:02 Dose: Not Given Morphine Sulfate (Morphine Sulf Inj 10 Mg/Ml Vial) 2 mg IVP X1 ONE Stop: 03/12/25 13:56 Last Admin: 03/12/25 14:01 Dose: 2 mg (Fluvoxamine 100 Mg (Tablet)) 1.5 ea PO HS [facility]; Protocol Stop: 04/02/25 20:59 Last Admin: 03/06/25 20:20 Dose: Not Given Pharmacy Consult (Vancomycin Pharmacy To Dose 1 Each Each) 1 each IV QDAY PRN PRN Reason: PROTOCOL Stop: 04/07/25 08:59 Pharmacy Consult (Vancomycin Pharmacy To Dose 1 Each Each) 1 each IV QDAY [facility] Stop: 04/08/25 14:14 Last Admin: 03/09/25 14:53 Dose: Not Given Prednisone (Prednisone 20 Mg Tablet) 60 mg PO X1 ONE Stop: 03/02/25 12:22 Last Admin: 03/02/25 13:03 Dose: 60 mg Sodium Chloride (Sodium Chloride Rt 10% 15 Ml Nebu) 5 ml INH X1 ONE Stop: 03/11/25 12:10 Last Admin: 03/12/25 06:45 Dose: Not Given Assessment & Plan Plan 74-year-old male with PMH of intellectual disability, deafness, OCD, intermittent explosive disorder, type 2 diabetes, hyperlipidemia, GERD, heart failure EF 35-40 status post ICD, COPD on 2-3 L baseline (never smoker), prostate CA and seizures who was brought to [facility] from his custodial after he was noted to have oxygen desaturations on routine testing with pulse oximeter. Per patient caregiver at bedside and they denied any fever, cough, sick contacts, nausea, vomiting, just increased oxygen requirement. On arrival to the ED patient was requiring 6L O2, rest of vitals within normal limits Chest x-ray showed bilateral patchy infiltrates. Patient was admitted to teemetry due to acute hypoxic respiratory failure for further management. Patient's oxygen requirements have continued to increase, thus ICU was initially consulted on 03/09 at that time on HFNC 40L 100%FiO2, saturating adequately 92%, which is fine for a COPD patient, he doesn't appear in acute distress, no use of accessory muscles. There was new worsening of bilateral infiltrates concerning for ARDS, less likley to be related to heart failure since paitient has no JVD, no LE edema. Recommendations then where to continue antifungal, re-start antibiotics and continue to monitor for signs of decline. 03/12: Rapid response was called around 2:00pm due to patient being tachypneic, increased work of breathing with accessory muscle use. It was determined patient needed to be intubated and admitted to the ICU. We will increase dose of Fluconazole to 800 and we will consider getting an LP to test for disseminated cocci. 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 - Patient nonverbal at baseline, caregiver at bedside, refers patient's mentation is at baseline Cardiovascular #Hypotension -Patient's blood pressure has been low throughout admission, however MAP above 65, -He does not appear to be fluid overloaded -Likely In the setting of sepsis from severe cocci infection -Hes been on midodrine 5mg 3 times daily, continue -Currently not in shock, not requiring pressors #History Heart failure - Patient has a history of heart failure EF 35 to 40%, has an ICD in place, currently appears euvolemic, - Is not likely the cause of patient's new blateral patchy infiltrates, hypotension, not AHRF #A-fib - Currently rate controled - Continue apixaban -Continue metoprolol 12.5 daily Respiratory #Acute hypoxic respiratory failure -In the setting of severe pulmonary cocci infection -Patient initially on NC 6L, increased oxygen requirement, placed on HFNCfor several days -There is new worsening of bilateral infiltrates concerning for ARDS, less likley to be related to heart failure since paitient has no JVD, there's no LE edema. -Increased tachypnea and work of breathing with accessory muscle use, patient intubate don 03/12 -Start ARDS parameters on vent with PEEP on 10 Renal -Stable Endocrine -Stable GI -Stable ID #Coccidioidomycosis #Sepsis -Patient's cocci positive, pending confirmatory from [facility] Jared -Fluzonazole dose increased to 800, continuing Unasyn for superimposed bacerial pneumonia -We will consider doing LP to rule out disseminated cocci Disposition: Patient upgrated to ICU due to AHRF requiring intubation in the setting of ARDS from severe cocci infection Diet and fluids:NPO DVT prophylaxis:Eliquis GI prophylaxis:Pantoprazole CODE STATUS:FULL CODE Beatty:In place Lines:Peripheral Patient's care discussed with attending physician, Dr Rina Willis MD PGY3
--- NOTE | 2025-03-12 16:12 | XR_ITS ---
Examination: AP chest single view Technique one AP portable sitting chest single view Exam date 9: March 12, 2025 at 1645 hours Comparison March 12, 2025 1331 hours INDICATIONS: Hypoxic respiratory failure, postintubation, severe pneumonia on chest imaging today FINDINGS: Severe bilateral pneumonia Mild enlargement cardiac contour Unipolar ventricular lead satisfactory position Endotracheal tube tip 3.8 cm above Michelle Orogastric tube in the stomach satisfactory position IMPRESSION: Extensive bilateral pneumonia ARDS pattern Endotracheal tube tip 3.8 cm above Michelle
[2025-03-12] MEDS: SODIUM CHLORIDE 0.9% 250 ML 250 ML 999 ML IV (16:16)
[2025-03-12] MEDS: ETOMIDATE INJ 2 MG/ML VIAL 10 ML 20 MG IVP (16:20)
[2025-03-12] MEDS: MIDAZOLAM INJ 1 MG/ML VIAL 2 ML 2 MG IV (16:24)
[2025-03-12] MEDS: fentaNYL 2,500 MCG/250 ML BAG 2,500 MCG/250 ML BAG IV (16:33)
[2025-03-12] MEDS: MIDAZOLAM/NS 100 MG IVPB 100 MG/100 ML BAG IV ×2 (16:33→22:29)
--- NOTE | 2025-03-12 16:40 | ESOP_ITS ---
Procedures Procedure Date / Time 03/12/25 4215 Intubation Indication(s): other (Increased work of breathing ) Informed consent obtained: obtained from surrogate decision maker (Dr. Virk) Time out done, and the following verified: correct patient, side and site, procedure, patient position and implants and/or equipment Sedative: etomidate Mg given: 20 Laryngoscope: Emanuel ET tube size: 7.5 ET tube uncuffed: No Tube secured depth (cm): 21 Tube secured location: teeth Tube placement confirmation: visualized tube passing through cords, equal breath sounds bilaterally, no breath sounds over epigastrium and confirmation by capno metry Patient tolerated procedure: well and no complications EBL(ml): 0 Intubation complications: none Additional comments: Procedure performed under supervision of ED physician Dr. Sharma. Dr. Hernandez (PGY-1)- Internal medicine resident
[2025-03-12 17:52] LABS: Base Excess, Venous 4 (-3-3); O2 Saturation, Venous 93 % (96-97); PCO2, Venous 49 mmHg (36-56); PO2, Venous 65 mmHg (15-58); pH, Venous 7.39 (7.33-7.66)
--- NOTE | 2025-03-12 17:55 | ESPR_ITS ---
<Statement entered by Yonatan Chavarria MD - 03/15/25 14:55> I reviewed above note and agree with findings and plans. I have also personally examined the patient with medicine team and went over assessment and plan with medical team including recruiting internship and resident physician. <Statement entered by Giuseppe Silva MD - 03/13/25 10:24> Patient continues to worsen while on high flow. Spoke with ICU team regarding patients increase work of breathing. Will continue to monitor patient and update ICU should patient continue to decline. Eventually patient worsened and was upgraded to ICU for intubation. Case discussed with team. Giuseppe Silva MD PGY3 Documentation for date of: 03/12/25 Subjective Subjective Interval history: No acute overnight events reported. Patient seen and examined at bedside this morning. Patient is eating breakfast however he is currently on high flow 35 L at 100% saturating 93%. Patient does not complain of any pain. An hour later patient appears to be in mild distress and fatigued, patient has increased work of breathing with respirations above 35. ICU team is consulted for close monitoring. Patient's work of breathing is worsening with max setting of high flow 40 L 100% saturating 89 to 94% decision is made to upgrade the patient to intubation as patient will likely become fatigued with current respiratory rate. Exam Vital Signs Temp Pulse Resp BP Pulse Ox O2 Del Method O2 Flow Rate 97.1 F 105 H 17 97/78 82 L Mechanical Ventilation 30 03/12/25 11:33 03/12/25 17:36 03/12/25 17:36 03/12/25 17:30 03/12/25 17:36 03/12/25 17:36 03/12/25 15:45 FiO2 100 03/12/25 17:36 Narrative Exam General: Awake, non verbal at baseline, appears to be in mild distress due to increased work of breathing HEENT: Normocephalic, atraumatic, mucous membranes moist. Heart: Regular rate and rhythm, no murmurs. Lungs: Clear to auscultation with no wheezing or crackles. Abdomen: Soft, nondistended, nontender, positive bowel sounds. ?No guarding or rebound tenderness. Neurologic: Alert and oriented x3, no gross neurological deficit, and patient able to move all 4 extremities. Extremities: No edema. Skin: No rash or ecchymoses. Objective Labs 03/12/25 05:33 03/12/25 05:33 Labs: Laboratory Results - last 24 hr 03/12/25 03/12/25 03/12/25 05:33 08:06 17:44 WBC 12.3 H D RBC 3.92 L Hgb 11.8 L Hct 34.8 L MCV 89 MCH 30.1 MCHC 33.9 RDW Std Deviation 45.5 H Plt Count 260 Neut % (Auto) 69 Lymph % (Auto) 16 [place] % (Auto) 8 Eos % (Auto) 5 Baso % (Auto) 0 Neut # (Auto) 8.5 H Lymph # (Auto) 2.0 [place] # (Auto) 1.0 H Eos # (Auto) 0.7 H Baso # (Auto) 0.0 Immature Gran # (Auto) 0.17 H Absolute Nucleated RBC 0.00 Immature Gran % 1 H Nucleated RBC % 0 Puncture Site Left Radial ABG pH 7.46 H ABG pCO2 42 ABG pO2 64 L ABG HCO3 29 H ABG O2 Saturation 93 ABG Base Excess 5 H VBG pH 7.39 VBG pCO2 49 VBG pO2 65 H VBG O2 Sat (Ry) 93 L VBG Base Excess 4 H FiO2 100 Sodium 135 L Potassium 3.8 Chloride 99 Carbon Dioxide 30.3 Anion Gap 6 L BUN 20 Creatinine 0.9 Estim Creat Clear Calc 72.9 eGFR > 60 BUN/Creatinine Ratio 22 H Glucose 70 L Calculated Osmolality 270 L Calcium 9.0 ABG Interpretation ABG results: 03/02/25 03/04/25 03/05/25 20:40 09:20 15:30 ABG pH 7.45 7.43 7.44 ABG pCO2 42 46 47 ABG pO2 60 L 77 L 56 L* D ABG HCO3 29 H 31 H 32 H ABG O2 Saturation 92 96 90 L ABG Base Excess 4 H 5 H 7 H VBG pH VBG pCO2 VBG pO2 VBG Base Excess 03/09/25 03/11/25 03/12/25 10:40 14:20 08:06 ABG pH 7.47 H 7.47 H 7.46 H ABG pCO2 41 43 42 ABG pO2 65 L 53 L* 64 L ABG HCO3 30 H 31 H 29 H ABG O2 Saturation 94 88 L 93 ABG Base Excess 6 H 6 H 5 H VBG pH VBG pCO2 VBG pO2 VBG Base Excess 03/12/25 17:44 ABG pH ABG pCO2 ABG pO2 ABG HCO3 ABG O2 Saturation ABG Base Excess VBG pH 7.39 VBG pCO2 49 VBG pO2 65 H VBG Base Excess 4 H Quality Measures Quality Measures VTE prophylaxis Advance care planning discussed with:: legal surragate Assessment & Plan Assessment Current Active Medications: Generic Name Dose Route Start Last Admin Trade Name Freq PRN Reason Stop Dose Admin Acetaminophen 650 mg 03/04/25 08:23 Acetaminophen 325 Mg Tablet PO 04/01/25 17:22 Q6H PRN Fever >100.3 Albuterol/Ipratropium 3 ml 03/07/25 11:00 03/09/25 08:38 Albuterol/Ipratropium (Duoneb) Rt Latisha 3 Ml Nebu INH 04/04/25 18:59 3 ml Q4HRRT PRN Administration wheezing or SOB Apixaban 5 mg 03/03/25 21:00 03/12/25 08:52 Apixaban 2.5 Mg Tablet PO 04/02/25 20:59 5 mg BID CHRISTIANO Administration Atorvastatin Calcium 10 mg 03/03/25 21:00 03/11/25 20:50 Atorvastatin Calcium 10 Mg Tablet PO 04/02/25 20:59 10 mg HS CHRISTIANO Administration Fluvoxamine Mal 100 0 ea 03/07/25 20:15 03/11/25 20:49 Mg Tablets PO 04/06/25 20:14 1.5 tablet QDAY@2000 CHRISTIANO Administration Divalproex Sodium 1,000 mg 03/02/25 21:00 03/11/25 20:[address] 500 Mg Tablet.Dr PO 04/01/25 20:59 1,000 mg HS CHRISTIANO Administration Dutasteride 0.5 mg 03/03/25 09:00 03/12/25 08:51 Dutasteride 0.5 Mg Capsule (Non-Formulary) PO 04/02/25 08:59 0.5 mg QDAY CHRISTIANO Administration Fluconazole 800 mg 03/13/25 10:00 Fluconazole 100 Mg Tablet PO 03/20/25 09:59 QDAY CHRISTIANO Ampicillin Sodium/Sulbactam 100 mls @ 200 mls/hr 03/11/25 08:30 03/12/25 17:11 Sodium 3 gm/ Sodium Chloride IV 03/18/25 08:29 200 mls/hr Q6HR CHRISTIANO Administration Fentanyl Citrate 2,500 mcg in 250 mls @ 2.5 mls/hr 03/12/25 16:06 03/12/25 16:33 Sublimaze Inj 2,500 Mcg/250 Ml Bag IV 03/17/25 16:05 25 mcg/hr .Q24H PRN 2.5 mls/hr PER PROTOCOL Administration Protocol 25 MCG/HR Midazolam HCl 100 mg in 100 mls @ 1 mls/hr 03/12/25 16:06 03/12/25 16:33 Versed Pf Inj In Ns Premix IV 03/17/25 16:05 1 mg/hr .Q24H PRN 1 mls/hr PER PROTOCOL Administration Protocol 1 MG/HR Magnesium Hydroxide 30 ml 03/02/25 17:23 Milk Of Magnesia Susp 30 Ml Udc PO 04/01/25 17:22 QDAY PRN CONSTIPATION Protocol Metoprolol Succinate 12.5 mg 03/03/25 09:00 03/12/25 08:52 Metoprolol Succinate Xl 25 Mg Tabcr PO 04/02/25 08:59 Not Given QDAY CHRISTIANO Midodrine 5 mg 03/10/25 22:00 03/12/25 14:03 Midodrine 5 Mg Tablet PO 04/08/25 21:59 5 mg TID CHRISTIANO Administration Ondansetron HCl 4 mg 03/02/25 17:23 Ondansetron Inj 2 Mg/Ml Inj 2 Ml IV 04/01/25 17:22 Q6H PRN NAUSEA OR VOMITING Protocol Pantoprazole Sodium 40 mg 03/07/25 11:15 03/12/25 08:51 Pantoprazole Inj 40 Mg Vial IVP 04/06/25 11:14 40 mg QDAY CHRISTIANO Administration Risperidone 2 mg 03/02/25 21:00 03/11/25 20:49 Risperidone 1 Mg Tablet PO 04/01/25 20:59 2 mg HS CHRISTIANO Administration Sodium Chloride 3 ml 03/02/25 12:21 Sodium Chloride Rt Latisha 0.9% 3 Ml Nebu INH 04/01/25 12:20 PRN PRN SOLN Plan A 74-year-old male who lives in a intermediate since 2007 with significant past medical history of intellectual disability, deafness, OCD, intermittent explosive disorder, diabetes mellitus currently not on any treatment, hyperlipidemia, GERD, heart failure s/p ICD, COPD on 2 L oxygen, prostate carcinoma, seizures is brought to the hospital with chief complaints of decreased oxygen saturations noted on pulse oximeter and admitted in the hospital for acute on chronic hypoxic respiratory failure secondary to heart failure exacerbation. #Acute on chronic hypoxic respiratory failure. #Bilateral pneumonia, predominantly left-sided, cocci pneumonia # Suspected bilateral aspiration pneumonia #Underlying COPD on 2 L oxygen. - Brought to the hospital by care provider in view of low oxygen saturations noted on pulse oximeter. - Patient noted to have fatigue and difficulty in doing his routine daily activities on the day of admission. - At baseline, patient is using 4 L oxygen, which was increased from 2 L within the last several weeks. - At the time of admission noted to have 91% saturation with 6 L oxygen through nasal cannula. - On physical examination, noted to have bilateral inspiratory crackles more in the basilar areas. - EKG showed sinus rhythm with multiple ectopics. - Chest x-ray showed bilateral patchy infiltrates, more on the left side - Chest x-ray from 2022 showed similar infiltrates, more on the left side, suspicious of malignancy - Chest CT showed severe bilateral pneumonia, more on the left side with small left-sided pleural effusion - Tested negative for COVID, influenza, cocci IgM, tested positive for cocci IgM on 03/08 - Blood cultures came back negative after 48 hours - Repeat cocci as of 03/07/2025 came back positive but 1,3 D Glucan is negative plan - Patient was initially started on ceftriaxone 1 g IV daily [03/04-03/05], Azithromycin [03/03 - 03/09] - As of 03/05/2025, patient is still desaturating on high flow oxygen for which patient was started on Zosyn 4.5 g every 6 hourly [03/05-03/08], on vancomycin (03/07 - 03/08) - As patient tested positive for IgM cocci, patient is started on fluconazole 400 Mg daily as of 03/07/2025 and discontinued IV steroids, antibiotics - Consulted Dr Vyas and and recommended to continue fluconazole for now - Started on Unasyn 3g IV every 6th hrly(03/11- - DuoNebs every 4 thoroughly scheduled - Referral to speech was done # Paroxysmal atrial fibrillation --> atrial fibrillation with rapid ventricular rate on 03/09/2025, resolved # History of HFrEF, EF 35 to 40% [02/2025] # Nonischemic cardiomyopathy - Patient is diagnosed with a paroxysmal atrial fibrillation and 2022. - [id number] is 3 - Since then patient is started on Eliquis 5 Mg p.o. twice daily - Currently patient is in sinus rhythm. - Echo Normal LV size and function. Estimated EF 35-40 %. Grade I diastolic dysfunction. Plan: - will continue home metoprolol 12.5 Mg p.o. daily - One-time dose of metoprolol 12.5 Mg is given on 03/09/2025 in view of rapid ventricular rate - Will continue home Eliquis 5 Mg p.o. twice daily. #History of diabetes mellitus. - Per patient's care provider, patient had history of diabetes mellitus on treatment but later as his sugars are well-controlled, stopped treatment by his primary care provider - HbA1c is ordered - 6.2. Plan: - will hold the treatment for now and monitor patient. #Hyperlipidemia. -Patient is using simvastatin 40 Mg p.o. at bedtime. -Lipid panel showed TG 155, Chol 183, LDL 127, HDL 25. Plan: -Started on atorvastatin 10 Mg at bedtime. #Normocytic normochromic anemia. - Patient is using iron supplements at home. - Will resume it on outpatient basis. #History of seizures. - Patient is using divalproex at home. - Reported that patient did not have seizures in past couple of years. - Restarted on divalproex. #History of prostate cancer. - Per patient's care provider patient had history of prostate cancer in 2014 underwent radiation therapy for 4 weeks. - Following up with PCP and on dutasteride. - Resumed Dutasteride 0.5mg p.o. qday. Hospital Maintenance: Dispo: Tele. DVT ppx: Apixaban. GI ppx: Pantoprazole Diet: Cardiac, fluid restriction 1500 mL. IV lines: Peripheral. Code status: FULL. Assessment and plan discussed with my senior resident Dr. Silva & attending physician Dr. Aura Hernandez (PGY-1)- Internal medicine resident
[2025-03-12 18:12] LABS: Lactate (Lactic Acid) 1.4 mMol/L (0.4-2.0)
[2025-03-12 18:24] LABS: Base Excess 4 (-3-3); HCO3 30 mEq/L (20-26); Inspired Oxygen, FIO2 100 %; O2 Saturation 93 % (91-98); PCO2 53 mmHg (32.0-48.0); PO2 69 mmHg (83-108); pH, Arterial 7.37 (7.35-7.45)
[2025-03-12 18:29] LABS: Puncture Site Right Radial
[2025-03-12 18:33] LABS: Allen Test Performed/OK
[2025-03-12] MEDS: ALBUTEROL/IPRATROPIUM (Duoneb) RT SOL 3 ML NEBU INH (19:48)
[2025-03-12] MEDS: DIVALPROEX SOD DR 500 MG TABLET.DR 1000 MG PO (20:57)
[2025-03-12] MEDS: ATORVASTATIN CALCIUM 10 MG TABLET PO (20:57)
[2025-03-12] MEDS: risperiDONE 1 MG TABLET 2 MG PO (20:57)
[2025-03-12] MEDS: FLUVOXAMINE 100 MG PO (20:58)
--- NOTE | 2025-03-12 22:11 | XR_ITS ---
Examination: AP chest single view Technique one AP portable semiupright chest single view PLAN: March 12, 2025 10:56 PM Comparison March 12, 2025 1643 hours INDICATIONS: Hypoxia hypoxemic respiratory post intubation this week FINDINGS: Severe bilateral pneumonia Stable cardiac contour with unipolar ventricular cardiac lead Endotracheal tube tip 6 cm above Michelle Osseous structures intact Orogastric tube in the stomach yes IMPRESSION: Again noted is severe bilateral pneumonia/ARDS pattern
--- NOTE | 2025-03-12 23:13 | PC.RT ---
1750 pt disconnected from ventilator and bagged with a BVM due to spo2 being 86%. pts spo2 increased to 94% and was placed back on ventilator. MD and RN at bedside.
--- NOTE | 2025-03-12 23:15 | PC.RT ---
2220 pt disconnected and bagged with a BVM due to spo2 being 83%. spo2 increased to 99% and pt was placed back on the ventilator. MD and RN at bedside.
--- NOTE | 2025-03-12 23:50 | ESPR_ITS ---
RE: KIRT ROCHE : 1950 DATE OF SERVICE: 03/12/2025 SUBJECTIVE: The patient is a 74-year-old male with multiple medical problems, HFpEF, congestive heart failure, admitted to the hospital with pneumonia, appears to be positive for valley fever, IgM antibody and multiple medical issues, admitted to the hospital with these problems and heart failure symptoms improved; however, he has had bilateral alveolar infiltrate and possible pneumonia. He was transferred because of BiPAP fail. He required intubation, BiPAP placement, mechanical ventilation, transferred back to ICU. The patient is examined in ICU in critical condition, remains hemodynamically stable, not sedated on a ventilator. OBJECTIVE: Vital Signs: Shows his blood pressure is 100/60, pulse rate 100, respirations 18, temperature normal, and saturated 94% on 100% FiO2. Neck: Supple. Lungs: Decreased breath sounds. Bilateral coarse crackles. Heart: S1 and S2 distant. Abdomen: Thin and soft. Extremities: Mild edema. LABORATORY DATA: Showed white blood cell count is 12.3 and hemoglobin 11.8. Chemistry panel showed creatinine of 0.9. His chest x-ray showed significant worsening, extensive bilateral pneumonia, ARDS pattern. ASSESSMENT: 1. Acute hypoxic respiratory failure secondary to acute respiratory distress syndrome and bilateral pneumonia. 2. Cocci antibody positive. 3. Acutely decompensated congestive heart failure and chronic systolic heart failure. 4. Status post implantable cardioverter-defibrillator implantation. RECOMMENDATIONS: The patient is to continue ventilator support. He is also to continue on IV broad-spectrum antibiotics. 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 Prognosis is poor. Condition is critical. DT: 22:31:45 TT: 23:36:00 Ref: [id number] - TID: [id number]
[2025-03-13] VITALS (87 sets, daily range): BP systolic 59–120; BP diastolic 9–66; PULSE 71–160; RESP 13–24; TEMP 36.9–37.8; O2SAT 83–96; BMI 27.3
[2025-03-13] MEDS: AMPICILLIN/SULBAC INJ 3 GM in SODIUM CHLORIDE 0.9% (POP) 100 ML IV ×2 (00:05→05:19)
[2025-03-13 04:41] LABS: Base Excess 6 (-3-3); HCO3 33 mEq/L (20-26); Inspired Oxygen, FIO2 100 %; O2 Saturation 92 % (91-98); PCO2 58 mmHg (32.0-48.0); PO2 63 mmHg (83-108); pH, Arterial 7.37 (7.35-7.45)
[2025-03-13 04:53] LABS: Allen Test Performed/OK; Puncture Site Right Radial
[2025-03-13] MEDS: fentaNYL 2,500 MCG/250 ML BAG 2,500 MCG/250 ML BAG 22.5 MCG IV ×2 (05:20→16:18)
[2025-03-13] MEDS: MIDODRINE 5 MG TABLET PO (05:21)
[2025-03-13 05:32] LABS: Basophils % (Auto) 0 % (0-2.5); Eosinophils # (Auto) 0.5 Thou/mm3 (0.0-0.5); Eosinophils % (Auto) 3 % (0-10); Hematocrit 34.3 % (41.0-53.0); Hemoglobin 11.4 g/dL (13.5-16.0); Immature Granulocytes % (Auto) 1 % (0-0); Immature Granulocytes Auto 0.13 Thou/mm3 (0.00-0.00); Lymphocytes # (Auto) 1.9 Thou/mm3 (1.0-4.8); Lymphocytes % (Auto) 13 % (10-50); Mean Corpuscular HGB Conc 33.2 g/dl (31.0-37.0); Mean Corpuscular Hemoglobin 30.5 pg (25.0-35.0); Mean Corpuscular Volume 92 fL (80-100); Monocytes # (Auto) 1.1 Thou/mm3 (0.0-0.8); Monocytes % (Auto) 8 % (0-12); Neutrophils # (Auto) 10.7 Thou/mm3 (1.8-7.7); Neutrophils % (Auto) 75 % (37-80); Nucleated Red Blood Cell % 0 /100 WBC (0); Platelet Count 215 Thou/mm3 (140-440); RDW Standard Deviation 48.9 fL (35.1-43.9); Red Blood Count 3.74 Miln/mm3 (4.50-5.90); White Blood Count 14.3 Thou/mm3 (3.8-10.6)
[2025-03-13 06:12] LABS: Alanine Aminotransferase 44 U/L (10-49); Albumin, Serum 3.5 gm/dL (3.4-4.8); Albumin/Globulin Ratio 1.5 (1.2-2.2); Alkaline Phosphatase 53 U/L (46-116); Anion Gap 6 (7-16); Aspartate Amino Transferase 18 U/L (0-34); BUN/Creatinine Ratio 18 Ratio (12-20); Bilirubin,Total 0.5 mg/dL (0.3-1.2); Blood Urea Nitrogen 21 mg/dL (9-23); Calcium 9.1 mg/dL (8.3-10.6); Calcium (Corrected) 9.5 mg/dL (8.5-10.1); Carbon Dioxide 32.3 mMol/L (20.0-31.0); Chloride 98 mMol/L (98-107); Creatinine (Component) 1.2 mg/dL (0.6-1.3); Globulin 2.4 gm/dL (2.3-3.5); Glucose 76 mg/dL (74-106); Osmolality,Calculated 273 (275-295); Potassium 4.7 mMol/L (3.4-5.1); Sodium 136 mMol/L (136-145); Total Protein 5.9 gm/dL (5.7-8.2); eGFR > 60 See Note
[2025-03-13 07:01] LABS: ANA Screen, IFA NEGATIVE (NEGATIVE)
[2025-03-13] MEDS: PANTOPRAZOLE INJ 40 MG VIAL IVP (08:53)
--- NOTE | 2025-03-13 09:18 | ESPR_ITS ---
Subjective Subjective Interval history: moved to icu. unasyn added and then stopped. gram stain with rare gpc. apparently [place], so cocci is still possible. Exam Vital Signs Temp Pulse Resp BP Pulse Ox O2 Del Method O2 Flow Rate 99.2 F 86 20 106/59 L 95 Mechanical Ventilation 30 03/13/25 04:00 03/13/25 07:47 03/13/25 06:00 03/13/25 07:47 03/13/25 07:47 03/13/25 06:00 03/12/25 15:45 FiO2 100 03/13/25 07:47 Narrative Exam on 100% O2 by vent. intubated. icu team has contacted dr lawrence who is the poa. Objective - Internal Medicine Labs 03/13/25 04:14 03/13/25 04:14 Labs: Laboratory Results - last 24 hr 03/05/25 03/12/25 03/12/25 16:40 17:44 18:14 WBC RBC Hgb Hct MCV MCH MCHC RDW Std Deviation Plt Count Neut % (Auto) Lymph % (Auto) [place] % (Auto) Eos % (Auto) Baso % (Auto) Neut # (Auto) Lymph # (Auto) [place] # (Auto) Eos # (Auto) Baso # (Auto) Immature Gran # (Auto) Absolute Nucleated RBC Immature Gran % Nucleated RBC % Puncture Site Right Radial ABG pH 7.37 ABG pCO2 53 H D ABG pO2 69 L ABG HCO3 30 H ABG O2 Saturation 93 ABG Base Excess 4 H VBG pH 7.39 VBG pCO2 49 VBG pO2 65 H VBG O2 Sat (Ry) 93 L VBG Base Excess 4 H FiO2 100 Sodium Potassium Chloride Carbon Dioxide Anion Gap BUN Creatinine Estim Creat Clear Calc eGFR BUN/Creatinine Ratio Glucose Calculated Osmolality Lactic Acid 1.4 Calcium Corrected Calcium Total Bilirubin AST ALT Alkaline Phosphatase Total Protein Albumin Globulin Albumin/Globulin Ratio ESTEPHANIA Screen NEGATIVE ESTEPHANIA Titer TNP ESTEPHANIA Titer 2 TNP ESTEPHANIA Titer 3 TNP ESTEPHANIA Pattern TNP ESTEPHANIA Pattern 2 TNP ESTEPHANIA Pattern 3 TNP 03/13/25 03/13/25 04:14 04:20 WBC 14.3 H RBC 3.74 L Hgb 11.4 L Hct 34.3 L MCV 92 MCH 30.5 MCHC 33.2 RDW Std Deviation 48.9 H Plt Count 215 D Neut % (Auto) 75 Lymph % (Auto) 13 [place] % (Auto) 8 Eos % (Auto) 3 Baso % (Auto) 0 Neut # (Auto) 10.7 H Lymph # (Auto) 1.9 [place] # (Auto) 1.1 H Eos # (Auto) 0.5 Baso # (Auto) 0.0 Immature Gran # (Auto) 0.13 H Absolute Nucleated RBC 0.00 Immature Gran % 1 H Nucleated RBC % 0 Puncture Site Right Radial ABG pH 7.37 ABG pCO2 58 H ABG pO2 63 L ABG HCO3 33 H ABG O2 Saturation 92 ABG Base Excess 6 H VBG pH VBG pCO2 VBG pO2 VBG O2 Sat (Ry) VBG Base Excess FiO2 100 Sodium 136 Potassium 4.7 D Chloride 98 Carbon Dioxide 32.3 H Anion Gap 6 L BUN 21 Creatinine 1.2 Estim Creat Clear Calc 55.0 L eGFR > 60 BUN/Creatinine Ratio 18 Glucose 76 Calculated Osmolality 273 L Lactic Acid Calcium 9.1 Corrected Calcium 9.5 Total Bilirubin 0.5 AST 18 ALT 44 Alkaline Phosphatase 53 Total Protein 5.9 Albumin 3.5 Globulin 2.4 Albumin/Globulin Ratio 1.5 ESTEPHANIA Screen ESTEPHANIA Titer ESTEPHANIA Titer 2 ESTEPHANIA Titer 3 [place]EPHANIA Pattern ESTEPHANIA Pattern 2 [place]EPH[place]IA Pattern 3 ABG Interpretation ABG results: 03/02/25 03/04/25 03/05/25 20:40 09:20 15:30 ABG pH 7.45 7.43 7.44 ABG pCO2 42 46 47 ABG pO2 60 L 77 L 56 L* D ABG HCO3 29 H 31 H 32 H ABG O2 Saturation 92 96 90 L ABG Base Excess 4 H 5 H 7 H VBG pH VBG pCO2 VBG pO2 VBG Base Excess 03/09/25 03/11/25 03/12/25 10:40 14:20 08:06 ABG pH 7.47 H 7.47 H 7.46 H ABG pCO2 41 43 42 ABG pO2 65 L 53 L* 64 L ABG HCO3 30 H 31 H 29 H ABG O2 Saturation 94 88 L 93 ABG Base Excess 6 H 6 H 5 H VBG pH VBG pCO2 VBG pO2 VBG Base Excess 03/12/25 03/12/25 03/13/25 17:44 18:14 04:20 ABG pH 7.37 7.37 ABG pCO2 53 H D 58 H ABG pO2 69 L 63 L ABG HCO3 30 H 33 H ABG O2 Saturation 93 92 ABG Base Excess 4 H 6 H VBG pH 7.39 VBG pCO2 49 VBG pO2 65 H VBG Base Excess 4 H Assessment & Plan A&P Narrative possible cocci pneumonia. atypical likely, here for 8d already. not improved with rx but not either overtly worse dm II other problems as noted. flucon ok. if worsens, ok to try ampho b and monitor creat closely. will check in again Thursday PM will interact with dr lawrence as ards has a poor prognosis. Time Spent With Patient Time: Total time spent is greater than 50% in coordination of care (as documented) at patient's floor/unit and/or counseling patient:
[2025-03-13] MEDS: FLUCONAZOLE 100 MG TABLET 800 MG PO (09:39)
[2025-03-13] MEDS: METOPROLOL TARTRATE 25 MG TABLET 12.5 MG PO (09:39)
[2025-03-13] MEDS: Magnesium Sulfate 2 GM Ivpb 2 GM/50 ML BAG IV (09:46)
[2025-03-13] MEDS: METOPROLOL TARTRATE INJ 1 MG/ML AMP 5 ML 5 MG IVP (10:11)
--- NOTE | 2025-03-13 10:16 | EKG_ITS ---
[facility] Test Date: 2025-03-13 Pat Name: KIRT ROCHE Department: Room: S259A Gender: Male [employer]ous [employer] Analyst: SHIREEN : 1950 Requested By: Kaelyn Willis Order Number: [id number] Reading MD: Kaelyn Willis Measurements Intervals [place]ber Rate: 133 P: NM: QRS: -61 QRSD: 140 T: 64 QT: 312 QTc: 465 Interpretive Statements ATRIAL FLUTTER/TACHYCARDIA WITH RAPID VENTRICULAR RESPONSE MARKED LEFT AXIS DEVIATION RIGHT BUNDLE BRANCH BLOCK POSSIBLE LEFT VENTRICULAR HYPERTROPHY POSSIBLE SEPTAL MYOCARDIAL INFARCTION , OF INDETERMINATE AGE Compared to ECG 03/09/2025 09:29:59 Left-axis deviation now present Atrial fibrillation no longer present Ventricular premature complex(es) no longer present Aberrant conduction of supraventricular beat(s) no longer present Left anterior fascicular block no longer present Myocardial infarct finding still present /store/S0/[id number].pdf
[2025-03-13] MEDS: AMIODARONE 150 MG IVPB 150 MG/100 ML BAG 600 MG IV (10:29)
[2025-03-13] MEDS: Norepinephrine/D5W 8mg/250ml 8 MG/250 ML BAG 7.397 MG IV (10:30)
[2025-03-13 10:32] LABS: Magnesium 1.9 mg/dL (1.6-2.6)
[2025-03-13] MEDS: AMIODARONE 360 MG IVPB 360 MG/200 ML BAG 33.333 MG IV (10:47)
--- NOTE | 2025-03-13 10:56 | PC.DIETICIAN ---
Nutrition prescription Vital 1.2 at 20 ml/hr via OG tube by pump. Advance 10 ml every 8 hrs to goal rate of 60 ml/hr x 24 hrs. If no IV fluids, water flushes of 25 ml/hr (or per MD).
--- NOTE | 2025-03-13 11:00 | PC.RT ---
pt desated into the 60s we took him off the vent and bagged him back up into the 90%, placed back on vent. I changed peep to [address] Win stated it was fine that I could change it.
[2025-03-13 11:40] LABS: Misc Send Out* See Sep Rpt
--- NOTE | 2025-03-13 11:41 | XR_ITS ---
Examination: AP chest single view Technique one AP portable semiupright chest single view Exam date and time: March 13, 2025 11:51 AM Comparison March 12, 2025 INDICATIONS: Hypoxic respiratory failure, severe pneumonia this week FINDINGS: Severe bilateral pneumonia Normal heart size Interval right internal jugular central line tip SVC satisfactory position, no pneumothorax Orogastric tube is in the stomach Endotracheal tube 6 cm above sedrick IMPRESSION: Extensive bilateral pneumonia/ARDS Interval insertion right internal jugular central line, tip in satisfactory position
[2025-03-13] MEDS: SODIUM CHLORIDE 0.9% 1000 ML 1,000 ML 999 ML IV (12:02)
--- NOTE | 2025-03-13 13:46 | ESPR_ITS ---
Documentation for date of: 03/13/25 Subjective Subjective Interval history: Patient heart rate increased to 165 and EKG showed A-fib with RVR. Heart rate did not respond to metoprolol tartrate 5 mg IV x 1 on top of metoprolol tartrate 12.5 mg p.o. twice daily and so amiodarone drip was started and patient converted to NSR after first bolus. Remains on mechanical ventilator and Levophed drip at 0.13 mcg/kg/min with BP of 118/49 (MAP 68), HR 73, O2 90% on 100% FiO2, VT 400, and PEEP 15. Patient also noted to become hypoxic with O2 of 60% and had to be bagged to improve saturations. WBC 14 (12, 20), Hgb 11.4 (11.8). ABG: pH 7.37, pCO2 58, PO2 63. K 4.7, Mg 1.9, HCO3 32.3, Cr 1.2 (0.9). EKG showed A-fib HR 133, RBBB, QTc 465, QT 312. 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), oral mucosa moist Cardiovascular: regular rate and rhythm, S1/S2 present, no murmurs appreciated Pulmonary: clear to auscultation bilaterally, no rales/rhonchi/wheezes Abdominal: soft, non-tender, non-distended, no rebound/guarding, normal bowel sounds present Musculoskeletal: normal ROM, no peripheral edema Skin: warm and dry, intact, no rashes Objective Labs 03/14/25 04:59 03/14/25 04:59 Labs: Laboratory Results - last 24 hr 03/05/25 03/12/25 03/12/25 16:40 17:44 18:14 WBC RBC Hgb Hct MCV MCH MCHC RDW Std Deviation Plt Count Neut % (Auto) Lymph % (Auto) [place] % (Auto) Eos % (Auto) Baso % (Auto) Neut # (Auto) Lymph # (Auto) [place] # (Auto) Eos # (Auto) Baso # (Auto) Immature Gran # (Auto) Absolute Nucleated RBC Immature Gran % Nucleated RBC % Puncture Site Right Radial ABG pH 7.37 ABG pCO2 53 H D ABG pO2 69 L ABG HCO3 30 H ABG O2 Saturation 93 ABG Base Excess 4 H VBG pH 7.39 VBG pCO2 49 VBG pO2 65 H VBG O2 Sat (Ry) 93 L VBG Base Excess 4 H FiO2 100 Sodium Potassium Chloride Carbon Dioxide Anion Gap BUN Creatinine Estim Creat Clear Calc eGFR BUN/Creatinine Ratio Glucose Calculated Osmolality Lactic Acid 1.4 Calcium Corrected Calcium Magnesium Total Bilirubin AST ALT Alkaline Phosphatase Total Protein Albumin Globulin Albumin/Globulin Ratio [place] Screen NEGATIVE [place] Titer TNP [place] Titer 2 TNP [place] Titer 3 TNP [place] Pattern TNP [place] Pattern 2 TNP [place] Pattern 3 TNP 03/13/25 03/13/25 03/13/25 04:14 04:20 10:07 WBC 14.3 H RBC 3.74 L Hgb 11.4 L Hct 34.3 L MCV 92 MCH 30.5 MCHC 33.2 RDW Std Deviation 48.9 H Plt Count 215 D Neut % (Auto) 75 Lymph % (Auto) 13 [place] % (Auto) 8 Eos % (Auto) 3 Baso % (Auto) 0 Neut # (Auto) 10.7 H Lymph # (Auto) 1.9 [place] # (Auto) 1.1 H Eos # (Auto) 0.5 Baso # (Auto) 0.0 Immature Gran # (Auto) 0.13 H Absolute Nucleated RBC 0.00 Immature Gran % 1 H Nucleated RBC % 0 Puncture Site Right Radial ABG pH 7.37 ABG pCO2 58 H ABG pO2 63 L ABG HCO3 33 H ABG O2 Saturation 92 ABG Base Excess 6 H VBG pH VBG pCO2 VBG pO2 VBG O2 Sat (Ry) VBG Base Excess FiO2 100 Sodium 136 Potassium 4.7 D 5.0 Chloride 98 Carbon Dioxide 32.3 H Anion Gap 6 L BUN 21 Creatinine 1.2 Estim Creat Clear Calc 55.0 L eGFR > 60 BUN/Creatinine Ratio 18 Glucose 76 Calculated Osmolality 273 L Lactic Acid Calcium 9.1 Corrected Calcium 9.5 Magnesium 1.9 Total Bilirubin 0.5 AST 18 ALT 44 Alkaline Phosphatase 53 Total Protein 5.9 Albumin 3.5 Globulin 2.4 Albumin/Globulin Ratio 1.5 [place] Screen [place]IA Titer EST[place]PH[place]IA Titer 2 [place] Titer 3 [place] Pattern [place] Pattern 2 [place] Pattern 3 ABG Interpretation ABG results: 03/02/25 03/04/25 03/05/25 20:40 09:20 15:30 ABG pH 7.45 7.43 7.44 ABG pCO2 42 46 47 ABG pO2 60 L 77 L 56 L* D ABG HCO3 29 H 31 H 32 H ABG O2 Saturation 92 96 90 L ABG Base Excess 4 H 5 H 7 H VBG pH VBG pCO2 VBG pO2 VBG Base Excess 03/09/25 03/11/25 03/12/25 10:40 14:20 08:06 ABG pH 7.47 H 7.47 H 7.46 H ABG pCO2 41 43 42 ABG pO2 65 L 53 L* 64 L ABG HCO3 30 H 31 H 29 H ABG O2 Saturation 94 88 L 93 ABG Base Excess 6 H 6 H 5 H VBG pH VBG pCO2 VBG pO2 VBG Base Excess 03/12/25 03/12/25 03/13/25 17:44 18:14 04:20 ABG pH 7.37 7.37 ABG pCO2 53 H D 58 H ABG pO2 69 L 63 L ABG HCO3 30 H 33 H ABG O2 Saturation 93 92 ABG Base Excess 4 H 6 H VBG pH 7.39 VBG pCO2 49 VBG pO2 65 H VBG Base Excess 4 H Quality Measures Quality Measures VTE prophylaxis Advance care planning discussed with:: patient Assessment & Plan Assessment Current Active Medications: Generic Name Dose Route Start Last Admin Trade Name Freq PRN Reason Stop Dose Admin Acetaminophen 650 mg 03/04/25 08:23 Acetaminophen 325 Mg Tablet PO 04/01/25 17:22 Q6H PRN Fever >100.3 Albuterol/Ipratropium 3 ml 03/07/25 11:00 03/12/25 19:48 Albuterol/Ipratropium (Duoneb) Rt Latisha 3 Ml Nebu INH 04/04/25 18:59 3 ml Q4HRRT PRN Administration wheezing or SOB Atorvastatin Calcium 10 mg 03/03/25 21:00 03/12/25 20:57 Atorvastatin Calcium 10 Mg Tablet PO 04/02/25 20:59 10 mg HS CHRISTIANO Administration Fluvoxamine Mal 100 0 ea 03/07/25 20:15 03/12/25 20:58 Mg Tablets PO 04/06/25 20:14 1.5 tablet QDAY@2000 CHRISTIANO Administration Divalproex Sodium 1,000 mg 03/02/25 21:00 03/12/25 20:[address] 500 Mg Tablet.Dr PO 04/01/25 20:59 1,000 mg HS CHRISTIANO Administration Dutasteride 0.5 mg 03/03/25 09:00 03/13/25 09:44 Dutasteride 0.5 Mg Capsule (Non-Formulary) PO 04/02/25 08:59 Not Given QDAY CHRISTIANO Fluconazole 800 mg 03/13/25 10:00 03/13/25 09:39 Fluconazole 100 Mg Tablet PO 03/20/25 09:59 800 mg QDAY CHRISTIANO Administration Fentanyl Citrate 2,500 mcg in 250 mls @ 2.5 mls/hr 03/12/25 16:06 03/13/25 13:00 Sublimaze Inj 2,500 Mcg/250 Ml Bag IV 03/17/25 16:05 225 mcg/hr .Q24H PRN 22.5 mls/hr PER PROTOCOL Titration Protocol 25 MCG/HR Amiodarone HCl/Dextrose 360 mg in 200 mls @ 33.333 mls/hr 03/13/25 10:22 03/13/25 10:47 Nexterone Ivpb IV 03/13/25 16:21 33.333 mls/hr .Q6H ONE Administration Norepinephrine/Dextrose 8 mg in 250 mls @ 7.397 mls/hr 03/13/25 10:36 03/13/25 13:00 Levophed In D5w 8mg/250ml IV 04/12/25 10:35 0.11 mcg/kg/min .Q24H PRN 16.273 mls/hr PER PROTOCOL Titration Protocol 0.05 MCG/KG/MIN Amiodarone HCl/Dextrose 360 mg in 200 mls @ 16.667 mls/hr 03/13/25 16:46 Nexterone Ivpb IV 03/14/25 16:45 .Q12H CHRISTIANO Magnesium Hydroxide 30 ml 03/02/25 17:23 Milk Of Magnesia Susp 30 Ml Udc PO 04/01/25 17:22 QDAY PRN CONSTIPATION Protocol Metoprolol Tartrate 12.5 mg 03/13/25 09:30 03/13/25 09:39 Metoprolol Tartrate 25 Mg Tablet PO 04/12/25 09:29 12.5 mg BID CHRISTIANO Administration Midodrine 5 mg 03/10/25 22:00 03/13/25 05:21 Midodrine 5 Mg Tablet PO 04/08/25 21:59 5 mg TID CHRISTIANO Administration Ondansetron HCl 4 mg 03/02/25 17:23 Ondansetron Inj 2 Mg/Ml Inj 2 Ml IV 04/01/25 17:22 Q6H PRN NAUSEA OR VOMITING Protocol Pantoprazole Sodium 40 mg 03/07/25 11:15 03/13/25 08:53 Pantoprazole Inj 40 Mg Vial IVP 04/06/25 11:14 40 mg QDAY CHRISTIANO Administration Risperidone 2 mg 03/02/25 21:00 03/12/25 20:57 Risperidone 1 Mg Tablet PO 04/01/25 20:59 2 mg HS CHRISTIANO Administration Sodium Chloride 3 ml 03/02/25 12:21 Sodium Chloride Rt Latisha 0.9% 3 Ml Nebu INH 04/01/25 12:20 PRN PRN SOLN Plan WD Dexter is a 74-year-old male with a past medical history of developmental delay with some mental retardation, mute as well as deaf but able to do few daily ADLs including taking care of himself, diabetes mellitus, hyperlipidemia, OCD, bipolar disorder lives in a senior care was brought into the emergency department for 3 days of hypoxia secondary to pneumonia. Cardiology was originally consulted for possible CHF exacerbation given the hypoxia. 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 Etiology of the hypoxia likely driven due to pneumonia as no signs of decompensated heart failure at this time. Appears euvolemic with no JVD or significant bilateral lower extremity edema noted. CT chest on 03/04 showed severe bilateral pneumonia. Infectious disease following, on fuconazole 800 mg daily and steroids discontinued as cocci IgM positive. Levophed drip. #Atrial fibrillation with RVR Patient has history of a-fib with RVR and has been in and out of sinus rhythm per EKGs during hospitalization but was noted to become tachycardic into the 160s on 03/13 that was not responsive to metoprolol IV x 1 and so was started on amiodarone drip. After first bolus, patient converted to NSR with heart rate in the 70s. ? Continue amiodarone drip and then transition to p.o. amiodarone ? Continue metoprolol tartrate 12.5 mg p.o. twice daily ? If no signs of acive bleeding, hemoglobin stable, and no procedures planned, recommend continuing home Eliquis of 5 mg twice daily ? Keep K >4 and magnesium >2 at all times #History HFrEF s/p ICD placement, compensated (EF 35-40%) #Nonischemic cardiomyopathy Presented about a year ago due to new onset heart failure. Echocardiogram at that time showed an EF of 35% with multiple regional wall motion abnormality, could be secondary to left bundle branch at that time. Decision was made to place a ICD on 08/2024. Echo this admission on 03/03/2025 showed normal LV size and function, EF 35 to 40%, grade 1 diastolic dysfunction, no RWMAs, normal RV size and function, RVSP 40 to 45 mmHg, mild TR, trivial PI and MR. Currently patient is euvolemic with a BNP less than 20. No troponin elevation. The etiology of the hypoxia seems to be more driven due to the pneumonia rather than an acute HF exacerbation. Patient is warm and dry. No concern at this time for cardiogenic shock. Likely all driven due to respiratory failure at this point. ? Recommend holding diuretics for now ? Can also hold home Entresto given soft BP #History of developmental delay #History of seizures #History of prostate cancer #Normocytic anemia #History of type 2 diabetes ? Management of rest of the medical conditions as per primary team and other consultants ----- Plan discussed with attending physician Dr. Jose Barber MD PGY-1 Internal Medicine Attending Provider Attestation/Addendum I have personally seen and examined the patient separately on the above date of service and discussed the plan of care with the resident. I reviewed the resident Dr. Reza Barber consultation progress note and agree with the resident findings and plan in the note above and have also edited the documentation to reflect my findings and plan. Patient well-known to me and follows up with me in the clinic for last 2 years 72-year-old male with a past medical history of developmenta delay, paroxysmal A-fib, severe systolic CHF with an EF of 30 to 35% which did not improve with goal-directed medical therapy status post ICD placement in August 2024, nonischemic cardiomyopathy with normal LHC in 2023, mute as well as deaf but able to perform few ADLs including taking care of himself, IADL dependent, diabetes mellitus, hyperlipidemia, OCD, bipolar disorder presented to the emergency department for further evaluation of hypoxia. Patient has been having worsening shortness of breath for the past week or so.and he did visit his newspaper journalist and his oxygen requirements continued to increase. He was recommended by the newspaper journalist if saturations would not improve and continues to be less than 88% to go to the emergency department. 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 He did see me last in the clinic 3 weeks ago at which time his Lasix was increased from 20 mg to 40 mg once daily and he was continued on all his goal-directed medical therapy medications. In the emergency department patient blood pressure was normal at 113/75 mmHg. Saturations were less than 88% on room air and now around 92% on 6 L nasal cannula. Labs showed initially normal WBC but later on increased to 13.4, hemoglobin stable around low 1.8 and platelets were normal. Kidney function was normal. Lactate was normal LFTs were normal. TSH normal and TG 155, cholesterol 183, LDL 127, HDL 27, procalcitonin normal at less than 0.04 EKG showed sinus rhythm with frequent PACs and right bundle branch block along with LVH. Chest x-ray showed significant bilateral pneumonia and questionable vascular congestion. Cardiology was consulted for possible CHF exacerbation given the hypoxia. 1. Acute respiratory failure with unclear etiology-mostly secondary to possible bilateral pneumonia 2. Chronic severe systolic congestive heart failure with an EF of 30 to 35% and patient does not appear to be fluid overloaded. 3. Nonischemic cardiomyopathy status post AICD placement in August 2024 4. Paroxysmal atrial fibrillation Patient seen and examined the bedside and patient is significantly hypoxic and requiring at least 6 L of oxygen via nasal cannula and saturations are only 92%. BNP was less than 20 and he has no peripheral edema. On examination he does not have any kind of JVD. Overall patient appears to be euvolemic or even mildly hypovolemic at the present point of time. Recommend no diuresis at the present point of time and hold Lasix for now. Recommend CT chest for further evaluation of the possible bilateral pneumonia. Patient appears to have possible ARDS from unclear etiology. Recommend aggressive treatment of the hypoxic respiratory failure as per the primary team. Patient is on goal-directed medical therapy with Entresto as well as metoprolol XL as well as Lasix at home all of which can be held except for the metoprolol XL for rate control and also the frequent PACs. Can restart rest of the GDMT at a later point of time then blood pressure is more stable. Prescription opiate elevated to group to date. He does have a history of paroxysmal atrial fibrillation and is on metoprolol XL as well as Eliquis. Continue metoprolol XL. Can hold Eliquis for now if any procedures planned for the patient otherwise can continue anticoagulation. He continues to be in normal sinus rhythm with frequent PACs for now. Keep potassium greater than 4 and magnesium greater than 2.0 at all times. 03/03- 03/08/25 Patient oxygen requirements have increased in the hospital and on high flow oxygen and recommended CT chest. CT chest was completed which showed severe bilateral lung opacities left greater than right consistent with bilateral pneumonia. Mild cardiomegaly but no evidence of any significant vascular congestion. Recommend aggressive treatment of the pneumonia at the present point of time and to hold the diuretics for now. On Zosyn as well as azithromycin for now. 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 ID team following for the fluconazole as well as IV antibiotics. Patient was briefly started on IV steroids by pulmonary for possible autoimmune process which has been discontinued now and agree. Continue antihypertensives if the blood pressure is permissible and Eliquis 5 mg twice daily for anticoagulation if no further procedures are planned. Echo repeated 03/07/2025 and showed moderate LV dysfunction with an EF of 35 to 40%. Normal RV size and function. Rest of the echo findings similar to before. Continue strict input output, daily weights and 2 g sodium diet. 03/13/25 Over the weekend patient FIT adequate at present patient continued to be hypoxic. BiPAP was tried and eventually patient has been intubated Apparently patient did go into atrial fibrillation earlier this morning and patient started on amiodarone drip and converted to sinus rhythm Continue with a milligram drip for now as patient is not taking p.o. Recommend no amiodarone given his history of lung disease. Patient is ventilator and has high FiO2 requirements and is on 100% is only saturating 94%. Significant bilateral pneumonia with possible ARDS kind of fractures. CT managing the vent. On examination patient appears to be euvolemic and no need of any IV Lasix in the okay to hold the Lasix. Patient is requiring Levophed at the present point of time continue pressor support for presumed septic shock On fluconazole for coccidiomycosis or valley fever with IgM antibody. ID following Management of rest of the medical conditions as per primary team and other consultants. Thank you for the consult and allowing me to participate in the care of the patient. Cardiology will continue to follow. Felipe Garcia M.D. Interventional Cardiology
[2025-03-13] MEDS: AMIODARONE 360 MG IVPB 360 MG/200 ML BAG 16.667 MG IV (16:19)
--- NOTE | 2025-03-13 16:52 | ESPR_ITS ---
<Statement entered by Britt Flynn MD - 03/14/25 12:52> TOTAL CC TIME: 50 MIN I saw and evaluated the patient. I reviewed the resident?s note and agree with findings and plan as documented in the resident?s note. Upon my evaluation, this patient had a high probability of imminent or life- threatening deterioration due to acute hypoxic resp failure which required my direct attention, intervention, and personal management. This time is exclusive of time spent on procedures, which are documented separately if performed. Severe pna w/ ards physiology on lung protective MV goals: ppl <30; dp <15; no autopeep peep stress testing completed and increased if not improving will consider prone positioning and amphoB (however UO low and will need to monitor GFR closely before switching) AC for a.fib held in anticipation of performing LP (will have to wait for at least 3d) Documentation for date of: 03/13/25 Subjective Subjective Interval history: 74-year-old male with PMH of intellectual disability, deafness, OCD, intermittent explosive disorder, type 2 diabetes, hyperlipidemia, GERD, heart failure EF 35-40 status post ICD, COPD on 2-3 L baseline (never smoker), prostate CA and seizures who was brought to [facility] his [facility] after he was noted to have oxygen desaturations on routine testing with pulse oximeter. Per patient caregiver at bedside and they denied any fever, cough, sick contacts, nausea, vomiting, just increased oxygen requirement. On arrival to the ED patient was requiring 6L O2, rest of vitals within normal limits Chest x-ray showed bilateral patchy infiltrates. Patient was admitted to teemetry due to acute hypoxic respiratory failure for further management. Patient's oxygen requirements have continued to increase, thus ICU was initially consulted on 03/09 at that time on HFNC 40L 100%FiO2, saturating adequately 92%, which is fine for a COPD patient, he doesn't appear in acute distress, no use of accessory muscles. There was new worsening of bilateral infiltrates concerning for ARDS, less likley to be related to heart failure since paitient has no JVD, no LE edema. Recommendations then where to continue antifungal, re-start antibiotics and continue to monitor for signs of decline. 03/12: Rapid response was called around 2:00pm due to patient being tachypneic, increased work of breathing with accessory muscle use. It was determined patient needed to be intubated and admitted to the ICU. We will increase dose of Fluconazole to 800 and we will consider getting an LP to test for disseminated cocci. 03/13: No overnight events patent had good urine output last night, 450 ccs. This morning patient became hypoxic down to the 60s, had to be bagged, during the same time patient's HR increased to the 160s, fluctuating beween 150-110, on the monitor we appreciated bigemini, trigemini, posteriorly just irregular. We gave metoprolol 5 IV push x1 and started amiodarone drip, which brought him back to sinus. MAP dropped under 65, started pressors. We also gave one liter fluid bolus. Urine output posteriorly dropped to 20 cc/hr and has maintained like that throughout the day. Arterial line placed. Exam Vital Signs Temp Pulse Resp BP Pulse Ox O2 Del Method O2 Flow Rate 100.0 F 74 20 99/59 L 86 L Mechanical Ventilation 30 03/13/25 16:00 03/13/25 16:19 03/13/25 16:00 03/13/25 16:19 03/13/25 16:00 03/13/25 16:00 03/12/25 15:45 FiO2 100 03/13/25 16:00 Narrative Exam GENERAL: Intubated, sedated, mechanically ventilated HEENT: Normocephalic, atraumatic and nontender.?Right pupil non reactive (known, patient is blind from that eye), oral mucosa moist NECK: Supple without adenopathy. Traquea midline. Nontender, carotid pulse 2+ bilaterally without bruits, no JVD.? CHEST: Heart rate and rythm normal, no murmurs, gallops auscultated. S1 & 2 normal insensity. Nontender on palpation, no deformity and no crepitus. LUNGS: Lung sounds are clear.? No wheezing, rales or ronchi.? No intercostal subcostal retraction. ABDOMEN: Soft,symmetric , nontender, no guarding or rebound tenderness. ? Bowel sounds are normoactive in all 4 quadrants. EXTREMITIES: Nontender.? No pitting edema.? No cyanosis.? SKIN: No rashes noted. Objective Labs 03/13/25 04:14 03/13/25 10:07 Labs: Laboratory Results - last 24 hr 04/03/12/25 03/12/25 16:40 17:44 18:14 WBC RBC Hgb Hct MCV MCH MCHC RDW Std Deviation Plt Count Neut % (Auto) Lymph % (Auto) [place] % (Auto) Eos % (Auto) Baso % (Auto) Neut # (Auto) Lymph # (Auto) [place] # (Auto) Eos # (Auto) Baso # (Auto) Immature Gran # (Auto) Absolute Nucleated RBC Immature Gran % Nucleated RBC % Puncture Site Right Radial ABG pH 7.37 ABG pCO2 53 H D ABG pO2 69 L ABG HCO3 30 H ABG O2 Saturation 93 ABG Base Excess 4 H VBG pH 7.39 VBG pCO2 49 VBG pO2 65 H VBG O2 Sat (Ry) 93 L VBG Base Excess 4 H FiO2 100 Sodium Potassium Chloride Carbon Dioxide Anion Gap BUN Creatinine Estim Creat Clear Calc eGFR BUN/Creatinine Ratio Glucose Calculated Osmolality Lactic Acid 1.4 Calcium Corrected Calcium Magnesium Total Bilirubin AST ALT Alkaline Phosphatase Total Protein Albumin Globulin Albumin/Globulin Ratio ESTEPHANIA Screen NEGATIVE ESTEPHANIA Titer TNP ESTEPHANIA Titer 2 TNP ESTEPHANIA Titer 3 TNP ESTEPHANIA Pattern TNP ESTEPHANIA Pattern 2 TNP ESTEPHANIA Pattern 3 TNP 03/13/25 03/13/25 03/13/25 04:14 04:20 10:07 WBC 14.3 H RBC 3.74 L Hgb 11.4 L Hct 34.3 L MCV 92 MCH 30.5 MCHC 33.2 RDW Std Deviation 48.9 H Plt Count 215 D Neut % (Auto) 75 Lymph % (Auto) 13 [place] % (Auto) 8 Eos % (Auto) 3 Baso % (Auto) 0 Neut # (Auto) 10.7 H Lymph # (Auto) 1.9 [place] # (Auto) 1.1 H Eos # (Auto) 0.5 Baso # (Auto) 0.0 Immature Gran # (Auto) 0.13 H Absolute Nucleated RBC 0.00 Immature Gran % 1 H Nucleated RBC % 0 Puncture Site Right Radial ABG pH 7.37 ABG pCO2 58 H ABG pO2 63 L ABG HCO3 33 H ABG O2 Saturation 92 ABG Base Excess 6 H VBG pH VBG pCO2 VBG pO2 VBG O2 Sat (Ry) VBG Base Excess FiO2 100 Sodium 136 Potassium 4.7 D 5.0 Chloride 98 Carbon Dioxide 32.3 H Anion Gap 6 L BUN 21 Creatinine 1.2 Estim Creat Clear Calc 55.0 L eGFR > 60 BUN/Creatinine Ratio 18 Glucose 76 Calculated Osmolality 273 L Lactic Acid Calcium 9.1 Corrected Calcium 9.5 Magnesium 1.9 Total Bilirubin 0.5 AST 18 ALT 44 Alkaline Phosphatase 53 Total Protein 5.9 Albumin 3.5 Globulin 2.4 Albumin/Globulin Ratio 1.5 ESTEPHANIA Screen ESTEPHANIA Titer ESTEPHANIA Titer 2 ESTEPHANIA Titer 3 ESTEPHANIA Pattern ESTEPHANIA Pattern 2 ESTEPHANIA Pattern 3 ABG Interpretation ABG results: 03/02/25 03/04/25 03/05/25 20:40 09:20 15:30 ABG pH 7.45 7.43 7.44 ABG pCO2 42 46 47 ABG pO2 60 L 77 L 56 L* D ABG HCO3 29 H 31 H 32 H ABG O2 Saturation 92 96 90 L ABG Base Excess 4 H 5 H 7 H VBG pH VBG pCO2 VBG pO2 VBG Base Excess 03/09/25 03/11/25 03/12/25 10:40 14:20 08:06 ABG pH 7.47 H 7.47 H 7.46 H ABG pCO2 41 43 42 ABG pO2 65 L 53 L* 64 L ABG HCO3 30 H 31 H 29 H ABG O2 Saturation 94 88 L 93 ABG Base Excess 6 H 6 H 5 H VBG pH VBG pCO2 VBG pO2 VBG Base Excess 03/12/25 03/12/25 03/13/25 17:44 18:14 04:20 ABG pH 7.37 7.37 ABG pCO2 53 H D 58 H ABG pO2 69 L 63 L ABG HCO3 30 H 33 H ABG O2 Saturation 93 92 ABG Base Excess 4 H 6 H VBG pH 7.39 VBG pCO2 49 VBG pO2 65 H VBG Base Excess 4 H Quality Measures Quality Measures VTE prophylaxis Advance care planning discussed with:: patient Assessment & Plan Assessment Current Active Medications: Generic Name Dose Route Start Last Admin Trade Name Freq PRN Reason Stop Dose Admin Acetaminophen 650 mg 03/04/25 08:23 Acetaminophen 325 Mg Tablet PO 04/01/25 17:22 Q6H PRN Fever >100.3 Albuterol/Ipratropium 3 ml 03/07/25 11:00 03/12/25 19:48 Albuterol/Ipratropium (Duoneb) Rt Latisha 3 Ml Nebu INH 04/04/25 18:59 3 ml Q4HRRT PRN Administration wheezing or SOB Atorvastatin Calcium 10 mg 03/03/25 21:00 03/12/25 20:57 Atorvastatin Calcium 10 Mg Tablet PO 04/02/25 20:59 10 mg HS CHRISTIANO Administration Fluvoxamine Mal 100 0 ea 03/07/25 20:15 03/12/25 20:58 Mg Tablets PO 04/06/25 20:14 1.5 tablet QDAY@2000 CHRISTIANO Administration Divalproex Sodium 1,000 mg 03/02/25 21:00 03/12/25 20:[address] 500 Mg Tablet.Dr PO 04/01/25 20:59 1,000 mg HS CHRISTIANO Administration Dutasteride 0.5 mg 03/03/25 09:00 03/13/25 09:44 Dutasteride 0.5 Mg Capsule (Non-Formulary) PO 04/02/25 08:59 Not Given QDAY CHRISTIANO Fluconazole 800 mg 03/13/25 10:00 03/13/25 09:39 Fluconazole 100 Mg Tablet PO 03/20/25 09:59 800 mg QDAY CHRISTIANO Administration Fentanyl Citrate 2,500 mcg in 250 mls @ 2.5 mls/hr 03/12/25 16:06 03/13/25 16:18 Sublimaze Inj 2,500 Mcg/250 Ml Bag IV 03/17/25 16:05 225 mcg/hr .Q24H PRN 22.5 mls/hr PER PROTOCOL Administration Protocol 25 MCG/HR Norepinephrine/Dextrose 8 mg in 250 mls @ 7.397 mls/hr 03/13/25 10:36 03/13/25 15:00 Levophed In D5w 8mg/250ml IV 04/12/25 10:35 0.13 mcg/kg/min .Q24H PRN 19.232 mls/hr PER PROTOCOL Titration Protocol 0.05 MCG/KG/MIN Amiodarone HCl/Dextrose 360 mg in 200 mls @ 16.667 mls/hr 03/13/25 16:46 03/13/25 16:19 Nexterone Ivpb IV 03/14/25 16:45 16.667 mls/hr .Q12H CHRISTIANO Administration Magnesium Hydroxide 30 ml 03/02/25 17:23 Milk Of Magnesia Susp 30 Ml Udc PO 04/01/25 17:22 QDAY PRN CONSTIPATION Protocol Metoprolol Tartrate 12.5 mg 03/13/25 09:30 03/13/25 09:39 Metoprolol Tartrate 25 Mg Tablet PO 04/12/25 09:29 12.5 mg BID CHRISTIANO Administration Midodrine 5 mg 03/10/25 22:00 03/13/25 05:21 Midodrine 5 Mg Tablet PO 04/08/25 21:59 5 mg TID CHRISTIANO Administration Ondansetron HCl 4 mg 03/02/25 17:23 Ondansetron Inj 2 Mg/Ml Inj 2 Ml IV 04/01/25 17:22 Q6H PRN NAUSEA OR VOMITING Protocol Pantoprazole Sodium 40 mg 03/07/25 11:15 03/13/25 08:53 Pantoprazole Inj 40 Mg Vial IVP 04/06/25 11:14 40 mg QDAY CHRISTIANO Administration Risperidone 2 mg 03/02/25 21:00 03/12/25 20:57 Risperidone 1 Mg Tablet PO 04/01/25 20:59 2 mg HS CHRISTIANO Administration Sodium Chloride 3 ml 03/02/25 12:21 Sodium Chloride Rt Latisha 0.9% 3 Ml Nebu INH 04/01/25 12:20 PRN PRN SOLN Plan 74-year-old male with PMH of intellectual disability, deafness, OCD, intermittent explosive disorder, type 2 diabetes, hyperlipidemia, GERD, heart failure EF 35-40 status post ICD, COPD on 2-3 L baseline (never smoker), prostate CA and seizures who was brought to [facility] his [facility] after he was noted to have oxygen desaturations on routine testing with pulse oximeter. Per patient caregiver at bedside and they denied any fever, cough, sick contacts, nausea, vomiting, just increased oxygen requirement. On arrival to the ED patient was requiring 6L O2, rest of vitals within normal limits Chest x-ray showed bilateral patchy infiltrates. Patient was admitted to teemetry due to acute hypoxic respiratory failure for further management. Patient's oxygen requirements have continued to increase, thus ICU was initially consulted on 03/09 at that time on HFNC 40L 100%FiO2, saturating adequately 92%, which is fine for a COPD patient, he doesn't appear in acute distress, no use of accessory muscles. There was new worsening of bilateral infiltrates concerning for ARDS, less likley to be related to heart failure since paitient has no JVD, no LE edema. Recommendations then where to continue antifungal, re-start antibiotics and continue to monitor for signs of decline. 03/12: Rapid response was called around 2:00pm due to patient being tachypneic, increased work of breathing with accessory muscle use. It was determined patient needed to be intubated and admitted to the ICU. We will increase dose of Fluconazole to 800 and we will consider getting an LP to test for disseminated cocci. 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 We gave metoprolol 5 IV push x1 and started amiodarone drip, which brought him back to sinus. Respiratory #Acute hypoxic respiratory failure -In the setting of severe pulmonary cocci infection -Patient initially on NC 6L, increased oxygen requirement, placed on HFNCfor several days -Increased tachypnea and work of breathing with accessory muscle use, patient intubate don 03/12 -Continue lung protective parameters -Continue Fluconazole 800 Renal #DORY -Likely pre renal due to shock -Patient's Urine output was good overnight aprox 450 cc, this morning output dropped to 20 cc/hr and has maintained like that throughout the day. -Avoid nephrotoxins Endocrine -Stable GI -Stable ID #Coccidioidomycosis #Sepsis -Patient's cocci positive, pending confirmatory from [facility] -Fluzonazole dose increased to 800, continuing Unasyn for superimposed bacerial pneumonia -We will do an LP to rule out disseminated cocci, however waiting on eliquis to wear off -Holding off on amphotericin B, since patient developed DORY Disposition: Patient upgrated to ICU due to AHRF requiring intubation in the setting of ARDS from severe cocci infection Diet and fluids:NPO DVT prophylaxis:Holding for LP GI prophylaxis:Pantoprazole CODE STATUS:FULL CODE Beatty:In place Lines:Peripheral, central and a line Patient's care discussed with attending physician, Dr Rina Willis MD PGY3
--- NOTE | 2025-03-13 17:58 | ESOP_ITS ---
<Statement entered by Britt Flynn MD - 03/14/25 12:34> I was present for the critical and min portions of the procedure and was immediately available to provide assistance. Procedures Procedure Date / Time 03/13/25 17:35 Procedural Time Out Time out performed: yes Procedure Narrative Procedure Narrative: A time out was performed. My hands were washed immediately prior to the procedure. I wore a surgical cap, mask, sterile gown and sterile gloves throughout the procedure.The left wrist was prepped using chlorhexidine scrub and draped in sterile fashion. The radial pulse was identified and the wrist was positioned in the usual fashion. Using the Arrow Radial Arterial Line Kit, a needle was inserted into the radial artery. Arterial blood was seen to pulsate in the flash chamber. The internal guidewire was advanced easily into the radial artery. The catheter was then advanced over the wire and the needle and wire were withdrawn. The catheter was sutured in place. A sterile opsite was placed over the catheter at the insertion site. The patient tolerated the procedure without any hemodynamic compromise. At the time of procedure complet ion, the catheter was connected to the surveillance system monitor and calibrated. Appropriate waveform and blood pressure tracing was observed. Case discussed and supervised by attending Dr. Rina Zeng MD PGY1 Arterial Line Indication(s): hypoxic resp failure and shock Informed consent obtained: obtained from surrogate decision maker Time out done, and the following verified: correct patient, side and site, procedure, patient position and implants and/or equipment Size (Gauge): 14 Technique used: guide wire technique Post-Procedure: line sutured into place and dry sterile dressing placed Patient tolerated procedure: well and no complications EBL(ml): 8 Complications: none Site: left and radial
--- NOTE | 2025-03-13 20:11 | PC.RT ---
pt disconnected from the ventilator and bagged with a BVM due to spo2 >92%. pt improved to 94% and was placed back on mechanical ventilation.
[2025-03-13] MEDS: risperiDONE 1 MG TABLET 2 MG PO (20:35)
[2025-03-13] MEDS: ATORVASTATIN CALCIUM 10 MG TABLET PO (20:35)
[2025-03-13] MEDS: FLUVOXAMINE 100 MG PO (20:35)
[2025-03-13] MEDS: DIVALPROEX SOD DR 500 MG TABLET.DR 1000 MG PO (20:35)
[2025-03-14] VITALS (107 sets, daily range): BP systolic 1–196; BP diastolic 0–88; PULSE 72–148; RESP 11–26; TEMP 36.7–37.4; O2SAT 86–98
[2025-03-14] MEDS: ALBUTEROL/IPRATROPIUM (Duoneb) RT SOL 3 ML NEBU INH (00:53)
[2025-03-14] MEDS: Norepinephrine/D5W 8mg/250ml 8 MG/250 ML BAG 19.232 MG IV (01:00)
[2025-03-14] MEDS: fentaNYL 2,500 MCG/250 ML BAG 2,500 MCG/250 ML BAG 22.5 MCG IV ×2 (03:22→19:16)
[2025-03-14 04:42] LABS: Base Excess 2 (-3-3); HCO3 30 mEq/L (20-26); Inspired Oxygen, FIO2 100 %; O2 Saturation 93 % (91-98); PCO2 67 mmHg (32.0-48.0); PO2 70 mmHg (83-108); pH, Arterial 7.27 (7.35-7.45)
[2025-03-14 04:58] LABS: Allen Test Not Performed; Puncture Site Arterial Line
[2025-03-14] MEDS: AMIODARONE 360 MG IVPB 360 MG/200 ML BAG 16.667 MG IV (05:00)
[2025-03-14 05:44] LABS: Basophils % (Auto) 0 % (0-2.5); Eosinophils # (Auto) 0.2 Thou/mm3 (0.0-0.5); Eosinophils % (Auto) 2 % (0-10); Hematocrit 31.9 % (41.0-53.0); Hemoglobin 10.3 g/dL (13.5-16.0); Immature Granulocytes % (Auto) 2 % (0-0); Immature Granulocytes Auto 0.18 Thou/mm3 (0.00-0.00); Lymphocytes # (Auto) 1.3 Thou/mm3 (1.0-4.8); Lymphocytes % (Auto) 11 % (10-50); Mean Corpuscular HGB Conc 32.3 g/dl (31.0-37.0); Mean Corpuscular Volume 93 fL (80-100); Monocytes # (Auto) 1.2 Thou/mm3 (0.0-0.8); Monocytes % (Auto) 10 % (0-12); Neutrophils # (Auto) 8.8 Thou/mm3 (1.8-7.7); Neutrophils % (Auto) 76 % (37-80); Nucleated Red Blood Cell % 0 /100 WBC (0); Platelet Count 216 Thou/mm3 (140-440); RDW Standard Deviation 48.5 fL (35.1-43.9); Red Blood Count 3.43 Miln/mm3 (4.50-5.90); White Blood Count 11.6 Thou/mm3 (3.8-10.6)
[2025-03-14 06:20] LABS: ANCA Screen NEGATIVE (NEGATIVE); Myeloperoxidase Ab <1.0 AI (<1.0); Proteinase-3 Ab <1.0 AI (<1.0)
[2025-03-14 06:56] LABS: Alanine Aminotransferase 167 U/L (10-49); Albumin, Serum 3.4 gm/dL (3.4-4.8); Albumin/Globulin Ratio 1.5 (1.2-2.2); Alkaline Phosphatase 77 U/L (46-116); Anion Gap 6 (7-16); Aspartate Amino Transferase 155 U/L (0-34); BUN/Creatinine Ratio 22 Ratio (12-20); Bilirubin,Total 0.3 mg/dL (0.3-1.2); Blood Urea Nitrogen 24 mg/dL (9-23); Calcium 8.8 mg/dL (8.3-10.6); Calcium (Corrected) 9.3 mg/dL (8.5-10.1); Carbon Dioxide 29.2 mMol/L (20.0-31.0); Chloride 98 mMol/L (98-107); Creatinine (Component) 1.1 mg/dL (0.6-1.3); Estimated Creatinine Clearance 60.7 mL/min (>60); Globulin 2.3 gm/dL (2.3-3.5); Glucose 135 mg/dL (74-106); Osmolality,Calculated 272 (275-295); Potassium 4.8 mMol/L (3.4-5.1); Sodium 133 mMol/L (136-145); Total Protein 5.7 gm/dL (5.7-8.2); eGFR > 60 See Note
[2025-03-14] MEDS: Magnesium Sulfate 2 GM Ivpb 2 GM/50 ML BAG IV (09:30)
[2025-03-14] MEDS: FLUCONAZOLE 100 MG TABLET 800 MG PO (09:30)
[2025-03-14] MEDS: PANTOPRAZOLE INJ 40 MG VIAL IVP (09:31)
--- NOTE | 2025-03-14 09:54 | PD.RESPRO ---
Documentation for date of: 03/14/25 Subjective Subjective Interval history: No acute overnight events noted. Seen and examined at bedside in ICU and remains mechanically ventilated with VT 400, PEEP of 12, FiO2 100% and saturating at 94%. Also remains on pressure support of 0.21 mcg/kg of Levophed with BP 112/49 at bedside. Has history of A-fib and heart rate noted to increase to the 160s yesterday and was started on amiodarone drip. Upon evaluation, patient heart rate in 70s with bigeminy and trigeminy noted but labs also showed elevated LFTs with AST/ALT of 155/167 and previously was 18/44. Labs reviewed and CBC showed improving white count from 14 to 11, stable hemoglobin of 10.3. ABG showed acidosis with pH of 7.27, pCO2 67, and pO2 70. CHEM panel showed K of 4.8, sodium of 133, BUN 24, creatinine 1.1. Recommend following Mg given atrial fibrillation. 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), oral mucosa moist Cardiovascular: regular rate and rhythm, S1/S2 present, no murmurs appreciated Pulmonary: clear to auscultation bilaterally, no rales/rhonchi/wheezes Abdominal: soft, non-tender, non-distended, no rebound/guarding, normal bowel sounds present Musculoskeletal: normal ROM, no peripheral edema Skin: warm and dry, intact, no rashes Objective Labs 03/14/25 04:59 03/14/25 04:59 Labs: Laboratory Results - last 24 hr 03/06/25 03/13/25 03/13/25 16:40 10:07 20:55 WBC RBC Hgb Hct MCV MCH MCHC RDW Std Deviation Plt Count Neut % (Auto) Lymph % (Auto) [place] % (Auto) Eos % (Auto) Baso % (Auto) Neut # (Auto) Lymph # (Auto) [place] # (Auto) Eos # (Auto) Baso # (Auto) Immature Gran # (Auto) Absolute Nucleated RBC Immature Gran % Nucleated RBC % Puncture Site ABG pH ABG pCO2 ABG pO2 ABG HCO3 ABG O2 Saturation ABG Base Excess FiO2 Sodium Potassium 5.0 5.0 Chloride Carbon Dioxide Anion Gap BUN Creatinine Estim Creat Clear Calc eGFR BUN/Creatinine Ratio Glucose Calculated Osmolality Calcium Corrected Calcium Magnesium 1.9 Total Bilirubin AST ALT Alkaline Phosphatase Total Protein Albumin Globulin Albumin/Globulin Ratio ANCA Screen NEGATIVE c-ANCA Titer TNP Anti-Proteinase 3 <1.0 p-ANCA Titer TNP Atypical p-ANCA Titer TNP Anti-Myeloperoxidase <1.0 03/14/25 03/14/25 04:25 04:59 WBC 11.6 H RBC 3.43 L Hgb 10.3 L Hct 31.9 L MCV 93 MCH 30.0 MCHC 32.3 RDW Std Deviation 48.5 H Plt Count 216 Neut % (Auto) 76 Lymph % (Auto) 11 [place] % (Auto) 10 Eos % (Auto) 2 Baso % (Auto) 0 Neut # (Auto) 8.8 H Lymph # (Auto) 1.3 [place] # (Auto) 1.2 H Eos # (Auto) 0.2 Baso # (Auto) 0.0 Immature Gran # (Auto) 0.18 H Absolute Nucleated RBC 0.00 Immature Gran % 2 H Nucleated RBC % 0 Puncture Site Arterial Line ABG pH 7.27 L D ABG pCO2 67 H ABG pO2 70 L ABG HCO3 30 H ABG O2 Saturation 93 ABG Base Excess 2 FiO2 100 Sodium 133 L Potassium 4.8 Chloride 98 Carbon Dioxide 29.2 Anion Gap 6 L BUN 24 H Creatinine 1.1 Estim Creat Clear Calc 60.7 L eGFR > 60 BUN/Creatinine Ratio 22 H Glucose 135 H D Calculated Osmolality 272 L Calcium 8.8 Corrected Calcium 9.3 Magnesium Total Bilirubin 0.3 AST 155 H ALT 167 H Alkaline Phosphatase 77 D Total Protein 5.7 Albumin 3.4 Globulin 2.3 Albumin/Globulin Ratio 1.5 ANCA Screen c-ANCA Titer Anti-Proteinase 3 p-ANCA Titer Atypical p-ANCA Titer Anti-Myeloperoxidase ABG Interpretation ABG results: 03/02/25 03/04/25 03/05/25 20:40 09:20 15:30 ABG pH 7.45 7.43 7.44 ABG pCO2 42 46 47 ABG pO2 60 L 77 L 56 L* D ABG HCO3 29 H 31 H 32 H ABG O2 Saturation 92 96 90 L ABG Base Excess 4 H 5 H 7 H VBG pH VBG pCO2 VBG pO2 VBG Base Excess 03/09/25 03/11/25 03/12/25 10:40 14:20 08:06 ABG pH 7.47 H 7.47 H 7.46 H ABG pCO2 41 43 42 ABG pO2 65 L 53 L* 64 L ABG HCO3 30 H 31 H 29 H ABG O2 Saturation 94 88 L 93 ABG Base Excess 6 H 6 H 5 H VBG pH VBG pCO2 VBG pO2 VBG Base Excess 03/12/25 03/12/25 03/13/25 17:44 18:14 04:20 ABG pH 7.37 7.37 ABG pCO2 53 H D 58 H ABG pO2 69 L 63 L ABG HCO3 30 H 33 H ABG O2 Saturation 93 92 ABG Base Excess 4 H 6 H VBG pH 7.39 VBG pCO2 49 VBG pO2 65 H VBG Base Excess 4 H 03/14/25 04:25 ABG pH 7.27 L D ABG pCO2 67 H ABG pO2 70 L ABG HCO3 30 H ABG O2 Saturation 93 ABG Base Excess 2 VBG pH VBG pCO2 VBG pO2 VBG Base Excess Quality Measures Quality Measures VTE prophylaxis Advance care planning discussed with:: patient Assessment & Plan Assessment Current Active Medications: Generic Name Dose Route Start Last Admin Trade Name Frankq PRN Reason Stop Dose Admin Acetaminophen 650 mg 03/04/25 08:23 Acetaminophen 325 Mg Tablet PO 04/01/25 17:22 Q6H PRN Fever >100.3 Albuterol/Ipratropium 3 ml 03/07/25 11:00 03/14/25 00:53 Albuterol/Ipratropium (Duoneb) Rt Latisha 3 Ml Nebu INH 04/04/25 18:59 3 ml Q4HRRT PRN Administration wheezing or SOB Atorvastatin Calcium 10 mg 03/03/25 21:00 03/13/25 20:35 Atorvastatin Calcium 10 Mg Tablet PO 04/02/25 20:59 10 mg HS CHRISTIANO Administration Fluvoxamine Mal 100 0 ea 03/07/25 20:15 03/13/25 20:35 Mg Tablets PO 04/06/25 20:14 1.5 tablet QDAY@2000 CHRISTIANO Administration Divalproex Sodium 1,000 mg 03/02/25 21:00 03/13/25 20:[address] 500 Mg Tablet.Dr PO 04/01/25 20:59 1,000 mg HS CHRISTIANO Administration Dutasteride 0.5 mg 03/03/25 09:00 03/14/25 09:31 Dutasteride 0.5 Mg Capsule (Non-Formulary) PO 04/02/25 08:59 Not Given QDAY CHRISTIANO Fluconazole 800 mg 03/13/25 10:00 03/14/25 09:30 Fluconazole 100 Mg Tablet PO 03/20/25 09:59 800 mg QDAY CHRISTIANO Administration Fentanyl Citrate 2,500 mcg in 250 mls @ 2.5 mls/hr 03/12/25 16:06 03/14/25 08:20 Sublimaze Inj 2,500 Mcg/250 Ml Bag IV 03/17/25 16:05 125 mcg/hr .Q24H PRN 12.5 mls/hr PER PROTOCOL Titration Protocol 25 MCG/HR Norepinephrine/Dextrose 8 mg in 250 mls @ 7.397 mls/hr 03/13/25 10:36 03/14/25 08:54 Levophed In D5w 8mg/250ml IV 04/12/25 10:35 0.21 mcg/kg/min .Q24H PRN 31.067 mls/hr PER PROTOCOL Titration Protocol 0.05 MCG/KG/MIN Amiodarone HCl/Dextrose 360 mg in 200 mls @ 16.667 mls/hr 03/13/25 16:46 03/14/25 05:00 Nexterone Ivpb IV 03/14/25 16:45 16.667 mls/hr .Q12H CHRISTIANO Administration Amphotericin B 50 mg/ Dextrose 82.5 mls @ 31.25 mls/hr 03/14/25 09:00 IV 03/21/25 08:59 QDAY CHRISTIANO Magnesium Sulfate 2 gm in 50 mls @ 25 mls/hr 03/14/25 08:19 03/14/25 09:30 Magnesium Sulfate Ivpb IV 03/14/25 10:18 25 mls/hr X1 ONE Administration Magnesium Hydroxide 30 ml 03/02/25 17:23 Milk Of Magnesia Susp 30 Ml Udc PO 04/01/25 17:22 QDAY PRN CONSTIPATION Protocol Metoprolol Tartrate 12.5 mg 03/13/25 09:30 03/13/25 20:28 Metoprolol Tartrate 25 Mg Tablet PO 04/12/25 09:29 Not Given BID CHRISTIANO Midodrine 5 mg 03/10/25 22:00 03/13/25 05:21 Midodrine 5 Mg Tablet PO 04/08/25 21:59 5 mg TID CHRISTIANO Administration Ondansetron HCl 4 mg 03/02/25 17:23 Ondansetron Inj 2 Mg/Ml Inj 2 Ml IV 04/01/25 17:22 Q6H PRN NAUSEA OR VOMITING Protocol Pantoprazole Sodium 40 mg 03/07/25 11:15 03/14/25 09:31 Pantoprazole Inj 40 Mg Vial IVP 04/06/25 11:14 40 mg QDAY CHRISTIANO Administration Risperidone 2 mg 03/02/25 21:00 03/13/25 20:35 Risperidone 1 Mg Tablet PO 04/01/25 20:59 2 mg HS CHRISTIANO Administration Sodium Chloride 3 ml 03/02/25 12:21 Sodium Chloride Rt Latisha 0.9% 3 Ml Nebu INH 04/01/25 12:20 PRN PRN SOLN Plan KIRT Renteria is a 74-year-old male with a past medical history of developmental delay with some mental retardation, mute as well as deaf but able to do few daily ADLs including taking care of himself, diabetes mellitus, hyperlipidemia, OCD, bipolar disorder lives in a correction was brought into the emergency department for 3 days of hypoxia secondary to pneumonia. Cardiology was originally consulted for possible CHF exacerbation given the hypoxia. 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 Etiology of the hypoxia likely driven due to pneumonia as no signs of decompensated heart failure at this time. Appears euvolemic with no JVD or significant bilateral lower extremity edema noted. CT chest on 03/04 showed severe bilateral pneumonia. Infectious disease following, on fuconazole 800 mg daily and steroids discontinued as cocci IgM positive. Remains on Levophed drip. #Atrial fibrillation with RVR Patient has history of a-fib with RVR and has been in and out of sinus rhythm per EKGs during hospitalization but was noted to become tachycardic into the 160s on 03/13 that was not responsive to metoprolol IV x 1 and so was started on amiodarone drip. After first bolus, patient converted to NSR with heart rate in the 70s. Labs after starting amiodarone showed elevated LFTs with AST/ALT of 155/167 and previously was 18/44. ? Continue amiodarone drip and then transition to p.o. amiodarone ? Hold metoprolol given low blood pressures ? If no signs of acive bleeding, hemoglobin stable, and no procedures planned, recommend continuing home Eliquis of 5 mg twice daily ? Keep K >4 and magnesium >2 at all times #History HFrEF s/p ICD placement, compensated (EF 35-40%) #Nonischemic cardiomyopathy Presented about a year ago due to new onset heart failure. Echocardiogram at that time showed an EF of 35% with multiple regional wall motion abnormality, could be secondary to left bundle branch at that time. Decision was made to place a ICD on 08/2024. Echo this admission on 03/03/2025 showed normal LV size and function, EF 35 to 40%, grade 1 diastolic dysfunction, no RWMAs, normal RV size and function, RVSP 40 to 45 mmHg, mild TR, trivial PI and MR. Currently patient is euvolemic with a BNP less than 20. No troponin elevation. The etiology of the hypoxia seems to be more driven due to the pneumonia rather than an acute HF exacerbation. Patient is warm and dry. No concern at this time for cardiogenic shock. Likely all driven due to respiratory failure at this point. ? Recommend holding diuretics for now ? Can also hold home Entresto given soft BP #History of developmental delay #History of seizures #History of prostate cancer #Normocytic anemia #History of type 2 diabetes ? Management of rest of the medical conditions as per primary team and other consultants ----- Plan discussed with attending physician Dr. Jose Barber MD PGY-1 Internal Medicine Attending Provider Attestation/Addendum I have personally seen and examined the patient separately on the above date of service and discussed the plan of care with the resident. I reviewed the resident Dr. Reza Barber consultation progress note and agree with the resident findings and plan in the note above and have also edited the documentation to reflect my findings and plan. Patient well-known to me and follows up with me in the clinic for last 2 years 72-year-old male with a past medical history of developmenta delay, paroxysmal A-fib, severe systolic CHF with an EF of 30 to 35% which did not improve with goal-directed medical therapy status post ICD placement in August 2024, nonischemic cardiomyopathy with normal LHC in 2023, mute as well as deaf but able to perform few ADLs including taking care of himself, IADL dependent, diabetes mellitus, hyperlipidemia, OCD, bipolar disorder presented to the emergency department for further evaluation of hypoxia. Patient has been having worsening shortness of breath for the past week or so.and he did visit his grain broker and market operator and his oxygen requirements continued to increase. He was recommended by the grain broker and market operator if saturations would not improve and continues to be less than 88% to go to the emergency department. Patient as noted above has developmental delay and mute and deaf and cannot provide any significant history and pharmacy graduate intern has provided the history. He did see me last in the clinic 3 weeks ago at which time his Lasix was increased from 20 mg to 40 mg once daily and he was continued on all his goal-directed medical therapy medications. In the emergency department patient blood pressure was normal at 113/75 mmHg. Saturations were less than 88% on room air and now around 92% on 6 L nasal cannula. Labs showed initially normal WBC but later on increased to 13.4, hemoglobin stable around low 1.8 and platelets were normal. Kidney function was normal. Lactate was normal LFTs were normal. TSH normal and TG 155, cholesterol 183, LDL 127, HDL 27, procalcitonin normal at less than 0.04 EKG showed sinus rhythm with frequent PACs and right bundle branch block along with LVH. Chest x-ray showed significant bilateral pneumonia and questionable vascular congestion. Cardiology was consulted for possible CHF exacerbation given the hypoxia. 1. Acute respiratory failure with unclear etiology-mostly secondary to possible bilateral pneumonia 2. Chronic severe systolic congestive heart failure with an EF of 30 to 35% and patient does not appear to be fluid overloaded. 3. Nonischemic cardiomyopathy status post AICD placement in August 2024 4. Paroxysmal atrial fibrillation Patient seen and examined the bedside and patient is significantly hypoxic and requiring at least 6 L of oxygen via nasal cannula and saturations are only 92%. BNP was less than 20 and he has no peripheral edema. On examination he does not have any kind of JVD. Overall patient appears to be euvolemic or even mildly hypovolemic at the present point of time. Recommend no diuresis at the present point of time and hold Lasix for now. Recommend CT chest for further evaluation of the possible bilateral pneumonia. Patient appears to have possible ARDS from unclear etiology. Recommend aggressive treatment of the hypoxic respiratory failure as per the primary team. Patient is on goal-directed medical therapy with Entresto as well as metoprolol XL as well as Lasix at home all of which can be held except for the metoprolol XL for rate control and also the frequent PACs. Can restart rest of the GDMT at a later point of time then blood pressure is more stable. Prescription opiate elevated to group to date. He does have a history of paroxysmal atrial fibrillation and is on metoprolol XL as well as Eliquis. Continue metoprolol XL. Can hold Eliquis for now if any procedures planned for the patient otherwise can continue anticoagulation. He continues to be in normal sinus rhythm with frequent PACs for now. Keep potassium greater than 4 and magnesium greater than 2.0 at all times. 03/03- 03/09/25 Patient oxygen requirements have increased in the hospital and on high flow oxygen and recommended CT chest. CT chest was completed which showed severe bilateral lung opacities left greater than right consistent with bilateral pneumonia. Mild cardiomegaly but no evidence of any significant vascular congestion. Recommend aggressive treatment of the pneumonia at the present point of time and to hold the diuretics for now. On Zosyn as well as azithromycin for now. 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 ID team following for the fluconazole as well as IV antibiotics. Patient was briefly started on IV steroids by pulmonary for possible autoimmune process which has been discontinued now and agree. Continue antihypertensives if the blood pressure is permissible and Eliquis 5 mg twice daily for anticoagulation if no further procedures are planned. Echo repeated 03/07/2025 and showed moderate LV dysfunction with an EF of 35 to 40%. Normal RV size and function. Rest of the echo findings similar to before. Continue strict input output, daily weights and 2 g sodium diet. 03/14/25 Over the weekend patient FIT adequate at present patient continued to be hypoxic. BiPAP was tried and eventually patient has been intubated Apparently patient did go into atrial fibrillation earlier this morning and patient started on amiodarone drip and converted to sinus rhythm Continue with amiodarone drip for now as patient is not taking p.o. Recommend no amiodarone given his history of lung disease. Patient is ventilator and has high FiO2 requirements and is on 100% is only saturating 94%. Significant bilateral pneumonia with possible ARDS kind of fractures. CT managing the vent. On examination patient appears to be euvolemic and no need of any IV Lasix in the okay to hold the Lasix. Patient is requiring Levophed at the present point of time continue pressor support for presumed septic shock On fluconazole for coccidiomycosis or valley fever with IgM antibody. ID following Management of rest of the medical conditions as per primary team and other consultants. Thank you for the consult and allowing me to participate in the care of the patient. Cardiology will continue to follow. Felipe Garcia M.D. Interventional Cardiology
[2025-03-14] MEDS: AMPHOTERICIN B LIPOSOME IV (11:18)
[2025-03-14] MEDS: WATER IV (11:18)
[2025-03-14] MEDS: DEXTROSE 5% IV (11:18)
[2025-03-14] MEDS: Norepinephrine/D5W 8mg/250ml 8 MG/250 ML BAG 34.026 MG IV ×2 (12:31→20:00)
--- NOTE | 2025-03-14 14:07 | ESPR_ITS ---
<Statement entered by Britt Flynn MD - 03/15/25 11:20> TOTAL CC TIME: 54 MIN I saw and evaluated the patient. I reviewed the resident?s note and agree with findings and plan as documented in the resident?s note. Upon my evaluation, this patient had a high probability of imminent or life- threatening deterioration due to severe hypoxic respiratory failure with ARDS physiology which required my direct attention, intervention, and personal management. This time is exclusive of time spent on procedures, which are documented separately if performed. Unfortunately there has been no significant improvement in the patient's ventilation or oxygenation. Plateau pressures remain within acceptable range but patient desaturates quickly likely due to shunting and burden of infectious disease process on the respiratory system. At times patient's rhythm changes. Amphotericin B was started, we will follow renal function carefully. Documentation for date of: 03/14/25 Subjective Subjective Interval history: 74-year-old male with PMH of intellectual disability, deafness, OCD, intermittent explosive disorder, type 2 diabetes, hyperlipidemia, GERD, heart failure EF 35-40 status post ICD, COPD on 2-3 L baseline (never smoker), prostate CA and seizures who was brought to [facility] from his skilled nursing after he was noted to have oxygen desaturations on routine testing with pulse oximeter. Per patient caregiver at bedside and they denied any fever, cough, sick contacts, nausea, vomiting, just increased oxygen requirement. On arrival to the ED patient was requiring 6L O2, rest of vitals within normal limits Chest x-ray showed bilateral patchy infiltrates. Patient was admitted to teemetry due to acute hypoxic respiratory failure for further management. Patient's oxygen requirements have continued to increase, thus ICU was initially consulted on 03/09 at that time on HFNC 40L 100%FiO2, saturating adequately 92%, which is fine for a COPD patient, he doesn't appear in acute distress, no use of accessory muscles. There was new worsening of bilateral infiltrates concerning for ARDS, less likley to be related to heart failure since paitient has no JVD, no LE edema. Recommendations then where to continue antifungal, re-start antibiotics and continue to monitor for signs of decline. 03/12: Rapid response was called around 2:00pm due to patient being tachypneic, increased work of breathing with accessory muscle use. It was determined patient needed to be intubated and admitted to the ICU. We will increase dose of Fluconazole to 800 and we will consider getting an LP to test for disseminated cocci. 03/13: No overnight events patent had good urine output last night, 450 ccs. This morning patient became hypoxic down to the 60s, had to be bagged, during the same time patient's HR increased to the 160s, fluctuating beween 150-110, on the monitor we appreciated bigemini, trigemini, posteriorly just irregular. We gave metoprolol 5 IV push x1 and started amiodarone drip, which brought him back to sinus. MAP dropped under 65, started pressors. We also gave one liter fluid bolus. Urine output posteriorly dropped to 20 cc/hr and has maintained like that throughout the day. Arterial line placed. 03/14: Overnight patient had another hypoxic event, required bagging with improvement. O2 sat has mantained above 90 since. He remains on pressor support. We will continue our goal of pH above 7.25, RR at 24 today. Continue same vent settings: VT400, RR24, PEEP12. We added amphotericin B today,(as kidney function improve, making >40cc hr of urie and creatinine downtrended) leaving fluconazole in as amphotericin doesn't cross the blood brain barrier and we still dont have an LP, we are waiting for >72 hrs to go by after stopping Eliquis. 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 Traquea midline. Nontender, carotid pulse 2+ bilaterally without bruits, no JVD.? CHEST: Heart rate and rythm normal, no murmurs, gallops auscultated. S1 & 2 normal insensity. Nontender on palpation, no deformity and no crepitus. LUNGS: Lung sounds are clear.? No wheezing, rales or ronchi.? No intercostal subcostal retraction. ABDOMEN: Soft,symmetric , nontender, no guarding or rebound tenderness. ? Bowel sounds are normoactive in all 4 quadrants. EXTREMITIES: Nontender.? No pitting edema.? No cyanosis.? SKIN: No rashes noted. Objective Labs 03/14/25 04:59 03/14/25 04:59 Labs: Laboratory Results - last 24 hr 03/06/25 03/13/25 03/14/25 16:40 20:55 04:25 WBC RBC Hgb Hct MCV MCH MCHC RDW Std Deviation Plt Count Neut % (Auto) Lymph % (Auto) Burt % (Auto) Eos % (Auto) Baso % (Auto) Neut # (Auto) Lymph # (Auto) Burt # (Auto) Eos # (Auto) Baso # (Auto) Immature Gran # (Auto) Absolute Nucleated RBC Immature Gran % Nucleated RBC % Puncture Site Arterial Line ABG pH 7.27 L D ABG pCO2 67 H ABG pO2 70 L ABG HCO3 30 H ABG O2 Saturation 93 ABG Base Excess 2 FiO2 100 Sodium Potassium 5.0 Chloride Carbon Dioxide Anion Gap BUN Creatinine Estim Creat Clear Calc eGFR BUN/Creatinine Ratio Glucose Calculated Osmolality Calcium Corrected Calcium Total Bilirubin AST ALT Alkaline Phosphatase Total Protein Albumin Globulin Albumin/Globulin Ratio ANCA Screen NEGATIVE c-ANCA Titer TNP Anti-Proteinase 3 <1.0 p-ANCA Titer TNP Atypical p-ANCA Titer TNP Anti-Myeloperoxidase <1.0 03/14/25 04:59 WBC 11.6 H RBC 3.43 L Hgb 10.3 L Hct 31.9 L MCV 93 MCH 30.0 MCHC 32.3 RDW Std Deviation 48.5 H Plt Count 216 Neut % (Auto) 76 Lymph % (Auto) 11 Burt % (Auto) 10 Eos % (Auto) 2 Baso % (Auto) 0 Neut # (Auto) 8.8 H Lymph # (Auto) 1.3 Burt # (Auto) 1.2 H Eos # (Auto) 0.2 Baso # (Auto) 0.0 Immature Gran # (Auto) 0.18 H Absolute Nucleated RBC 0.00 Immature Gran % 2 H Nucleated RBC % 0 Puncture Site ABG pH ABG pCO2 ABG pO2 ABG HCO3 ABG O2 Saturation ABG Base Excess FiO2 Sodium 133 L Potassium 4.8 Chloride 98 Carbon Dioxide 29.2 Anion Gap 6 L BUN 24 H Creatinine 1.1 Estim Creat Clear Calc 60.7 L eGFR > 60 BUN/Creatinine Ratio 22 H Glucose 135 H D Calculated Osmolality 272 L Calcium 8.8 Corrected Calcium 9.3 Total Bilirubin 0.3 AST 155 H ALT 167 H Alkaline Phosphatase 77 D Total Protein 5.7 Albumin 3.4 Globulin 2.3 Albumin/Globulin Ratio 1.5 ANCA Screen c-ANCA Titer Anti-Proteinase 3 p-ANCA Titer Atypical p-ANCA Titer Anti-Myeloperoxidase ABG Interpretation ABG results: 03/02/25 03/04/25 03/05/25 20:40 09:20 15:30 ABG pH 7.45 7.43 7.44 ABG pCO2 42 46 47 ABG pO2 60 L 77 L 56 L* D ABG HCO3 29 H 31 H 32 H ABG O2 Saturation 92 96 90 L ABG Base Excess 4 H 5 H 7 H VBG pH VBG pCO2 VBG pO2 VBG Base Excess 03/09/25 03/11/25 03/12/25 10:40 14:20 08:06 ABG pH 7.47 H 7.47 H 7.46 H ABG pCO2 41 43 42 ABG pO2 65 L 53 L* 64 L ABG HCO3 30 H 31 H 29 H ABG O2 Saturation 94 88 L 93 ABG Base Excess 6 H 6 H 5 H VBG pH VBG pCO2 VBG pO2 VBG Base Excess 03/12/25 03/12/25 03/13/25 17:44 18:14 04:20 ABG pH 7.37 7.37 ABG pCO2 53 H D 58 H ABG pO2 69 L 63 L ABG HCO3 30 H 33 H ABG O2 Saturation 93 92 ABG Base Excess 4 H 6 H VBG pH 7.39 VBG pCO2 49 VBG pO2 65 H VBG Base Excess 4 H 03/14/25 04:25 ABG pH 7.27 L D ABG pCO2 67 H ABG pO2 70 L ABG HCO3 30 H ABG O2 Saturation 93 ABG Base Excess 2 VBG pH VBG pCO2 VBG pO2 VBG Base Excess Quality Measures Quality Measures VTE prophylaxis Advance care planning discussed with:: patient Assessment & Plan Assessment Current Active Medications: Generic Name Dose Route Start Last Admin Trade Name Freq PRN Reason Stop Dose Admin Acetaminophen 650 mg 03/04/25 08:23 Acetaminophen 325 Mg Tablet PO 04/01/25 17:22 Q6H PRN Fever >100.3 Albuterol/Ipratropium 3 ml 03/07/25 11:00 03/14/25 00:53 Albuterol/Ipratropium (Duoneb) Rt Latisha 3 Ml Nebu INH 04/04/25 18:59 3 ml Q4HRRT PRN Administration wheezing or SOB Atorvastatin Calcium 10 mg 03/03/25 21:00 03/13/25 20:35 Atorvastatin Calcium 10 Mg Tablet PO 04/02/25 20:59 10 mg HS CHRISTIANO Administration Fluvoxamine Mal 100 0 ea 03/07/25 20:15 03/13/25 20:35 Mg Tablets PO 04/06/25 20:14 1.5 tablet QDAY@2000 CHRISTIANO Administration Divalproex Sodium 1,000 mg 03/02/25 21:00 03/13/25 20:[address] 500 Mg Tablet.Dr PO 04/01/25 20:59 1,000 mg HS CHIRSTIANO Administration Dutasteride 0.5 mg 03/03/25 09:00 03/14/25 09:31 Dutasteride 0.5 Mg Capsule (Non-Formulary) PO 04/02/25 08:59 Not Given QDAY CHRISTIANO Fluconazole 800 mg 03/13/25 10:00 03/14/25 09:30 Fluconazole 100 Mg Tablet PO 03/20/25 09:59 800 mg QDAY CHRISTIANO Administration Fentanyl Citrate 2,500 mcg in 250 mls @ 2.5 mls/hr 03/12/25 16:06 03/14/25 13:00 Sublimaze Inj 2,500 Mcg/250 Ml Bag IV 03/17/25 16:05 125 mcg/hr .Q24H PRN 12.5 mls/hr PER PROTOCOL Titration Protocol 25 MCG/HR Norepinephrine/Dextrose 8 mg in 250 mls @ 7.397 mls/hr 03/13/25 10:36 03/14/25 13:00 Levophed In D5w 8mg/250ml IV 04/12/25 10:35 0.23 mcg/kg/min .Q24H PRN 34.026 mls/hr PER PROTOCOL Titration Protocol 0.05 MCG/KG/MIN Amiodarone HCl/Dextrose 360 mg in 200 mls @ 16.667 mls/hr 03/13/25 16:46 03/14/25 05:00 Nexterone Ivpb IV 03/14/25 16:45 16.667 mls/hr .Q12H CHRISTIANO Administration Amphotericin B 243 mg/ 160.75 mls @ 80.375 mls/hr 03/14/25 11:00 03/14/25 11:18 Dextrose IV 03/18/25 12:59 80.375 mls/hr QDAY@1100 CHRISTIANO Administration Magnesium Hydroxide 30 ml 03/02/25 17:23 Milk Of Magnesia Susp 30 Ml Udc PO 04/01/25 17:22 QDAY PRN CONSTIPATION Protocol Metoprolol Tartrate 12.5 mg 03/13/25 09:30 03/13/25 20:28 Metoprolol Tartrate 25 Mg Tablet PO 04/12/25 09:29 Not Given BID CHRISTIANO Midodrine 5 mg 03/10/25 22:00 03/13/25 05:21 Midodrine 5 Mg Tablet PO 04/08/25 21:59 5 mg TID CHRISTIANO Administration Ondansetron HCl 4 mg 03/02/25 17:23 Ondansetron Inj 2 Mg/Ml Inj 2 Ml IV 04/01/25 17:22 Q6H PRN NAUSEA OR VOMITING Protocol Pantoprazole Sodium 40 mg 03/07/25 11:15 03/14/25 09:31 Pantoprazole Inj 40 Mg Vial IVP 04/06/25 11:14 40 mg QDAY CHRISTIANO Administration Risperidone 2 mg 03/02/25 21:00 03/13/25 20:35 Risperidone 1 Mg Tablet PO 04/01/25 20:59 2 mg HS CHRISTIANO Administration Sodium Chloride 3 ml 03/02/25 12:21 Sodium Chloride Rt Latisha 0.9% 3 Ml Nebu INH 04/01/25 12:20 PRN PRN SOLN Plan 74-year-old male with PMH of intellectual disability, deafness, OCD, intermittent explosive disorder, type 2 diabetes, hyperlipidemia, GERD, heart failure EF 35-40 status post ICD, COPD on 2-3 L baseline (never smoker), prostate CA and seizures who was brought to [facility] from his skilled nursing after he was noted to have oxygen desaturations on routine testing with pulse oximeter. Per patient caregiver at bedside and they denied any fever, cough, sick contacts, nausea, vomiting, just increased oxygen requirement. On arrival to the ED patient was requiring 6L O2, rest of vitals within normal limits Chest x-ray showed bilateral patchy infiltrates. Patient was admitted to teemetry due to acute hypoxic respiratory failure for further management. Patient's oxygen requirements have continued to increase, thus ICU was initially consulted on 03/09 at that time on HFNC 40L 100%FiO2, saturating adequately 92%, which is fine for a COPD patient, he doesn't appear in acute distress, no use of accessory muscles. There was new worsening of bilateral infiltrates concerning for ARDS, less likley to be related to heart failure since kaveh has no JVD, no LE edema. Recommendations then where to continue antifungal, re-start antibiotics and continue to monitor for signs of decline. 03/12: Rapid response was called around 2:00pm due to patient being tachypneic, increased work of breathing with accessory muscle use. It was determined patient needed to be intubated and admitted to the ICU. 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 We gave metoprolol 5 IV push x1 and started amiodarone drip, which brought him back to sinus. -03/14: Back in afib, rate controlled, continue amio drip Respiratory #Acute hypoxic respiratory failure -In the setting of severe pulmonary cocci infection -Patient initially on NC 6L, increased oxygen requirement, placed on HFNCfor several days -Increased tachypnea and work of breathing with accessory muscle use, patient intubate don 03/12 -Continue lung protective parameters -Continue Fluconazole 800 -Amphotericin B Renal -Stable (Had an episode of decreased urine output for 12 hrs aprox, putting out 10cc/hr, last night improved back to >40cchr, creatinine downtrended) Endocrine -Stable GI -Stable ID #Coccidioidomycosis #Sepsis -Patient's cocci positive, pending confirmatory from [facility] Jared -Fluzonazole dose increased to 800, continuing Unasyn for superimposed bacerial pneumonia -We will do an LP to rule out disseminated cocci, however waiting on eliquis to wear off -Startinf amphotericin B, since patient'a renal function back to normal, we wll continue fluconazole as amphotericin doesn't cross the blood brain barrier. We will dc once LP is done and meningeal cocci has been ruled out Disposition: Patient upgrated to ICU due to AHRF requiring intubation in the setting of ARDS from severe cocci infection Diet and fluids:NPO DVT prophylaxis:Holding for LP GI prophylaxis:Pantoprazole CODE STATUS:FULL CODE Beatty:In place Lines:Peripheral, central and a line Patient's care discussed with attending physician, Dr Rina Willis MD PGY3
--- NOTE | 2025-03-14 15:13 | PC.SS ---
Rounding Note: Patient remains intubated/sedated. Patient receiving IV antibiotics. LP pending. Cardiology consulting.
[2025-03-14] MEDS: FLUVOXAMINE 100 MG PO (20:52)
[2025-03-14] MEDS: ATORVASTATIN CALCIUM 10 MG TABLET PO (20:53)
[2025-03-14] MEDS: risperiDONE 1 MG TABLET 2 MG PO (20:53)
[2025-03-14] MEDS: DIVALPROEX SOD DR 500 MG TABLET.DR 1000 MG PO (20:55)
[2025-03-15] VITALS (116 sets, daily range): BP systolic 75–164; BP diastolic 41–75; PULSE 74–155; RESP 0–27; TEMP 36.3–38.6; O2SAT 63–94
[2025-03-15] MEDS: Norepinephrine/D5W 8mg/250ml 8 MG/250 ML BAG 34.026 MG IV (04:00)
[2025-03-15 04:51] LABS: Base Excess 4 (-3-3); HCO3 31 mEq/L (20-26); Inspired Oxygen, FIO2 100 %; O2 Saturation 91 % (91-98); PCO2 59 mmHg (32.0-48.0); PO2 60 mmHg (83-108); pH, Arterial 7.33 (7.35-7.45)
[2025-03-15 04:56] LABS: Allen Test Not Performed; Puncture Site Arterial Line
[2025-03-15 05:59] LABS: Basophils % (Auto) 0 % (0-2.5); Eosinophils # (Auto) 0.4 Thou/mm3 (0.0-0.5); Eosinophils % (Auto) 3 % (0-10); Hematocrit 28.8 % (41.0-53.0); Hemoglobin 9.6 g/dL (13.5-16.0); Immature Granulocytes % (Auto) 2 % (0-0); Immature Granulocytes Auto 0.19 Thou/mm3 (0.00-0.00); Lymphocytes # (Auto) 0.8 Thou/mm3 (1.0-4.8); Lymphocytes % (Auto) 6 % (10-50); Mean Corpuscular HGB Conc 33.3 g/dl (31.0-37.0); Mean Corpuscular Hemoglobin 29.8 pg (25.0-35.0); Mean Corpuscular Volume 89 fL (80-100); Monocytes # (Auto) 1.4 Thou/mm3 (0.0-0.8); Monocytes % (Auto) 11 % (0-12); Neutrophils # (Auto) 10.1 Thou/mm3 (1.8-7.7); Neutrophils % (Auto) 78 % (37-80); Nucleated Red Blood Cell % 0 /100 WBC (0); Platelet Count 201 Thou/mm3 (140-440); RDW Standard Deviation 46.5 fL (35.1-43.9); Red Blood Count 3.22 Miln/mm3 (4.50-5.90); White Blood Count 12.8 Thou/mm3 (3.8-10.6)
[2025-03-15 06:45] LABS: Alanine Aminotransferase 123 U/L (10-49); Albumin/Globulin Ratio 1.2 (1.2-2.2); Alkaline Phosphatase 98 U/L (46-116); Anion Gap 5 (7-16); Aspartate Amino Transferase 64 U/L (0-34); BUN/Creatinine Ratio 17 Ratio (12-20); Bilirubin,Total 0.3 mg/dL (0.3-1.2); Blood Urea Nitrogen 25 mg/dL (9-23); Calcium (Corrected) 9.8 mg/dL (8.5-10.1); Carbon Dioxide 28.1 mMol/L (20.0-31.0); Chloride 98 mMol/L (98-107); Creatinine (Component) 1.5 mg/dL (0.6-1.3); Estimated Creatinine Clearance 44.5 mL/min (>60); Globulin 2.5 gm/dL (2.3-3.5); Glucose 170 mg/dL (74-106); Osmolality,Calculated 271 (275-295); Potassium 4.3 mMol/L (3.4-5.1); Sodium 131 mMol/L (136-145); Total Protein 5.5 gm/dL (5.7-8.2); eGFR 49 See Note
[2025-03-15] MEDS: fentaNYL 2,500 MCG/250 ML BAG 2,500 MCG/250 ML BAG 22.5 MCG IV ×2 (06:48→17:07)
[2025-03-15] MEDS: MIDAZOLAM INJ 1 MG/ML VIAL 2 ML 2 MG IV ×2 (07:54→10:36)
[2025-03-15] MEDS: AMIODARONE 360 MG IVPB 360 MG/200 ML BAG 16.667 MG IV ×2 (08:08→20:46)
[2025-03-15] MEDS: PANTOPRAZOLE INJ 40 MG VIAL IVP (08:09)
--- NOTE | 2025-03-15 09:41 | PD.RESPRO ---
Documentation for date of: 03/15/25 Subjective Subjective Interval history: No acute overnight events. Seen and examined at bedside in ICU and remains on mechanical ventilation with VT 400, RR 24, PEEP 12, FiO2 100% saturating 90%. Otherwise blood pressure 119/50 with Levophed drip at 0.23 mcg/kg and heart rate of 85 with normal sinus rhythm on monitor. Labs reviewed and WBC 12.8, hemoglobin 9.6. ABG today showed pH 7.3, pCO2 59, pO2 60. Na 131, K 4.3, BUN 25, renal function worsening with Cr 1.5 (1.1), LFTs improving with AST/ALT 64/123 (155/167). Recommend to follow magnesium given atrial fibrillation. 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), oral mucosa moist Cardiovascular: regular rate and rhythm, S1/S2 present, no murmurs appreciated Pulmonary: clear to auscultation bilaterally, no rales/rhonchi/wheezes Abdominal: soft, non-tender, non-distended, no rebound/guarding, normal bowel sounds present Musculoskeletal: normal ROM, no peripheral edema Skin: warm and dry, intact, no rashes Objective Labs 03/15/25 04:56 03/15/25 04:56 Labs: Laboratory Results - last 24 hr 03/15/25 03/15/25 04:15 04:56 WBC 12.8 H RBC 3.22 L Hgb 9.6 L Hct 28.8 L MCV 89 MCH 29.8 MCHC 33.3 RDW Std Deviation 46.5 H Plt Count 201 Neut % (Auto) 78 Lymph % (Auto) 6 L Ralls % (Auto) 11 Eos % (Auto) 3 Baso % (Auto) 0 Neut # (Auto) 10.1 H Lymph # (Auto) 0.8 L Ralls # (Auto) 1.4 H Eos # (Auto) 0.4 Baso # (Auto) 0.0 Immature Gran # (Auto) 0.19 H Absolute Nucleated RBC 0.00 Immature Gran % 2 H Nucleated RBC % 0 Puncture Site Arterial Line ABG pH 7.33 L ABG pCO2 59 H ABG pO2 60 L ABG HCO3 31 H ABG O2 Saturation 91 ABG Base Excess 4 H FiO2 100 Sodium 131 L Potassium 4.3 D Chloride 98 Carbon Dioxide 28.1 Anion Gap 5 L BUN 25 H Creatinine 1.5 H Estim Creat Clear Calc 44.5 L eGFR 49 L BUN/Creatinine Ratio 17 Glucose 170 H Calculated Osmolality 271 L Calcium 9.0 Corrected Calcium 9.8 Total Bilirubin 0.3 AST 64 H ALT 123 H Alkaline Phosphatase 98 D Total Protein 5.5 L Albumin 3.0 L Globulin 2.5 Albumin/Globulin Ratio 1.2 ABG Interpretation ABG results: 03/02/25 03/04/25 03/05/25 20:40 09:20 15:30 ABG pH 7.45 7.43 7.44 ABG pCO2 42 46 47 ABG pO2 60 L 77 L 56 L* D ABG HCO3 29 H 31 H 32 H ABG O2 Saturation 92 96 90 L ABG Base Excess 4 H 5 H 7 H VBG pH VBG pCO2 VBG pO2 VBG Base Excess 03/09/25 03/11/25 03/12/25 10:40 14:20 08:06 ABG pH 7.47 H 7.47 H 7.46 H ABG pCO2 41 43 42 ABG pO2 65 L 53 L* 64 L ABG HCO3 30 H 31 H 29 H ABG O2 Saturation 94 88 L 93 ABG Base Excess 6 H 6 H 5 H VBG pH VBG pCO2 VBG pO2 VBG Base Excess 03/12/25 03/12/25 03/13/25 17:44 18:14 04:20 ABG pH 7.37 7.37 ABG pCO2 53 H D 58 H ABG pO2 69 L 63 L ABG HCO3 30 H 33 H ABG O2 Saturation 93 92 ABG Base Excess 4 H 6 H VBG pH 7.39 VBG pCO2 49 VBG pO2 65 H VBG Base Excess 4 H 03/14/25 03/15/25 04:25 04:15 ABG pH 7.27 L D 7.33 L ABG pCO2 67 H 59 H ABG pO2 70 L 60 L ABG HCO3 30 H 31 H ABG O2 Saturation 93 91 ABG Base Excess 2 4 H VBG pH VBG pCO2 VBG pO2 VBG Base Excess Quality Measures Quality Measures VTE prophylaxis Advance care planning discussed with:: patient Assessment & Plan Assessment Current Active Medications: Generic Name Dose Route Start Last Admin Trade Name Freq PRN Reason Stop Dose Admin Acetaminophen 650 mg 03/04/25 08:23 Acetaminophen 325 Mg Tablet PO 04/01/25 17:22 Q6H PRN Fever >100.3 Albuterol/Ipratropium 3 ml 03/07/25 11:00 03/14/25 00:53 Albuterol/Ipratropium (Duoneb) Rt Latisha 3 Ml Nebu INH 04/04/25 18:59 3 ml Q4HRRT PRN Administration wheezing or SOB Atorvastatin Calcium 10 mg 03/03/25 21:00 03/14/25 20:53 Atorvastatin Calcium 10 Mg Tablet PO 04/02/25 20:59 10 mg HS CHRISTIANO Administration Fluvoxamine Mal 100 0 ea 03/07/25 20:15 03/14/25 20:52 Mg Tablets PO 04/06/25 20:14 1.5 tablet QDAY@2000 CHRISTIANO Administration Divalproex Sodium 1,000 mg 03/02/25 21:00 03/14/25 20:[address] 500 Mg Tablet.Dr PO 04/01/25 20:59 1,000 mg HS CHRISTIANO Administration Dutasteride 0.5 mg 03/03/25 09:00 03/14/25 09:31 Dutasteride 0.5 Mg Capsule (Non-Formulary) PO 04/02/25 08:59 Not Given QDAY CHRISTIANO Fluconazole 800 mg 03/13/25 10:00 03/14/25 09:30 Fluconazole 100 Mg Tablet PO 03/20/25 09:59 800 mg QDAY CHRISTIANO Administration Fentanyl Citrate 2,500 mcg in 250 mls @ 2.5 mls/hr 03/12/25 16:06 03/15/25 08:00 Sublimaze Inj 2,500 Mcg/250 Ml Bag IV 03/17/25 16:05 225 mcg/hr .Q24H PRN 22.5 mls/hr PER PROTOCOL Titration Protocol 25 MCG/HR Norepinephrine/Dextrose 8 mg in 250 mls @ 7.397 mls/hr 03/13/25 10:36 03/15/25 08:00 Levophed In D5w 8mg/250ml IV 04/12/25 10:35 0.23 mcg/kg/min .Q24H PRN 34.026 mls/hr PER PROTOCOL Titration Protocol 0.05 MCG/KG/MIN Amphotericin B 243 mg/ 160.75 mls @ 80.375 mls/hr 03/14/25 11:00 03/14/25 11:18 Dextrose IV 03/18/25 12:59 80.375 mls/hr QDAY@1100 CHRISTIANO Administration Amiodarone HCl/Dextrose 360 mg in 200 mls @ 16.667 mls/hr 03/15/25 07:45 03/15/25 08:08 Nexterone Ivpb IV 03/16/25 07:44 16.667 mls/hr .Q12H CHRISTIANO Administration Magnesium Hydroxide 30 ml 03/02/25 17:23 Milk Of Magnesia Susp 30 Ml Udc PO 04/01/25 17:22 QDAY PRN CONSTIPATION Protocol Metoprolol Tartrate 12.5 mg 03/13/25 09:30 03/13/25 20:28 Metoprolol Tartrate 25 Mg Tablet PO 04/12/25 09:29 Not Given BID CHRISTIANO Midodrine 5 mg 03/10/25 22:00 03/13/25 05:21 Midodrine 5 Mg Tablet PO 04/08/25 21:59 5 mg TID CHRISTIANO Administration Ondansetron HCl 4 mg 03/02/25 17:23 Ondansetron Inj 2 Mg/Ml Inj 2 Ml IV 04/01/25 17:22 Q6H PRN NAUSEA OR VOMITING Protocol Pantoprazole Sodium 40 mg 03/07/25 11:15 03/15/25 08:09 Pantoprazole Inj 40 Mg Vial IVP 04/06/25 11:14 40 mg QDAY CHRISTIANO Administration Risperidone 2 mg 03/02/25 21:00 03/14/25 20:53 Risperidone 1 Mg Tablet PO 04/01/25 20:59 2 mg HS CHRISTIANO Administration Sodium Chloride 3 ml 03/02/25 12:21 Sodium Chloride Rt Latisha 0.9% 3 Ml Nebu INH 04/01/25 12:20 PRN PRN SOLN Plan WD Dexter is a 74-year-old male with a past medical history of developmental delay with some mental retardation, mute as well as deaf but able to do few daily ADLs including taking care of himself, diabetes mellitus, hyperlipidemia, OCD, bipolar disorder lives in a [place] [facility] was brought into the emergency department for 3 days of hypoxia secondary to pneumonia. Cardiology was originally consulted for possible CHF exacerbation given the hypoxia. 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 Etiology of the hypoxia likely driven due to pneumonia as no signs of decompensated heart failure at this time. Appears euvolemic with no JVD or significant bilateral lower extremity edema noted. CT chest on 03/04 showed severe bilateral pneumonia. Infectious disease following. Fuconazole switched to amphotericin B and steroids discontinued as cocci IgM positive. Ampicillin also added for possible superimposed bacterial pneumonia. Remains on Levophed drip. #Atrial fibrillation with RVR Patient has history of a-fib with RVR and has been in and out of sinus rhythm per EKGs during hospitalization but was noted to become tachycardic into the 160s on 03/13 that was not responsive to metoprolol IV x 1 and so was started on amiodarone drip. After first bolus, patient converted to NSR with heart rate in the 70s. Labs after starting amiodarone showed elevated LFTs with AST/ALT of 155/167 and previously was . ? On amiodarone drip but recommend to switch given history of lung disease ? Hold metoprolol given low blood pressures ? Continue home Eliquis of 5 mg twice daily ? Keep K >4 and magnesium >2 at all times #History HFrEF s/p ICD placement, compensated (EF 35-40%) #Nonischemic cardiomyopathy Presented about a year ago due to new onset heart failure. Echocardiogram at that time showed an EF of 35% with multiple regional wall motion abnormality, could be secondary to left bundle branch at that time. Decision was made to place a ICD on 08/2024. Echo this admission on 03/03/2025 showed normal LV size and function, EF 35 to 40%, grade 1 diastolic dysfunction, no RWMAs, normal RV size and function, RVSP 40 to 45 mmHg, mild TR, trivial PI and MR. Currently patient is euvolemic with a BNP less than 20. No troponin elevation. The etiology of the hypoxia seems to be more driven due to the pneumonia rather than an acute HF exacerbation. Patient is warm and dry. No concern at this time for cardiogenic shock. Likely all driven due to respiratory failure at this point. ? Recommend holding diuretics for now ? Can also hold home Entresto given soft BP #History of developmental delay #History of seizures #History of prostate cancer #Normocytic anemia #History of type 2 diabetes ? Management of rest of the medical conditions as per primary team and other consultants ----- Plan discussed with attending physician Dr. Jose Barber MD PGY-1 Internal Medicine Attending Provider Attestation/Addendum I have personally seen and examined the patient separately on the above date of service and discussed the plan of care with the resident. I reviewed the resident Dr. Reza Barber consultation progress note and agree with the resident findings and plan in the note above and have also edited the documentation to reflect my findings and plan. Felipe Garcia M.D. Interventional Cardiology
--- NOTE | 2025-03-15 09:44 | XR_ITS ---
Examination: AP chest single view TECHNIQUE: AP portable semiupright chest single view Exam date and time: March 15, 2025 at 10:00 AM Comparison March 13, 2025 INDICATIONS: Acute hypoxic respiratory failure, pneumonia ARDS this week postintubation FINDINGS: Severe bilateral lung opacity Normal heart size Endotracheal tube tip 7.6 cm above sedrick Right internal jugular central line tip SVC satisfactory position Orogastric tube in stomach Stable position position ventricular cardiac lead IMPRESSION: Severe bilateral pneumonia ARDS pattern remains
[2025-03-15] MEDS: DUTASTERIDE 0.5 MG CAPSULE (NON-FORMULARY) PO (11:37)
[2025-03-15] MEDS: Norepinephrine/D5W 8mg/250ml 8 MG/250 ML BAG 25.149 MG IV (12:25)
--- NOTE | 2025-03-15 12:41 | PC.SS ---
Update: Patient remains intubated/sedated. Max support on ventilation. Receiving tube feedings. At goal with feedings. Patient receiving pressors. No pending procedures. No skin issues.
[2025-03-15] MEDS: ACETAMINOPHEN 325 MG TABLET 650 MG PO (12:51)
[2025-03-15] MEDS: RINGERS LACTATED 1000 ML 500 ML 999 ML IV (13:04)
--- NOTE | 2025-03-15 13:07 | PC.RT ---
pts. oxygen sats were 76% I took him off the vent,which he is on 100% fio with peep of 12, to bag him on peep of 15 to increase his oxygen sats but was only able to increase to increase his sats to 80%. I bagged him for 20 mins. and placed him back on vent and Dr Flynn said no more bagging the patient, he isn't going to get any better will speak to the person in charge of his code status to make him a DNR. Dr Flynn changed his code status to DNR.
--- NOTE | 2025-03-15 13:44 | PC.RT ---
per Dr. Flynn, I DC'd respiratory txs and cpt.
[2025-03-15] MEDS: AMPHOTERICIN B LIPOSOME IV (14:33)
[2025-03-15] MEDS: WATER IV (14:33)
[2025-03-15] MEDS: DEXTROSE 5% IV (14:33)
--- NOTE | 2025-03-15 14:45 | PD.IDPROG ---
Subjective Subjective Interval history: changed to ampho, ards persists. no viral panel noted. doing poorly overall, sats in the 60's on 100% o2. explained situation to caregiver. he is outside some, Exam Vital Signs Temp Pulse Resp BP Pulse Ox O2 Del Method O2 Flow Rate 99.1 F 113 H 26 H 85/47 L 69 L Mechanical Ventilation 30 03/15/25 14:33 03/15/25 14:30 03/15/25 10:15 03/15/25 14:30 03/15/25 14:30 03/15/25 12:15 03/12/25 15:45 FiO2 100 03/15/25 14:22 Narrative Exam ards with intolerance of movement and pos cocci after a neg one. Objective - Internal Medicine Labs 03/15/25 04:56 03/15/25 04:56 Labs: Laboratory Results - last 24 hr 03/15/25 03/15/25 04:15 04:56 WBC 12.8 H RBC 3.22 L Hgb 9.6 L Hct 28.8 L MCV 89 MCH 29.8 MCHC 33.3 RDW Std Deviation 46.5 H Plt Count 201 Neut % (Auto) 78 Lymph % (Auto) 6 L Charlton % (Auto) 11 Eos % (Auto) 3 Baso % (Auto) 0 Neut # (Auto) 10.1 H Lymph # (Auto) 0.8 L Charlton # (Auto) 1.4 H Eos # (Auto) 0.4 Baso # (Auto) 0.0 Immature Gran # (Auto) 0.19 H Absolute Nucleated RBC 0.00 Immature Gran % 2 H Nucleated RBC % 0 Puncture Site Arterial Line ABG pH 7.33 L ABG pCO2 59 H ABG pO2 60 L ABG HCO3 31 H ABG O2 Saturation 91 ABG Base Excess 4 H FiO2 100 Sodium 131 L Potassium 4.3 D Chloride 98 Carbon Dioxide 28.1 Anion Gap 5 L BUN 25 H Creatinine 1.5 H Estim Creat Clear Calc 44.5 L eGFR 49 L BUN/Creatinine Ratio 17 Glucose 170 H Calculated Osmolality 271 L Calcium 9.0 Corrected Calcium 9.8 Total Bilirubin 0.3 AST 64 H ALT 123 H Alkaline Phosphatase 98 D Total Protein 5.5 L Albumin 3.0 L Globulin 2.5 Albumin/Globulin Ratio 1.2 ABG Interpretation ABG results: 03/02/25 03/04/25 03/05/25 20:40 09:20 15:30 ABG pH 7.45 7.43 7.44 ABG pCO2 42 46 47 ABG pO2 60 L 77 L 56 L* D ABG HCO3 29 H 31 H 32 H ABG O2 Saturation 92 96 90 L ABG Base Excess 4 H 5 H 7 H VBG pH VBG pCO2 VBG pO2 VBG Base Excess 03/09/25 03/11/25 03/12/25 10:40 14:20 08:06 ABG pH 7.47 H 7.47 H 7.46 H ABG pCO2 41 43 42 ABG pO2 65 L 53 L* 64 L ABG HCO3 30 H 31 H 29 H ABG O2 Saturation 94 88 L 93 ABG Base Excess 6 H 6 H 5 H VBG pH VBG pCO2 VBG pO2 VBG Base Excess 03/12/25 03/12/25 03/13/25 17:44 18:14 04:20 ABG pH 7.37 7.37 ABG pCO2 53 H D 58 H ABG pO2 69 L 63 L ABG HCO3 30 H 33 H ABG O2 Saturation 93 92 ABG Base Excess 4 H 6 H VBG pH 7.39 VBG pCO2 49 VBG pO2 65 H VBG Base Excess 4 H 03/14/25 03/15/25 04:25 04:15 ABG pH 7.27 L D 7.33 L ABG pCO2 67 H 59 H ABG pO2 70 L 60 L ABG HCO3 30 H 31 H ABG O2 Saturation 93 91 ABG Base Excess 2 4 H VBG pH VBG pCO2 VBG pO2 VBG Base Excess Assessment & Plan A&P Narrative possible cocci pneumonia. atypical likely, here for 8d already. not improved with rx dm II other problems as noted. ok for ampho b will check in again Thursday AM prognosis poor. pt is notably dnr Time Spent With Patient Time: Total time spent is greater than 50% in coordination of care (as documented) at patient's floor/unit and/or counseling patient:
--- NOTE | 2025-03-15 15:43 | ESPR_ITS ---
<Statement entered by Britt Flynn MD - 03/16/25 11:35> TOTAL CC TIME: 90 MIN I saw and evaluated the patient. I reviewed the resident?s note and agree with findings and plan as documented in the resident?s note. Upon my evaluation, this patient had a high probability of imminent or life- threatening deterioration due to severe progressive ARDS, renal failure which required my direct attention, intervention, and personal management. This time is exclusive of time spent on procedures, which are documented separately if performed. Unfortunately despite being on amphotericin B and high-dose fluconazole his respiratory failure is progressively worse. Ventilation and oxygenation are substantially impaired. Repeat chest x-ray demonstrates a more diffuse disease process likely due to progressive ARDS with diffuse alveolar damage and fibrosis. Discussed case at length with Dr. Virk. Prognosis is grave. He is unlikely to survive. We are continuing aggressive care management including pressors. We are avoiding prone positioning due to his rapid desaturations when turned. We are abandoning the lumbar puncture given that patient decompensates quickly with turns. Intermittent Ambu bag eating has been performed for the first half of the day. Minimal to no benefit therefore this has been discontinued especially due to the risk for barotrauma. After the above was discussed with Dr. Virk he felt it was best to change the patient's CODE STATUS to DNR. Documentation for date of: 03/15/25 Subjective Subjective Interval history: 74-year-old male with PMH of intellectual disability, deafness, OCD, intermittent explosive disorder, type 2 diabetes, hyperlipidemia, GERD, heart failure EF 35-40 status post ICD, COPD on 2-3 L baseline (never smoker), prostate CA and seizures who was brought to [facility] his [facility] after he was noted to have oxygen desaturations on routine testing with pulse oximeter. Per patient caregiver at bedside and they denied any fever, cough, sick contacts, nausea, vomiting, just increased oxygen requirement. On arrival to the ED patient was requiring 6L O2, rest of vitals within normal limits Chest x-ray showed bilateral patchy infiltrates. [facility] to acute hypoxic respiratory failure for further management. Patient's oxygen requirements have continued to increase, thus ICU was initially consulted on 03/09 at that time on HFNC 40L 100%FiO2, saturating adequately 92%, which is fine for a COPD patient, he doesn't appear in acute distress, no use of accessory muscles. There was new worsening of bilateral infiltrates concerning for ARDS, less likley to be related to heart failure since kaveh has no JVD, no LE edema. Recommendations then where to continue antifungal, re-start antibiotics and continue to monitor for signs of decline. 03/12: Rapid response was called around 2:00pm due to patient being tachypneic, increased work of breathing with accessory muscle use. It was determined patient needed to be intubated and admitted to the ICU. We will increase dose of Fluconazole to 800 and we will consider getting an LP to test for disseminated cocci. 03/13: No overnight events patent had good urine output last night, 450 ccs. This morning patient became hypoxic down to the 60s, had to be bagged, during the same time patient's HR increased to the 160s, fluctuating beween 150-110, on the monitor we appreciated bigemini, trigemini, posteriorly just irregular. We gave metoprolol 5 IV push x1 and started amiodarone drip, which brought him back to sinus. MAP dropped under 65, started pressors. We also gave one liter fluid bolus. Urine output posteriorly dropped to 20 cc/hr and has maintained like that throughout the day. Arterial line placed. 03/14: Overnight patient had another hypoxic event, required bagging with improvement. O2 sat has mantained above 90 since. He remains on pressor support. We will continue our goal of pH above 7.25, RR at 24 today. Continue same vent settings: VT400, RR24, PEEP12. We added amphotericin B today,(as kidney function improve, making >40cc hr of urie and creatinine downtrended) leaving fluconazole in as amphotericin doesn't cross the blood brain barrier and we still dont have an LP, we are waiting for >72 hrs to go by after stopping Eliquis. : No overnight events, however thoughout the morning patient had several episodes of dropping O2, desatting into the low 60s, had to be bagged,patient experienced multiple transient arrythmias, durig periods of significant hypoxia, rythm was intermittently irregular with with heart rates fluctuating between 160s and 100s. Notably the rythm did not display classic features of afib, but was chaotic and disorganized. Patient also developed a fever. Chest x ray doesn't appear worse than previous, we are adding prednisone and antibiotics. Dr Virk was contacted and informed of patient's clinical status and poor prognosis, decision was made to switch code status to DNR/DNI. 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 Traquea midline. Nontender, carotid pulse 2+ bilaterally without bruits, no JVD.? CHEST: Heart rate and rythm normal, no murmurs, gallops auscultated. S1 & 2 normal insensity. Nontender on palpation, no deformity and no crepitus. LUNGS: Lung sounds are clear.? No wheezing, rales or ronchi.? No intercostal subcostal retraction. ABDOMEN: Soft,symmetric , nontender, no guarding or rebound tenderness. ? Bowel sounds are normoactive in all 4 quadrants. EXTREMITIES: Nontender.? No pitting edema.? No cyanosis.? SKIN: No rashes noted. Objective Labs 03/15/25 04:56 03/15/25 04:56 Labs: Laboratory Results - last 24 hr 03/15/25 03/15/25 04:15 04:56 WBC 12.8 H RBC 3.22 L Hgb 9.6 L Hct 28.8 L MCV 89 MCH 29.8 MCHC 33.3 RDW Std Deviation 46.5 H Plt Count 201 Neut % (Auto) 78 Lymph % (Auto) 6 L Major % (Auto) 11 Eos % (Auto) 3 Baso % (Auto) 0 Neut # (Auto) 10.1 H Lymph # (Auto) 0.8 L Major # (Auto) 1.4 H Eos # (Auto) 0.4 Baso # (Auto) 0.0 Immature Gran # (Auto) 0.19 H Absolute Nucleated RBC 0.00 Immature Gran % 2 H Nucleated RBC % 0 Puncture Site Arterial Line ABG pH 7.33 L ABG pCO2 59 H ABG pO2 60 L ABG HCO3 31 H ABG O2 Saturation 91 ABG Base Excess 4 H FiO2 100 Sodium 131 L Potassium 4.3 D Chloride 98 Carbon Dioxide 28.1 Anion Gap 5 L BUN 25 H Creatinine 1.5 H Estim Creat Clear Calc 44.5 L eGFR 49 L BUN/Creatinine Ratio 17 Glucose 170 H Calculated Osmolality 271 L Calcium 9.0 Corrected Calcium 9.8 Total Bilirubin 0.3 AST 64 H ALT 123 H Alkaline Phosphatase 98 D Total Protein 5.5 L Albumin 3.0 L Globulin 2.5 Albumin/Globulin Ratio 1.2 ABG Interpretation ABG results: 03/02/25 03/04/25 03/05/25 20:40 09:20 15:30 ABG pH 7.45 7.43 7.44 ABG pCO2 42 46 47 ABG pO2 60 L 77 L 56 L* D ABG HCO3 29 H 31 H 32 H ABG O2 Saturation 92 96 90 L ABG Base Excess 4 H 5 H 7 H VBG pH VBG pCO2 VBG pO2 VBG Base Excess 03/09/25 03/11/25 03/12/25 10:40 14:20 08:06 ABG pH 7.47 H 7.47 H 7.46 H ABG pCO2 41 43 42 ABG pO2 65 L 53 L* 64 L ABG HCO3 30 H 31 H 29 H ABG O2 Saturation 94 88 L 93 ABG Base Excess 6 H 6 H 5 H VBG pH VBG pCO2 VBG pO2 VBG Base Excess 03/12/25 03/12/25 03/13/25 17:44 18:14 04:20 ABG pH 7.37 7.37 ABG pCO2 53 H D 58 H ABG pO2 69 L 63 L ABG HCO3 30 H 33 H ABG O2 Saturation 93 92 ABG Base Excess 4 H 6 H VBG pH 7.39 VBG pCO2 49 VBG pO2 65 H VBG Base Excess 4 H 03/14/25 03/15/25 04:25 04:15 ABG pH 7.27 L D 7.33 L ABG pCO2 67 H 59 H ABG pO2 70 L 60 L ABG HCO3 30 H 31 H ABG O2 Saturation 93 91 ABG Base Excess 2 4 H VBG pH VBG pCO2 VBG pO2 VBG Base Excess Quality Measures Quality Measures VTE prophylaxis Advance care planning discussed with:: patient Assessment & Plan Assessment Current Active Medications: Generic Name Dose Route Start Last Admin Trade Name Freq PRN Reason Stop Dose Admin Acetaminophen 650 mg 03/04/25 08:23 03/15/25 12:51 Acetaminophen 325 Mg Tablet PO 04/01/25 17:22 650 mg Q6H PRN Administration Fever >100.3 Apixaban 5 mg 03/15/25 21:00 Apixaban 2.5 Mg Tablet PO 04/14/25 20:59 BID CHRISTIANO Atorvastatin Calcium 10 mg 03/03/25 21:00 03/14/25 20:53 Atorvastatin Calcium 10 Mg Tablet PO 04/02/25 20:59 10 mg HS CHRISTIANO Administration Fluvoxamine Mal 100 0 ea 03/07/25 20:15 03/14/25 20:52 Mg Tablets PO 04/06/25 20:14 1.5 tablet QDAY@2000 CHRISTIANO Administration Divalproex Sodium 1,000 mg 03/15/25 21:00 Divalproex Sod Er 250 Mg Moni (Non-Formulary) PO 04/14/25 20:59 HS CHRISTIANO Dutasteride 0.5 mg 03/03/25 09:00 03/15/25 11:37 Dutasteride 0.5 Mg Capsule (Non-Formulary) PO 04/02/25 08:59 0.5 mg QDAY CHRISTIANO Administration Fluconazole 800 mg 03/13/25 10:00 03/14/25 09:30 Fluconazole 100 Mg Tablet PO 03/20/25 09:59 800 mg QDAY CHRISTIANO Administration Fentanyl Citrate 2,500 mcg in 250 mls @ 2.5 mls/hr 03/12/25 16:06 03/15/25 14:00 Sublimaze Inj 2,500 Mcg/250 Ml Bag IV 03/17/25 16:05 225 mcg/hr .Q24H PRN 22.5 mls/hr PER PROTOCOL Titration Protocol 25 MCG/HR Norepinephrine/Dextrose 8 mg in 250 mls @ 7.397 mls/hr 03/13/25 10:36 03/15/25 14:00 Levophed In D5w 8mg/250ml IV 04/12/25 10:35 0.23 mcg/kg/min .Q24H PRN 34.026 mls/hr PER PROTOCOL Titration Protocol 0.05 MCG/KG/MIN Amphotericin B 243 mg/ 160.75 mls @ 80.375 mls/hr 03/14/25 11:00 03/15/25 14:33 Dextrose IV 03/18/25 12:59 80.375 mls/hr QDAY@1100 CHRISTIANO Administration Amiodarone HCl/Dextrose 360 mg in 200 mls @ 16.667 mls/hr 03/15/25 07:45 03/15/25 08:08 Nexterone Ivpb IV 03/16/25 07:44 16.667 mls/hr .Q12H CHRISTIANO Administration Magnesium Hydroxide 30 ml 03/02/25 17:23 Milk Of Magnesia Susp 30 Ml Udc PO 04/01/25 17:22 QDAY PRN CONSTIPATION Protocol Metoprolol Tartrate 12.5 mg 03/13/25 09:30 03/13/25 20:28 Metoprolol Tartrate 25 Mg Tablet PO 04/12/25 09:29 Not Given BID CHRISTIANO Midodrine 5 mg 03/10/25 22:00 03/13/25 05:21 Midodrine 5 Mg Tablet PO 04/08/25 21:59 5 mg TID CHRISTIANO Administration Ondansetron HCl 4 mg 03/02/25 17:23 Ondansetron Inj 2 Mg/Ml Inj 2 Ml IV 04/01/25 17:22 Q6H PRN NAUSEA OR VOMITING Protocol Pantoprazole Sodium 40 mg 03/07/25 11:15 03/15/25 08:09 Pantoprazole Inj 40 Mg Vial IVP 04/06/25 11:14 40 mg QDAY CHRISTIANO Administration Prednisone 40 mg 03/15/25 21:00 Prednisone 20 Mg Tablet PO 04/14/25 20:59 BID CHRISTIANO Risperidone 2 mg 03/02/25 21:00 03/14/25 20:53 Risperidone 1 Mg Tablet PO 04/01/25 20:59 2 mg HS CHRISTIANO Administration Sodium Chloride 3 ml 03/02/25 12:21 Sodium Chloride Rt Latisha 0.9% 3 Ml Nebu INH 04/01/25 12:20 PRN PRN SOLN Plan 74-year-old male with PMH of intellectual disability, deafness, OCD, intermittent explosive disorder, type 2 diabetes, hyperlipidemia, GERD, heart failure EF 35-40 status post ICD, COPD on 2-3 L baseline (never smoker), prostate CA and seizures who was brought to [facility] his [facility] after he was noted to have oxygen desaturations on routine testing with pulse oximeter. Per patient caregiver at bedside and they denied any fever, cough, sick contacts, nausea, vomiting, just increased oxygen requirement. On arrival to the ED patient was requiring 6L O2, rest of vitals within normal limits Chest x-ray showed bilateral patchy infiltrates. Patient was admitted to [facility] due to acute hypoxic respiratory failure for further management. Patient's oxygen requirements have continued to increase, thus ICU was initially consulted on 03/09 at that time on HFNC 40L 100%FiO2, saturating adequately 92%, which is fine for a COPD patient, he doesn't appear in acute distress, no use of accessory muscles. There was new worsening of bilateral infiltrates concerning for ARDS, less likley to be related to heart failure since paitient has no JVD, no LE edema. Recommendations then where to continue antifungal, re-start antibiotics and continue to monitor for signs of decline. 03/12: Rapid response was called around 2:00pm due to patient being tachypneic, increased work of breathing with accessory muscle use. It was determined patient needed to be intubated and admitted to the ICU. 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 We gave metoprolol 5 IV push x1 and started amiodarone drip, which brought him back to sinus. -03/14: Back in afib, rate controlled, continue amio drip -03/15: patient experienced multiple transient arrythmias, durig periods of significant hypoxia, rythm was intermittently irregular with with heart rates fluctuating between 160s and 100s. Notably the rythm did not display classic features of afib, but was chaotic and disorganized Respiratory #Acute hypoxic respiratory failure -In the setting of severe pulmonary cocci infection -Patient initially on NC 6L, increased oxygen requirement, placed on HFNCfor several days -Increased tachypnea and work of breathing with accessory muscle use, patient intubate don 03/12 -Continue lung protective parameters -Continue Fluconazole 800 -Amphotericin B Renal #DORY -Patients creatinine increased to 1.5 and BUN to 25, likely in the setting of shock and amphotericin B, howveer the benefits of amphotericin B at this time outweigh the DORY -We will consider discontinuing amphotericin B if creatinine continues to worsen. Endocrine -Stable GI -Stable ID #Coccidioidomycosis #Sepsis -Patient's cocci positive, pending confirmatory from [facility] -Fluzonazole dose increased to 800, continuing Unasyn for superimposed bacerial pneumonia -We will do an LP to rule out disseminated cocci, however waiting on eliquis to wear off -Startinf amphotericin B, since patient's renal function back to normal, we wll continue fluconazole as amphotericin doesn't cross the blood brain barrier. We will dc once LP is done and meningeal cocci has been ruled out -Unasyn added again, patient spiked a fever during hypoxic event, we will covere for a new superimposed bacterial infection Disposition: Patient upgrated to ICU due to AHRF requiring intubation in the setting of ARDS from severe cocci infection Diet and fluids:NPO DVT prophylaxis:Holding for LP GI prophylaxis:Pantoprazole CODE STATUS:FULL CODE, transitioned to DNR, after goals of care discussion with Dr Virk, patient's conservator. Beatty:In place Lines:Peripheral, central and a line Patient's care discussed with attending physician, Dr Rina Willis MD PGY3
--- NOTE | 2025-03-15 16:18 | PD.RESPROC ---
Procedures Procedure Date / Time 03/15/25 1618 Arterial Line Size (Gauge): 14 Central Line Placement Right IJ: Indication(s): shock Informed consent obtained: obtained from surrogate decision maker (conservator Dr Virk) Time out done, and the following verified: correct patient, side and site, procedure and patient position Patient placed on monitor/pulse ox: Yes Hand Hygiene: soap & water Max Sterile Barrier Techniques used: cap, mask, sterile gown, sterile gloves and sterile full body drape Central line prep: Chlorhexidine scrub Local anesthesia used: lidocaine 1% Amount of anesthesia used (mL): 5 Ultrasound used for placement: Yes Sterile Technique if Ultrasound used, including sterile gel: yes Central line lumen inserted: triple Post procedure: sutured in place, good blood return, all ports aspirated, flushed, capped and sterile dressing applied Post procedure x-ray: tip of catheter in good position and no pneumothorax seen Patient tolerated procedure: well and no complications Procedure comment: Late entry for procedure done on 03/13 The patient was placed in Trendelenburg position. The Right neck was prepped using chlorhexidine scrub and draped in sterile fashion. Using real-time ultrasound, with sterile probe cover and sterile gel, the introducer needle was inserted into the vein under direct ultrasound visualization. Venous blood was withdrawn. The syringe was removed and a guidewire was advanced into the introducer needle. The guidewire was visualized in the appropriate vein by ultrasound. A small incision was made at the skin surface with a scalpel and the introducer needle was exchanged for a dilator over the guidewire. After appropriate dilation was obtained, the dilator was exchanged over the wire for a central venous catheter. The wire was removed and the catheter was sutured in place. A biopatch was placed at the insertion site. A sterile op-site was placed over the catheter and biopatch. The patient tolerated the procedure without any hemodynamic compromise. At time of procedure completion, all ports aspirated and flushed properly. Chest X Ray afterwards, catheter in good position. Consent was obtained from patient's conservatot Dr Virk, by telephone, nurse witness. Patient's care discussed with attending physician, Dr Rina Willis MD PGY1
[2025-03-15] MEDS: AMPICILLIN/SULBAC INJ 3 GM in SODIUM CHLORIDE 0.9% (POP) 100 ML IV ×2 (17:08→23:58)
[2025-03-15] MEDS: VASOPRESSIN IN NS IVPB 20 UNIT/100 ML BAG 9 UNIT IV (17:08)
[2025-03-15] MEDS: Norepinephrine/D5W 8mg/250ml 8 MG/250 ML BAG 57.696 MG IV ×2 (19:00→23:33)
[2025-03-15] MEDS: DIVALPROEX SOD ER 250 MG TABER (NON-FORMULARY) 1000 MG PO (20:41)
[2025-03-15] MEDS: risperiDONE 1 MG TABLET 2 MG PO (20:42)
[2025-03-15] MEDS: APIXABAN 2.5 MG TABLET 5 MG PO (20:42)
[2025-03-15] MEDS: ATORVASTATIN CALCIUM 10 MG TABLET PO (20:42)
[2025-03-15] MEDS: predniSONE 20 MG TABLET 40 MG PO (20:42)
[2025-03-15] MEDS: FLUVOXAMINE 100 MG PO (20:43)
[2025-03-16] VITALS (113 sets, daily range): BP systolic 2–139; BP diastolic 2–77; PULSE 40–127; RESP 0–44; TEMP 36.4–37.8; O2SAT 60–73; BMI 28.9
[2025-03-16] MEDS: VASOPRESSIN IN NS IVPB 20 UNIT/100 ML BAG 9 UNIT IV ×2 (04:00→14:36)
[2025-03-16] MEDS: fentaNYL 2,500 MCG/250 ML BAG 2,500 MCG/250 ML BAG 22.5 MCG IV (04:05)
[2025-03-16] MEDS: Norepinephrine/D5W 8mg/250ml 8 MG/250 ML BAG 57.696 MG IV ×2 (04:29→09:13)
[2025-03-16 04:47] LABS: Base Excess 0 (-3-3); HCO3 29 mEq/L (20-26); Inspired Oxygen, FIO2 100 %; O2 Saturation 59 % (91-98); PCO2 69 mmHg (32.0-48.0); pH, Arterial 7.23 (7.35-7.45)
[2025-03-16 05:00] LABS: Allen Test Performed/OK; Puncture Site Left Radial
[2025-03-16 05:01] LABS: PO2 34 mmHg (83-108)
[2025-03-16 05:33] LABS: Basophils # (Auto) 0.1 Thou/mm3 (0.0-0.2); Basophils % (Auto) 0 % (0-2.5); Eosinophils % (Auto) 0 % (0-10); Hematocrit 28.4 % (41.0-53.0); Hemoglobin 9.3 g/dL (13.5-16.0); Immature Granulocytes % (Auto) 2 % (0-0); Immature Granulocytes Auto 0.34 Thou/mm3 (0.00-0.00); Lymphocytes # (Auto) 0.6 Thou/mm3 (1.0-4.8); Lymphocytes % (Auto) 3 % (10-50); Mean Corpuscular HGB Conc 32.7 g/dl (31.0-37.0); Mean Corpuscular Hemoglobin 29.8 pg (25.0-35.0); Mean Corpuscular Volume 91 fL (80-100); Monocytes # (Auto) 1.4 Thou/mm3 (0.0-0.8); Monocytes % (Auto) 8 % (0-12); Neutrophils # (Auto) 16.4 Thou/mm3 (1.8-7.7); Neutrophils % (Auto) 87 % (37-80); Nucleated Red Blood Cell % 0 /100 WBC (0); Platelet Count 222 Thou/mm3 (140-440); RDW Standard Deviation 49.5 fL (35.1-43.9); Red Blood Count 3.12 Miln/mm3 (4.50-5.90); White Blood Count 18.9 Thou/mm3 (3.8-10.6)
[2025-03-16] MEDS: AMPICILLIN/SULBAC INJ 3 GM in SODIUM CHLORIDE 0.9% (POP) 100 ML IV ×2 (05:36→20:56)
[2025-03-16 06:22] LABS: Alanine Aminotransferase 87 U/L (10-49); Albumin, Serum 3.1 gm/dL (3.4-4.8); Albumin/Globulin Ratio 1.2 (1.2-2.2); Alkaline Phosphatase 103 U/L (46-116); Anion Gap 6 (7-16); Aspartate Amino Transferase 61 U/L (0-34); BUN/Creatinine Ratio 13 Ratio (12-20); Bilirubin,Total 0.3 mg/dL (0.3-1.2); Blood Urea Nitrogen 35 mg/dL (9-23); Calcium 9.2 mg/dL (8.3-10.6); Calcium (Corrected) 9.9 mg/dL (8.5-10.1); Carbon Dioxide 27.9 mMol/L (20.0-31.0); Chloride 94 mMol/L (98-107); Creatinine (Component) 2.7 mg/dL (0.6-1.3); Estimated Creatinine Clearance 25.1 mL/min (>60); Globulin 2.5 gm/dL (2.3-3.5); Glucose 120 mg/dL (74-106); Osmolality,Calculated 266 (275-295); Sodium 128 mMol/L (136-145); Total Protein 5.6 gm/dL (5.7-8.2); eGFR 24 See Note
[2025-03-16 06:23] LABS: Potassium 6.2 mMol/L (3.4-5.1)
[2025-03-16] MEDS: INSULIN HUM REGULAR 1 UNIT/0.01 ML (PER UNIT) 10 UNIT IV (06:32)
[2025-03-16] MEDS: DEXTROSE 50%-WATER INJ 50 ML SYRINGE IV (06:35)
[2025-03-16 08:51] LABS: Albumin, Serum 3.1 gm/dL (3.4-4.8); Anion Gap 7 (7-16); BUN/Creatinine Ratio 13 Ratio (12-20); Blood Urea Nitrogen 37 mg/dL (9-23); Calcium 8.9 mg/dL (8.3-10.6); Calcium (Corrected) 9.6 mg/dL (8.5-10.1); Carbon Dioxide 27.3 mMol/L (20.0-31.0); Chloride 93 mMol/L (98-107); Creatinine (Component) 2.9 mg/dL (0.6-1.3); Estimated Creatinine Clearance 23.4 mL/min (>60); Glucose 166 mg/dL (74-106); Osmolality,Calculated 267 (275-295); Phosphorous 5.9 mg/dL (2.4-5.1); Potassium 5.6 mMol/L (3.4-5.1); Sodium 127 mMol/L (136-145); eGFR 22 See Note
[2025-03-16] MEDS: APIXABAN 2.5 MG TABLET 5 MG PO ×2 (09:12→20:56)
[2025-03-16] MEDS: FLUCONAZOLE 100 MG TABLET 800 MG PO (09:13)
[2025-03-16] MEDS: predniSONE 20 MG TABLET 40 MG PO ×2 (09:13→20:56)
[2025-03-16] MEDS: PANTOPRAZOLE INJ 40 MG VIAL IVP (09:14)
[2025-03-16] MEDS: DUTASTERIDE 0.5 MG CAPSULE (NON-FORMULARY) PO (09:58)
--- NOTE | 2025-03-16 10:55 | ESPR_ITS ---
<Statement entered by Britt Flynn MD - 03/17/25 16:10> TOTAL CC TIME: 45 MIN I saw and evaluated the patient. I reviewed the resident?s note and agree with findings and plan as documented in the resident?s note. Upon my evaluation, this patient had a high probability of imminent or life- threatening deterioration due to multisystem organ failure which required my direct attention, intervention, and personal management. This time is exclusive of time spent on procedures, which are documented separately if performed. ards very severe and now with refractory hypoxia - likely due to DAD, microemboli and fibroexudative changes. unable to improve his condition - on high dose pressors - systemic perfusion deficits now w/ ATN discussed with Dr. Virk and he felt it was best to change code status to DNR on 03/15. We discussed hemodialysis but also felt this would not be of benefit and too high risk Documentation for date of: 03/16/25 Subjective Subjective Interval history: 74-year-old male with PMH of intellectual disability, deafness, OCD, intermittent explosive disorder, type 2 diabetes, hyperlipidemia, GERD, heart failure EF 35-40 status post ICD, COPD on 2-3 L baseline (never smoker), prostate CA and seizures who was brought to [facility] from his senior care after he was noted to have oxygen desaturations on routine testing with pulse oximeter. Per patient caregiver at bedside and they denied any fever, cough, sick contacts, nausea, vomiting, just increased oxygen requirement. On arrival to the ED patient was requiring 6L O2, rest of vitals within normal limits Chest x-ray showed bilateral patchy infiltrates. Patient was admitted to teemetry due to acute hypoxic respiratory failure for further management. Patient's oxygen requirements have continued to increase, thus ICU was initially consulted on 03/09 at that time on HFNC 40L 100%FiO2, saturating adequately 92%, which is fine for a COPD patient, he doesn't appear in acute distress, no use of accessory muscles. There was new worsening of bilateral infiltrates concerning for ARDS, less likley to be related to heart failure since paitient has no JVD, no LE edema. Recommendations then where to continue antifungal, re-start antibiotics and continue to monitor for signs of decline. 03/12: Rapid response was called around 2:00pm due to patient being tachypneic, increased work of breathing with accessory muscle use. It was determined patient needed to be intubated and admitted to the ICU. We will increase dose of Fluconazole to 800 and we will consider getting an LP to test for disseminated cocci. 03/13: No overnight events patent had good urine output last night, 450 ccs. This morning patient became hypoxic down to the 60s, had to be bagged, during the same time patient's HR increased to the 160s, fluctuating beween 150-110, on the monitor we appreciated bigemini, trigemini, posteriorly just irregular. We gave metoprolol 5 IV push x1 and started amiodarone drip, which brought him back to sinus. MAP dropped under 65, started pressors. We also gave one liter fluid bolus. Urine output posteriorly dropped to 20 cc/hr and has maintained like that throughout the day. Arterial line placed. 03/14: Overnight patient had another hypoxic event, required bagging with improvement. O2 sat has mantained above 90 since. He remains on pressor support. We will continue our goal of pH above 7.25, RR at 24 today. Continue same vent settings: VT400, RR24, PEEP12. We added amphotericin B today,(as kidney function improve, making >40cc hr of urie and creatinine downtrended) leaving fluconazole in as amphotericin doesn't cross the blood brain barrier and we still dont have an LP, we are waiting for >72 hrs to go by after stopping Eliquis. 03/15: No overnight events, however thoughout the morning patient had several episodes of dropping O2, desatting into the low 60s, had to be bagged,patient experienced multiple transient arrythmias, durig periods of significant hypoxia, rythm was intermittently irregular with with heart rates fluctuating between 160s and 100s. Notably the rythm did not display classic features of afib, but was chaotic and disorganized. Patient also developed a fever. Chest x ray doesn't appear worse than previous, we are adding prednisone and antibiotics. Dr Virk was contacted and informed of patient's clinical status and poor prognosis, decision was made to switch code status to DNR/DNI. 03/16: Patient seen and examined in ICU today. Overnight patient had an episode of desaturating to the 60s as he was repositioned. His saturations came back up to 71% once he stabilized however he continues to be on 100% FiO2. Heart rate is in the 100s and he continues to require pressor support with Levophed at 0. 3 9 and vasopressin 0.03. Due to the persistence of his respiratory failure despite treatment with Unasyn and fluconazole we will repeat sputum cultures today. We discontinued the LP and instead will viki continue patient on high- dose fluconazole to treat empirically for his cocci pneumonia. Amphotericin was discontinued. Patient's renal function continues to deteriorate with creatinine climbing to 2.9 with a BUN of 37. Spoke with Dr. Virk about patient's worsening prognosis and he agrees to continue current medical management. Patient remains DNR/DNI. Exam Vital Signs Temp Pulse Resp BP Pulse Ox O2 Del Method O2 Flow Rate 98.3 F 100 26 H 107/47 L 67 L Mechanical Ventilation 30 03/16/25 09:15 03/16/25 10:43 03/15/25 19:04 03/16/25 10:43 03/16/25 10:43 03/16/25 08:00 03/16/25 09:00 FiO2 100 03/16/25 10:43 Narrative Exam Constitutional: Intubated and mechanically ventilated. Head: Normocephalic/Atraumatic Eyes: no conjunctival injection , symmetrical lids. Right pupil is nonreactive. ENMT: Moist Mucous Membranes, No trauma or injury. Neck: Supple to palpation, No JVD CVS: RRR, S1 and S2 present, no murmurs, rubs or gallops . RESP: CTAB, no SOB, no rales, rhonchi or wheezing. No respiratory Distress GI: Normal BS, Nontender/Nondistended. MSK: Full range of motion, No trauma or deformities or masses. Skin: Warm to touch, Dry. No rashes or lesions. No hematomas Neuro: Deferred Psych: (AAO) x 0. Patient withdraws from noxious stimuli weakly. Objective Labs 03/16/25 04:30 03/16/25 07:55 Labs: Laboratory Results - last 24 hr 03/16/25 03/16/25 04:30 07:55 WBC 18.9 H D RBC 3.12 L Hgb 9.3 L Hct 28.4 L MCV 91 MCH 29.8 MCHC 32.7 RDW Std Deviation 49.5 H Plt Count 222 Neut % (Auto) 87 H Lymph % (Auto) 3 L Payette % (Auto) 8 Eos % (Auto) 0 Baso % (Auto) 0 Neut # (Auto) 16.4 H Lymph # (Auto) 0.6 L Payette # (Auto) 1.4 H Eos # (Auto) 0.0 Baso # (Auto) 0.1 Immature Gran # (Auto) 0.34 H Absolute Nucleated RBC 0.00 Immature Gran % 2 H Nucleated RBC % 0 Puncture Site Left Radial ABG pH 7.23 L D ABG pCO2 69 H D ABG pO2 34 L* D ABG HCO3 29 H ABG O2 Saturation 59 L ABG Base Excess 0 Oxygen Liter Flow [employer] N[employer]SE PRACTITIONER FiO2 100 Sodium 128 L 127 L Potassium 6.2 H* D 5.6 H D Chloride 94 L 93 L Carbon Dioxide 27.9 27.3 Anion Gap 6 L 7 BUN 35 H 37 H Creatinine 2.7 H D 2.9 H Estim Creat Clear Calc 25.1 L 23.4 L eGFR 24 L 22 L BUN/Creatinine Ratio 13 13 Glucose 120 H D 166 H Calculated Osmolality 266 L 267 L Calcium 9.2 8.9 Corrected Calcium 9.9 9.6 Phosphorus 5.9 H Total Bilirubin 0.3 AST 61 H ALT 87 H Alkaline Phosphatase 103 Total Protein 5.6 L Albumin 3.1 L 3.1 L Globulin 2.5 Albumin/Globulin Ratio 1.2 ABG Interpretation ABG results: 03/02/25 03/04/25 03/05/25 20:40 09:20 15:30 ABG pH 7.45 7.43 7.44 ABG pCO2 42 46 47 ABG pO2 60 L 77 L 56 L* D ABG HCO3 29 H 31 H 32 H ABG O2 Saturation 92 96 90 L ABG Base Excess 4 H 5 H 7 H VBG pH VBG pCO2 VBG pO2 VBG Base Excess 03/09/25 03/11/25 03/12/25 10:40 14:20 08:06 ABG pH 7.47 H 7.47 H 7.46 H ABG pCO2 41 43 42 ABG pO2 65 L 53 L* 64 L ABG HCO3 30 H 31 H 29 H ABG O2 Saturation 94 88 L 93 ABG Base Excess 6 H 6 H 5 H VBG pH VBG pCO2 VBG pO2 VBG Base Excess 03/12/25 03/12/25 03/13/25 17:44 18:14 04:20 ABG pH 7.37 7.37 ABG pCO2 53 H D 58 H ABG pO2 69 L 63 L ABG HCO3 30 H 33 H ABG O2 Saturation 93 92 ABG Base Excess 4 H 6 H VBG pH 7.39 VBG pCO2 49 VBG pO2 65 H VBG Base Excess 4 H 03/14/25 03/15/25 03/16/25 04:25 04:15 04:30 ABG pH 7.27 L D 7.33 L 7.23 L D ABG pCO2 67 H 59 H 69 H D ABG pO2 70 L 60 L 34 L* D ABG HCO3 30 H 31 H 29 H ABG O2 Saturation 93 91 59 L ABG Base Excess 2 4 H 0 VBG pH VBG pCO2 VBG pO2 VBG Base Excess Quality Measures Quality Measures VTE prophylaxis Advance care planning discussed with:: legal surragate Assessment & Plan Assessment Current Active Medications: Generic Name Dose Route Start Last Admin Trade Name Freq PRN Reason Stop Dose Admin Acetaminophen 650 mg 03/04/25 08:23 03/15/25 12:51 Acetaminophen 325 Mg Tablet PO 04/01/25 17:22 650 mg Q6H PRN Administration Fever >100.3 Amiodarone HCl 200 mg 03/16/25 21:00 Amiodarone Hcl 200 Mg Tablet GT 04/15/25 20:59 BID CHRISTIANO Apixaban 5 mg 03/15/25 21:00 03/16/25 09:12 Apixaban 2.5 Mg Tablet PO 04/14/25 20:59 5 mg BID CHRISTIANO Administration Atorvastatin Calcium 10 mg 03/03/25 21:00 03/15/25 20:42 Atorvastatin Calcium 10 Mg Tablet PO 04/02/25 20:59 10 mg HS CHRISTIANO Administration Fluvoxamine Mal 100 0 ea 03/07/25 20:15 03/15/25 20:43 Mg Tablets PO 04/06/25 20:14 1.5 tablet QDAY@2000 CHRISTIANO Administration Divalproex Sodium 1,000 mg 03/15/25 21:00 03/15/25 20:41 Divalproex Sod Er 250 Mg Moni (Non-Formulary) PO 04/14/25 20:59 1,000 mg HS CHRISTIANO Administration Dutasteride 0.5 mg 03/03/25 09:00 03/16/25 09:58 Dutasteride 0.5 Mg Capsule (Non-Formulary) PO 04/02/25 08:59 0.5 mg QDAY CHRISTIANO Administration Fluconazole 800 mg 03/13/25 10:00 03/16/25 09:13 Fluconazole 100 Mg Tablet PO 03/20/25 09:59 800 mg QDAY CHRISTIANO Administration Fentanyl Citrate 2,500 mcg in 250 mls @ 2.5 mls/hr 03/12/25 16:06 03/16/25 07:00 Sublimaze Inj 2,500 Mcg/250 Ml Bag IV 03/17/25 16:05 125 mcg/hr .Q24H PRN 12.5 mls/hr PER PROTOCOL Titration Protocol 25 MCG/HR Norepinephrine/Dextrose 8 mg in 250 mls @ 7.397 mls/hr 03/13/25 10:36 03/16/25 09:13 Levophed In D5w 8mg/250ml IV 04/12/25 10:35 0.39 mcg/kg/min .Q24H PRN 57.696 mls/hr PER PROTOCOL Administration Protocol 0.05 MCG/KG/MIN Vasopressin/Sodium Chloride 20 unit in 100 mls @ 9 mls/hr 03/15/25 17:05 03/16/25 04:00 Vasostrict/Ns Ivpb IV 04/14/25 17:04 0.03 unit/min .Q11H7M PRN 9 mls/hr PER PROTOCOL Administration Protocol 0.03 UNIT/MIN Epinephrine/Sodium Chloride 4 mg in 250 mls @ 15.675 mls/hr 03/16/25 06:02 Adrenalin/Ns 4 Mg Ivpb IV 04/15/25 06:01 .[id number] PRN per protocol Protocol 0.05 MCG/KG/MIN Ampicillin Sodium/Sulbactam 100 mls @ 200 mls/hr 03/16/25 21:00 Sodium 3 gm/ Sodium Chloride IV 03/22/25 17:59 Q12HR CHRISTIANO Magnesium Hydroxide 30 ml 03/02/25 17:23 Milk Of Magnesia Susp 30 Ml Udc PO 04/01/25 17:22 QDAY PRN CONSTIPATION Protocol Metoprolol Tartrate 12.5 mg 03/13/25 09:30 03/13/25 20:28 Metoprolol Tartrate 25 Mg Tablet PO 04/12/25 09:29 Not Given BID CHRISTIANO Midodrine 5 mg 03/10/25 22:00 03/13/25 05:21 Midodrine 5 Mg Tablet PO 04/08/25 21:59 5 mg TID CHRISTIANO Administration Ondansetron HCl 4 mg 03/02/25 17:23 Ondansetron Inj 2 Mg/Ml Inj 2 Ml IV 04/01/25 17:22 Q6H PRN NAUSEA OR VOMITING Protocol Pantoprazole Sodium 40 mg 03/07/25 11:15 03/16/25 09:14 Pantoprazole Inj 40 Mg Vial IVP 04/06/25 11:14 40 mg QDAY CHRISTIANO Administration Prednisone 40 mg 03/15/25 21:00 03/16/25 09:13 Prednisone 20 Mg Tablet PO 04/14/25 20:59 40 mg BID CHRISTIANO Administration Sodium Chloride 3 ml 03/02/25 12:21 Sodium Chloride Rt Latisha 0.9% 3 Ml Nebu INH 04/01/25 12:20 PRN PRN SOLN Plan 74-year-old male with PMH of intellectual disability, deafness, OCD, intermittent explosive disorder, type 2 diabetes, hyperlipidemia, GERD, heart failure EF 35-40 status post ICD, COPD on 2-3 L baseline (never smoker), prostate CA and seizures who was brought to [facility] from his senior care after he was noted to have oxygen desaturations on routine testing with pulse oximeter. Per patient caregiver at bedside and they denied any fever, cough, sick contacts, nausea, vomiting, just increased oxygen requirement. On arrival to the ED patient was requiring 6L O2, rest of vitals within normal limits Chest x-ray showed bilateral patchy infiltrates. Patient was admitted to teemetry due to acute hypoxic respiratory failure for further management. Patient's oxygen requirements have continued to increase, thus ICU was initially consulted on 03/09 at that time on HFNC 40L 100%FiO2, saturating adequately 92%, which is fine for a COPD patient, he doesn't appear in acute distress, no use of accessory muscles. There was new worsening of bilateral infiltrates concerning for ARDS, less likley to be related to heart failure since paitient has no JVD, no LE edema. Recommendations then where to continue antifungal, re-start antibiotics and continue to monitor for signs of decline. 03/12: Rapid response was called around 2:00pm due to patient being tachypneic, increased work of breathing with accessory muscle use. It was determined patient needed to be intubated and admitted to the ICU. 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 We gave metoprolol 5 IV push x1 and started amiodarone drip, which brought him back to sinus. -03/14: Back in afib, rate controlled, continue amio drip -03/15: patient experienced multiple transient arrythmias, durig periods of significant hypoxia, rythm was intermittently irregular with with heart rates fluctuating between 160s and 100s. Notably the rythm did not display classic features of afib, but was chaotic and disorganized ?03/16: Switch patient's amiodarone 200 via G-tube twice daily. Heart rate remains stable in the 100s. Respiratory #Acute hypoxic respiratory failure -In the setting of severe pulmonary cocci infection -Patient initially on NC 6L, increased oxygen requirement, placed on HFNCfor several days -Increased tachypnea and work of breathing with accessory muscle use, patient intubate don 03/12 -Continue lung protective parameters -Continue Fluconazole 800 -Amphotericin B was discontinued ? Ordered repeat sputum cultures. Renal #DORY?worsening -Patients creatinine increased to 2.9 and BUN to 37, likely in the setting of shock and amphotericin B - Discontinued amphotericin B today. ? Patient does not have any urine output ? Patient is a poor candidate for hemodialysis as he is on 2 pressors ? Will continue to monitor Endocrine -Stable GI -Stable ID #Coccidioidomycosis #Sepsis -Patient's cocci positive, pending confirmatory from [facility] Jared -Fluzonazole dose increased to 800, continuing Unasyn for superimposed bacerial pneumonia ?We wll continue fluconazole as amphotericin doesn't cross the blood brain barrier. We DC'd LP as patient is empirically being treated with high-dose fluconazole and discontinued amphotericin -Unasyn added again, patient spiked a fever during hypoxic event, we will covered for a new superimposed bacterial infection ?Repeated sputum cultures today. Disposition: Patient upgrated to ICU due to AHRF requiring intubation in the setting of ARDS from severe cocci infection Diet and fluids:NPO DVT prophylaxis: Eliquis GI prophylaxis:Pantoprazole CODE STATUS:FULL CODE, transitioned to DNR, after goals of care discussion with Dr Virk, patient's conservator. Beatty:In place Lines:Peripheral, central and a line I discussed patient's care with attending physician, Dr Rina Will PGY3
--- NOTE | 2025-03-16 13:10 | ESPR_ITS ---
Documentation for date of: 03/16/25 Subjective Subjective Interval history: Overnight desatted in the 60s, required multiple attempts of bagging, decision between family and primary team was made to make patient DNR. Continued desatting in the 70s overnight despite 100% FiO2 on MV, unable to tolerate PEEP >12. Continued on multiple pressors, MAP around 65. ABG showing pH 7.23, pCO2 69, CO2 34, O2 29. He had peaked leukocytosis of 18.9, potassium 5.6, CR 2.9, BUN 37, GFR 22, phosphorus 5.9. HR around 102, agree with transitioning to to AMIODARONE 200 mg GT BID. Primary team d/c AMPHOTERACIN and started STEROID, but unfortunately with poor response overall. May benefit from D5W and NS maint given prolonged starvation and worsening function. 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), oral mucosa moist Cardiovascular: regular rate and rhythm, S1/S2 present, no murmurs appreciated Pulmonary: clear to auscultation bilaterally, no rales/rhonchi/wheezes Abdominal: soft, non-tender, non-distended, no rebound/guarding, normal bowel sounds present Musculoskeletal: normal ROM, no peripheral edema Skin: warm and dry, intact, no rashes Objective Labs 03/16/25 04:30 03/16/25 20:58 Labs: Laboratory Results - last 24 hr 03/16/25 03/16/25 04:30 07:55 WBC 18.9 H D RBC 3.12 L Hgb 9.3 L Hct 28.4 L MCV 91 MCH 29.8 MCHC 32.7 RDW Std Deviation 49.5 H Plt Count 222 Neut % (Auto) 87 H Lymph % (Auto) 3 L [place] % (Auto) 8 Eos % (Auto) 0 Baso % (Auto) 0 Neut # (Auto) 16.4 H Lymph # (Auto) 0.6 L [place] # (Auto) 1.4 H Eos # (Auto) 0.0 Baso # (Auto) 0.1 Immature Gran # (Auto) 0.34 H Absolute Nucleated RBC 0.00 Immature Gran % 2 H Nucleated RBC % 0 Puncture Site Left Radial ABG pH 7.23 L D ABG pCO2 69 H D ABG pO2 34 L* D ABG HCO3 29 H ABG O2 Saturation 59 L ABG Base Excess 0 Oxygen Liter Flow RESOLUTION AGENT FiO2 100 Sodium 128 L 127 L Potassium 6.2 H* D 5.6 H D Chloride 94 L 93 L Carbon Dioxide 27.9 27.3 Anion Gap 6 L 7 BUN 35 H 37 H Creatinine 2.7 H D 2.9 H Estim Creat Clear Calc 25.1 L 23.4 L eGFR 24 L 22 L BUN/Creatinine Ratio 13 13 Glucose 120 H D 166 H Calculated Osmolality 266 L 267 L Calcium 9.2 8.9 Corrected Calcium 9.9 9.6 Phosphorus 5.9 H Total Bilirubin 0.3 AST 61 H ALT 87 H Alkaline Phosphatase 103 Total Protein 5.6 L Albumin 3.1 L 3.1 L Globulin 2.5 Albumin/Globulin Ratio 1.2 ABG Interpretation ABG results: 03/02/25 03/04/25 03/05/25 20:40 09:20 15:30 ABG pH 7.45 7.43 7.44 ABG pCO2 42 46 47 ABG pO2 60 L 77 L 56 L* D ABG HCO3 29 H 31 H 32 H ABG O2 Saturation 92 96 90 L ABG Base Excess 4 H 5 H 7 H VBG pH VBG pCO2 VBG pO2 VBG Base Excess 03/09/25 03/11/25 03/12/25 10:40 14:20 08:06 ABG pH 7.47 H 7.47 H 7.46 H ABG pCO2 41 43 42 ABG pO2 65 L 53 L* 64 L ABG HCO3 30 H 31 H 29 H ABG O2 Saturation 94 88 L 93 ABG Base Excess 6 H 6 H 5 H VBG pH VBG pCO2 VBG pO2 VBG Base Excess 03/12/25 03/12/25 03/13/25 17:44 18:14 04:20 ABG pH 7.37 7.37 ABG pCO2 53 H D 58 H ABG pO2 69 L 63 L ABG HCO3 30 H 33 H ABG O2 Saturation 93 92 ABG Base Excess 4 H 6 H VBG pH 7.39 VBG pCO2 49 VBG pO2 65 H VBG Base Excess 4 H 03/14/25 03/15/25 03/16/25 04:25 04:15 04:30 ABG pH 7.27 L D 7.33 L 7.23 L D ABG pCO2 67 H 59 H 69 H D ABG pO2 70 L 60 L 34 L* D ABG HCO3 30 H 31 H 29 H ABG O2 Saturation 93 91 59 L ABG Base Excess 2 4 H 0 VBG pH VBG pCO2 VBG pO2 VBG Base Excess Quality Measures Quality Measures VTE prophylaxis Advance care planning discussed with:: other Assessment & Plan Assessment Current Active Medications: Generic Name Dose Route Start Last Admin Trade Name Freq PRN Reason Stop Dose Admin Acetaminophen 650 mg 03/04/25 08:23 03/15/25 12:51 Acetaminophen 325 Mg Tablet PO 04/01/25 17:22 650 mg Q6H PRN Administration Fever >100.3 Amiodarone HCl 200 mg 03/16/25 21:00 Amiodarone Hcl 200 Mg Tablet GT 04/15/25 20:59 BID CHRISTIANO Apixaban 5 mg 03/15/25 21:00 03/16/25 09:12 Apixaban 2.5 Mg Tablet PO 04/14/25 20:59 5 mg BID CHRISTIANO Administration Atorvastatin Calcium 10 mg 03/03/25 21:00 03/15/25 20:42 Atorvastatin Calcium 10 Mg Tablet PO 04/02/25 20:59 10 mg HS CHRISTIANO Administration Fluvoxamine Mal 100 0 ea 03/07/25 20:15 03/15/25 20:43 Mg Tablets PO 04/06/25 20:14 1.5 tablet QDAY@2000 CHRISTIANO Administration Divalproex Sodium 1,000 mg 03/15/25 21:00 03/15/25 20:41 Divalproex Sod Er 250 Mg Moni (Non-Formulary) PO 04/14/25 20:59 1,000 mg HS CHRISTIANO Administration Dutasteride 0.5 mg 03/03/25 09:00 03/16/25 09:58 Dutasteride 0.5 Mg Capsule (Non-Formulary) PO 04/02/25 08:59 0.5 mg QDAY CHRISTIANO Administration Fluconazole 800 mg 03/13/25 10:00 03/16/25 09:13 Fluconazole 100 Mg Tablet PO 03/20/25 09:59 800 mg QDAY CHRISTIANO Administration Fentanyl Citrate 2,500 mcg in 250 mls @ 2.5 mls/hr 03/12/25 16:06 03/16/25 07:00 Sublimaze Inj 2,500 Mcg/250 Ml Bag IV 03/17/25 16:05 125 mcg/hr .Q24H PRN 12.5 mls/hr PER PROTOCOL Titration Protocol 25 MCG/HR Norepinephrine/Dextrose 8 mg in 250 mls @ 7.397 mls/hr 03/13/25 10:36 03/16/25 09:13 Levophed In D5w 8mg/250ml IV 04/12/25 10:35 0.39 mcg/kg/min .Q24H PRN 57.696 mls/hr PER PROTOCOL Administration Protocol 0.05 MCG/KG/MIN Vasopressin/Sodium Chloride 20 unit in 100 mls @ 9 mls/hr 03/15/25 17:05 03/16/25 04:00 Vasostrict/Ns Ivpb IV 04/14/25 17:04 0.03 unit/min .Q11H7M PRN 9 mls/hr PER PROTOCOL Administration Protocol 0.03 UNIT/MIN Epinephrine/Sodium Chloride 4 mg in 250 mls @ 15.675 mls/hr 03/16/25 06:02 Adrenalin/Ns 4 Mg Ivpb IV 04/15/25 06:01 .[id number] PRN per protocol Protocol 0.05 MCG/KG/MIN Ampicillin Sodium/Sulbactam 100 mls @ 200 mls/hr 03/16/25 21:00 Sodium 3 gm/ Sodium Chloride IV 03/22/25 17:59 Q12HR CHRISTIANO Magnesium Hydroxide 30 ml 03/02/25 17:23 Milk Of Magnesia Susp 30 Ml Udc PO 04/01/25 17:22 QDAY PRN CONSTIPATION Protocol Metoprolol Tartrate 12.5 mg 03/13/25 09:30 03/13/25 20:28 Metoprolol Tartrate 25 Mg Tablet PO 04/12/25 09:29 Not Given BID CHRISTIANO Midodrine 5 mg 03/10/25 22:00 03/13/25 05:21 Midodrine 5 Mg Tablet PO 04/08/25 21:59 5 mg TID CHRISTIANO Administration Ondansetron HCl 4 mg 03/02/25 17:23 Ondansetron Inj 2 Mg/Ml Inj 2 Ml IV 04/01/25 17:22 Q6H PRN NAUSEA OR VOMITING Protocol Pantoprazole Sodium 40 mg 03/07/25 11:15 03/16/25 09:14 Pantoprazole Inj 40 Mg Vial IVP 04/06/25 11:14 40 mg QDAY CHRISTIANO Administration Prednisone 40 mg 03/15/25 21:00 03/16/25 09:13 Prednisone 20 Mg Tablet PO 04/14/25 20:59 40 mg BID CHRISTIANO Administration Sodium Chloride 3 ml 03/02/25 12:21 Sodium Chloride Rt Latisha 0.9% 3 Ml Nebu INH 04/01/25 12:20 PRN PRN SOLN Plan WD Dexter is a 74-year-old male with a past medical history of developmental delay with some mental retardation, mute as well as deaf but able to do few daily ADLs including taking care of himself, diabetes mellitus, hyperlipidemia, OCD, bipolar disorder lives in a senior living was brought into the emergency department for 3 days of hypoxia secondary to pneumonia. Cardiology was originally consulted for possible CHF exacerbation given the hypoxia. 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 Etiology of the hypoxia likely driven due to pneumonia as no signs of decompensated heart failure at this time. Appears euvolemic with no JVD or significant bilateral lower extremity edema noted. CT chest on 03/04 showed severe bilateral pneumonia. Infectious disease following. Cocci IgM came back positive. He has been on FLUCONAZOLE, and received 1 day of AMPHOTERICIN which was discontinued today. On mechanical ventilation, PEEP of 12, unable to tolerate higher PEEP, satting in 68-70, required multiple attempts of bagging yesterday. Remains on multiple pressors, MAP is adequate at 65. Unable to tolerate proning. ? Agree with pressor support, continue ANTIFUNGALS, and STEROIDS (may benefit from pulse steroids) Atrial fibrillation with RVR Patient has history of a-fib with RVR and has been in and out of sinus rhythm per EKGs during hospitalization but was noted to become tachycardic into the 160s on 03/13 that was not responsive to metoprolol IV x 1 and so was started on amiodarone drip. After first bolus, patient converted to NSR with heart rate in the 70s. Labs after starting amiodarone showed elevated LFTs with AST/ALT of 155/167 and previously was 18/44. He was on AMIODARONE drip, HR around 102. ? Hold metoprolol given low blood pressures ? Continue home Eliquis of 5 mg twice daily ? Keep K >4 and magnesium >2 at all times ? On AMIODARONE 200 mg GT BID History HFrEF s/p ICD placement, compensated (EF 35-40%) Nonischemic cardiomyopathy Presented about a year ago due to new onset heart failure. Echocardiogram at that time showed an EF of 35% with multiple regional wall motion abnormality, could be secondary to left bundle branch at that time. Decision was made to place a ICD on 08/2024. Echo this admission on 03/03/2025 showed normal LV size and function, EF 35 to 40%, grade 1 diastolic dysfunction, no RWMAs, normal RV size and function, RVSP 40 to 45 mmHg, mild TR, trivial PI and MR. Currently patient is euvolemic with a BNP less than 20. No troponin elevation. The etiology of the hypoxia seems to be more driven due to the pneumonia rather than an acute HF exacerbation. Patient is warm and dry. No concern at this time for cardiogenic shock. Likely all driven due to respiratory failure at this point. ? Recommend holding diuretics for now ? Can also hold home Entresto given soft BP Hypovolemic hyponatremia Sodium 128 today. Appears hypovolemic, poor urine output. Recommended D5/NS maintenance #History of developmental delay #History of seizures #History of prostate cancer #Normocytic anemia #History of type 2 diabetes ? Management of rest of the medical conditions as per primary team and other consultants Thank you for the opportunity to participate in the patient's care. Case was discussed with attending, Dr. Garcia. Ramon Ayon DO PGYI Attending Provider Attestation/Addendum I have personally seen and examined the patient separately on the above date of service and discussed the plan of care with the resident. I reviewed the resident Dr. Reza Barber consultation progress note and agree with the resident findings and plan in the note above and have also edited the documentation to reflect my findings and plan. Patient well-known to me and follows up with me in the clinic for last 2 years 72-year-old male with a past medical history of developmenta delay, paroxysmal A-fib, severe systolic CHF with an EF of 30 to 35% which did not improve with goal-directed medical therapy status post ICD placement in August 2024, nonischemic cardiomyopathy with normal LHC in 2023, mute as well as deaf but able to perform few ADLs including taking care of himself, IADL dependent, diabetes mellitus, hyperlipidemia, OCD, bipolar disorder presented to the emergency department for further evaluation of hypoxia. 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 He was recommended by the [employer] and [employer] aid [employer] if saturations would not improve and continues to be less than 88% to go to the emergency department. Patient as noted above has developmental delay and mute and deaf and cannot provide any significant history and cover maker has provided the history. He did see me last in the clinic 3 weeks ago at which time his Lasix was increased from 20 mg to 40 mg once daily and he was continued on all his goal-directed medical therapy medications. In the emergency department patient blood pressure was normal at 113/75 mmHg. Saturations were less than 88% on room air and now around 92% on 6 L nasal cannula. Labs showed initially normal WBC but later on increased to 13.4, hemoglobin stable around low 1.8 and platelets were normal. Kidney function was normal. Lactate was normal LFTs were normal. TSH normal and TG 155, cholesterol 183, LDL 127, HDL 27, procalcitonin normal at less than 0.04 EKG showed sinus rhythm with frequent PACs and right bundle branch block along with LVH. Chest x-ray showed significant bilateral pneumonia and questionable vascular congestion. Cardiology was consulted for possible CHF exacerbation given the hypoxia. 1. Acute respiratory failure with unclear etiology-mostly secondary to possible bilateral pneumonia 2. Chronic severe systolic congestive heart failure with an EF of 30 to 35% and patient does not appear to be fluid overloaded. 3. Nonischemic cardiomyopathy status post AICD placement in August 2024 4. Paroxysmal atrial fibrillation Patient seen and examined the bedside and patient is significantly hypoxic and requiring at least 6 L of oxygen via nasal cannula and saturations are only 92%. BNP was less than 20 and he has no peripheral edema. On examination he does not have any kind of JVD. Overall patient appears to be euvolemic or even mildly hypovolemic at the present point of time. Recommend no diuresis at the present point of time and hold Lasix for now. Recommend CT chest for further evaluation of the possible bilateral pneumonia. Patient appears to have possible ARDS from unclear etiology. Recommend aggressive treatment of the hypoxic respiratory failure as per the primary team. Patient is on goal-directed medical therapy with Entresto as well as metoprolol XL as well as Lasix at home all of which can be held except for the metoprolol XL for rate control and also the frequent PACs. Can restart rest of the GDMT at a later point of time then blood pressure is more stable. Prescription opiate elevated to group to date. He does have a history of paroxysmal atrial fibrillation and is on metoprolol XL as well as Eliquis. Continue metoprolol XL. Can hold Eliquis for now if any procedures planned for the patient otherwise can continue anticoagulation. He continues to be in normal sinus rhythm with frequent PACs for now. Keep potassium greater than 4 and magnesium greater than 2.0 at all times. 03/03- 03/10/25 Patient oxygen requirements have increased in the hospital and on high flow oxygen and recommended CT chest. CT chest was completed which showed severe bilateral lung opacities left greater than right consistent with bilateral pneumonia. Mild cardiomegaly but no evidence of any significant vascular congestion. Recommend aggressive treatment of the pneumonia at the present point of time and to hold the diuretics for now. On Zosyn as well as azithromycin for now. 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 ID team following for the fluconazole as well as IV antibiotics. Patient was briefly started on IV steroids by pulmonary for possible autoimmune process which has been discontinued now and agree. Continue antihypertensives if the blood pressure is permissible and Eliquis 5 mg twice daily for anticoagulation if no further procedures are planned. Echo repeated 03/07/2025 and showed moderate LV dysfunction with an EF of 35 to 40%. Normal RV size and function. Rest of the echo findings similar to before. Continue strict input output, daily weights and 2 g sodium diet. 03/13 - 03/15/25 Over the weekend patient FIT adequate at present patient continued to be hypoxic. BiPAP was tried and eventually patient has been intubated Apparently patient did go into atrial fibrillation earlier this morning and patient started on amiodarone drip and converted to sinus rhythm Continue with amiodarone drip for now as patient is not taking p.o. Recommend no amiodarone given his history of lung disease. Patient is ventilator and has high FiO2 requirements and is on 100% is only saturating 94%. Significant bilateral pneumonia with possible ARDS kind of fractures. CT managing the vent. On examination patient appears to be euvolemic and no need of any IV Lasix in the okay to hold the Lasix. Patient is requiring Levophed at the present point of time continue pressor support for presumed septic shock On fluconazole for coccidiomycosis or valley fever with IgM antibody. ID following 03/16/2025: Patient has been not been doing well over the past 2 days. Patient has been on amphotericin B along with high-dose fluconazole and also couple of doses of steroids. Patient oxygenation still has not improved in spite of being FiO2 and actually has been hypoxic to the 60s overnight and has been around 65 to 70% in the last 24 hours. Patient was apparently a pad for more than 3 hours overnight without significant improvement. The evening patient was tried for prone positioning due to rapid desaturations they did not complete it. Primary team did speak to the patient's conservator Dr. Virk and patient was made DNR yesterday. Unfortunate outcome for the patient with severe respiratory failure in spite of all the measures above. Overall patient's looks critical condition and poor prognosis and unlikely to survive. Management of rest of the medical conditions as per primary team and other consultants. Thank you for the consult and allowing me to participate in the care of the patient. Cardiology will continue to follow. Felipe Garcia M.D. Interventional Cardiology
[2025-03-16] MEDS: Norepinephrine/D5W 8mg/250ml 8 MG/250 ML BAG 60.654 MG IV (13:32)
--- NOTE | 2025-03-16 15:58 | PC.SS ---
Update: Patient's code status changed to DNR. Patient remains intubated/sedated. Tube feedings on hold.
[2025-03-16] MEDS: Norepinephrine/D5W 8mg/250ml 8 MG/250 ML BAG 81.366 MG IV (17:20)
[2025-03-16] MEDS: DEXTROSE 5%-0.45% NS 1,000 ML 100 ML IV (19:23)
[2025-03-16] MEDS: Norepinephrine/NS 16mg/250ml 16 MG/250 ML BAG 42.162 MG IV (19:36)
[2025-03-16] MEDS: AMIODARONE HCL 200 MG TABLET GT (20:33)
[2025-03-16] MEDS: FLUVOXAMINE 100 MG PO (20:33)
[2025-03-16] MEDS: DIVALPROEX SOD 125 MG SPRINKLE 500 MG NG (20:55)
[2025-03-16] MEDS: ATORVASTATIN CALCIUM 10 MG TABLET PO (20:56)
[2025-03-16 21:29] LABS: Magnesium 2.3 mg/dL (1.6-2.6); Potassium 5.9 mMol/L (3.4-5.1)
--- NOTE | 2025-03-16 21:30 | PD.DPN ---
Documentation for date of: 03/16/25 Pronouncement Note Date and Time of Date of : 03/16/25 Time of : 21:27 PCOD Preliminary cause of : Respiratory arrest Summary Additional details: Mr. Renteria was pronounced at 9:27 PM on March 16, 2025 following prolonged illness with acute respiratory failure and septic shock in the setting of cocci pneumonia. Patient's oxygen saturations remained low while his ventilator settings are maxed out. Overnight he began to develop tachyarrhythmias with concurrent hypotension so stat potassium and magnesium checks were ordered and patient had emergency titration of Levophed to improve blood pressure but eventually he succumbed to respiratory arrest. No respirations were heard, pupils are fixed and dilated, no palpable pulses, and patient's caregivers were made aware. Attempts were made to turn off patient's pacemaker with a magnet but was unable to be turned off. Additional Data Confirmation of : no pulse, no respirations, no heart sounds and pupils fixed and dilated Family: contacted Attending/PCP notified?: Yes Attending physician: Yonatan Chavarria MD Was code activated?: No Autopsy requested?: No digital forensic examiner notified?: No Organ bank notified?: No Advance directives: No
--- NOTE | 2025-03-16 21:39 | PC.NURSE ---
attempted to call MD Virk on [phone]
--- NOTE | 2025-03-16 21:45 | PC.NURSE ---
MD Virk contacted @ and notified of patient passing
--- NOTE | 2025-03-17 06:51 | DES_ITS ---
<Statement entered by Cecily Riggs MD - 03/17/25 21:34> I attest that I was present for the evaluation, physical examination, lab and imaging review of the patient with the resident. I discussed the case with the resident and agree with the findings and plans of care as documented below. Cecily Riggs MD Documentation for date of: 03/17/25 Summary Date and Time Date of admission: 03/02/25 18:10 Summary Hospital Course: Patient is a 74-year-old male with past medical history of intellectual disability, deafness, OCD, intermittent explosive disorder, type 2 diabetes, hyperlipidemia, GERD, heart failure EF 35 to 40% status post ICD, COPD on 2 to 3 L of oxygen at baseline [never smoke], prostate cancers and seizure disorder who [facility] She patient was initially admitted to the floors as he was found to be in acute hypoxic respiratory failure requiring greater than his baseline oxygen needs. Patient's status worsened throughout his stay and was complicated by concomitant heart failure exacerbation as well as COPD exacerbation. Patient's stay was prolonged as he was hard to wean off of oxygen and on he was upgraded to the ICU as he was tachypneic and work of breathing had greatly increased. His cocci came back positive and there was a concern for disseminated cocci and possible meningeal cocci. During his stay patient unfortunately was unable to weaned off of the ventilator despite optimal medical management and his saturations remained low despite full ventilator support as well as pressor support on at least 2 pressors during his stay in the ICU. Patient's decision-maker was Dr. iVrk as he was on the conservatorship who was kept in the loop and during this stay the decision was made to make the patient DNR/DNI. At around 2100 on the night of 03/16/2025 patient was found to have worsened respiratory failure despite being maxed on the ventilator. Patient developed tachyarrhythmias with concurrent hypotension and emergency titrations of the pressors were initiated and attempts to maintain his MAP however patient subsequently underwent respiratory arrest and time of was called at 2126. 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 Additional Data Attending physician: Yonatan Chavarria MD Visit Providers Provider Primary care physician: Usama Mosqueda MD Consults: 03/02/25 17:38 Consult to Cardiology Routine Comment: Consulting Provider: Felipe Garcia 03/07/25 15:26 Consult to Infectious Diseases Routine Comment: Cocci Consulting Provider: John Vyas 03/09/25 10:15 Consult to Wire Bender Hand Stat Comment: worsening SOB Consulting Provider: Pool Marte 03/10/25 09:53 Referral Speech Therapy Stat Comment: 03/13/25 08:53 Referral Registered Dietitian Stat Comment: Discharge Plan Plan Patient Disposition: Prescriptions/Referrals Referrals: Usama Mosqueda MD [Primary Care Provider] - Patient/Caregiver Discharge Instructions Print Language: Urdu Discharge Order Discharge Orders: Discharge (Routine); Ordered 03/16/25 Ordered By: Kaelyn Willis
== END 2025-03-16 21:27 | disposition expired | DRG 208 ==
LOC: SERX 16:55 → SERHOLD 18:40 → S2NX 20:51 → S2SX 03-12 15:27
PROVIDERS: Internal Medicine Infectious Disease; Student in an Organized Health Care Education/Training Program; Admitting Provider Internal Medicine; Emergency Provider Emergency Medicine; PCP Family Medicine; Visit Provider Internal Medicine
DX: J18.9 Pneumonia, unspecified organism (principal); A41.9 Sepsis, unspecified organism; J96.21 Acute and chronic respiratory failure with hypoxia; R65.21 Severe sepsis with septic shock; J44.0 Chronic obstructive pulmonary disease with (acute) lower respiratory infection; B38.0 Acute pulmonary coccidioidomycosis; E87.1 Hypo-osmolality and hyponatremia; E87.4 Mixed disorder of acid-base balance; I48.92 Unspecified atrial flutter; J44.1 Chronic obstructive pulmonary disease with (acute) exacerbation; N17.9 Acute kidney failure, unspecified; I50.42 Chronic combined systolic (congestive) and diastolic (congestive) heart failure; I42.8 Other cardiomyopathies; I11.0 Hypertensive heart disease with heart failure; H91.3 Deaf nonspeaking, not elsewhere classified; G40.909 Epilepsy, unspecified, not intractable, without status epilepticus; E78.5 Hyperlipidemia, unspecified; N40.0 Benign prostatic hyperplasia without lower urinary tract symptoms; F31.9 Bipolar disorder, unspecified; E11.9 Type 2 diabetes mellitus without complications; F79 Unspecified intellectual disabilities; I48.91 Unspecified atrial fibrillation; K21.9 Gastro-esophageal reflux disease without esophagitis; F42.9 Obsessive-compulsive disorder, unspecified; E86.1 Hypovolemia; I48.0 Paroxysmal atrial fibrillation; D64.9 Anemia, unspecified; F63.81 Intermittent explosive disorder; J84.10 Pulmonary fibrosis, unspecified; K59.00 Constipation, unspecified; Z85.46 Personal history of malignant neoplasm of prostate; Z99.81 Dependence on supplemental oxygen; Z95.810 Presence of automatic (implantable) cardiac defibrillator; Z66 Do not resuscitate; Z79.01 Long term (current) use of anticoagulants; Z79.899 Other long term (current) drug therapy; Z92.3 Personal history of irradiation; R62.50 Unspecified lack of expected normal physiological development in childhood
CPT/HCPCS: 36415; 36600; 71045; 71250; 76999; 80048; 80053; 80061; 80069; 80202; 81001; 82803; 83036; 83605; 83735; 83880; 84132; 84145; 84443; 85025; 86021; 86036; 86038; 86331; 86635; 86703; 86803; 87040; 87081; 87205; 87400; 87449; 87502; 87811; 92610; 93005; 93306; 94002; 94003; 94640; 94644; 94660; 94667; 96365; 96367; 96375; 99291; A9270; J0283; J0287; J0295; J0456; J0696; J1450; J1650; J1815; J1938; J1940; J2250; J2251; J2270; J2470; J2543; J2598; J2919; J3010; J3370; J3475; J3490; J7030; J7042; J7050; J7120; J7512